=== PATIENT | female | born 1990 | race Caucasian/White ===

== ENCOUNTER 2016-09-26 15:06 | Outpatient (CLI) | payer OTHER ==
--- NOTE | 2016-09-26 15:59 | US ---
EXAMINATION TYPE: US OB limited third trimester DATE OF EXAM: 09/26/2016 3:43 PM COMPARISON: See PACS prior ultrasound April 21, 2016 CLINICAL HISTORY: US. Decreased movement, pt states known low ANNY EXAM PERFORMED: Transabdominal (TA) pelvic ultrasound GESTATIONAL AGE / DATING Physician Established: (34 weeks/2 days) EDC: 11/05/2016 No growth performed on today?s study per ordering physician SURVEY ANNY: 4.7 cm Oligohydramnios HEART RATE: 128 bpm RHYTHM: Normal TECHNOLOGIST IMPRESSION: Low ANNY Results given to L&D at time of exam IMPRESSION: Low amniotic fluid index measuring between 4.5 and 4.7 cm is confirmed on images saved.
[2016-09-26 16:17] LABS: Basophils # (A) 0.1 k/uL (0-0.2); Basophils % (A) 1 %; CH 29.6; CHCM 33.1; Eosinophils # (A) 0.1 k/uL (0-0.7); Eosinophils % (A) 1 %; HCT 37.7 % (34.0-46.0); HDW 2.91; HGB 11.8 gm/dL (11.4-16.0); Luc # (Auto) 0.26; Luc % (Auto) 3; Lymphocytes # (A) 2.4 k/uL (1.0-4.8); Lymphocytes % (A) 23 %; MCH 28.2 pg (25.0-35.0); MCHC 31.3 g/dL (31.0-37.0); Mean Platelet Volume 9.7; Monocytes # (A) 0.5 k/uL (0-1.0); Monocytes % (A) 5 %; Neutrophils # (A) 7.2 k/uL (1.3-7.7); Neutrophils % (A) 68 %; RBC 4.19 m/uL (3.80-5.40); RDW 12.5 % (11.5-15.5); WBC 10.5 k/uL (3.8-10.6)
[2016-09-26 16:26] LABS: ALT 44 U/L (9-52); AST 40 U/L (14-36); Blood Urea Nitrogen 8 mg/dL (7-17); LDH 723 U/L (313-618); Non-African American GFR(MDRD) >60 (>60 ml/min/1.73 sqM); Uric Acid 5.5 mg/dL (3.7-7.4)
--- NOTE | 2016-09-26 16:44 | P.HPOB ---
History of Present Illness H&P Date: 09/26/16 Chief Complaint: Intrauterine 34 weeks: Oligohydramnios Kesha is a 26-year-old at 34 weeks gestation. Patient arrived due to decreased movement however baby has been moving well here. She has a history of cholestasis with this and is seen high risk already for this. She also has a known oligohydramnios. Repeat ultrasound done today reveals the fluid volume to be 4. Also her blood pressures since being here even in a reclined position have been elevated. The majority of her blood pressures have been the 140s over 90s. She's had a couple of 150 over 90s and 1 180/87 I'm not sure that that is a true value she did say she was moving her arm a lot right is a were doing the blood pressure. She denies headache she denies epigastric pain she has no other signs or symptoms of preeclampsia. Clamped labs were drawn her AST needle T are slightly elevated. In comparison to May the rectus slightly improved but they are elevated. Her LDH level however is elevated to 723. After discussing possible treatment measures and explaining risks of delivering a baby at 34 weeks at our Hospital where special care is unable to take care of the baby a decision to transfer her to [facility] under Dr. Rios or Rene has been made due to her prematurity and what appears to be worsening either preeclampsia versus gestational hypertension versus some atypical presentation with her cholestasis. This will also serve as a transfer note. Past Medical History Past Medical History: No Reported History Additional Past Medical History / Comment(s): cholelithiasis History of Any Multi-Drug Resistant Organisms: None Reported Additional Past Surgical History / Comment(s): splenectomy Past Psychological History: No Psychological Hx Reported, Anxiety Smoking Status: Never smoker Past Alcohol Use History: None Reported Past Drug Use History: None Reported Medications and Allergies Home Medications Medication Instructions Recorded Confirmed Type Ursodiol [Wolfgang] 250 mg PO Q48H 09/14/16 09/26/16 History Allergies Allergy/AdvReac Type Severity Reaction Status Date / Time No Known Allergies Allergy Verified 09/26/16 15:20 Exam Osteopathic Statement: *. No significant issues noted on an osteopathic structural exam other than those noted in the History and Physical/Consult. - Vital Signs Vital signs: Intake and Output 09/26/16 09/26/16 09/26/16 06:59 14:59 22:59 Other: Weight 91.172 kg Patient Weight 09/27/16 06:59 Weight 91.172 kg Results Result Diagrams: 09/26/16 15:50 09/26/16 15:50 Abnormal Lab Results - Last 24 Hours (Table) 09/26/16 Range/Units 15:50 AST 40 H (14-36) U/L Lactate Dehydrogenase 723 H (313-618) U/L
[2016-09-26 16:51] LABS: Appearance,Urine Cloudy (Clear); Bilirubin,Urine Negative (Negative); Glucose,Urine (UA) Negative (Negative); Ketones,Urine Negative (Negative); Leukocyte Esterase,Urine Large (Negative); Mucus,Urine Rare /hpf; Nitrite,Urine Negative (Negative); PH, Urine 6.5 (5.0-8.0); Particle Count 12246; Protein,Urine Trace (Negative); RBC,Urine 19 /hpf (0-5); Squamous Epithelial Cell,Urine 7 /hpf (0-4); UA Billing (MACRO vs. MICRO) MICRO; WBC,Urine 92 /hpf (0-5)
[2016-09-26] MEDS ORDERED: LACTATED RINGERS 1,000 ML IV SCH (17:00)
[2016-09-26] MEDS ORDERED: BETAMET ACET-BETAMETH SOD PHOS 6 MG/ML VIAL IM SCH (17:30)
== END 2016-09-26 17:56 | disposition critical access hospital (66) ==
LOC: FBPOP 15:06
PROVIDERS: ATTEND Obstetrics & Gynecology
DX: O36.8130 Decreased fetal movements, third trimester, not applicable or unspecified (principal); O41.03X0 Oligohydramnios, third trimester, not applicable or unspecified; Z3A.34 34 weeks gestation of pregnancy
CPT/HCPCS: 59025; 96360; 96372; 82565; 83615; 84450; 84460; 84520; 84550; 85025; 81001; 76815; G0463; J0702; 99214

== ENCOUNTER 2016-10-01 12:03 | Emergency (ER) | payer OTHER ==
[2016-10-01] MEDS ORDERED: SODIUM CHLORIDE 0.9% 1,000 ML IV STA (13:14)
[2016-10-01] MEDS ORDERED: ONDANSETRON 4 MG/2 ML VIAL IVP STA (13:25)
[2016-10-01] MEDS ORDERED: HYDROmorphone 1 MG/ML 1 ML SYRINGE IVP STA (13:25)
--- NOTE | 2016-10-01 13:27 | ED ---
General Adult HPI - General Source: patient, RN notes reviewed Mode of arrival: ambulatory Limitations: no limitations <Mk Voss - Last Filed: 10/01/16 16:06> <Deep Pickard - Last Filed: 10/01/16 22:09> - General Chief complaint: Headache Stated complaint: Headache post epidural Time Seen by Provider: 10/01/16 13:05 - History of Present Illness Initial comments: Patient 26-year-old female status post epidural 2 days, who presents emergency room today with a chief complaint of a headache. She does admit that the headache is worse when she is standing up and moving around. States better when she is laying flat. Does admit that she had this epidural done over at [facility]. She states that she had an intelligence intern performed the epidural. States that it is 3 times altogether. She states she does not feel comfortable going back down was advised by the VISUAL DESIGNER to come here to [facility] today for blood patch. Patient denies any other complaints or symptoms currently. Patient denies any recent fever, chills, shortness of breath , chest pain, back pain, abdominal pain, nausea or vomiting, numbness or tingling, dysuria or hematuria, constipation or diarrhea, headaches or visual changes, or any other complaints. (Mk Voss) - Related Data Home Medications Medication Instructions Recorded Confirmed Ibuprofen [Motrin] 400 - 800 mg PO Q6H PRN 10/01/16 10/01/16 Allergies Allergy/AdvReac Type Severity Reaction Status Date / Time No Known Allergies Allergy Verified 10/01/16 13:37 Review of Systems ROS Other: All systems not noted in ROS Statement are negative. <Mk Voss - Last Filed: 10/01/16 16:06> ROS Other: All systems not noted in ROS Statement are negative. <Deep Pickard - Last Filed: 10/01/16 22:09> ROS Statement: Those systems with pertinent positive or pertinent negative responses have been documented in the HPI. Past Medical History Past Medical History: No Reported History Additional Past Medical History / Comment(s): cholelithiasis History of Any Multi-Drug Resistant Organisms: None Reported Additional Past Surgical History / Comment(s): splenectomy Past Psychological History: Anxiety Smoking Status: Never smoker Past Alcohol Use History: None Reported Past Drug Use History: None Reported <Mk Voss - Last Filed: 10/01/16 16:06> General Exam Limitations: no limitations <Mk Voss - Last Filed: 10/01/16 16:06> <Deep Pickard - Last Filed: 10/01/16 22:09> - General Exam Comments Initial Comments: General: The patient is awake and alert, in no distress, and does not appear acutely ill. Eye: Pupils are equal, round and reactive to light, extra-ocular movements are intact. No nystagmus. There is normal conjunctiva bilaterally. No signs of icterus. Ears, nose, mouth and throat: There are moist mucous membranes and no oral lesions. Neck: The neck is supple, there is no tenderness or JVD. Cardiovascular: There is a regular rate and rhythm. No murmur, rub or gallop is appreciated. Respiratory: Lungs are clear to auscultation, respirations are non-labored, breath sounds are equal. No wheezes, stridor, rales, or rhonchi. Gastrointestinal: Soft, non-distended, non-tender abdomen without masses or organomegaly noted. There is no rebound or guarding present. No CVA tenderness. Bowel sounds are unremarkable. Musculoskeletal: Normal ROM, no tenderness. Strength 5/5. Sensation intact. Pulses equal bilaterally 2+. Neurological: A&O x 3. CN II-XII intact, There are no obvious motor or sensory deficits. Coordination appears grossly intact. Speech is normal. Skin: Skin is warm and dry and no rashes or lesions are noted. Psychiatric: Cooperative, appropriate mood & affect, normal judgment. (Mk Voss) Medical Decision Making <Mk Voss - Last Filed: 10/01/16 16:06> <Deep Pickard - Last Filed: 10/01/16 22:09> - Medical Decision Making Blood patch performed by anesthesia here in the emergency room. Patient feeling well. Will be discharged home. (Mk Voss) I saw this patient in conjunction with the physician child center assistant. I performed independent history and physical exam. Agree with case management. (Deep Pickard) Disposition Time of Disposition: 16:06 <Mk Voss - Last Filed: 10/01/16 16:06> <Deep Pickard - Last Filed: 10/01/16 22:09> Clinical Impression: Post lumbar puncture headache Disposition: HOME SELF-CARE Condition: Good Instructions: Acute Headache (ED) Additional Instructions: Please follow-up with family doctor in the next 2 days of symptoms have not improved. Please return to emergency room if the symptoms increase or worsen or for any other concerns. Referrals: None,Stated [Primary Care Provider] - 1-2 days
[2016-10-01 16:10] VITALS: BP 132/71; PULSE 78; RESP 18; TEMP 97.7
--- NOTE | 2016-10-01 16:13 | P.PCN ---
Date of Procedure: 10/01/16 Procedure(s) Performed: Operation= epidural blood patch. preoperative diagnosis= post dural puncture headache. Post operative diagnoses= post dural puncture headache. Anesthesia= local infiltration with lidocaine 1% 3 mL. Condition= stable. Complications= none. Indication for the procedure= this patient had epidural/spinal a few days ago, and currently patient complaining of severe positional headache, improved with the supine position and increased with the sitting and standing position, and she is diagnosed with post dural puncture headache, there is no focal neurological deficit, no fever,, and no neck stiffness, patient is a good candidate to have epidural blood patch, because the conservative treatment failed, risks and benefits of the procedure discussed with the patient and agreed with proceeding, Description of the procedure= patient in sitting position, back lumbar area prepped with chlorhexidine x3 times then the back draped , then L5 S1 interlaminar space local infiltration of the skin and subcu tissues with lidocaine 1% 3 mL, then 18-gauge Tuohy needle, advanced at the L5-S1 interlaminar space, as positive loss of resistance to normal saline, was no heme and no paresthesia, no cerebrospinal fluid, then after that 20 mL of autologous blood taken under strict sterile technique from the antecubital area was prepped with the chlorhexidine 3 times, and using Angiocath 20 ML of the blood taken from the right antecubital vein under strict sterile technique injected in the epidural space after negative aspiration for heme or cerebrospinal fluid, and there was no paresthesia, and after 15 ML of the blood injected in the epidural space and headache improved, and patient tolerated the procedure well without any complication and patient discharged home after discharge criteria met and patient will follow up with the primary care
== END 2016-10-01 16:14 | disposition home or self-care (01) ==
LOC: EC 12:03
DX: G97.1 Other reaction to spinal and lumbar puncture (principal); Y84.4 Aspiration of fluid as the cause of abnormal reaction of the patient, or of later complication, without mention of misadventure at the time of the procedure; F41.9 Anxiety disorder, unspecified
CPT/HCPCS: 62273; 99284; J2405; J1170

== ENCOUNTER → 2016-11-10 | Outpatient (CLI) | payer OTHER ==
--- NOTE | 2016-11-10 08:50 | US ---
EXAMINATION TYPE: US abdomen complete DATE OF EXAM: 11/10/2016 8:04 AM COMPARISON: 07/17/2016 CLINICAL HISTORY: R10.11 RUQ pain. HX of cholelithiasis, no pain, NPO, Splenectomy in 2008 EXAM MEASUREMENTS: Liver Length: 18.3 cm Gallbladder Wall: 0.2 cm CHD: 0.3 cm Spleen: Surgically absent cm Right Kidney: 10.8 x 4.8 x 4.0 cm Left Kidney: 10.2 x 5.1 x 4.8 cm Pancreas: tail not seen due to overlying bowel gasl Liver: upper limits enlargement Gallbladder: multiple mobile stones Evidence for sonographic López's sign: neg CHD: wnl Spleen: Surgically absent Right Kidney: wnl Left Kidney: wnl Upper IVC: seen Abd Aorta: seen The liver is homogenous but mildly enlarged there is evidence of cholelithiasis without wall thickeni ng or pericholecystic fluid.. The intrahepatic portion of the IVC and proximal abdominal aorta are w ithin normal limits. Common bile duct is unremarkable. The visualized portions of the pancreas are h omogenous. The spleen is surgically absent. Kidneys are symmetric and free of hydronephrosis. No re nal lesions are seen. IMPRESSION: 1. Uncomplicated cholelithiasis. 2. Mild hepatic prominence. 3. Changes of prior splenectomy.
== END | disposition home or self-care (01) ==
LOC: RADUSWWP 07:34
PROVIDERS: ATTEND Family Medicine
DX: O99.619 Diseases of the digestive system complicating pregnancy, unspecified trimester (principal); K80.20 Calculus of gallbladder without cholecystitis without obstruction; Z3A.00 Weeks of gestation of pregnancy not specified
CPT/HCPCS: 76700

== ENCOUNTER → 2017-05-25 | Outpatient (CLI) | payer OTHER ==
[2017-05-25 12:44] LABS: CH 29.2; CHCM 34.4; HCT 33.2 % (34.0-46.0); HDW 2.83; HGB 11.7 gm/dL (11.4-16.0); MCH 29.9 pg (25.0-35.0); MCHC 35.1 g/dL (31.0-37.0); MCV 85.2 fL (80.0-100.0); RBC 3.89 m/uL (3.80-5.40); RDW 13.5 % (11.5-15.5); WBC 15.4 k/uL (3.8-10.6)
[2017-05-25 17:52] LABS: ALT 38 U/L (9-52); AST 32 U/L (14-36); Glucose 72 mg/dL (74-99); Non-African American GFR(MDRD) >60 (>60 ml/min/1.73 sqM)
[2017-05-25 18:17] LABS: Hepatitis B Surface Ag Index 0.06
[2017-05-26 01:01] LABS: Treponemal Ab Non-Reactive (Non-Reactive)
[2017-05-26 05:49] LABS: Toxoplasma Antibody (IgG) <3.0 IU/mL (<7.2)
== END | disposition home or self-care (01) ==
LOC: LABWHC1 12:02
PROVIDERS: ATTEND Obstetrics & Gynecology
DX: O26.812 Pregnancy related exhaustion and fatigue, second trimester (principal); Z3A.00 Weeks of gestation of pregnancy not specified
CPT/HCPCS: 36415; 82239; 82565; 82947; 84450; 84460; 85027; 86762; 86777; 86778; 86780; 86850; 86900; 86901; 87340; 87390

== ENCOUNTER 2017-07-05 21:44 | Outpatient (CLI) | payer OTHER ==
[2017-07-05 22:48] VITALS: BP 121/66; PULSE 75; RESP 16; TEMP 98.4
--- NOTE | 2017-07-06 08:16 | P.MSEPDOC ---
Presenting Problems - Arrival Data Date of Arrival on Unit: 07/05/17 Time of Arrival on Unit: 21:49 Mode of Transport: Ambulatory - Complaint OB-Reason for Admission/Chief Complaint: Vaginal Bleeding Comment: "chunky blood" when wiping after using bathroom. only happened 1 time Medical History - Information : 3 Para: 2 Term: 2 : 0 Abortions: Spontaneous or Elective: 0 Number of Living Children: 2 - Gestational Age Gestational Age by DELMIS (wks/days): 22 Weeks and 6 Days - History Comment: positive for trich last week. flagyl script given then pt has not taken regularly. spec exam today shows copious yellow green vag discharge with small streaks of blood. pt unable to tell me how she has taken flagyl past week and if she takes daily. partner was also given flagyl last week but supposedly finished his. Review of Systems - Review of Systems Constitutional: No problems Breast: No problems ENT: No problems Cardiovascular: No problems Respiratory: No problems Gastrointestinal: No problems Genitourinary: No problems Musculoskeletal: No problems Neurological: No problems Skin: No problems Comment: vag discharge yellow green. Vital Signs - Temperature Temperature: 98.4 F Temperature Source: Oral - Pulse Right Pulse Rate: 75 Pulse Assessment Method: Automatic Cuff - Respirations Respiratory Rate: 16 Oxygen Delivery Method: Room Air - Blood Pressure Right Arm Blood Pressure: 121/66 Blood Pressure Mean: 84 Blood Pressure Source: Automatic Cuff Medical Screen Scoring (Pre) - Cervical Exam Dilation: Exam Deferred - Uterine Contractions Frequency: N/A - Maternal Vital Signs Maternal Temperature: N/A Signs of Preeclampsia: N/A Maternal Respirations: N/A - Maternal Trauma Maternal Trauma: N/A - Assessment Baseline FHR: 150 Position: N/A - Total Score Total Score (Pre): 0 - Level of Risk Level of Risk: N/A Physician Notification (Pre) - Physician Notified Physician Notified Date: 07/05/17 Physician Notified Time: 22:00 Physician/Practitioner Notifed:: Dr Millard New Order Received: Yes - Notification Comment Comment: spec exam and discharge if no bleeding noted . Spec revealed yellow green vag discharge. dr donald per phone. discharge order received Disposition - Disposition OB Disposition: Discharge to home, Written follow up instructions reviewed Discharge Date: 07/05/17 Discharge Time: 22:22 I agree with the RN Medical Screening Exam: Yes Risk & Benefit of care provided described in d/c instruction: Yes Diagnosis: RELATED CONDITIONS, UNSPECIFIED, SECOND TRIMESTER (vaginal bleeding. u/s normal)
== END 2017-07-05 22:30 | disposition home or self-care (01) ==
LOC: FBPOP 21:44
PROVIDERS: ATTEND Obstetrics & Gynecology
DX: O26.92 Pregnancy related conditions, unspecified, second trimester (principal); Z3A.22 22 weeks gestation of pregnancy
CPT/HCPCS: 99213

== ENCOUNTER → 2017-08-10 | Outpatient (CLI) | payer OTHER ==
[2017-08-10 10:43] LABS: CH 27.9; CHCM 32.3; HCT 33.4 % (34.0-46.0); HDW 2.99; HGB 10.9 gm/dL (11.4-16.0); Hypochromasia Slight; MCH 28.3 pg (25.0-35.0); MCHC 32.5 g/dL (31.0-37.0); MCV 86.9 fL (80.0-100.0); Mean Platelet Volume 9.5; RBC 3.85 m/uL (3.80-5.40); RDW 13.1 % (11.5-15.5); WBC 14.7 k/uL (3.8-10.6)
== END | disposition home or self-care (01) ==
LOC: LABWHC1 09:20
PROVIDERS: ATTEND Obstetrics & Gynecology
DX: Z34.82 Encounter for supervision of other normal pregnancy, second trimester (principal); Z3A.00 Weeks of gestation of pregnancy not specified
CPT/HCPCS: 36415; 82950; 85027

== ENCOUNTER 2018-04-30 08:48 | Emergency (ER) | payer OTHER ==
[2018-04-30 09:59] VITALS: RESP 20
[2018-04-30 10:07] LABS: Basophils # (A) 0.1 k/uL (0-0.2); Basophils % (A) 1 %; Eosinophils # (A) 0.3 k/uL (0-0.7); Eosinophils % (A) 4 %; HCT 43.2 % (34.0-46.0); HGB 13.9 gm/dL (11.4-16.0); Lymphocytes % (A) 27 %; MCH 26.3 pg (25.0-35.0); MCHC 32.1 g/dL (31.0-37.0); Mean Platelet Volume 7.4; Monocytes # (A) 0.4 k/uL (0-1.0); Monocytes % (A) 6 %; Neutrophils # (A) 4.6 k/uL (1.3-7.7); Neutrophils % (A) 61 %; Platelet Count 473 k/uL (150-450); RBC 5.27 m/uL (3.80-5.40); RDW 14.1 % (11.5-15.5); WBC 7.6 k/uL (3.8-10.6)
[2018-04-30 10:12] LABS: Appearance,Urine Cloudy (Clear); Bilirubin,Urine Negative (Negative); Blood,Urine Large (Negative); Color,Urine Yellow; Glucose,Urine (UA) Negative (Negative); Ketones,Urine Negative (Negative); Leukocyte Esterase,Urine Moderate (Negative); Mucus,Urine Rare /hpf; Nitrite,Urine Negative (Negative); PH, Urine 5.5 (5.0-8.0); Protein,Urine Trace (Negative); RBC,Urine >182 /hpf (0-5); Specific Gravity,Urine 1.022 (1.001-1.035); Squamous Epithelial Cell,Urine 3 /hpf (0-4); WBC,Urine 14 /hpf (0-5)
[2018-04-30 10:20] LABS: ALT 226 U/L (9-52); AST 152 U/L (14-36); Albumin 4.6 g/dL (3.5-5.0); Alkaline Phosphatase 239 U/L (38-126); Amylase 74 U/L (30-110); Anion Gap 10 mmol/L; Blood Urea Nitrogen 15 mg/dL (7-17); Carbon Dioxide 31 mmol/L (22-30); Chloride 101 mmol/L (98-107); Glucose 87 mg/dL (74-99); Lipase 128 U/L (23-300); Sodium 142 mmol/L (137-145); Total Bilirubin 0.9 mg/dL (0.2-1.3); Total Protein 8.5 g/dL (6.3-8.2)
--- NOTE | 2018-04-30 11:39 | US ---
EXAMINATION TYPE: US abdomen limited DATE OF EXAM: 04/30/2018 COMPARISON: Previous study dated 11/10/2016. CLINICAL HISTORY: Pain. EXAM MEASUREMENTS: Liver Length: 18.1 cm Gallbladder Wall: 0.2 cm CBD: 0.3 cm Right Kidney: 11.3 x 3.5 x 5.4 cm Limited due to bowel gas. Pancreas: Obscured by bowel gas Liver: Measures upper limits of normal Gallbladder: 2 large cholelithiasis noted Evidence for sonographic López's sign: No CBD: wnl Right Kidney: wnl The pancreas is poorly visualized. The liver is prominent measuring 18 cm. There is no biliary dilatation. There are 2 large gallstones within the gallbladder. The gallbladder wall measures 2 mm. The distal c ommon hepatic duct measures 3 mm. There is no sonographic López's sign. The right kidney is unremarkable. IMPRESSION: CHOLELITHIASIS.
--- NOTE | 2018-04-30 12:07 | ED ---
General Adult HPI - General Chief complaint: Abdominal Pain Stated complaint: abd pain Time Seen by Provider: 04/30/18 08:58 Source: patient, RN notes reviewed Mode of arrival: ambulatory Limitations: no limitations - History of Present Illness Initial comments: Patient is a 28-year-old female presented to the emergency room today with a chief complaint of a fullness sensation to the upper abdomen. She does admit that it's been ongoing over the last few weeks. States seems to be worse at night when she is trying to go to bed. Patient does admit at times with after eating certain foods she's noticed that she's had some symptoms of nausea and discomfort. Patient does admit that she was told the past that she had a history of gallstones. Patient also noticed some itching. Patient denies any other complaints or symptoms currently. Patient denies any recent fever, chills , shortness of breath, chest pain, back pain, vomiting, headaches or visual changes, or any other complaints. - Related Data Home Medications Medication Instructions Recorded Confirmed Ursodiol [Actigall] 300 mg PO QID 07/05/17 07/05/17 hydrOXYzine HCL [Atarax] 25 mg PO TID 07/05/17 07/05/17 Pnv,Calcium 72/Iron/Folic Acid 1 tab PO DAILY 09/15/17 09/15/17 [ Plus Tablet] Allergies Allergy/AdvReac Type Severity Reaction Status Date / Time No Known Allergies Allergy Verified 04/30/18 08:51 Review of Systems ROS Statement: Those systems with pertinent positive or pertinent negative responses have been documented in the HPI. ROS Other: All systems not noted in ROS Statement are negative. Past Medical History Past Medical History: No Reported History Additional Past Medical History / Comment(s): cholestasis of History of Any Multi-Drug Resistant Organisms: None Reported Additional Past Surgical History / Comment(s): splenectomy Past Psychological History: Anxiety Smoking Status: Never smoker Past Alcohol Use History: None Reported Past Drug Use History: None Reported General Exam - General Exam Comments Initial Comments: General: The patient is awake and alert, in no distress, and does not appear acutely ill. Eye: extra-ocular movements are intact. No nystagmus. There is normal conjunctiva bilaterally. No signs of icterus. Ears, nose, mouth and throat: There are moist mucous membranes and no oral lesions. Neck: The neck is supple, there is no tenderness or JVD. Cardiovascular: There is a regular rate and rhythm. No murmur, rub or gallop is appreciated. Respiratory: Lungs are clear to auscultation, respirations are non-labored, breath sounds are equal. No wheezes, stridor, rales, or rhonchi. Gastrointestinal: Mild discomfort in epigastric. No tenderness in upper and lower quadrants. No rebound, guarding or CVA tenderness. Musculoskeletal: Normal ROM, no tenderness. Sensation intact. Pulses equal bilaterally 2+. Neurological: A&O x 3. CN II-XII intact, There are no obvious motor or sensory deficits. Coordination appears grossly intact. Speech is normal. Skin: Skin is warm and dry and no rashes or lesions are noted. Psychiatric: Cooperative, appropriate mood & affect, normal judgment. Limitations: no limitations Course Vital Signs 04/30/18 08:49 Temperature 98.4 F Pulse Rate 67 Respiratory 20 Rate Blood Pressure 110/72 O2 Sat by Pulse 98 Oximetry Medical Decision Making - Medical Decision Making Patient's ultrasound does show evidence of a physis without any evidence of cholecystitis. Patient's labs been reviewed and does show elevated liver enzymes. Compared to old. Patient resting with this time. Abdomen soft on palpation. She is advised following up with family physician and GI. Advised return if symptoms increase or worsen - Lab Data Result diagrams: 04/30/18 09:57 04/30/18 09:57 Lab Results 04/30/18 04/30/18 04/30/18 Range/Units 09:53 09:53 09:57 WBC (3.8-10.6) k/uL RBC (3.80-5.40) m/uL Hgb (11.4-16.0) gm/dL Hct (34.0-46.0) % MCV (80.0-100.0) fL MCH (25.0-35.0) pg MCHC (31.0-37.0) g/dL RDW (11.5-15.5) % Plt Count (150-450) k/uL Neutrophils % % Lymphocytes % % Monocytes % % Eosinophils % % Basophils % % Neutrophils # (1.3-7.7) k/uL Lymphocytes # (1.0-4.8) k/uL Monocytes # (0-1.0) k/uL Eosinophils # (0-0.7) k/uL Basophils # (0-0.2) k/uL Sodium 142 (137-145) mmol/L Potassium 4.0 (3.5-5.1) mmol/L Chloride 101 (98-107) mmol/L Carbon Dioxide 31 H (22-30) mmol/L Anion Gap 10 mmol/L BUN 15 (7-17) mg/dL Creatinine 0.77 (0.52-1.04) mg/dL Est GFR (CKD-EPI)AfAm >90 (>60 ml/min/1.73 sqM) Est GFR (CKD-EPI)NonAf >90 (>60 ml/min/1.73 sqM) Glucose 87 (74-99) mg/dL Calcium 10.0 (8.4-10.2) mg/dL Total Bilirubin 0.9 (0.2-1.3) mg/dL AST 152 H (14-36) U/L ALT 226 H (9-52) U/L Alkaline Phosphatase 239 H (38-126) U/L Total Protein 8.5 H (6.3-8.2) g/dL Albumin 4.6 (3.5-5.0) g/dL Amylase 74 (30-110) U/L Lipase 128 (23-300) U/L Urine Color Yellow Urine Appearance Cloudy H (Clear) Urine pH 5.5 (5.0-8.0) Ur Specific Reserve 1.022 (1.001-1.035) Urine Protein Trace H (Negative) Urine Glucose (UA) Negative (Negative) Urine Ketones Negative (Negative) Urine Blood Large H (Negative) Urine Nitrite Negative (Negative) Urine Bilirubin Negative (Negative) Urine Urobilinogen 2.0 (<2.0) mg/dL Ur Leukocyte Esterase Moderate H (Negative) Urine RBC >182 H (0-5) /hpf Urine WBC 14 H (0-5) /hpf Ur Squamous Epith Cells 3 (0-4) /hpf Urine Mucus Rare H (None) /hpf Urine HCG, Qual Not Detected (Not Detectd) 04/30/18 Range/Units 09:57 WBC 7.6 (3.8-10.6) k/uL RBC 5.27 (3.80-5.40) m/uL Hgb 13.9 (11.4-16.0) gm/dL Hct 43.2 (34.0-46.0) % MCV 82.0 (80.0-100.0) fL MCH 26.3 (25.0-35.0) pg MCHC 32.1 (31.0-37.0) g/dL RDW 14.1 (11.5-15.5) % Plt Count 473 H (150-450) k/uL Neutrophils % 61 % Lymphocytes % 27 % Monocytes % 6 % Eosinophils % 4 % Basophils % 1 % Neutrophils # 4.6 (1.3-7.7) k/uL Lymphocytes # 2.0 (1.0-4.8) k/uL Monocytes # 0.4 (0-1.0) k/uL Eosinophils # 0.3 (0-0.7) k/uL Basophils # 0.1 (0-0.2) k/uL Sodium (137-145) mmol/L Potassium (3.5-5.1) mmol/L Chloride (98-107) mmol/L Carbon Dioxide (22-30) mmol/L Anion Gap mmol/L BUN (7-17) mg/dL Creatinine (0.52-1.04) mg/dL Est GFR (CKD-EPI)AfAm (>60 ml/min/1.73 sqM) Est GFR (CKD-EPI)NonAf (>60 ml/min/1.73 sqM) Glucose (74-99) mg/dL Calcium (8.4-10.2) mg/dL Total Bilirubin (0.2-1.3) mg/dL AST (14-36) U/L ALT (9-52) U/L Alkaline Phosphatase (38-126) U/L Total Protein (6.3-8.2) g/dL Albumin (3.5-5.0) g/dL Amylase (30-110) U/L Lipase (23-300) U/L Urine Color Urine Appearance (Clear) Urine pH (5.0-8.0) Ur Specific Reserve (1.001-1.035) Urine Protein (Negative) Urine Glucose (UA) (Negative) Urine Ketones (Negative) Urine Blood (Negative) Urine Nitrite (Negative) Urine Bilirubin (Negative) Urine Urobilinogen (<2.0) mg/dL Ur Leukocyte Esterase (Negative) Urine RBC (0-5) /hpf Urine WBC (0-5) /hpf Ur Squamous Epith Cells (0-4) /hpf Urine Mucus (None) /hpf Urine HCG, Qual (Not Detectd) Disposition Clinical Impression: Elevated liver enzymes, Abdominal pain Disposition: HOME SELF-CARE Condition: Good Instructions: Abdominal Pain (ED) Additional Instructions: Please follow-up with GI/family doctor in the next 2 days of symptoms have not improved. Please return to emergency room if the symptoms increase or worsen or for any other concerns. Is patient prescribed a controlled substance at d/c from ED?: No Referrals: Rufino Elmroe DO [Primary Care Provider] - 1-2 days Kaz Joseph MD [STAFF PHYSICIAN] - 1-2 days Time of Disposition: 12:06
[2018-04-30 12:26] VITALS: BP 124/82; PULSE 78; TEMP 98
== END 2018-04-30 12:26 | disposition home or self-care (01) ==
LOC: EC 08:48
DX: R74.8 Abnormal levels of other serum enzymes (principal); R10.10 Upper abdominal pain, unspecified; R11.0 Nausea; L29.9 Pruritus, unspecified; R19.8 Other specified symptoms and signs involving the digestive system and abdomen; F41.9 Anxiety disorder, unspecified; Z79.899 Other long term (current) drug therapy; Z90.81 Acquired absence of spleen
CPT/HCPCS: 36415; 76705; 80053; 81001; 81025; 82150; 83690; 85025; 99284

== ENCOUNTER 2018-07-04 01:16 | Emergency (ER) | payer OTHER ==
[2018-07-04 01:22] VITALS: TEMP 98.4
[2018-07-04] MEDS ORDERED: SODIUM CHLORIDE 0.9% 2,000 ML IV ONE (01:24)
[2018-07-04] MEDS ORDERED: ONDANSETRON 4 MG/2 ML VIAL IVP STA (01:24)
--- NOTE | 2018-07-04 03:00 | ED ---
General Adult HPI - General Chief complaint: Psychiatric Symptoms Stated complaint: mental health Time Seen by Provider: 07/04/18 01:24 Source: patient, EMS Mode of arrival: EMS Limitations: no limitations - History of Present Illness Initial comments: Kesha is a 28-year-old female who presents to the emergency department today for evaluation of feeling unwell, nausea, vomiting and agitation. Patient reports that she ate half of a marijuana edible gummy approximately 2 hours prior, in the past 30 minutes she's developed some nausea, agitation and states she doesn't feel like herself. Patient did report to EMS and nursing staff that she felt aggressive towards others. She vomited multiple times prior to my evaluation. Upon my evaluation the patient reported that she was feeling better, she still didn't feel like herself and didn't like the way that she felt. She denied any thoughts of self-harm or harming others. She did admit to feeling agitated and aggressive earlier but states that this was because she couldn't express how she is feeling otherwise. Patient is no psychiatric history. Patient denies having used recreational marijuana in the past. Patient states that this is the first time she has used edible marijuana. - Related Data Home Medications Medication Instructions Recorded Confirmed Ursodiol [Actigall] 300 mg PO QID 07/05/17 07/05/17 hydrOXYzine HCL [Atarax] 25 mg PO TID 07/05/17 07/05/17 Pnv,Calcium 72/Iron/Folic Acid 1 tab PO DAILY 09/15/17 09/15/17 [ Plus Tablet] Allergies Allergy/AdvReac Type Severity Reaction Status Date / Time No Known Allergies Allergy Verified 04/30/18 08:51 Review of Systems ROS Statement: Those systems with pertinent positive or pertinent negative responses have been documented in the HPI. ROS Other: All systems not noted in ROS Statement are negative. Past Medical History Past Medical History: No Reported History Additional Past Medical History / Comment(s): cholestasis of History of Any Multi-Drug Resistant Organisms: None Reported Past Surgical History: Tonsillectomy Additional Past Surgical History / Comment(s): splenectomy Past Psychological History: Anxiety Smoking Status: Never smoker Past Alcohol Use History: None Reported Past Drug Use History: Marijuana General Exam - General Exam Comments Initial Comments: Physical Exam GENERAL: Patient appears sleepy but is arousable HENT: Normocephalic, Atraumatic. EYES: PERRL, EOMI PULMONARY: Unlabored respirations. No audible rales rhonchi or wheezing was noted. CARDIOVASCULAR: There is a regular rate and rhythm without any murmurs gallops or rubs. ABDOMEN: Soft and nontender with normal bowel sounds. SKIN: Skin is clear with no lesions or rashes and otherwise unremarkable. : Deferred NEUROLOGIC: Patient is alert and oriented x3. Moving all extremities spontaneously MUSCULOSKELETAL: Normal extremities with adequate strength and full range of motion. No lower extremity swelling or edema. No calf tenderness. PSYCHIATRIC: Irritated but denies suicidal or homicidal ideations, not delusional, not hallucinating Limitations: no limitations Limitations: no limitations Course Vital Signs 07/04/18 07/04/18 01:18 03:17 Temperature 98.4 F Pulse Rate 129 H 63 Respiratory 19 18 Rate Blood Pressure 130/77 110/68 O2 Sat by Pulse 99 98 Oximetry - Reevaluation(s) Reevaluation #1: She was reevaluated, reports she is feeling much better. Patient continues to deny any suicidal, homicidal ideations. 07/04/18 05:17 EKG Findings - EKG Comments: EKG Findings:: EKG obtained at 2:46 AM, rate is 68, rhythm is sinus there is normal axis, normal intervals, CT is 152, QRS is 98, QTC is 457. There is no acute ST elevations or depressions no evidence of acute ischemia infarction. No QTC prolongation Medical Decision Making - Medical Decision Making The patient was seen and evaluated, history is obtained from patient and EMS Patient reports she does not usually use drugs, tried a marijuana edible today, became very agitated and felt that she wasn't in control of herself. Patient reported feeling aggressive because she felt out of body. In addition she had nausea and vomiting was tachycardic on arrival EKG was ordered, no QT prolongation, Zofran was given Patient rested comfortably for 3-1/2 hours. Upon reevaluation the patient reports feeling much better, denies any homicidal or suicidal ideations denies any hallucinations or delusions, denies any intention to harm anybody. Refrain from marijuana was advised and the patient was discharged home in stable condition. Disposition Clinical Impression: Intoxication with marijuana Disposition: HOME SELF-CARE Instructions: Cannabis Abuse (ED) Is patient prescribed a controlled substance at d/c from ED?: No Referrals: Rufino Elmore, [Primary Care Provider] - 1-2 days
[2018-07-04 03:18] VITALS: BP 110/68; PULSE 63; RESP 18
== END 2018-07-04 05:26 | disposition home or self-care (01) ==
LOC: EC 01:16
DX: F12.929 Cannabis use, unspecified with intoxication, unspecified (principal); R45.1 Restlessness and agitation; R11.2 Nausea with vomiting, unspecified; F41.9 Anxiety disorder, unspecified; Z79.899 Other long term (current) drug therapy
CPT/HCPCS: 93005; 99285; 96374; 96361; J2405

== ENCOUNTER 2018-08-25 17:42 | Emergency (ER) | payer OTHER ==
[2018-08-25 17:52] VITALS: TEMP 97.7
[2018-08-25] MEDS ORDERED: diphenhydrAMINE 50 MG CAP PO STA (18:31)
--- NOTE | 2018-08-25 18:49 | ED ---
SOB HPI - General Chief Complaint: Shortness of Breath Stated Complaint: CHESTER, BLURRED VISION, FATIQUE, POSS MED REACTION Time Seen by Provider: 08/25/18 18:02 Source: patient Mode of arrival: ambulatory Limitations: no limitations - History of Present Illness Initial Comments: 28-year-old female patient presents to the emergency department today for evaluation for possible side effects from her new antipsychotic medication. Patient states that she started taking the medication about a week to 2 weeks ago. States that she started to feel very fatigued, dizzy, and felt like she is having trouble breathing. Patient states she feels like her throat is closing. States that she is swallowing without difficulty. She denies any rash or itching. States that she did call her doctor but can't get in to see her for another week. She denies taking any medication to help with her symptoms. States her last dose of the medication was last evening. She denies any cough, nasal congestion, or sore throat. She denies any hematuria, dysuria , urinary frequency, urinary urgency. She is unsure if she maybe . Patient denies any recent fever, chills, chest pain, abdominal pain, nausea, vomiting, diarrhea, constipation, back pain, numbness, tingling, headache, visual changes, or any other complaints. - Related Data Home Medications Medication Instructions Recorded Confirmed Aviane 1 tab PO DAILY 08/25/18 08/25/18 Cariprazine HCl [Vraylar] 3 mg PO HS 08/25/18 08/25/18 Levothyroxine Sodium [Synthroid] 25 mcg PO DAILY 08/25/18 08/25/18 Previous Rx's Medication Instructions Recorded ALPRAZolam [Xanax] 0.5 mg PO TID PRN #9 tablet 08/25/18 Allergies Allergy/AdvReac Type Severity Reaction Status Date / Time No Known Allergies Allergy Verified 08/25/18 18:53 Review of Systems ROS Statement: Those systems with pertinent positive or pertinent negative responses have been documented in the HPI. ROS Other: All systems not noted in ROS Statement are negative. Past Medical History Past Medical History: No Reported History Additional Past Medical History / Comment(s): cholestasis of History of Any Multi-Drug Resistant Organisms: None Reported Past Surgical History: Tonsillectomy Additional Past Surgical History / Comment(s): splenectomy Past Psychological History: Anxiety Smoking Status: Never smoker Past Alcohol Use History: None Reported Past Drug Use History: Marijuana General Exam Limitations: no limitations General appearance: alert, in no apparent distress, other (This is a well- developed, well-nourished adult female patient in no acute distress. Vital signs upon presentation are temperature 97.7F, pulse 89, respirations 16, blood pressure 121/85, pulse ox 100% on room air.) Eye exam: Present: normal appearance, PERRL, EOMI. Absent: scleral icterus, conjunctival injection, nystagmus, periorbital swelling ENT exam: Present: normal exam, normal oropharynx, mucous membranes moist Respiratory exam: Present: normal lung sounds bilaterally, other (Able to speak full sentences without difficulty). Absent: respiratory distress, wheezes, rales, rhonchi, stridor Cardiovascular Exam: Present: regular rate, normal rhythm, normal heart sounds. Absent: systolic murmur, diastolic murmur, rubs, gallop, clicks GI/Abdominal exam: Present: soft, normal bowel sounds. Absent: distended, tenderness, guarding, rebound, rigid Neurological exam: Present: alert, oriented X3, CN II-XII intact, other ( Strength in all 4 extremities is 5/5.) Psychiatric exam: Present: normal mood, flat affect Skin exam: Present: warm, dry, intact, normal color. Absent: rash Course Vital Signs 08/25/18 08/25/18 08/25/18 17:49 18:40 19:36 Temperature 97.7 F Pulse Rate 89 69 Respiratory 16 20 18 Rate Blood Pressure 121/85 139/94 O2 Sat by Pulse 100 99 Oximetry Medical Decision Making - Medical Decision Making 28-year-old female patient presents to the emergency department today for side effects related to starting a new antipsychotic medication. She reports feeling fatigued, dizzy, and short of breath. Physical examination is unremarkable. Lungs are clear to auscultation with good air movement. Patient is speaking and swallowing without difficulty. She is neurologically intact. Patient started taking Vraylar about one week ago. States symptoms started after beginning the medication. Patient is not . Urinalysis negative. Patient was given Benadryl here in the emergency department. She is advised to stop taking this medication. She'll be given Xanax to control symptoms of anxiety until she is able to follow-up with her doctor. Return parameters were discussed in detail. She verbalizes understanding and agrees with this plan. - Lab Data Lab Results 08/25/18 08/25/18 Range/Units 18:25 18:25 Urine Color Yellow Urine Appearance Cloudy H (Clear) Urine pH 6.0 (5.0-8.0) Ur Specific [place] 1.017 (1.001-1.035) Urine Protein Negative (Negative) Urine Glucose (UA) Negative (Negative) Urine Ketones Negative (Negative) Urine Blood Negative (Negative) Urine Nitrite Negative (Negative) Urine Bilirubin Negative (Negative) Urine Urobilinogen <2.0 (<2.0) mg/dL Ur Leukocyte Esterase Large H (Negative) Urine RBC 1 (0-5) /hpf Urine WBC 6 H (0-5) /hpf Ur Squamous Epith Cells 14 H (0-4) /hpf Urine Bacteria Occasional H (None) /hpf Urine Mucus Rare H (None) /hpf Urine HCG, Qual Not Detected (Not Detectd) Urine Opiates Screen Not Detected (NotDetected) Ur Oxycodone Screen Not Detected (NotDetected) Urine Methadone Screen Not Detected (NotDetected) Ur Propoxyphene Screen Not Detected (NotDetected) Ur Barbiturates Screen Not Detected (NotDetected) U Tricyclic Antidepress Not Detected (NotDetected) Ur Phencyclidine Scrn Not Detected (NotDetected) Ur Amphetamines Screen Not Detected (NotDetected) U Methamphetamines Scrn Not Detected (NotDetected) U Benzodiazepines Scrn Not Detected (NotDetected) Urine Cocaine Screen Not Detected (NotDetected) U Marijuana (THC) Screen Not Detected (NotDetected) Disposition Clinical Impression: Medication reaction Disposition: HOME SELF-CARE Condition: Good Instructions: Dizziness (ED), Fatigue (ED), Shortness of Breath (ED) Additional Instructions: Take benadryl as needed for symptom relief. Stop taking the medication. Use xanax as needed for anxiety. Follow up with your primary care physician for recheck in 1-2 days. Return immediately for new, worsening, or concerning symptoms. Prescriptions: ALPRAZolam [Xanax] 0.5 mg PO TID PRN #9 tablet PRN Reason: Anxiety Is patient prescribed a controlled substance at d/c from ED?: No Referrals: Rufino Elmore DO [Primary Care Provider] - 1-2 days Time of Disposition: 19:10
[2018-08-25 18:53] LABS: Appearance,Urine Cloudy (Clear); Bacteria,Urine Occasional /hpf; Bilirubin,Urine Negative (Negative); Blood,Urine Negative (Negative); Color,Urine Yellow; Glucose,Urine (UA) Negative (Negative); Ketones,Urine Negative (Negative); Leukocyte Esterase,Urine Large (Negative); Mucus,Urine Rare /hpf; Nitrite,Urine Negative (Negative); Protein,Urine Negative (Negative); RBC,Urine 1 /hpf (0-5); Specific Gravity,Urine 1.017 (1.001-1.035); Squamous Epithelial Cell,Urine 14 /hpf (0-4); Urobilinogen,Urine <2.0 mg/dL (<2.0); WBC,Urine 6 /hpf (0-5)
[2018-08-25 19:00] LABS: Amphetamine Screen,Urine Not Detected (NotDetected); Barbiturate Screen,Urine Not Detected (NotDetected); Benzodiazepines Screen,Urine Not Detected (NotDetected); Cocaine Screen,Urine Not Detected (NotDetected); Methadone Screen, Urine Not Detected (NotDetected); Opiate Screen,Urine Not Detected (NotDetected); Oxycodone Screen, Urine Not Detected (NotDetected); Phencyclidine Screen,Urine Not Detected (NotDetected); Tricyclic Antidepressant,Urine Not Detected (NotDetected); Urn Cannabinoid Scrn Not Detected (NotDetected)
[2018-08-25 19:36] VITALS: BP 139/94; PULSE 69; RESP 18
== END 2018-08-25 19:36 | disposition home or self-care (01) ==
LOC: EC 17:42
DX: R06.02 Shortness of breath (principal); R42 Dizziness and giddiness; R53.83 Other fatigue; T43.505A Adverse effect of unspecified antipsychotics and neuroleptics, initial encounter; F41.9 Anxiety disorder, unspecified; Z79.899 Other long term (current) drug therapy
CPT/HCPCS: 80306; 81001; 81025; 87086; 99284

== ENCOUNTER 2018-11-03 23:31 | Emergency (ER) | payer OTHER ==
[2018-11-03 23:42] VITALS: TEMP 98.4
--- NOTE | 2018-11-04 01:03 | ED ---
Abdominal Pain HPI - General Chief Complaint: Abdominal Pain Stated Complaint: Chest Pain Time Seen by Provider: 11/04/18 00:19 Source: patient Mode of arrival: ambulatory Limitations: no limitations - History of Present Illness Initial Comments: 's patient is a 28-year-old woman who presents to be evaluate for upper abdominal pain that started approximately 2 hours ago. The patient states she has had similar pains intermittently for a couple months. She was seen and told that it may be related to her gallbladder. Patient reports that she had eaten [employer] tonight and then was trying to go to bed. She developed aching upper abdominal pain. Moderate intensity. She states the pain was constant and she did not note any worsening or relieving factors. She is a little nauseated. No other associated symptoms. MD Complaint: abdominal pain Onset/Timin -: hour(s) Location: epigastric Radiation: none Migration to: no migration Severity: moderate Quality: aching Consistency: constant Improves With: nothing Worsens With: nothing Associated Symptoms: nausea - Related Data LMP (females 10-50): last week Home Medications Medication Instructions Recorded Confirmed Aviane 1 tab PO DAILY 08/25/18 08/25/18 Cariprazine HCl [Vraylar] 3 mg PO HS 08/25/18 08/25/18 Levothyroxine Sodium [Synthroid] 25 mcg PO DAILY 08/25/18 08/25/18 Previous Rx's Medication Instructions Recorded ALPRAZolam [Xanax] 0.5 mg PO TID PRN #9 tablet 08/25/18 Famotidine [Pepcid] 20 mg PO BID #14 tablet 11/04/18 Nitrofurantoin Monohyd/M-Cryst 100 mg PO Q12HR #6 cap 11/04/18 [Macrobid] Allergies Allergy/AdvReac Type Severity Reaction Status Date / Time No Known Allergies Allergy Verified 11/03/18 23:41 Review of Systems ROS Statement: Those systems with pertinent positive or pertinent negative responses have been documented in the HPI. ROS Other: All systems not noted in ROS Statement are negative. Constitutional: Denies: fever, chills Respiratory: Denies: cough, dyspnea Cardiovascular: Denies: chest pain, palpitations, edema Gastrointestinal: Reports: abdominal pain, nausea. Denies: vomiting, diarrhea, constipation Genitourinary: Denies: dysuria, hematuria Musculoskeletal: Denies: back pain Skin: Denies: rash Neurological: Denies: headache, weakness, numbness Past Medical History Past Medical History: No Reported History Additional Past Medical History / Comment(s): cholestasis of History of Any Multi-Drug Resistant Organisms: None Reported Past Surgical History: Tonsillectomy Additional Past Surgical History / Comment(s): splenectomy Past Psychological History: Anxiety Smoking Status: Never smoker Past Alcohol Use History: None Reported Past Drug Use History: Marijuana General Exam Limitations: no limitations General appearance: alert, in no apparent distress Head exam: Present: atraumatic, normocephalic Eye exam: Present: normal appearance. Absent: scleral icterus, conjunctival injection ENT exam: Present: normal oropharynx Neck exam: Present: normal inspection Respiratory exam: Present: normal lung sounds bilaterally. Absent: respiratory distress, wheezes, rales, rhonchi, stridor Cardiovascular Exam: Present: regular rate, normal rhythm, normal heart sounds. Absent: systolic murmur, diastolic murmur, rubs, gallop GI/Abdominal exam: Present: soft, tenderness (Mild epigastric tenderness, no rebound or guarding). Absent: distended, guarding, rebound, normal bowel sounds , mass Extremities exam: Present: normal inspection, normal capillary refill. Absent: pedal edema, calf tenderness Back exam: Present: normal inspection. Absent: CVA tenderness (R), CVA tenderness (L) Neurological exam: Present: alert Skin exam: Present: warm, dry, intact, normal color. Absent: rash Course Vital Signs 11/03/18 11/04/18 23:38 05:00 Temperature 98.4 F Pulse Rate 72 64 Respiratory 18 20 Rate Blood Pressure 112/70 101/45 O2 Sat by Pulse 99 99 Oximetry Medical Decision Making - Lab Data Result diagrams: 11/04/18 01:05 11/04/18 01:05 Lab Results 11/04/18 11/04/18 11/04/18 Range/Units 01:05 01:05 01:05 WBC (3.8-10.6) k/uL RBC (3.80-5.40) m/uL Hgb (11.4-16.0) gm/dL Hct (34.0-46.0) % MCV (80.0-100.0) fL MCH (25.0-35.0) pg MCHC (31.0-37.0) g/dL RDW (11.5-15.5) % Plt Count (150-450) k/uL Neutrophils % % Lymphocytes % % Monocytes % % Eosinophils % % Basophils % % Neutrophils # (1.3-7.7) k/uL Lymphocytes # (1.0-4.8) k/uL Monocytes # (0-1.0) k/uL Eosinophils # (0-0.7) k/uL Basophils # (0-0.2) k/uL Sodium 140 (137-145) mmol/L Potassium 3.8 (3.5-5.1) mmol/L Chloride 104 (98-107) mmol/L Carbon Dioxide 27 (22-30) mmol/L Anion Gap 9 mmol/L BUN 17 (7-17) mg/dL Creatinine 0.78 (0.52-1.04) mg/dL Est GFR (CKD-EPI)AfAm >90 (>60 ml/min/1.73 sqM) Est GFR (CKD-EPI)NonAf >90 (>60 ml/min/1.73 sqM) Glucose 109 H (74-99) mg/dL Calcium 9.6 (8.4-10.2) mg/dL Total Bilirubin 0.5 (0.2-1.3) mg/dL AST 114 H (14-36) U/L ALT 95 H (9-52) U/L Alkaline Phosphatase 198 H (38-126) U/L Total Protein 7.6 (6.3-8.2) g/dL Albumin 4.1 (3.5-5.0) g/dL Amylase 56 (30-110) U/L Lipase 131 (23-300) U/L Urine Color Yellow Urine Appearance Cloudy H (Clear) Urine pH 6.5 (5.0-8.0) Ur Specific [place] 1.024 (1.001-1.035) Urine Protein Trace H (Negative) Urine Glucose (UA) Negative (Negative) Urine Ketones Negative (Negative) Urine Blood Trace H (Negative) Urine Nitrite Negative (Negative) Urine Bilirubin Negative (Negative) Urine Urobilinogen 2.0 (<2.0) mg/dL Ur Leukocyte Esterase Large H (Negative) Urine RBC 3 (0-5) /hpf Urine WBC 26 H (0-5) /hpf Ur Squamous Epith Cells 7 H (0-4) /hpf Urine Mucus Rare H (None) /hpf Urine HCG, Qual Not Detected (Not Detectd) 11/04/18 Range/Units 01:05 WBC 12.4 H (3.8-10.6) k/uL RBC 4.69 (3.80-5.40) m/uL Hgb 13.6 (11.4-16.0) gm/dL Hct 40.3 (34.0-46.0) % MCV 85.8 (80.0-100.0) fL MCH 28.9 (25.0-35.0) pg MCHC 33.7 (31.0-37.0) g/dL RDW 12.7 (11.5-15.5) % Plt Count 343 (150-450) k/uL Neutrophils % 63 % Lymphocytes % 24 % Monocytes % 6 % Eosinophils % 5 % Basophils % 1 % Neutrophils # 7.9 H (1.3-7.7) k/uL Lymphocytes # 3.0 (1.0-4.8) k/uL Monocytes # 0.7 (0-1.0) k/uL Eosinophils # 0.6 (0-0.7) k/uL Basophils # 0.1 (0-0.2) k/uL Sodium (137-145) mmol/L Potassium (3.5-5.1) mmol/L Chloride (98-107) mmol/L Carbon Dioxide (22-30) mmol/L Anion Gap mmol/L BUN (7-17) mg/dL Creatinine (0.52-1.04) mg/dL Est GFR (CKD-EPI)AfAm (>60 ml/min/1.73 sqM) Est GFR (CKD-EPI)NonAf (>60 ml/min/1.73 sqM) Glucose (74-99) mg/dL Calcium (8.4-10.2) mg/dL Total Bilirubin (0.2-1.3) mg/dL AST (14-36) U/L ALT (9-52) U/L Alkaline Phosphatase (38-126) U/L Total Protein (6.3-8.2) g/dL Albumin (3.5-5.0) g/dL Amylase (30-110) U/L Lipase (23-300) U/L Urine Color Urine Appearance (Clear) Urine pH (5.0-8.0) Ur Specific [place] (1.001-1.035) Urine Protein (Negative) Urine Glucose (UA) (Negative) Urine Ketones (Negative) Urine Blood (Negative) Urine Nitrite (Negative) Urine Bilirubin (Negative) Urine Urobilinogen (<2.0) mg/dL Ur Leukocyte Esterase (Negative) Urine RBC (0-5) /hpf Urine WBC (0-5) /hpf Ur Squamous Epith Cells (0-4) /hpf Urine Mucus (None) /hpf Urine HCG, Qual (Not Detectd) Disposition Clinical Impression: Abdominal pain, Urinary tract infection Disposition: HOME SELF-CARE Condition: Good Instructions (If sedation given, give patient instructions): Urinary Tract Infection in Women (ED), Abdominal Pain (ED) Prescriptions: Famotidine [Pepcid] 20 mg PO BID #14 tablet Nitrofurantoin Monohyd/M-Cryst [Macrobid] 100 mg PO Q12HR #6 cap Is patient prescribed a controlled substance at d/c from ED?: No Referrals: Rufino Elmore DO [Primary Care Provider] - 1-2 days
[2018-11-04 01:21] LABS: Basophils # (A) 0.1 k/uL (0-0.2); Basophils % (A) 1 %; Eosinophils # (A) 0.6 k/uL (0-0.7); Eosinophils % (A) 5 %; HCT 40.3 % (34.0-46.0); HGB 13.6 gm/dL (11.4-16.0); Lymphocytes % (A) 24 %; MCH 28.9 pg (25.0-35.0); MCHC 33.7 g/dL (31.0-37.0); MCV 85.8 fL (80.0-100.0); Mean Platelet Volume 6.9; Monocytes # (A) 0.7 k/uL (0-1.0); Monocytes % (A) 6 %; Neutrophils # (A) 7.9 k/uL (1.3-7.7); Neutrophils % (A) 63 %; Platelet Count 343 k/uL (150-450); RBC 4.69 m/uL (3.80-5.40); RDW 12.7 % (11.5-15.5); WBC 12.4 k/uL (3.8-10.6)
[2018-11-04 01:24] LABS: Appearance,Urine Cloudy (Clear); Bilirubin,Urine Negative (Negative); Blood,Urine Trace (Negative); Color,Urine Yellow; Glucose,Urine (UA) Negative (Negative); Ketones,Urine Negative (Negative); Leukocyte Esterase,Urine Large (Negative); Mucus,Urine Rare /hpf; Nitrite,Urine Negative (Negative); PH, Urine 6.5 (5.0-8.0); Protein,Urine Trace (Negative); RBC,Urine 3 /hpf (0-5); Specific Gravity,Urine 1.024 (1.001-1.035); Squamous Epithelial Cell,Urine 7 /hpf (0-4); WBC,Urine 26 /hpf (0-5)
[2018-11-04 01:34] LABS: ALT 95 U/L (9-52); AST 114 U/L (14-36); Albumin 4.1 g/dL (3.5-5.0); Alkaline Phosphatase 198 U/L (38-126); Amylase 56 U/L (30-110); Anion Gap 9 mmol/L; Blood Urea Nitrogen 17 mg/dL (7-17); Calcium 9.6 mg/dL (8.4-10.2); Carbon Dioxide 27 mmol/L (22-30); Chloride 104 mmol/L (98-107); Glucose 109 mg/dL (74-99); Lipase 131 U/L (23-300); Potassium 3.8 mmol/L (3.5-5.1); Sodium 140 mmol/L (137-145); Total Bilirubin 0.5 mg/dL (0.2-1.3); Total Protein 7.6 g/dL (6.3-8.2)
--- NOTE | 2018-11-04 02:13 | XR ---
EXAM: XR Abdomen, 1 View CLINICAL HISTORY: ITS.REASON XR Reason: abdominal pain TECHNIQUE: Frontal supine view of the abdomen/pelvis. COMPARISON: No relevant prior studies available. FINDINGS: Gastrointestinal tract: Abundant stool and gas in the colon. No dilation. Bones/joints: Unremarkable. IMPRESSION: Abundant stool and gas in the colon.
--- NOTE | 2018-11-04 03:19 | US ---
EXAM: US Abdomen Limited, Right Upper Quadrant CLINICAL HISTORY: Pain, attention RUQ TECHNIQUE: Real-time ultrasound of the right upper quadrant with image documentation. COMPARISON: 04/30/2018 FINDINGS: Liver: The liver is stable in appearance without focal abnormality. No intrahepatic bile duct dilation. Gallbladder: The gallbladder is decompressed, limiting evaluation. The gallbladder wall measures 3.4 mm and is presumed accentuated by underdistention. No gallstones. A negative sonographic López sign is reported. Common bile duct: The common bile duct measures 5.1 mm. No stones. No dilation. Pancreas: The pancreas is poorly visualized secondary to bowel gas pattern. Right kidney: The right kidney measures 11.8 x 4.2 x 5.1 cm. No stones. No hydronephrosis. Inferior vena cava: The IVC is unremarkable. IMPRESSION: The gallbladder is decompressed limiting evaluation. No cholelithiasis or associated sonographic findings to suggest acute cholecystitis. Otherwise negative examination.
[2018-11-04] MEDS ORDERED: NITROFURANTOIN MONOHYD/M-CRYST 100 MG CAP PO STA (06:07)
[2018-11-04 06:40] VITALS: BP 105/67; PULSE 63; RESP 16
== END 2018-11-04 06:38 | disposition home or self-care (01) ==
LOC: EC 23:31
DX: N39.0 Urinary tract infection, site not specified (principal); R10.13 Epigastric pain; R11.0 Nausea; F41.9 Anxiety disorder, unspecified; Z79.890 Hormone replacement therapy; Z79.3 Long term (current) use of hormonal contraceptives; Z79.899 Other long term (current) drug therapy
CPT/HCPCS: 36415; 74018; 76705; 80053; 81001; 81025; 82150; 83690; 85025; 93005; 99284

== ENCOUNTER → 2018-12-08 | Outpatient (CLI) | payer OTHER ==
[2018-12-08 09:21] LABS: Basophils # (A) 0.1 k/uL (0-0.2); Basophils % (A) 1 %; Eosinophils # (A) 0.1 k/uL (0-0.7); Eosinophils % (A) 1 %; HCT 43.5 % (34.0-46.0); HGB 13.7 gm/dL (11.4-16.0); Lymphocytes # (A) 2.7 k/uL (1.0-4.8); Lymphocytes % (A) 27 %; MCHC 31.4 g/dL (31.0-37.0); MCV 89.2 fL (80.0-100.0); Mean Platelet Volume 7.5; Monocytes # (A) 0.5 k/uL (0-1.0); Monocytes % (A) 5 %; Neutrophils # (A) 6.5 k/uL (1.3-7.7); Neutrophils % (A) 65 %; Platelet Count 383 k/uL (150-450); RBC 4.88 m/uL (3.80-5.40); RDW 13.3 % (11.5-15.5)
[2018-12-08 17:03] LABS: Albumin 4.5 g/dL (3.80-4.90); Albumin/Globulin Ratio 1.45 (1.60-3.17); Calcium 9.6 mg/dL (8.7-10.3); Globulin 3.1 g/dL (1.6-3.3); LDL Cholesterol,Calculated 195.2 mg/dL (0.0-131.0); Potassium 4.2 mmol/L (3.5-5.5); Total Bilirubin 0.9 mg/dL (0.3-1.2); Total Protein 7.6 g/dL (6.2-8.2); VLDL Calculation 30.8 mg/dL (5.00-40.00)
[2018-12-08 17:05] LABS: T4, Free (Free Thyroxine) 1.1 ng/dL (0.80-1.80)
== END | disposition home or self-care (01) ==
LOC: LABWHC1 08:38
PROVIDERS: ATTEND Physician Assistant
DX: E03.9 Hypothyroidism, unspecified (principal); R53.83 Other fatigue; F31.32 Bipolar disorder, current episode depressed, moderate
CPT/HCPCS: 36415; 80053; 80061; 84439; 84443; 85025

== ENCOUNTER 2019-01-16 10:36 | Observation (INO) | payer OTHER ==
--- NOTE | 2019-01-16 11:11 | ED ---
General Adult HPI - General Chief complaint: Shortness of Breath Stated complaint: SOB Time Seen by Provider: 01/16/19 10:57 Source: patient, RN notes reviewed, old records reviewed Mode of arrival: ambulatory Limitations: no limitations - History of Present Illness Initial comments: Patient is a 28-year-old female with recent cholecystectomy presents emergency Department today with complaints of dizziness shortness of breath pleuritic chest pain. Patient states symptoms started 2 days ago. She states she's had some near syncopal episodes as well as well. Patient states that she has no history of blood clots or hypercarbic state. She states that she has no significant abdominal pain. She denies any nausea or vomiting.Surgical history includes splenectomy, tonsillectomy and recent cholecystectomy. Patient reports that her cholecystectomy was done [address] Gomez at [facility]. - Related Data Home Medications Medication Instructions Recorded Confirmed LORazepam [Ativan] 0.5 mg PO DAILY PRN 12/11/18 01/16/19 lamoTRIgine [LaMICtal] 25 mg PO BID 12/11/18 01/16/19 HYDROcodone/APAP 5-325MG [[place] 1 tab PO Q4H 01/16/19 01/16/19 5-325] Allergies Allergy/AdvReac Type Severity Reaction Status Date / Time No Known Allergies Allergy Verified 01/16/19 10:56 Review of Systems ROS Statement: Those systems with pertinent positive or pertinent negative responses have been documented in the HPI. ROS Other: All systems not noted in ROS Statement are negative. Past Medical History Past Medical History: No Reported History Additional Past Medical History / Comment(s): cholestasis of History of Any Multi-Drug Resistant Organisms: None Reported Past Surgical History: Cholecystectomy, Tonsillectomy Additional Past Surgical History / Comment(s): splenectomy Past Psychological History: Anxiety Smoking Status: Never smoker Past Alcohol Use History: None Reported Past Drug Use History: Marijuana General Exam - General Exam Comments Initial Comments: 28-year-old female. Alert and oriented. No significant distress. Limitations: no limitations General appearance: alert, in no apparent distress Head exam: Present: atraumatic, normocephalic, normal inspection Eye exam: Present: normal appearance, PERRL, EOMI. Absent: scleral icterus, conjunctival injection, periorbital swelling ENT exam: Present: normal exam, mucous membranes moist Neck exam: Present: normal inspection. Absent: tenderness, meningismus, lymphadenopathy Respiratory exam: Present: normal lung sounds bilaterally, other (Patient reports right sided pleuritic type of chest pain with deep inspiration.). Absent: respiratory distress, wheezes, rales, rhonchi, stridor Cardiovascular Exam: Present: regular rate, normal rhythm, normal heart sounds. Absent: systolic murmur, diastolic murmur, rubs, gallop, clicks GI/Abdominal exam: Present: soft, normal bowel sounds, other (Well-appearing incision site over the right upper quadrant.). Absent: distended, guarding, rebound, rigid Extremities exam: Present: normal inspection, full ROM, normal capillary refill. Absent: tenderness, pedal edema, joint swelling, calf tenderness Back exam: Present: normal inspection Neurological exam: Present: alert, oriented X3, CN II-XII intact Psychiatric exam: Present: normal affect, normal mood Skin exam: Present: warm, dry, intact, normal color. Absent: rash Course Vital Signs 01/16/19 01/16/19 01/16/19 10:39 11:13 12:05 Temperature 98.2 F 98.3 F Pulse Rate 106 H 79 Respiratory 18 18 16 Rate Blood Pressure 96/62 101/66 O2 Sat by Pulse 94 L 97 Oximetry 01/16/19 01/16/19 13:33 14:47 Temperature 98.5 F Pulse Rate 106 H 105 H Respiratory 16 16 Rate Blood Pressure 123/78 124/89 O2 Sat by Pulse 96 100 Oximetry - Reevaluation(s) Reevaluation #1: 01/16/19 14:16 At this time I discussed the case with ER physician in [place]. She permitted [facility] does not have an OR capability at this time for the next 2 weeks. She is calling the surgeon Dr. Samuel will call me back. Reevaluation #2: 01/16/19 14:25 [facility] return call and stated that there are OR is currently under construction for [address] Jazmyne parekh will not be able to accept this Patient at this time. Dr. Rollins whom will discussed with . EKG Findings - EKG Comments: EKG Findings:: EKG shows a sinus of abnormal EKG. Ventricular rate 96 bpm. Was 152 ms. QS duration is 92 ms. QT QTc is 366/449 ms. Medical Decision Making - Medical Decision Making Patient is a 28-year-old female with cholecystectomy procedure [address] Jazmyne parekh animal [facility]. She presented for dizziness, shortness of breath and right-sided pleuritic chest pain. Initially concerned for PE. Would work was obtained. Evidence of leukocytosis. Chest x-ray showed concern for pneumonia. She was initiated on Rocephin. Patient's d-dimer did come back elevated 1.76. Patient had a CT chest angioma. At that time there is no evidence of PE, however there is a large 6.1 cm gallbladder fossa abscess. Patient was initiated on Levaquin and Flagyl as well as given 1 g of Rocephin. It is of note that she has a history of splenectomy. Patient while in the ED complains of no significant pain and declines any pain medication. After multiple conversations with [facility] they're unable to accept the transfer due to no OR capabilities. Dr. niurka pichardo accept the Patient with consults infectious disease. - Lab Data Result diagrams: 01/16/19 12:07 01/16/19 12:07 Lab Results 01/16/19 01/16/19 01/16/19 Range/Units 12:07 12:07 12:07 WBC 16.4 H (3.8-10.6) k/uL RBC 4.31 (3.80-5.40) m/uL Hgb 12.5 (11.4-16.0) gm/dL Hct 37.3 (34.0-46.0) % MCV 86.6 (80.0-100.0) fL MCH 29.0 (25.0-35.0) pg MCHC 33.4 (31.0-37.0) g/dL RDW 13.6 (11.5-15.5) % Plt Count 502 H (150-450) k/uL Neutrophils % 72 % Lymphocytes % 18 % Monocytes % 6 % Eosinophils % 3 % Basophils % 1 % Neutrophils # 11.8 H (1.3-7.7) k/uL Lymphocytes # 2.9 (1.0-4.8) k/uL Monocytes # 1.0 (0-1.0) k/uL Eosinophils # 0.4 (0-0.7) k/uL Basophils # 0.1 (0-0.2) k/uL PT 9.6 (9.0-12.0) sec INR 0.9 (<1.2) APTT 26.1 (22.0-30.0) sec D-Dimer 1.76 H (<0.60) mg/L FEU Sodium 135 L (137-145) mmol/L Potassium 4.7 (3.5-5.1) mmol/L Chloride 98 (98-107) mmol/L Carbon Dioxide 30 (22-30) mmol/L Anion Gap 7 mmol/L BUN 8 (7-17) mg/dL Creatinine 0.63 (0.52-1.04) mg/dL Est GFR (CKD-EPI)AfAm >90 (>60 ml/min/1.73 sqM) Est GFR (CKD-EPI)NonAf >90 (>60 ml/min/1.73 sqM) Glucose 77 (74-99) mg/dL Calcium 9.4 (8.4-10.2) mg/dL Magnesium 2.0 (1.6-2.3) mg/dL Total Bilirubin 1.0 (0.2-1.3) mg/dL AST 55 H (14-36) U/L ALT 55 H (9-52) U/L Alkaline Phosphatase 165 H (38-126) U/L Troponin I (0.000-0.034) ng/mL Total Protein 7.8 (6.3-8.2) g/dL Albumin 4.2 (3.5-5.0) g/dL 01/16/19 Range/Units 12:07 WBC (3.8-10.6) k/uL RBC (3.80-5.40) m/uL Hgb (11.4-16.0) gm/dL Hct (34.0-46.0) % MCV (80.0-100.0) fL MCH (25.0-35.0) pg MCHC (31.0-37.0) g/dL RDW (11.5-15.5) % Plt Count (150-450) k/uL Neutrophils % % Lymphocytes % % Monocytes % % Eosinophils % % Basophils % % Neutrophils # (1.3-7.7) k/uL Lymphocytes # (1.0-4.8) k/uL Monocytes # (0-1.0) k/uL Eosinophils # (0-0.7) k/uL Basophils # (0-0.2) k/uL PT (9.0-12.0) sec INR (<1.2) APTT (22.0-30.0) sec D-Dimer (<0.60) mg/L FEU Sodium (137-145) mmol/L Potassium (3.5-5.1) mmol/L Chloride (98-107) mmol/L Carbon Dioxide (22-30) mmol/L Anion Gap mmol/L BUN (7-17) mg/dL Creatinine (0.52-1.04) mg/dL Est GFR (CKD-EPI)AfAm (>60 ml/min/1.73 sqM) Est GFR (CKD-EPI)NonAf (>60 ml/min/1.73 sqM) Glucose (74-99) mg/dL Calcium (8.4-10.2) mg/dL Magnesium (1.6-2.3) mg/dL Total Bilirubin (0.2-1.3) mg/dL AST (14-36) U/L ALT (9-52) U/L Alkaline Phosphatase (38-126) U/L Troponin I <0.012 (0.000-0.034) ng/mL Total Protein (6.3-8.2) g/dL Albumin (3.5-5.0) g/dL - Radiology Data Radiology results: report reviewed Trace effusion with patchy infiltrate posterior base on the lateral view. Underlying pneumonia is not excluded. CT angios shows no evidence of pulmonary embolus. There is a thick walled gallbladder fossa abscess measuring up to 6.1 cm with. Headache hyperemia likely reactive. 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 No surrounding plantar hemorrhage. Trace pleural effusions and bibasilar subsegmental atelectasis seen. Disposition Clinical Impression: Intra-abdominal abscess, Sepsis Disposition: ADMITTED IP TO THIS HOSP Condition: Stable Is patient prescribed a controlled substance at d/c from ED?: No Referrals: Rufino Elmore DO [Primary Care Provider] - 1-2 days Time of Disposition: 14:52
[2019-01-16] MEDS ORDERED: SODIUM CHLORIDE 0.9% 1,000 ML IV STA ×2 (11:12)
[2019-01-16 12:37] LABS: Basophils # (A) 0.1 k/uL (0-0.2); Basophils % (A) 1 %; Eosinophils # (A) 0.4 k/uL (0-0.7); Eosinophils % (A) 3 %; HCT 37.3 % (34.0-46.0); HGB 12.5 gm/dL (11.4-16.0); Lymphocytes # (A) 2.9 k/uL (1.0-4.8); Lymphocytes % (A) 18 %; MCHC 33.4 g/dL (31.0-37.0); MCV 86.6 fL (80.0-100.0); Mean Platelet Volume 7.5; Monocytes % (A) 6 %; Neutrophils # (A) 11.8 k/uL (1.3-7.7); Neutrophils % (A) 72 %; Platelet Count 502 k/uL (150-450); RBC 4.31 m/uL (3.80-5.40); RDW 13.6 % (11.5-15.5); WBC 16.4 k/uL (3.8-10.6)
--- NOTE | 2019-01-16 12:40 | XR ---
EXAMINATION TYPE: XR chest 2V DATE OF EXAM: 01/16/2019 COMPARISON: 09/11/2009 HISTORY: 28-year-old female difficulty breathing and dizziness TECHNIQUE: PA and lateral views FINDINGS: Heart normal size. Aorta and pulmonary vasculature within normal limits. Some strandy atelectasis in the lower lungs. Trace effusion is present with patchy posterior basilar opacity on the lateral view. IMPRESSION: Trace effusion with patchy infiltrate posterior base on the lateral view. Underlying pneumonia is not excluded.
[2019-01-16 12:44] LABS: INR 0.9 (<1.2); Partial Thromboplastin Time 26.1 sec (22.0-30.0); Prothrombin Time 9.6 sec (9.0-12.0)
[2019-01-16 12:46] LABS: ALT 55 U/L (9-52); AST 55 U/L (14-36); Albumin 4.2 g/dL (3.5-5.0); Alkaline Phosphatase 165 U/L (38-126); Anion Gap 7 mmol/L; Blood Urea Nitrogen 8 mg/dL (7-17); Calcium 9.4 mg/dL (8.4-10.2); Carbon Dioxide 30 mmol/L (22-30); Chloride 98 mmol/L (98-107); Glucose 77 mg/dL (74-99); Sodium 135 mmol/L (137-145); Total Protein 7.8 g/dL (6.3-8.2)
[2019-01-16 12:48] LABS: D-Dimer 1.76 mg/L FEU (<0.60); Potassium 4.7 mmol/L (3.5-5.1)
[2019-01-16] MEDS ORDERED: cefTRIAXone IN SWFI 1,000 MG/10 ML SYRINGE IVP STA (12:51)
[2019-01-16] MEDS ORDERED: metroNIDAZOLE-NS PMX 500 MG in SALINE 1 100ML.BAG IVPB STA (13:47)
--- NOTE | 2019-01-16 13:52 | CT ---
EXAMINATION TYPE: CT chest angio for PE DATE OF EXAM: 01/16/2019 COMPARISON: NONE HISTORY: chest pain CT DLP: 364.9 mGycm. Automated Exposure Control for Dose Reduction was Utilized. CONTRAST: CTA scan of the thorax is performed with IV Contrast, patient injected with 100 mL of Isovue 370, pul monary embolism protocol. MIP Images are created on CT scanner and reviewed. FINDINGS: LUNGS: There is an arterial venous malformation seen in the right middle lobe with a draining vein an d feeding pulmonary artery. This enhances as the vasculature does and has an 8mm nidus. The lungs are grossly clear, there is no concerning parenchymal mass or nodule identified. There is no pleural e ffusion or pneumothorax seen. The tracheobronchial tree is patent. MEDIASTINUM: There is ovoid soft tissue density within the superior mediastinum in the prevascular sp denisa measuring 2.3 x 1.5 cm. There is satisfactory enhancement of the pulmonary artery and its branche s, there is no CT evidence for pulmonary embolism. There are no greater than 1 cm hilar or mediastin al lymph nodes. No cardiomegaly or pericardial effusion is seen. OTHER: Marked left hepatic lobe intrahepatic biliary ductal dilatation and central intrahepatic bilia ry dilatation. There is a fluid collection containing air-fluid levels in the gallbladder fossa with a thick rim measuring approximately 3.2 x 6.1 cm on coronal image 37. There is surrounding inflammato ry fat stranding and impression upon the descending duodenum. There is also perihepatic hyperemia. Moderate degree fecal stasis is incidentally noted. Splenosis is seen in the left upper quadrant with a [place] spleen not appreciated possibly related to prior splenic trauma. Stenosis extends into the left mid abdomen. Bowel loops are ill-defined given the lack of intravenous contrast. There is synost osis of the T10 and T11 vertebral bodies. Punctate foci of subcutaneous edema are noted. IMPRESSION: 1. No evidence of pulmonary embolus. 2. Thick-walled gallbladder fossa abscess measuring up to 6.1 cm with perihepatic hyperemia likely re active. Finding was discussed with the ordering ER provider on 1347 on 01/16/[address] Sanchez. 3. 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 No surrounding pulmonary hemorrhage . 4. Trace pleural effusions and bibasilar subsegmental atelectasis.
[2019-01-16] MEDS ORDERED: HYDROmorphone 0.5 MG/0.5 ML SYRINGE IVP STA (13:55)
[2019-01-16] MEDS ORDERED: LEVOFLOXACIN 750MG-D5W PMX 750 MG in DEXTROSE/WATER 1 150ML.BAG IVPB STA (14:08)
[2019-01-16] MEDS ORDERED: NALOXONE 0.4 MG/ML 1 ML VIAL IV PRN (14:52)
[2019-01-16] MEDS ORDERED: ONDANSETRON 4 MG/2 ML VIAL IVP PRN (14:52)
[2019-01-16 16:27] VITALS: BMI 29.7
[2019-01-16] MEDS: SODIUM CHLORIDE 0.9% 1,000 ML IV SCH ×2 (16:58→23:22)
[2019-01-16] MEDS: PIPERACILLIN-TAZOBACTAM 3.375 GM in SODIUM CHLORIDE 0.9% 100 ML IVPB SCH ×2 (17:49→23:22)
[2019-01-16] MEDS: MORPHINE SULFATE 4 MG/ML SYRINGE IVP PRN (19:19)
--- NOTE | 2019-01-16 23:50 | P.CONS ---
History of Present Illness - Reason for Consult Consult date: 01/16/19 Gallbladder fossa abscess Requesting physician: Tammie Guzman - Chief Complaint Shortness of breath and right upper quadrant painx 2 days - History of Present Illness Patient is a 28-year-old female who is status post laparoscopic cholecystectomy done at [facility] on Wednesday 3 days prior to presentation to the hospital, patient says she was having shortness of breath minimal exertion and right upper quadrant abdominal pain since her surgery that has been progressively getting worse pain is currently to be sharp arm 7-8 out of 10 and no radiation with associated nausea but no vomiting patient is complaining of some chills but no high-grade fever denies having any cough or sputum production no diarrhea or any urinary symptoms, with the symptoms the patient was evaluated by the ER physician, the patient had did not have high-grade fever however she did have elevated white count mildly elevated liver enzymes and tachycardia the patient did have a severe injury from that was negative for PE however did raise the possibility of a thick-walled bladder fossa abscess by a 6 cm patient did receive a dose of Levaquin and Flagyl done in the year subsequently has been admitted to hospital infectious disease was consulted for further recommendation regarding antibiotic therapy Review of Systems CONSTITUTIONAL: Positive for weakness. Fever EYES: No complaint. ENT:No complaint. RESPIRATORY: As per history of present illness. CARDIOVASCULAR: No complaint. GENITOURINARY: No complaint. GASTROINTESTINAL: As per history of present illness. MUSCULOSKELETAL: No complaint. INTEGUMENTARY: No complaint. PSYCHOLOGICAL: No complaint. ENDOCRINE: No complaint. NEUROLOGIC: No complaint. Past Medical History Past Medical History: No Reported History Additional Past Medical History / Comment(s): cholestasis of History of Any Multi-Drug Resistant Organisms: None Reported Past Surgical History: Cholecystectomy, Tonsillectomy Additional Past Surgical History / Comment(s): splenectomy Past Psychological History: Anxiety Smoking Status: Never smoker Past Alcohol Use History: None Reported Past Drug Use History: Marijuana - Past Family History Mother Additional Family Medical History / Comment(s): anxiety, depression Father History Unknown: Yes Medications and Allergies Home Medications Medication Instructions Recorded Confirmed Type LORazepam [Ativan] 0.5 mg PO DAILY PRN 12/11/18 01/16/19 History lamoTRIgine [LaMICtal] 25 mg PO BID 12/11/18 01/16/19 History HYDROcodone/APAP 5-325MG [[place] 1 tab PO Q4H 01/16/19 01/16/19 History 5-325] Levothyroxine Sodium [Synthroid] 25 mcg PO DAILY 01/16/19 01/16/19 History Allergies Allergy/AdvReac Type Severity Reaction Status Date / Time No Known Allergies Allergy Verified 01/16/19 10:56 Physical Exam Vitals: Vital Signs Temp Pulse Resp BP Pulse Ox 01/16/19 15:53 98.4 F 108 H 16 118/69 99 01/16/19 14:47 98.5 F 105 H 16 124/89 100 01/16/19 13:33 106 H 16 123/78 96 01/16/19 12:05 98.3 F 79 16 101/66 97 01/16/19 11:13 18 01/16/19 10:39 98.2 F 106 H 18 96/62 94 L Intake and Output 01/16/19 01/16/19 01/16/19 06:59 14:59 22:59 Other: Weight 86.183 kg GENERAL DESCRIPTION: Middle-aged male lying in bed, no distress. No tachypnea or accessory muscle of respiration use. HEENT: Shows Pallor , no scleral icterus. Oral mucous membrane is dry. No pharyngeal erythema or thrush NECK: Trachea central, no thyromegaly. LUNGS: Unlabored breathing. Clear to auscultation anteriorly. No wheeze or crackle. HEART: S1, S2, regular rate and rhythm. No loud murmur ABDOMEN: Soft, right upper quadrant tenderness , no guarding or rigidity, no organomegaly EXTREMITIES: No edema of feet. SKIN: No rash, no masses palpable. NEUROLOGICAL: The patient is awake, alert, oriented x3, mood and affect normal. Results CBC & Chem 7: 01/16/19 12:07 01/16/19 12:07 Labs: Abnormal Lab Results - Last 24 Hours (Table) 01/16/19 01/16/19 01/16/19 Range/Units 12:07 12:07 12:07 WBC 16.4 H (3.8-10.6) k/uL Plt Count 502 H (150-450) k/uL Neutrophils # 11.8 H (1.3-7.7) k/uL D-Dimer 1.76 H (<0.60) mg/L FEU Sodium 135 L (137-145) mmol/L AST 55 H (14-36) U/L ALT 55 H (9-52) U/L Alkaline Phosphatase 165 H (38-126) U/L Assessment and Plan Assessment: 1-patient with carvalho fossa abscess in this patient who is status post laparoscopic cholecystectomy completed 3 days ago with a question of possible not better fossa hematoma in view of no fever however underlying abscess not entirely excluded likely from enteric gram-negative pathogens mostly aerobes Plan: 1-we will request ultrasound-guided aspirate of the gallbladder fossa fluid we should be sent for Gram stain and culture 2-we will empirically add Zosyn 3.75 g every 8 hours 3-gentle IV fluid We will follow-up on clinical condition and cultures to further adjust medication if needed Thank you for this consultation will follow this patient along with you Time with Patient: Greater than 30
[2019-01-17] MEDS: MORPHINE SULFATE 4 MG/ML SYRINGE IVP PRN ×5 (02:38→21:24)
[2019-01-17] MEDS: PANTOPRAZOLE 40 MG/10 ML VIAL IV SCH (08:05)
[2019-01-17] MEDS: PIPERACILLIN-TAZOBACTAM 3.375 GM in SODIUM CHLORIDE 0.9% 100 ML IVPB SCH ×3 (08:07→23:19)
[2019-01-17] MEDS ORDERED: LORazepam 0.5 MG TAB PO STA (08:09)
[2019-01-17] MEDS ORDERED: BISACODYL 10 MG SUPP RECTAL STA (08:16)
[2019-01-17] MEDS: SODIUM CHLORIDE 0.9% 1,000 ML IV SCH ×2 (08:21→20:18)
--- NOTE | 2019-01-17 10:19 | NM ---
EXAMINATION TYPE: NM hepatobiliary wo EF DATE OF EXAM: 01/17/2019 COMPARISON: CT dated 01/16/2019 HISTORY: Biliary leak, biloma versus abscess. TECHNIQUE: After the intravenous administration of 4.84 mCi Tc 99m Mebrofenin hepatobiliary scintigra phy is performed. Immediate images post injection. FINDINGS: On images obtained from 46 to 58 minutes there is a small collection of radiotracer in the gallbladde r fossa. This could represent a cystic duct remnant or very small biloma. No [place] evidence of biliar y leak. Hepatic uptake and excretion is appropriate with radiotracer seen throughout the nondilated b iliary tree and into the bowel 18 minutes. IMPRESSION: Punctate focus of radiotracer in the biliary fossa towards the end of the examination cou ld relate to a cystic duct remnant or small biloma. The small size is discordant with the size of the fluid collection in the gallbladder fossa on the exam of 01/16/2019, therefore postoperative hematoma or abscess remain considerations. If clinical findings do not support abscess short-term follow-up C T could assess for interval improvement.
[2019-01-17] MEDS ORDERED: LORazepam 0.5 MG TAB PO PRN (10:30)
[2019-01-17] MEDS: lamoTRIgine 25 MG TAB PO SCH ×2 (10:46→20:18)
[2019-01-17] MEDS: LEVOTHYROXINE 25 MCG TAB PO SCH (10:46)
[2019-01-17] MEDS ORDERED: HYDROcodone/APAP 5-325MG 1 EACH TAB PO SCH (11:00)
--- NOTE | 2019-01-17 11:26 | P.GSHP ---
History of Present Illness H&P Date: 01/17/19 Chief Complaint: pain, sob CHIEF COMPLAINT: SOB, pain HISTORY OF PRESENT ILLNESS: 28 year old female who underwent laparoscopic chol ecystectomy on 01/13/2019 at [facility]. Patient presents to the emergency room with shortness of breath, dizziness, and pain. CTA was negative for PE. Patient denies nausea or vomiting. Patient was tolerating PO intake prior to coming to the hospital. WBC 16.4. Denies fever at home. PAST MEDICAL HISTORY: See list. PAST SURGICAL HISTORY: See list. SOCIAL HISTORY: No illicit drug use. REVIEW OF SYSTEMS: CONSTITUTIONAL: Denies fever or chills. Reports back pain. HEENT: Denies blurred vision, vision changes, or eye pain. Denies hemoptysis CARDIOVASCULAR: Denies chest pain or pressure. RESPIRATORY: No shortness of breath. GASTROINTESTINAL: Refer to HPI for pertinent findings HEMATOLOGIC: Denies bleeding disorders. GENITOURINARY: Denies any blood in urine. SKIN: Denies pruitis. Denies rash. PHYSICAL EXAM: VITAL SIGNS: Reviewed. GENERAL: Well-developed in no acute distress. HEENT: No sclera icterus. Extraocular movements grossly intact. Moist buccal mucosa. Head is atraumatic, normocephalic. ABDOMEN: Soft. Nondistended. Surgical incision sites clean dry intact. NEUROLOGIC: Alert and oriented. Cranial nerves II through XII grossly intact. IMAGIN. CTA: Negative for pulmonary embolus. Physical: Her fossa abscess measuring up to 6.1 cm width. Hepatic hyperemia likely reactive. 2. HIDA scan: Punctate focus of radiotracer in the biliary fossa towards the end of the examination could relate to a cystic duct remnant or small biloma. The small size is discordant with the size of fluid collection the gallbladder fossa. Therefore postoperative hematoma or abscess remains considerations. ASSESSMENT: 1. S/P laparoscopic cholecystectomy, 01/13/2018 2. Gallbladder fossa fluid collection, duct leak ruled out, hematoma vs abscess collection PLAN: 1. NPO 2. Consult IR for drainage of fluid collection. Sent fluid for culture 3. Continue antibiotics. Infectious disease on consult. Appreciate recommendations. Nurse practitioner note has been reviewed by physician. Signing provider agrees with the documented findings, assessment, and plan of care. Past Medical History Past Medical History: No Reported History Additional Past Medical History / Comment(s): cholestasis of History of Any Multi-Drug Resistant Organisms: None Reported Past Surgical History: Cholecystectomy, Tonsillectomy Additional Past Surgical History / Comment(s): splenectomy Past Anesthesia/Blood Transfusion Reactions: No Reported Reaction Past Psychological History: Anxiety Smoking Status: Never smoker Past Alcohol Use History: None Reported Past Drug Use History: Marijuana - Past Family History Mother Additional Family Medical History / Comment(s): anxiety, depression Father History Unknown: Yes Medications and Allergies Home Medications Medication Instructions Recorded Confirmed Type LORazepam [Ativan] 0.5 mg PO DAILY PRN 12/11/18 01/16/19 History lamoTRIgine [LaMICtal] 25 mg PO BID 12/11/18 01/16/19 History HYDROcodone/APAP 5-325MG [[place] 1 tab PO Q4H 01/16/19 01/16/19 History 5-325] Levothyroxine Sodium [Synthroid] 25 mcg PO DAILY 01/16/19 01/16/19 History Allergies Allergy/AdvReac Type Severity Reaction Status Date / Time No Known Allergies Allergy Verified 01/16/19 10:56 Surgical - Exam Vital Signs Temp Pulse Resp BP Pulse Ox 98.2 F 106 H 18 96/62 94 L 01/16/19 10:39 01/16/19 10:39 01/16/19 10:39 01/16/19 10:39 01/16/19 10:39 Results - Labs 01/16/19 12:07 01/16/19 12:07 Abnormal Lab Results - Last 24 Hours (Table) 01/16/19 01/16/19 01/16/19 Range/Units 12:07 12:07 12:07 WBC 16.4 H (3.8-10.6) k/uL Plt Count 502 H (150-450) k/uL Neutrophils # 11.8 H (1.3-7.7) k/uL D-Dimer 1.76 H (<0.60) mg/L FEU Sodium 135 L (137-145) mmol/L AST 55 H (14-36) U/L ALT 55 H (9-52) U/L Alkaline Phosphatase 165 H (38-126) U/L Diabetes panel 01/16/19 Range/Units 12:07 Sodium 135 L (137-145) mmol/L Potassium 4.7 (3.5-5.1) mmol/L Chloride 98 (98-107) mmol/L Carbon Dioxide 30 (22-30) mmol/L BUN 8 (7-17) mg/dL Creatinine 0.63 (0.52-1.04) mg/dL Glucose 77 (74-99) mg/dL Calcium 9.4 (8.4-10.2) mg/dL AST 55 H (14-36) U/L ALT 55 H (9-52) U/L Alkaline Phosphatase 165 H (38-126) U/L Total Protein 7.8 (6.3-8.2) g/dL Albumin 4.2 (3.5-5.0) g/dL Calcium panel 01/16/19 Range/Units 12:07 Calcium 9.4 (8.4-10.2) mg/dL Albumin 4.2 (3.5-5.0) g/dL Pituitary panel 01/16/19 Range/Units 12:07 Sodium 135 L (137-145) mmol/L Potassium 4.7 (3.5-5.1) mmol/L Chloride 98 (98-107) mmol/L Carbon Dioxide 30 (22-30) mmol/L BUN 8 (7-17) mg/dL Creatinine 0.63 (0.52-1.04) mg/dL Glucose 77 (74-99) mg/dL Calcium 9.4 (8.4-10.2) mg/dL Adrenal panel 01/16/19 Range/Units 12:07 Sodium 135 L (137-145) mmol/L Potassium 4.7 (3.5-5.1) mmol/L Chloride 98 (98-107) mmol/L Carbon Dioxide 30 (22-30) mmol/L BUN 8 (7-17) mg/dL Creatinine 0.63 (0.52-1.04) mg/dL Glucose 77 (74-99) mg/dL Calcium 9.4 (8.4-10.2) mg/dL Total Bilirubin 1.0 (0.2-1.3) mg/dL AST 55 H (14-36) U/L ALT 55 H (9-52) U/L Alkaline Phosphatase 165 H (38-126) U/L Total Protein 7.8 (6.3-8.2) g/dL Albumin 4.2 (3.5-5.0) g/dL
[2019-01-17 11:54] LABS: Basophils # (A) 0.1 k/uL (0-0.2); Basophils % (A) 1 %; Eosinophils # (A) 0.3 k/uL (0-0.7); Eosinophils % (A) 2 %; HGB 11.8 gm/dL (11.4-16.0); Lymphocytes % (A) 12 %; MCH 28.5 pg (25.0-35.0); MCHC 32.7 g/dL (31.0-37.0); MCV 87.1 fL (80.0-100.0); Mean Platelet Volume 6.8; Monocytes # (A) 0.9 k/uL (0-1.0); Monocytes % (A) 5 %; Neutrophils # (A) 13.5 k/uL (1.3-7.7); Neutrophils % (A) 79 %; Platelet Count 520 k/uL (150-450); RBC 4.13 m/uL (3.80-5.40); RDW 13.2 % (11.5-15.5)
[2019-01-17 12:00] LABS: ALT 57 U/L (9-52); AST 52 U/L (14-36); Alkaline Phosphatase 229 U/L (38-126); Anion Gap 12 mmol/L; Blood Urea Nitrogen 8 mg/dL (7-17); Calcium 9.2 mg/dL (8.4-10.2); Carbon Dioxide 22 mmol/L (22-30); Chloride 102 mmol/L (98-107); Glucose 67 mg/dL (74-99); Sodium 136 mmol/L (137-145); Total Protein 7.2 g/dL (6.3-8.2)
[2019-01-17] MEDS: HYDROcodone/APAP 5-325MG 1 EACH TAB PO PRN ×2 (12:13→23:27)
--- NOTE | 2019-01-17 22:46 | PN ---
PROGRESS NOTE DATE OF SERVICE: 01/17/2019 REASON FOR FOLLOWUP: Gallbladder fossa fluid collection with a question of hematoma versus an abscess. INTERVAL HISTORY: The patient is currently afebrile. She has been breathing comfortably. Denies having any chest pain. Abdominal pain has improved. No nausea, no vomiting and no diarrhea. PHYSICAL EXAMINATION: Blood pressure is 119/65 with a pulse of 92, temperature 97.9. She is 95% on room air. General description is a middle-aged female up in the bed in no distress. HEENT EXAMINATION: No pallor or scleral icterus. Oral mucosa membrane dry. LUNGS: Unlabored breathing. Decreased breath sounds at the bases. No wheeze. HEART: S1, S2. Regular rate and rhythm. ABDOMEN: Soft. Mildly tender. No guarding or rigidity. EXTREMITIES: No edema of the feet. LABS: Hemoglobin 11.8, white count 17,000. BUN of 8, creatinine 0.62. Blood culture has been negative so far. DIAGNOSTIC IMPRESSION AND PLAN: Patient with right upper quadrant/gallbladder fossa fluid collection, question of hematoma versus an abscess. Clinically patient is not behaving as she is not running any fever, does not look toxic. After discussion of the case with the interventional radiologist, he mentioned that he has to go through the liver in order to reach that fluid collection for drainage purposes increasing the risk for further bleeding. As the patient is currently nontoxic, we will hold off the drainage procedure for now, repeating the CT scan in the next 48-72 hours, and if there is overall improvement to monitor the patient closely without any drainage procedure. Continue with the Zosyn at this point while monitoring clinical course closely. Await culture to finalize. Continue supportive care. MMODL / IJN: [id number] / MTDD
[2019-01-18] MEDS: MORPHINE SULFATE 4 MG/ML SYRINGE IVP PRN ×5 (03:33→23:55)
[2019-01-18] MEDS: LEVOTHYROXINE 25 MCG TAB PO SCH (06:04)
[2019-01-18 07:42] LABS: Basophils # (A) 0.1 k/uL (0-0.2); Basophils % (A) 1 %; Eosinophils # (A) 0.4 k/uL (0-0.7); Eosinophils % (A) 4 %; HCT 34.1 % (34.0-46.0); HGB 11.3 gm/dL (11.4-16.0); Lymphocytes # (A) 2.3 k/uL (1.0-4.8); Lymphocytes % (A) 21 %; MCH 29.2 pg (25.0-35.0); MCHC 33.1 g/dL (31.0-37.0); MCV 88.4 fL (80.0-100.0); Mean Platelet Volume 6.5; Monocytes # (A) 0.7 k/uL (0-1.0); Monocytes % (A) 6 %; Neutrophils % (A) 65 %; Platelet Count 502 k/uL (150-450); RBC 3.85 m/uL (3.80-5.40); RDW 13.1 % (11.5-15.5); WBC 10.7 k/uL (3.8-10.6)
[2019-01-18 07:52] LABS: ALT 43 U/L (9-52); AST 36 U/L (14-36); Albumin 3.6 g/dL (3.5-5.0); Alkaline Phosphatase 207 U/L (38-126); Anion Gap 8 mmol/L; Blood Urea Nitrogen 8 mg/dL (7-17); Calcium 9.2 mg/dL (8.4-10.2); Carbon Dioxide 29 mmol/L (22-30); Chloride 101 mmol/L (98-107); Glucose 88 mg/dL (74-99); Potassium 4.2 mmol/L (3.5-5.1); Sodium 138 mmol/L (137-145); Total Bilirubin 0.9 mg/dL (0.2-1.3); Total Protein 6.8 g/dL (6.3-8.2)
[2019-01-18] MEDS: PANTOPRAZOLE 40 MG/10 ML VIAL IV SCH (08:33)
[2019-01-18] MEDS: PIPERACILLIN-TAZOBACTAM 3.375 GM in SODIUM CHLORIDE 0.9% 100 ML IVPB SCH ×3 (08:33→23:31)
[2019-01-18] MEDS: lamoTRIgine 25 MG TAB PO SCH ×2 (08:33→20:38)
[2019-01-18] MEDS: SODIUM CHLORIDE 0.9% 1,000 ML IV SCH ×2 (08:41→15:21)
[2019-01-18] MEDS ORDERED: METOCLOPRAMIDE 5 MG/ML 2 ML VIAL IVP STA (09:40)
[2019-01-18] MEDS: POLYETHYLENE GLYCOL 3350 17 GM POWD.PACK PO SCH (10:05)
[2019-01-18] MEDS: DOCUSATE 100 MG CAP PO SCH ×2 (10:06→20:38)
--- NOTE | 2019-01-18 10:08 | P.PN ---
Subjective Progress Note Date: 01/18/19 CHIEF COMPLAINT: SOB, pain HISTORY OF PRESENT ILLNESS: Patient seen and examined at the bedside. Patient reports her pain is tolerable. Patient is tolerating diet. Patient reports she is passing flatus. Patient has not had a bowel movement since last week. Dulcolax ordered yesterday but patient refused. Radiology and infectious disease evaluated ultrasound yesterday and have decided to wait on IR aspiration secondary to having to go through patient's liver to get to fluid collection. PHYSICAL EXAM: VITAL SIGNS: Reviewed. GENERAL: Well-developed in no acute distress. HEENT: No sclera icterus. Extraocular movements grossly intact. Moist buccal mucosa. Head is atraumatic, normocephalic. ABDOMEN: Soft. Nondistended. Surgical incision sites clean dry intact. NEUROLOGIC: Alert and oriented. Cranial nerves II through XII grossly intact. ASSESSMENT: 1. S/P laparoscopic cholecystectomy, 01/13/2018 2. Gallbladder fossa fluid collection, duct leak ruled out, hematoma vs abscess collection PLAN: 1. Continue current diet 2. Add colace and Miralax. Reglan 10mg x 1 dose 3. Antibiotics per ID. Re-imaging in 48-72 hours per ID documentation to re- assess fluid collection Nurse practitioner note has been reviewed by physician. Signing provider agrees with the documented findings, assessment, and plan of care. Objective - Vital Signs Vital signs: Vital Signs Temp 97.8 F 01/18/19 05:00 Pulse 76 01/18/19 05:00 Resp 16 01/18/19 05:00 BP 112/70 01/18/19 05:00 Pulse Ox 95 01/18/19 05:00 Intake & Output 01/17/19 01/18/19 01/18/19 18:59 06:59 18:59 Intake Total 590 Balance 590 Intake: Oral 590 Other: # Voids 3 2 - Labs CBC & Chem 7: 01/18/19 07:14 01/18/19 07:14 Labs: Abnormal Lab Results - Last 24 Hours (Table) 01/17/19 01/17/19 01/18/19 Range/Units 11:38 11:38 07:14 WBC 17.0 H 10.7 H (3.8-10.6) k/uL Hgb 11.3 L (11.4-16.0) gm/dL Plt Count 520 H 502 H (150-450) k/uL Neutrophils # 13.5 H (1.3-7.7) k/uL Sodium 136 L (137-145) mmol/L Glucose 67 L (74-99) mg/dL AST 52 H (14-36) U/L ALT 57 H (9-52) U/L Alkaline Phosphatase 229 H (38-126) U/L 01/18/19 Range/Units 07:14 WBC (3.8-10.6) k/uL Hgb (11.4-16.0) gm/dL Plt Count (150-450) k/uL Neutrophils # (1.3-7.7) k/uL Sodium (137-145) mmol/L Glucose (74-99) mg/dL AST (14-36) U/L ALT (9-52) U/L Alkaline Phosphatase 207 H (38-126) U/L Microbiology - Last 24 Hours (Table) 01/16/19 12:55 Blood Culture - Preliminary Blood No Growth after 24 hours
[2019-01-18] MEDS: HYDROcodone/APAP 5-325MG 1 EACH TAB PO PRN (20:38)
[2019-01-18] MEDS: KETOROLAC 30 MG/ML 1 ML VIAL IVP SCH (21:20)
--- NOTE | 2019-01-18 23:32 | PN ---
PROGRESS NOTE DATE OF SERVICE: 01/18/2019 REASON FOR FOLLOWUP: Right upper quadrant hematoma versus abscess. INTERVAL HISTORY: The patient is currently afebrile. The patient has been breathing comfortably. Denies having any chest pain. Right upper quadrant abdominal pain has improved. No nausea, vomiting or diarrhea. PHYSICAL EXAMINATION: Her blood pressure is 119/79 with a pulse of 95, temperature 98.2. She is 96% on room air. General description is a middle-aged female lying in bed in no distress. RESPIRATORY SYSTEM: Unlabored breathing. Clear to auscultation. HEART: S1, S2. Regular rate and rhythm. ABDOMEN: Soft. LABS: Hemoglobin 11.3, white count 10.7, BUN of 8, creatinine 0.64. Blood culture has been negative. DIAGNOSTIC IMPRESSION AND PLAN: Patient with right upper quadrant fluid collection with concern for possible hematoma; abscess less likely in this patient who does not look toxic and is not running any fever. Aspirate of the area could not be done, as there is a high risk of hemorrhage. The patient is currently being covered with Zosyn. She will get a repeat CT scan tomorrow if overall improvement can be switched to oral Augmentin with close outpatient followup. Plan of care was discussed with the nurse practitioner for the surgical team. MMODL / IJN: [id number] / JACOB
[2019-01-19] MEDS: HYDROcodone/APAP 5-325MG 1 EACH TAB PO PRN ×2 (01:04→09:04)
[2019-01-19] MEDS: KETOROLAC 30 MG/ML 1 ML VIAL IVP SCH ×3 (04:01→14:31)
[2019-01-19] MEDS: SODIUM CHLORIDE 0.9% 1,000 ML IV SCH ×2 (04:01→14:31)
[2019-01-19] MEDS: LEVOTHYROXINE 25 MCG TAB PO SCH (05:44)
[2019-01-19] MEDS ORDERED: PANTOPRAZOLE 40 MG TABLET PO SCH (09:00)
[2019-01-19] MEDS: DOCUSATE 100 MG CAP PO SCH (09:04)
[2019-01-19] MEDS: PIPERACILLIN-TAZOBACTAM 3.375 GM in SODIUM CHLORIDE 0.9% 100 ML IVPB SCH ×2 (09:04→14:50)
[2019-01-19] MEDS: lamoTRIgine 25 MG TAB PO SCH (09:05)
[2019-01-19] MEDS: POLYETHYLENE GLYCOL 3350 17 GM POWD.PACK PO SCH (09:05)
[2019-01-19 09:15] LABS: Basophils # (A) 0.1 k/uL (0-0.2); Basophils % (A) 0 %; Eosinophils # (A) 0.2 k/uL (0-0.7); Eosinophils % (A) 1 %; HCT 33.9 % (34.0-46.0); HGB 10.9 gm/dL (11.4-16.0); Lymphocytes % (A) 12 %; MCH 28.5 pg (25.0-35.0); MCHC 32.3 g/dL (31.0-37.0); MCV 88.2 fL (80.0-100.0); Mean Platelet Volume 6.5; Monocytes # (A) 0.9 k/uL (0-1.0); Monocytes % (A) 6 %; Neutrophils # (A) 13.2 k/uL (1.3-7.7); Neutrophils % (A) 80 %; Platelet Count 563 k/uL (150-450); RBC 3.84 m/uL (3.80-5.40); RDW 13.1 % (11.5-15.5); WBC 16.5 k/uL (3.8-10.6)
[2019-01-19 09:28] LABS: ALT 44 U/L (9-52); AST 31 U/L (14-36); Albumin 3.7 g/dL (3.5-5.0); Alkaline Phosphatase 191 U/L (38-126); Anion Gap 9 mmol/L; Blood Urea Nitrogen 7 mg/dL (7-17); Calcium 9.4 mg/dL (8.4-10.2); Carbon Dioxide 30 mmol/L (22-30); Chloride 99 mmol/L (98-107); Glucose 94 mg/dL (74-99); Potassium 4.4 mmol/L (3.5-5.1); Sodium 138 mmol/L (137-145); Total Bilirubin 0.6 mg/dL (0.2-1.3); Total Protein 6.9 g/dL (6.3-8.2)
--- NOTE | 2019-01-19 12:06 | CT ---
EXAMINATION TYPE: CT abdomen pelvis w con DATE OF EXAM: 01/19/2019 COMPARISON: None INDICATION: S/P cholecystectomy (Wednesday), abdominal pain DLP: 996.9 mGycm, Automated exposure control for dose reduction was used. CONTRAST: 100 mL of Isovue 300. Study performed without Oral Contrast TECHNIQUE: Axial images were obtained from above the diaphragm to the pubic rami in the axial plane a t 5 mm thick sections. Reconstructed images are reviewed on the computer in the coronal plane. FINDINGS: Limited CT sections are obtained the lung bases. Some mild streak opacities are the bilateral lung b ases. Minimal pleural effusions are present. Some adjacent compressive atelectasis may be present. Fo llow-up can be performed.. CT ABDOMEN: Minimal ascites may be adjacent to the liver. There is a large fluid collection adjacent to cholecystectomy clips. This area measures 5.9 x 3.6 cm. Differential could include bile leak and h ematoma seroma. Liver: There appears be a large dilated duct type area within the left lobe of the liver. This measur es approximately 0.7 cm in width and approximately 6 cm in length. Spleen: Appears small Pancreas: Normal Adrenal glands: The adrenal glands are normal. Gallbladder: Surgically absent. Kidneys: No masses are evident. No hydronephrosis is present. No cysts are present. Delayed images were obtained through the kidneys, which remain unremarkable. Aorta: Vascular calcification is within the aorta. Inferior vena cava: Normal. CT PELVIS: There is small to moderate amount of free fluid within the pelvis. Ascites, bile, hemorrha ge could be considered within the differential. Loops of bowel within the abdomen and pelvis are normal. Study is performed without oral contrast limiting bowel evaluation. Appendix: Not identified. Urinary bladder: Normal. Genitourinary structures: Uterus is normal. Adnexal regions are within normal limits. Osseous structures: No suspicious lytic or sclerotic lesions. IMPRESSIONS: 1. Fluid collection at the gallbladder bed fossa suspicious for biloma. Differential diagnosis could include seroma. 2. Free fluid within the pelvis. 3. Small bilateral pleural effusions with adjacent atelectasis. 4. Low-density tubular structure within the posterior left lobe liver could be a dilated isolated chester t. A [place] level critical message alert has been initiated for Miguel Angel Moon MD via the [employer] Critical Results System on 01/19/2019 12:03 PM. This message alert has been sent to Miguel Angel pichardo MD via the preferences provided by the clinician for the receipt of Radiology Critical Findings. Shanta essage ID [id number].
--- NOTE | 2019-01-19 13:20 | P.DS ---
Providers Date of admission: 01/16/19 15:03 Expected date of discharge: 01/19/19 Attending physician: Miguel Angel Moon Consults: 01/16/19 14:52 Consult Physician Stat Consulting Provider: Kevon Moser Consult Reason/Comments: intraabdominal abscess, Post cholecystectomy Do you want consulting provider notified?: Yes Primary care physician: [facility] Course: 28 year old female who underwent laparoscopic cholecystectomy on 01/13/2019 at [facility]. Patient presents to the emergency room with shortness of breath, dizziness, and pain. CTA was negative for PE but did reveal fluid collection in gallbladder fossa. HIDA scan was performed revealing punctate focus of radiotracer in the biliary fossa towards the end of the examination could relate to a cystic duct remnant or small biloma. The small size is discordant with the size of fluid collection the gallbladder fossa. Therefore postoperative hematoma or abscess remains considerations. CAT scan was repeated on 01/19/2019 revealing stable sized fluid collection. Patient has been afebrile during hospitalization. Her pain has been controlled. Per Dr. Moon, the patient may be discharged home today. Infectious disease has been following patient during hospitalization and recommends Augmentin at the time of discharge. Patient has a follow-up appointment scheduled with her general surgeon tomorrow 01/20/2019. Patient encouraged to keep this appointment and attend follow-up visit. Please see EMR for further hospital course details Discharge diagnosis: 1. S/P laparoscopic cholecystectomy, 01/13/2018 2. Gallbladder fossa fluid collection, duct leak ruled out, hematoma vs abscess collection The above dictated assessment and findings were discussed with Dr. Moon. The impression and plan of care have been directed as dictated. Debra Sullvian, nurse practitioner, acting as scribe for Dr. Moon. Patient Condition at Discharge: Stable Plan - Discharge Summary Discharge Rx Participant: No New Discharge Prescriptions: New Amoxic-Pot Clav 875-125Mg [Augmentin 875-125] 1 tab PO Q12HR #20 tablet No Action lamoTRIgine [LaMICtal] 25 mg PO BID LORazepam [Ativan] 0.5 mg PO DAILY PRN PRN Reason: Anxiety HYDROcodone/APAP 5-325MG [[place] 5-325] 1 tab PO Q4H Levothyroxine Sodium [Synthroid] 25 mcg PO DAILY Discharge Medication List LORazepam [Ativan] 0.5 mg PO DAILY PRN 12/11/18 [History] lamoTRIgine [LaMICtal] 25 mg PO BID 12/11/18 [History] HYDROcodone/APAP 5-325MG [[place] 5-325] 1 tab PO Q4H 01/16/19 [History] Levothyroxine Sodium [Synthroid] 25 mcg PO DAILY 01/16/19 [History] Amoxic-Pot Clav 875-125Mg [Augmentin 875-125] 1 tab PO Q12HR #20 tablet 01/18/19 [Rx] Follow up Appointment(s)/Referral(s): Rufino Elmore DO [Primary Care Provider] - 1-2 days Kevon Moser MD [STAFF PHYSICIAN] - 1 Week Activity/Diet/Wound Care/Special Instructions: Follow up with your general surgeon tomorrow
--- NOTE | 2019-01-19 14:16 | PN ---
PROGRESS NOTE DATE OF SERVICE: REASON FOR FOLLOWUP: Right upper quadrant fluid collection, question of hematoma versus an abscess. INTERVAL HISTORY: The patient is currently afebrile. The patient has been breathing comfortably. Denies having any chest pain, shortness of breath. No nausea, vomiting and no diarrhea. PHYSICAL EXAMINATION: Blood pressure is 121/82 with a pulse of 100, temperature 98.1, she is 97% on room air. General description is a middle-aged female lying in bed in no distress respiratory system: RESPIRATORY SYSTEM: Unlabored breathing, clear to auscultation anteriorly. HEART: S1, S2. Regular rate and rhythm. ABDOMEN: Soft, no tenderness, no guarding or rigidity. EXTREMITIES: No edema of the feet. LABS: Hemoglobin is 10.8, white count 16.5 today. The BUN of 7, creatinine 0.60. CT repeat this morning did show fluid collection and the question of possible been normal did not mention if it has increased in size from the recent CT scan. DIAGNOSTIC IMPRESSION AND PLAN: Patient admitted to the hospital with right upper quadrant abdominal pain. The patient did have recent laparoscopic cholecystectomy with question of possible biliary leak, hematoma less likely, an abscess. The patient possibly could benefit from ERCP and biliary stenting with concern for possible multisystem biliary leak will be discussed further with surgical team. Continue with Zosyn at this point. Continue supportive care. MMODL / IJN: [id number] /
[2019-01-19 14:19] VITALS: BP 103/70; PULSE 82; TEMP 97.5
[2019-01-19 14:31] VITALS: RESP 16
== END 2019-01-19 15:23 | disposition home or self-care (01) ==
LOC: EC 10:36 → UNDOADMIN 15:03 → 4SSUR 15:03 → INTOOBSV 15:03 → 4SSUR 15:41 → 3NMEDONC 15:41 → UNDODISIN 01-19 15:23
PROVIDERS: ADMIT Surgery; ATTEND Surgery
DX: K68.11 Postprocedural retroperitoneal abscess (principal); K91.870 Postprocedural hematoma of a digestive system organ or structure following a digestive system procedure; Y83.6 Removal of other organ (partial) (total) as the cause of abnormal reaction of the patient, or of later complication, without mention of misadventure at the time of the procedure; F41.9 Anxiety disorder, unspecified; Z79.890 Hormone replacement therapy; Z79.899 Other long term (current) drug therapy; Z81.8 Family history of other mental and behavioral disorders; Z90.49 Acquired absence of other specified parts of digestive tract; Z90.81 Acquired absence of spleen
CPT/HCPCS: 96376 ×3; 96361 ×4; 96366 ×4; 96367 ×2; 96375 ×4; 96365; 99285; 36415; 93005; 85379; 80053 ×4; 83735; 84484; 85025 ×4; 85610; 85730; 87040; 71046; 71275; 74177; 78226; G0378 ×4; A9537; J2543 ×4; J2270 ×3; J2765; J2405; J0696; J1885 ×2; J1956; C9113 ×2; Q9967 ×2

== ENCOUNTER 2019-02-07 17:46 | Emergency (ER) | payer OTHER ==
[2019-02-07] MEDS ORDERED: SODIUM CHLORIDE 0.9% 1,000 ML IV STA (18:15)
--- NOTE | 2019-02-07 18:28 | ED ---
Abdominal Pain HPI - General Chief Complaint: Abdominal Pain Stated Complaint: abd pain Time Seen by Provider: 02/07/19 18:15 Source: patient Mode of arrival: ambulatory Limitations: no limitations - History of Present Illness Initial Comments: 28-year-old female past medical history of postsurgical abscess 2 weeks ago presenting today for chief complaint of right upper quadrant abdominal pain. Patient states that she had a cholecystectomy performed at [facility]. She states that she had a postsurgical complication of abscess of the gallblad mayank, vs post surgical bile leak. She states she was here for 6 days on IV antibiotics she states she do not require surgery at that time and has follow-up with Dr. Moser infectious disease on Wednesday of next week. Patient states that yesterday while when moving in certain positions, like sleeping on the left side or when she pushes on the right upper quadrant and the area of the surgery she has increasing pain she states she did not have this a days prior. Pt denies radiation of the pain. Patient denies any vomiting or diarrhea she states she felt like she has had some sweating denies fever. Patient denies any shortness of breath, chest pain or hemoptysis. Patient states because her last complication she was nervous there was another developing abscess/post surgical complication and presents emergency department for evaluation. Upon arrival pt appears well, she is afebrile and does not appear toxic. HR WNL, 99% on RA. Pt denies additional PMH. Pt states she was on an antibiotic regime upon discharge but has completed the course--cannot recall name however upon chart review it appears the medication was Augmentin. - Related Data Home Medications Medication Instructions Recorded Confirmed LORazepam [Ativan] 0.5 mg PO DAILY PRN 12/11/18 02/07/19 lamoTRIgine [LaMICtal] 25 mg PO BID 12/11/18 02/07/19 Levothyroxine Sodium [Synthroid] 25 mcg PO DAILY 01/16/19 02/07/19 Albuterol Inhaler [Ventolin Hfa 2 puff INHALATION RT-Q6H PRN 02/07/19 02/07/19 Inhaler] Previous Rx's Medication Instructions Recorded Cephalexin [Keflex] 500 mg PO Q12HR 3 Days #6 cap 02/07/19 Allergies Allergy/AdvReac Type Severity Reaction Status Date / Time No Known Allergies Allergy Verified 02/07/19 18:25 Review of Systems ROS Statement: Those systems with pertinent positive or pertinent negative responses have been documented in the HPI. ROS Other: All systems not noted in ROS Statement are negative. Past Medical History Past Medical History: No Reported History Additional Past Medical History / Comment(s): cholestasis of History of Any Multi-Drug Resistant Organisms: None Reported Past Surgical History: Cholecystectomy, Tonsillectomy Additional Past Surgical History / Comment(s): splenectomy Past Anesthesia/Blood Transfusion Reactions: No Reported Reaction Past Psychological History: Anxiety Smoking Status: Never smoker Past Alcohol Use History: None Reported Past Drug Use History: Marijuana - Past Family History Mother Additional Family Medical History / Comment(s): anxiety, depression Father History Unknown: Yes General Exam - General Exam Comments Initial Comments: General: The patient is awake and alert, in no distress, and does not appear acutely ill. Eye: Pupils are equal, round and reactive to light, extra-ocular movements are intact. No nystagmus. There is normal conjunctiva bilaterally. No signs of icterus. Ears, nose, mouth and throat: There are moist mucous membranes and no oral lesions. Neck: The neck is supple, there is no tenderness or JVD. Cardiovascular: There is a regular rate and rhythm. No murmur, rub or gallop is appreciated. Respiratory: Lungs are clear to auscultation, respirations are non-labored, breath sounds are equal. No wheezes, stridor, rales, or rhonchi. Gastrointestinal: Soft, non-distended, abdomen is tender to palpation of the RUQ without masses or organomegaly noted. Upon inspection there are non erythematous healed scars of the abdomen 3 total. There is no rebound or guarding present. No CVA tenderness. Bowel sounds are unremarkable. Musculoskeletal: Normal ROM, no tenderness. Strength 5/5. Sensation intact. Radial pulses equal bilaterally 2+. Neurological: A&O x 3. CN II-XII intact, There are no obvious motor or sensory deficits. Coordination appears grossly intact. Speech is normal. Skin: Skin is warm and dry and no rashes or lesions are noted. Psychiatric: Cooperative, appropriate mood & affect, normal judgment. Limitations: no limitations Course Vital Signs 02/07/19 02/07/19 02/07/19 17:48 19:12 20:05 Temperature 98.2 F 99.0 F Pulse Rate 75 72 69 Respiratory 20 18 18 Rate Blood Pressure 115/74 121/75 115/71 O2 Sat by Pulse 99 100 99 Oximetry Medical Decision Making - Medical Decision Making 28-year-old female presenting today for chief complaint of upper quadrant abdomi nal pain patient is post op >15 days. Patient was recently admitted for postsurgical complication of hematoma versus abscess. Infectious disease felt this time is most likely hematoma. Patient states that she has had some positional pain and pain with palpation of the right upper quadrant of the abdomen for the past day. Patient wanted to make sure there is no further consultation. Upon arrival patient does not appear in acute distress. She denies pain with sitting still. Patient denies history of fever. Abdominal exam revealed mild right upper quadrant pain and there is no rigidity no guarding. CT was obtained revealing possible hematoma of the gallbladder fossa. It appears much smaller in size in comparison with previous studies. Patient has no significant leukocytosis this is trending downward from previous labs. Patient transaminases as well alk phos appear to be decreasing as well. I discussed the case with attending provider Dr. Fulton who reviewed imaging and laboratory studies at this time we feel there is most likely a resolving hematoma. Patient is to monitor her symptoms closely as well as for any infection signs just fever or night sweats. And follow-up with her surgeon and primary care provider. Patient does have an appointment with Dr. Ehsan millsous disease on Wednesday. Patient verbalizes understanding importance of follow-up as well as return for any worsening or concerning symptoms. Patient was discharged apparently while she was treated for urinary tract infection as patient had 40 white blood cells with leukocyte esterase and urinalysis. - Lab Data Result diagrams: 02/07/19 18:39 02/07/19 18:39 Lab Results 02/07/19 02/07/19 02/07/19 Range/Units 18:39 18:39 18:39 WBC 11.4 H (3.8-10.6) k/uL RBC 4.52 (3.80-5.40) m/uL Hgb 13.1 (11.4-16.0) gm/dL Hct 39.1 (34.0-46.0) % MCV 86.5 (80.0-100.0) fL MCH 28.9 (25.0-35.0) pg MCHC 33.5 (31.0-37.0) g/dL RDW 13.6 (11.5-15.5) % Plt Count 407 (150-450) k/uL Neutrophils % 57 % Lymphocytes % 29 % Monocytes % 6 % Eosinophils % 5 % Basophils % 1 % Neutrophils # 6.4 (1.3-7.7) k/uL Lymphocytes # 3.3 (1.0-4.8) k/uL Monocytes # 0.7 (0-1.0) k/uL Eosinophils # 0.5 (0-0.7) k/uL Basophils # 0.2 (0-0.2) k/uL Sodium 138 (137-145) mmol/L Potassium 4.1 (3.5-5.1) mmol/L Chloride 103 (98-107) mmol/L Carbon Dioxide 26 (22-30) mmol/L Anion Gap 9 mmol/L BUN 15 (7-17) mg/dL Creatinine 0.62 (0.52-1.04) mg/dL Est GFR (CKD-EPI)AfAm >90 (>60 ml/min/1.73 sqM) Est GFR (CKD-EPI)NonAf >90 (>60 ml/min/1.73 sqM) Glucose 102 H (74-99) mg/dL Plasma Lactic Acid Randall 1.0 (0.7-2.0) mmol/L Calcium 9.9 (8.4-10.2) mg/dL Total Bilirubin 0.3 (0.2-1.3) mg/dL AST 48 H (14-36) U/L ALT 42 (9-52) U/L Alkaline Phosphatase 139 H (38-126) U/L Total Protein 8.6 H (6.3-8.2) g/dL Albumin 4.8 (3.5-5.0) g/dL Amylase 81 (30-110) U/L Lipase 116 (23-300) U/L Urine Color Urine Appearance (Clear) Urine pH (5.0-8.0) Ur Specific [place] (1.001-1.035) Urine Protein (Negative) Urine Glucose (UA) (Negative) Urine Ketones (Negative) Urine Blood (Negative) Urine Nitrite (Negative) Urine Bilirubin (Negative) Urine Urobilinogen (<2.0) mg/dL Ur Leukocyte Esterase (Negative) Urine RBC (0-5) /hpf Urine WBC (0-5) /hpf Ur Squamous Epith Cells (0-4) /hpf Urine Mucus (None) /hpf Urine HCG, Qual (Not Detectd) 02/07/19 02/07/19 Range/Units 18:50 18:50 WBC (3.8-10.6) k/uL RBC (3.80-5.40) m/uL Hgb (11.4-16.0) gm/dL Hct (34.0-46.0) % MCV (80.0-100.0) fL MCH (25.0-35.0) pg MCHC (31.0-37.0) g/dL RDW (11.5-15.5) % Plt Count (150-450) k/uL Neutrophils % % Lymphocytes % % Monocytes % % Eosinophils % % Basophils % % Neutrophils # (1.3-7.7) k/uL Lymphocytes # (1.0-4.8) k/uL Monocytes # (0-1.0) k/uL Eosinophils # (0-0.7) k/uL Basophils # (0-0.2) k/uL Sodium (137-145) mmol/L Potassium (3.5-5.1) mmol/L Chloride (98-107) mmol/L Carbon Dioxide (22-30) mmol/L Anion Gap mmol/L BUN (7-17) mg/dL Creatinine (0.52-1.04) mg/dL Est GFR (CKD-EPI)AfAm (>60 ml/min/1.73 sqM) Est GFR (CKD-EPI)NonAf (>60 ml/min/1.73 sqM) Glucose (74-99) mg/dL Plasma Lactic Acid Randall (0.7-2.0) mmol/L Calcium (8.4-10.2) mg/dL Total Bilirubin (0.2-1.3) mg/dL AST (14-36) U/L ALT (9-52) U/L Alkaline Phosphatase (38-126) U/L Total Protein (6.3-8.2) g/dL Albumin (3.5-5.0) g/dL Amylase (30-110) U/L Lipase (23-300) U/L Urine Color Yellow Urine Appearance Cloudy H (Clear) Urine pH 5.5 (5.0-8.0) Ur Specific [place] 1.035 (1.001-1.035) Urine Protein Trace H (Negative) Urine Glucose (UA) Negative (Negative) Urine Ketones Negative (Negative) Urine Blood Trace H (Negative) Urine Nitrite Negative (Negative) Urine Bilirubin Negative (Negative) Urine Urobilinogen <2.0 (<2.0) mg/dL Ur Leukocyte Esterase Large H (Negative) Urine RBC 2 (0-5) /hpf Urine WBC 40 H (0-5) /hpf Ur Squamous Epith Cells 8 H (0-4) /hpf Urine Mucus Occasional H (None) /hpf Urine HCG, Qual Not Detected (Not Detectd) Disposition Clinical Impression: RUQ abdominal pain, Post-operative pain, UTI (urinary tract infection) Disposition: HOME SELF-CARE Condition: Good Instructions (If sedation given, give patient instructions): Abdominal Pain (ED) Additional Instructions: Please use medication as discussed. Please follow-up with family doctor in the next 2 days, your surgeon and Dr. Moser as scheduled. Please return to em ergency room if the symptoms increase or worsen or for any other concerns, including development of fever or worsening symptoms. Prescriptions: Cephalexin [Keflex] 500 mg PO Q12HR 3 Days #6 cap Is patient prescribed a controlled substance at d/c from ED?: No Referrals: Rufino Elmore DO [Primary Care Provider] - 1-2 days Time of Disposition: 20:26
[2019-02-07 19:01] LABS: Basophils # (A) 0.2 k/uL (0-0.2); Basophils % (A) 1 %; Eosinophils # (A) 0.5 k/uL (0-0.7); Eosinophils % (A) 5 %; HCT 39.1 % (34.0-46.0); HGB 13.1 gm/dL (11.4-16.0); Lymphocytes # (A) 3.3 k/uL (1.0-4.8); Lymphocytes % (A) 29 %; MCH 28.9 pg (25.0-35.0); MCHC 33.5 g/dL (31.0-37.0); MCV 86.5 fL (80.0-100.0); Mean Platelet Volume 7.6; Monocytes # (A) 0.7 k/uL (0-1.0); Monocytes % (A) 6 %; Neutrophils # (A) 6.4 k/uL (1.3-7.7); Neutrophils % (A) 57 %; Platelet Count 407 k/uL (150-450); RBC 4.52 m/uL (3.80-5.40); RDW 13.6 % (11.5-15.5); WBC 11.4 k/uL (3.8-10.6)
[2019-02-07 19:12] VITALS: RESP 18; TEMP 99
[2019-02-07 19:18] LABS: Appearance,Urine Cloudy (Clear); Bilirubin,Urine Negative (Negative); Blood,Urine Trace (Negative); Color,Urine Yellow; Glucose,Urine (UA) Negative (Negative); Ketones,Urine Negative (Negative); Leukocyte Esterase,Urine Large (Negative); Mucus,Urine Occasional /hpf; Nitrite,Urine Negative (Negative); PH, Urine 5.5 (5.0-8.0); Protein,Urine Trace (Negative); RBC,Urine 2 /hpf (0-5); Specific Gravity,Urine 1.035 (1.001-1.035); Squamous Epithelial Cell,Urine 8 /hpf (0-4); Urobilinogen,Urine <2.0 mg/dL (<2.0); WBC,Urine 40 /hpf (0-5)
[2019-02-07 19:18] LABS: ALT 42 U/L (9-52); AST 48 U/L (14-36); Albumin 4.8 g/dL (3.5-5.0); Alkaline Phosphatase 139 U/L (38-126); Amylase 81 U/L (30-110); Anion Gap 9 mmol/L; Blood Urea Nitrogen 15 mg/dL (7-17); Calcium 9.9 mg/dL (8.4-10.2); Carbon Dioxide 26 mmol/L (22-30); Chloride 103 mmol/L (98-107); Glucose 102 mg/dL (74-99); Lipase 116 U/L (23-300); Potassium 4.1 mmol/L (3.5-5.1); Sodium 138 mmol/L (137-145); Total Bilirubin 0.3 mg/dL (0.2-1.3); Total Protein 8.6 g/dL (6.3-8.2)
[2019-02-07] MEDS ORDERED: cefTRIAXone IN SWFI 1,000 MG/10 ML SYRINGE IVP STA (19:21)
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
[2019-02-07 20:45] VITALS: BP 118/77; PULSE 80
== END 2019-02-07 20:44 | disposition home or self-care (01) ==
LOC: EC 17:46
DX: G89.18 Other acute postprocedural pain (principal); R10.11 Right upper quadrant pain; N39.0 Urinary tract infection, site not specified; F41.9 Anxiety disorder, unspecified; Z79.899 Other long term (current) drug therapy; Z90.49 Acquired absence of other specified parts of digestive tract; Z90.81 Acquired absence of spleen
CPT/HCPCS: 36415; 80053; 82150; 83605; 83690; 85025; 81001; 81025; 87040; 74177; 99284; 96374; 96361; J0696; Q9967

== ENCOUNTER 2019-03-02 14:53 | Emergency (ER) | payer OTHER ==
[2019-03-02 15:07] VITALS: RESP 18
[2019-03-02] MEDS ORDERED: methylPREDNISolone SOD SUCCI 125 MG/2 ML VIAL IV STA (16:22)
[2019-03-02] MEDS ORDERED: diphenhydrAMINE 50 MG/ML 1 ML VIAL IVP STA (16:22)
[2019-03-02] MEDS ORDERED: FAMOTIDINE 20 MG/2 ML VIAL IV STA (16:22)
[2019-03-02] MEDS ORDERED: SODIUM CHLORIDE 0.9% 1,000 ML IV STA (16:22)
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
--- NOTE | 2019-03-02 17:52 | XR ---
EXAMINATION TYPE: XR chest 2V DATE OF EXAM: 03/02/2019 COMPARISON: 01/16/2019 HISTORY: Pain TECHNIQUE: Frontal and lateral views of the chest are obtained. FINDINGS: Heart and mediastinum are normal. Lungs are clear. Diaphragm is normal. Bony thorax appear s normal. IMPRESSION: Normal chest. No change.
[2019-03-02 18:46] VITALS: BP 121/68; PULSE 69; TEMP 97.9
== END 2019-03-02 18:45 | disposition home or self-care (01) ==
LOC: EC 14:53
DX: B34.9 Viral infection, unspecified (principal); T78.1XXA Other adverse food reactions, not elsewhere classified, initial encounter; R06.02 Shortness of breath; R42 Dizziness and giddiness; R20.2 Paresthesia of skin; Z79.890 Hormone replacement therapy; Z79.899 Other long term (current) drug therapy; Z90.49 Acquired absence of other specified parts of digestive tract; Z90.81 Acquired absence of spleen
CPT/HCPCS: 93005; 71046; 99284; 96374; 96375 ×2; 96361 ×2; J1200; J2930

== ENCOUNTER → 2019-03-20 | Outpatient (CLI) | payer OTHER ==
[2019-03-20 09:51] LABS: Basophils # (A) 0.1 k/uL (0-0.2); Basophils % (A) 1 %; Eosinophils # (A) 0.4 k/uL (0-0.7); Eosinophils % (A) 4 %; HCT 39.3 % (34.0-46.0); HGB 12.7 gm/dL (11.4-16.0); Lymphocytes % (A) 31 %; MCH 28.6 pg (25.0-35.0); MCHC 32.4 g/dL (31.0-37.0); MCV 88.4 fL (80.0-100.0); Mean Platelet Volume 7.2; Monocytes # (A) 0.7 k/uL (0-1.0); Monocytes % (A) 7 %; Neutrophils # (A) 5.4 k/uL (1.3-7.7); Neutrophils % (A) 56 %; Platelet Count 413 k/uL (150-450); RBC 4.45 m/uL (3.80-5.40); RDW 12.8 % (11.5-15.5); WBC 9.7 k/uL (3.8-10.6)
[2019-03-20 16:25] LABS: T4, Free (Free Thyroxine) 1.1 ng/dL (0.80-1.80)
[2019-03-20 16:28] LABS: African American GFR (CKD) 134.7 (60.0-200.0); Albumin 4.5 g/dL (3.80-4.90); Albumin/Globulin Ratio 1.73 (1.60-3.17); Anion Gap 9.1 mmol/L (4.00-12.00); BUN/Creat Ratio 18.57 Ratio (12.00-20.00); Calcium 10.1 mg/dL (8.7-10.3); Carbon Dioxide 26.9 mmol/L (21.6-31.8); Globulin 2.6 g/dL (1.6-3.3); LDL Cholesterol,Calculated 144.8 mg/dL (0.0-131.0); Potassium 4.7 mmol/L (3.5-5.5); Total Bilirubin 0.4 mg/dL (0.2-1.2); Total Protein 7.1 g/dL (6.2-8.2); VLDL Calculation 26.2 mg/dL (5.00-40.00)
[2019-03-20 17:08] LABS: Hemoglobin A1C 5.9 % (4.0-6.0)
== END | disposition home or self-care (01) ==
LOC: LABWHC1 08:47
PROVIDERS: ATTEND Physician Assistant
DX: Z00.00 Encounter for general adult medical examination without abnormal findings (principal); R55 Syncope and collapse; F41.0 Panic disorder [episodic paroxysmal anxiety]; E03.9 Hypothyroidism, unspecified
CPT/HCPCS: 36415; 80053; 80061; 83036; 84439; 84443; 85025

== ENCOUNTER 2019-03-21 21:53 | Emergency (ER) | payer OTHER ==
[2019-03-21 22:07] VITALS: RESP 18; TEMP 98.5
[2019-03-21 23:37] LABS: Basophils # (A) 0.1 k/uL (0-0.2); Basophils % (A) 1 %; Eosinophils # (A) 0.7 k/uL (0-0.7); Eosinophils % (A) 5 %; HCT 37.4 % (34.0-46.0); HGB 12.3 gm/dL (11.4-16.0); Lymphocytes # (A) 4.3 k/uL (1.0-4.8); Lymphocytes % (A) 35 %; MCH 28.9 pg (25.0-35.0); MCHC 32.8 g/dL (31.0-37.0); MCV 88.1 fL (80.0-100.0); Mean Platelet Volume 7.5; Monocytes # (A) 0.7 k/uL (0-1.0); Monocytes % (A) 6 %; Neutrophils # (A) 6.1 k/uL (1.3-7.7); Neutrophils % (A) 50 %; Platelet Count 405 k/uL (150-450); RBC 4.25 m/uL (3.80-5.40); RDW 13.3 % (11.5-15.5); WBC 12.2 k/uL (3.8-10.6)
[2019-03-21 23:50] LABS: ALT 114 U/L (9-52); AST 62 U/L (14-36); African American GFR (CKD) >90 (>60 ml/min/1.73 sqM); Albumin 4.3 g/dL (3.5-5.0); Alkaline Phosphatase 227 U/L (38-126); Anion Gap 9 mmol/L; Blood Urea Nitrogen 16 mg/dL (7-17); Calcium 9.7 mg/dL (8.4-10.2); Carbon Dioxide 28 mmol/L (22-30); Chloride 103 mmol/L (98-107); Glucose 100 mg/dL (74-99); HCG,Qualitative Serum Not Detected; Potassium 3.9 mmol/L (3.5-5.1); Sodium 140 mmol/L (137-145); Total Bilirubin 0.3 mg/dL (0.2-1.3); Total Protein 7.6 g/dL (6.3-8.2)
--- NOTE | 2019-03-22 00:01 | ED ---
SOB HPI - General Chief Complaint: Shortness of Breath Stated Complaint: SOB Time Seen by Provider: 03/21/19 22:22 Source: patient Mode of arrival: ambulatory Limitations: no limitations - History of Present Illness Initial Comments: Patient is a 28-year-old female presents emergency Department with complaint of a globus sensation in the back of her throat. States that the symptoms have been present for several months. She has seen her primary care physician for the symptom and was told that it is psychiatric in nature. She has been referred to a therapist later this month. Patient reports that she continues to have the sensation which worsened tonight. States that it feels as if it's difficult to swallow because of the significant amount of phlegm in the back of her throat. She also admits to shortness of breath as she feels as if it is cutting off her airway. She denies a cough, fevers or chills. Denies nasal congestion but does admit to sinus pressure. She denies any chest pain or chest pressure. His have a history of asthma however states this has been well- controlled and denies any wheezing. No history of DVTs or PEs. She denies hemoptysis or hematemesis. No nausea or vomiting. Denies abdominal pain. Denies choking on her food. No history of EGD and colonoscopies. There are no alleviating, precipitating or modifying factors - Related Data Home Medications Medication Instructions Recorded Confirmed lamoTRIgine [LaMICtal] 25 mg PO BID 12/11/18 03/21/19 Levothyroxine Sodium [Synthroid] 25 mcg PO DAILY 01/16/19 03/21/19 Albuterol Inhaler [Ventolin Hfa 2 puff INHALATION RT-Q6H PRN 02/07/19 03/21/19 Inhaler] LORazepam [Ativan] 0.5 mg PO DAILY 03/21/19 03/21/19 Previous Rx's Medication Instructions Recorded Loratadine [Claritin] 10 mg PO DAILY #30 tab 03/22/19 Omeprazole 20 mg PO DAILY #30 cap 03/22/19 Allergies Allergy/AdvReac Type Severity Reaction Status Date / Time shellfish derived [Shellfish] Allergy Anaphylaxis Verified 03/21/19 22:24 Review of Systems ROS Statement: Those systems with pertinent positive or pertinent negative responses have been documented in the HPI. ROS Other: All systems not noted in ROS Statement are negative. Past Medical History Past Medical History: No Reported History Additional Past Medical History / Comment(s): cholestasis of History of Any Multi-Drug Resistant Organisms: None Reported Past Surgical History: Cholecystectomy, Tonsillectomy Additional Past Surgical History / Comment(s): splenectomy Past Anesthesia/Blood Transfusion Reactions: No Reported Reaction Past Psychological History: Anxiety Smoking Status: Never smoker Past Alcohol Use History: None Reported Past Drug Use History: Marijuana - Past Family History Mother Additional Family Medical History / Comment(s): anxiety, depression Father History Unknown: Yes General Exam Limitations: no limitations General appearance: alert, in no apparent distress Head exam: Present: atraumatic, normocephalic, normal inspection Eye exam: Present: normal appearance, PERRL, EOMI. Absent: scleral icterus, conjunctival injection, periorbital swelling ENT exam: Present: normal exam, mucous membranes moist Neck exam: Present: normal inspection, full ROM. Absent: tenderness, meningismus, lymphadenopathy, thyromegaly Respiratory exam: Present: normal lung sounds bilaterally. Absent: respiratory distress, wheezes, rales, rhonchi, stridor Cardiovascular Exam: Present: regular rate, normal rhythm, normal heart sounds. Absent: systolic murmur, diastolic murmur, rubs, gallop, clicks GI/Abdominal exam: Present: soft, normal bowel sounds. Absent: distended, tenderness, guarding, rebound, rigid Extremities exam: Present: normal inspection, full ROM, normal capillary refill. Absent: tenderness, pedal edema, joint swelling, calf tenderness Back exam: Present: normal inspection Neurological exam: Present: alert, oriented X3, CN II-XII intact Psychiatric exam: Present: normal affect, normal mood Skin exam: Present: warm, dry, intact, normal color. Absent: rash Course Vital Signs 03/21/19 03/22/19 03/22/19 22:05 01:18 02:41 Temperature 98.5 F Pulse Rate 60 59 L 78 Respiratory 18 18 18 Rate Blood Pressure 111/76 105/70 105/64 O2 Sat by Pulse 100 96 100 Oximetry Medical Decision Making - Medical Decision Making The patient is placed into room 6. A 12-lead EKG is performed which demonstrates a normal sinus rhythm. I did discuss the diagnosis, differential and treatment options. I did recommend laboratory studies as well as a CT of the soft tissues of her neck. I also recommended a chest x-ray. Patient did agree to this. Upon return of the results, they are discussed with the patient. I did offer her Claritin and omeprazole. The patient did agree to this. She is given these tablets and reevaluated. I did inform her that the globus sensation may be related to postnasal drip. It also may be related to reflux. The patient is informed that her liver enzymes are elevated at this time. She does have a history of post surgical infection follow cholecystectomy. She denies any fevers or chills. Denies any abdominal pain at this time. I did inform her that she must follow-up with her primary care physician and have her levels redrawn to ensure that they're returning to baseline. If she has any new or worsening symptoms, she should return the emergency room. She should also be referred for an EGD and colonoscopy. The patient understood this, was given written and verbal discharge instructions, and discharged home in stable con dition. - Differential Diagnosis globus sensation, GERD, esophageal strictures, post nasal drip - Lab Data Result diagrams: 03/21/19 23:30 03/21/19 23:30 Lab Results 03/21/19 03/21/19 03/21/19 Range/Units 23:30 23:30 23:30 WBC 12.2 H (3.8-10.6) k/uL RBC 4.25 (3.80-5.40) m/uL Hgb 12.3 (11.4-16.0) gm/dL Hct 37.4 (34.0-46.0) % MCV 88.1 (80.0-100.0) fL MCH 28.9 (25.0-35.0) pg MCHC 32.8 (31.0-37.0) g/dL RDW 13.3 (11.5-15.5) % Plt Count 405 (150-450) k/uL Neutrophils % 50 % Lymphocytes % 35 % Monocytes % 6 % Eosinophils % 5 % Basophils % 1 % Neutrophils # 6.1 (1.3-7.7) k/uL Lymphocytes # 4.3 (1.0-4.8) k/uL Monocytes # 0.7 (0-1.0) k/uL Eosinophils # 0.7 (0-0.7) k/uL Basophils # 0.1 (0-0.2) k/uL Sodium 140 (137-145) mmol/L Potassium 3.9 (3.5-5.1) mmol/L Chloride 103 (98-107) mmol/L Carbon Dioxide 28 (22-30) mmol/L Anion Gap 9 mmol/L BUN 16 (7-17) mg/dL Creatinine 0.69 (0.52-1.04) mg/dL Est GFR (CKD-EPI)AfAm >90 (>60 ml/min/1.73 sqM) Est GFR (CKD-EPI)NonAf >90 (>60 ml/min/1.73 sqM) Glucose 100 H (74-99) mg/dL Calcium 9.7 (8.4-10.2) mg/dL Total Bilirubin 0.3 (0.2-1.3) mg/dL AST 62 H (14-36) U/L ALT 114 H (9-52) U/L Alkaline Phosphatase 227 H (38-126) U/L Total Protein 7.6 (6.3-8.2) g/dL Albumin 4.3 (3.5-5.0) g/dL TSH (0.465-4.680) mIU/L Free T4 (0.78-2.19) ng/dL HCG, Qual Not Detected Urine HCG, Qual Not Detected (Not Detectd) 03/21/19 Range/Units 23:30 WBC (3.8-10.6) k/uL RBC (3.80-5.40) m/uL Hgb (11.4-16.0) gm/dL Hct (34.0-46.0) % MCV (80.0-100.0) fL MCH (25.0-35.0) pg MCHC (31.0-37.0) g/dL RDW (11.5-15.5) % Plt Count (150-450) k/uL Neutrophils % % Lymphocytes % % Monocytes % % Eosinophils % % Basophils % % Neutrophils # (1.3-7.7) k/uL Lymphocytes # (1.0-4.8) k/uL Monocytes # (0-1.0) k/uL Eosinophils # (0-0.7) k/uL Basophils # (0-0.2) k/uL Sodium (137-145) mmol/L Potassium (3.5-5.1) mmol/L Chloride (98-107) mmol/L Carbon Dioxide (22-30) mmol/L Anion Gap mmol/L BUN (7-17) mg/dL Creatinine (0.52-1.04) mg/dL Est GFR (CKD-EPI)AfAm (>60 ml/min/1.73 sqM) Est GFR (CKD-EPI)NonAf (>60 ml/min/1.73 sqM) Glucose (74-99) mg/dL Calcium (8.4-10.2) mg/dL Total Bilirubin (0.2-1.3) mg/dL AST (14-36) U/L ALT (9-52) U/L Alkaline Phosphatase (38-126) U/L Total Protein (6.3-8.2) g/dL Albumin (3.5-5.0) g/dL TSH 8.360 H (0.465-4.680) mIU/L Free T4 1.08 (0.78-2.19) ng/dL HCG, Qual Urine HCG, Qual (Not Detectd) - EKG Data EKG Comments: EKG demonstrates a normal sinus rhythm with a ventricular rate of 60. CT interval 150. QRS 86. QTc 424. There is an inverted T-wave in lead V1. No acute ST segment elevations or depressions concerning for ischemic changes. Disposition Clinical Impression: Globus sensation Disposition: HOME SELF-CARE Condition: Stable Instructions (If sedation given, give patient instructions): Dysphagia (ED) Additional Instructions: Please follow-up with your primary care doctor in 1-2 days. You will need to have your liver enzymes repeated. I also recommend that you have an EGD per formed. If you have any new or worsening symptoms return to the emergency room. Prescriptions: Loratadine [Claritin] 10 mg PO DAILY #30 tab Omeprazole 20 mg PO DAILY #30 cap Is patient prescribed a controlled substance at d/c from ED?: No Referrals: Rufino Elmore DO [Primary Care Provider] - 1-2 days Time of Disposition: 01:53
--- NOTE | 2019-03-22 00:28 | CT ---
EXAM: CT Neck Without Intravenous Contrast CLINICAL HISTORY: ITS.REASON CT Reason: Pain TECHNIQUE: Axial computed tomography images of the neck without intravenous contrast. This CT exam was performed using one or more of the following dose reduction techniques: automated exposure control, adjustment of the mA and/or kV according to patient size, and/or use of iterative reconstruction technique. COMPARISON: No relevant prior studies available. FINDINGS: Oropharynx: Unremarkable. No significant tonsillar enlargement. Hypopharynx: Unremarkable. Larynx: Unremarkable. Normal epiglottis. Trachea: Unremarkable. Retropharyngeal space: Unremarkable. Submandibular/parotid glands: Unremarkable. Glands are normal in size. Thyroid: No suspicious nodules. Bones/joints: No acute fracture. Soft tissues: Unremarkable. Vasculature: No suspicious findings. Lymph nodes: Unremarkable. No lymphadenopathy. Lung apices: Unremarkable as visualized. IMPRESSION: No acute findings.
--- NOTE | 2019-03-22 00:47 | XR ---
EXAM: XR Chest, 2 Views CLINICAL HISTORY: ITS.REASON XR Reason: cough TECHNIQUE: Frontal and lateral views of the chest. COMPARISON: No relevant prior studies available. FINDINGS: Lungs: Unremarkable. No consolidation. Pleural space: Unremarkable. No pneumothorax. Heart: No suspicious enlargement. Mediastinum: Unremarkable. Bones/joints: No acute fracture. IMPRESSION: No acute findings.
[2019-03-22] MEDS ORDERED: PANTOPRAZOLE 40 MG TABLET PO STA (01:28)
[2019-03-22] MEDS ORDERED: LORATADINE 10 MG TAB PO STA (01:28)
[2019-03-22 02:43] VITALS: BP 105/64; PULSE 78
[2019-03-22 03:44] LABS: T4, Free (Free Thyroxine) 1.08 ng/dL (0.78-2.19)
== END 2019-03-22 02:41 | disposition home or self-care (01) ==
LOC: EC 21:53
DX: F45.8 Other somatoform disorders (principal); R74.8 Abnormal levels of other serum enzymes; F41.9 Anxiety disorder, unspecified; Z91.013 Allergy to seafood; Z79.890 Hormone replacement therapy; Z79.899 Other long term (current) drug therapy; Z90.49 Acquired absence of other specified parts of digestive tract
CPT/HCPCS: 36415; 70490; 71046; 80053; 81025; 84439; 84443; 84703; 85025; 93005; 99285

== ENCOUNTER → 2019-05-08 | Outpatient (CLI) | payer OTHER ==
[2019-05-08 12:49] LABS: Basophils # (A) 0.1 k/uL (0-0.2); Basophils % (A) 1 %; Eosinophils # (A) 0.4 k/uL (0-0.7); Eosinophils % (A) 4 %; HCT 40.3 % (34.0-46.0); HGB 13.2 gm/dL (11.4-16.0); Lymphocytes # (A) 3.1 k/uL (1.0-4.8); Lymphocytes % (A) 27 %; MCH 28.7 pg (25.0-35.0); MCHC 32.8 g/dL (31.0-37.0); MCV 87.6 fL (80.0-100.0); Mean Platelet Volume 6.9; Monocytes # (A) 0.8 k/uL (0-1.0); Monocytes % (A) 7 %; Neutrophils # (A) 6.8 k/uL (1.3-7.7); Neutrophils % (A) 60 %; Platelet Count 413 k/uL (150-450); RDW 14.3 % (11.5-15.5); WBC 11.4 k/uL (3.8-10.6)
[2019-05-08 19:12] LABS: African American GFR (CKD) 113.9 (60.0-200.0); Albumin 4.4 g/dL (3.80-4.90); Albumin/Globulin Ratio 1.52 (1.60-3.17); Anion Gap 7.1 mmol/L (4.00-12.00); Calcium 9.5 mg/dL (8.7-10.3); Carbon Dioxide 29.9 mmol/L (21.6-31.8); Globulin 2.9 g/dL (1.6-3.3); Non-African American GFR(CKD) 98.2 (60.0-200.0); Potassium 4.3 mmol/L (3.5-5.5); Total Bilirubin 0.4 mg/dL (0.2-1.2); Total Protein 7.3 g/dL (6.2-8.2)
== END ==
LOC: LABWHC1 12:05
PROVIDERS: ATTEND Physician Assistant
DX: E03.9 Hypothyroidism, unspecified (principal); S36.112D Contusion of liver, subsequent encounter
CPT/HCPCS: 36415; 80053; 84439; 84443; 85025

== ENCOUNTER → 2019-05-20 | Outpatient (CLI) | payer OTHER ==
--- NOTE | 2019-05-21 09:12 | CT ---
EXAMINATION TYPE: CT soft tissue neck w con DATE OF EXAM: 05/20/2019 HISTORY: submental mass, lump behind front bottom row of teeth COMPARISON: 03/22/[address] CT neck without contrast CT DLP: 393.9 mGycm. Automated Exposure Control for Dose Reduction was Utilized. TECHNIQUE: CT scan of the neck is performed with IV Contrast, patient injected with 100 mL of Isovue 300, axial images are obtained, coronal and sagittal reformatted images are reviewed. FINDINGS: Airway: Airway is maintained. Minimal subsegmental atelectasis in the visualized portions of the lung s.. Parotid/submandibular glands: No gross abnormality seen. Carotid/Vascular Structures: Patent and unremarkable. No hemodynamically significant stenosis. Right vertebral artery is slightly dominant. Osseous Structures: Very mild rightward nasal septal deviation. Mild mucosal thickening of the left m axillary sinus and is most inferior dependent portion and 1 cm mucosal retention cyst versus polyp of the inferior right maxillary sinus. Minimal degenerative changes of the cervical spine. Other: There are 3 nonenlarged morphologically normal lymph nodes in the submental region on series 3 image 51 and 52 measuring up to 5 mm in short axis that could correspond to the patient's palpable a bnormality and has no other suspicious masses are seen. The submandibular glands are symmetric and un remarkable. Other nonenlarged lymph nodes are seen throughout the anterior and posterior cervical mata ins. These measure up to 9 mm in short axis in the left submandibular region just posterior to the nava bmandibular gland on image 53. IMPRESSION: 1. Nonenlarged morphologically normal submandibular lymph nodes could correspond to the patient's pal pable abnormality. These are within normal limits and there are 3 lymph nodes seen in the submandibul ar region. 2. Right maxillary sinus 1 cm polyp versus mucosal retention cyst and minimal mucosal thickening of t he left maxillary sinus.
== END | disposition home or self-care (01) ==
LOC: RADCTMAIN 10:20
PROVIDERS: ATTEND Otolaryngology
DX: R22.9 Localized swelling, mass and lump, unspecified (principal)
CPT/HCPCS: 70491; Q9967

== ENCOUNTER 2019-05-22 18:09 | Emergency (ER) | payer OTHER ==
[2019-05-22 18:20] VITALS: RESP 18
[2019-05-22] MEDS ORDERED: SODIUM CHLORIDE 0.9% 1,000 ML IV STA (18:42)
[2019-05-22] MEDS ORDERED: hydrOXYzine PAMOATE 25 MG CAP PO STA (18:43)
[2019-05-22 19:30] LABS: Basophils # (A) 0.2 k/uL (0-0.2); Basophils % (A) 2 %; Eosinophils # (A) 0.6 k/uL (0-0.7); Eosinophils % (A) 5 %; HCT 41.8 % (34.0-46.0); Lymphocytes # (A) 3.5 k/uL (1.0-4.8); Lymphocytes % (A) 31 %; MCHC 33.4 g/dL (31.0-37.0); MCV 86.8 fL (80.0-100.0); Mean Platelet Volume 7.6; Monocytes # (A) 0.7 k/uL (0-1.0); Monocytes % (A) 6 %; Neutrophils % (A) 54 %; Platelet Count 479 k/uL (150-450); RBC 4.81 m/uL (3.80-5.40); RDW 13.7 % (11.5-15.5); WBC 11.2 k/uL (3.8-10.6)
[2019-05-22 19:33] LABS: ALT 195 U/L (9-52); AST 131 U/L (14-36); African American GFR (CKD) >90 (>60 ml/min/1.73 sqM); Albumin 4.5 g/dL (3.5-5.0); Alkaline Phosphatase 362 U/L (38-126); Amylase 63 U/L (30-110); Anion Gap 10 mmol/L; Blood Urea Nitrogen 15 mg/dL (7-17); Calcium 9.9 mg/dL (8.4-10.2); Carbon Dioxide 27 mmol/L (22-30); Chloride 101 mmol/L (98-107); Glucose 121 mg/dL (74-99); Potassium 3.9 mmol/L (3.5-5.1); Sodium 138 mmol/L (137-145); Total Bilirubin 0.3 mg/dL (0.2-1.3); Total Protein 8.4 g/dL (6.3-8.2)
[2019-05-22 19:43] LABS: Appearance,Urine Clear (Clear); Bacteria,Urine Rare /hpf; Bilirubin,Urine Negative (Negative); Blood,Urine Large (Negative); Color,Urine Light Yellow; Glucose,Urine (UA) Negative (Negative); Ketones,Urine Negative (Negative); Leukocyte Esterase,Urine Moderate (Negative); Mucus,Urine Rare /hpf; Nitrite,Urine Negative (Negative); PH, Urine 5.5 (5.0-8.0); Protein,Urine Negative (Negative); RBC,Urine 2 /hpf (0-5); Specific Gravity,Urine 1.006 (1.001-1.035); Squamous Epithelial Cell,Urine 4 /hpf (0-4); Urobilinogen,Urine <2.0 mg/dL (<2.0); WBC,Urine 9 /hpf (0-5)
--- NOTE | 2019-05-22 20:55 | ED ---
General Adult HPI - General Chief complaint: Recheck/Abnormal Lab/Rx Stated complaint: rash Time Seen by Provider: 05/22/19 18:25 Source: patient Mode of arrival: ambulatory Limitations: no limitations - History of Present Illness Initial comments: 29-year-old female patient presents to the emergency department today for evaluation of pruritus. The patient states that she's had increase in generalized itching over the last week or 2. Patient states that she has had elevated liver enzymes in the past and thinks this may be happening again. Patient states that she had her gallbladder removed and developed a hematoma to the liver which caused elevation in liver enzymes. Patient is reporting some suprapubic cramping but denies any other abdominal pain. States she is having some light vaginal bleeding today. States she is 2 days late for her period. Patient is concerned she may be . She denies any hematuria, dysuria, urinary frequency, urinary urgency. Denies fever or chills. Denies any yellowing of the skin, nausea, or vomiting. Patient denies any recent rash, shortness breath, chest pain, back pain, numbness, tingling, dizziness, weakness, headache, visual changes, or any other complaints. - Related Data Home Medications Medication Instructions Recorded Confirmed lamoTRIgine [LaMICtal] 25 mg PO BID 12/11/18 03/21/19 Levothyroxine Sodium [Synthroid] 25 mcg PO DAILY 01/16/19 03/21/19 Albuterol Inhaler [Ventolin Hfa 2 puff INHALATION RT-Q6H PRN 02/07/19 03/21/19 Inhaler] LORazepam [Ativan] 0.5 mg PO DAILY 03/21/19 03/21/19 Previous Rx's Medication Instructions Recorded Loratadine [Claritin] 10 mg PO DAILY #30 tab 03/22/19 Omeprazole 20 mg PO DAILY #30 cap 03/22/19 hydrOXYzine PAMOATE [Vistaril] 25 mg PO TID PRN #15 cap 05/22/19 Allergies Allergy/AdvReac Type Severity Reaction Status Date / Time shellfish derived [Shellfish] Allergy Anaphylaxis Verified 03/21/19 22:24 Review of Systems ROS Statement: Those systems with pertinent positive or pertinent negative responses have been documented in the HPI. ROS Other: All systems not noted in ROS Statement are negative. Past Medical History Past Medical History: No Reported History Additional Past Medical History / Comment(s): cholestasis of History of Any Multi-Drug Resistant Organisms: None Reported Past Surgical History: Cholecystectomy, Tonsillectomy Additional Past Surgical History / Comment(s): splenectomy Past Anesthesia/Blood Transfusion Reactions: No Reported Reaction Past Psychological History: Anxiety Smoking Status: Never smoker Past Alcohol Use History: None Reported Past Drug Use History: Marijuana - Past Family History Mother Additional Family Medical History / Comment(s): anxiety, depression Father History Unknown: Yes General Exam Limitations: no limitations General appearance: alert, in no apparent distress, other (This is a well- developed, well-nourished adult female patient in no acute distress. Vital signs upon presentation are temperature 98.4F, pulse 80, respirations 18, blood pressure 124/84, pulse ox 98% on room air.) Eye exam: Present: normal appearance, PERRL, EOMI. Absent: scleral icterus, conjunctival injection, periorbital swelling ENT exam: Present: normal exam, normal oropharynx, mucous membranes moist Respiratory exam: Present: normal lung sounds bilaterally. Absent: respiratory distress, wheezes, rales, rhonchi, stridor Cardiovascular Exam: Present: regular rate, normal rhythm, normal heart sounds. Absent: systolic murmur, diastolic murmur, rubs, gallop, clicks GI/Abdominal exam: Present: soft, normal bowel sounds. Absent: distended, tenderness, guarding, rebound, rigid Neurological exam: Present: alert, oriented X3, CN II-XII intact Psychiatric exam: Present: normal affect, normal mood Skin exam: Present: warm, dry, intact, normal color. Absent: rash Course Vital Signs 05/22/19 05/22/19 18:18 21:39 Temperature 98.4 F 97.0 F L Pulse Rate 80 87 Respiratory 18 18 Rate Blood Pressure 124/84 116/87 O2 Sat by Pulse 98 99 Oximetry Medical Decision Making - Medical Decision Making 29-year-old female patient presented to the emergency department today for evaluation of generalized itching. Patient has history of elevated liver enzymes due to River hematoma after gallbladder surgery. Physical examination reveals a soft nontender abdomen. Labs reviewed and did reveal white blood cell count of 11.2. AST was 131, a LT 195. Ultrasound of the right upper quadrant was obtained and shows no acute abnormalities. I did discuss findings and results with the patient. She'll be given prescription for Vistaril for itching. She is instructed to follow up with her primary care physician for further evaluation of her elevated liver enzymes. She is instructed to discuss gastroenterology referral. Acute hepatitis panel was added and is pending. Re turn parameters were discussed in detail. She verbalizes understanding and agrees this plan. - Lab Data Result diagrams: 05/22/19 19:05/22/19 19:09 Lab Results 05/22/19 05/22/19 05/22/19 Range/Units 19:09 19:09 19:09 WBC 11.2 H (3.8-10.6) k/uL RBC 4.81 (3.80-5.40) m/uL Hgb 14.0 (11.4-16.0) gm/dL Hct 41.8 (34.0-46.0) % MCV 86.8 (80.0-100.0) fL MCH 29.0 (25.0-35.0) pg MCHC 33.4 (31.0-37.0) g/dL RDW 13.7 (11.5-15.5) % Plt Count 479 H (150-450) k/uL Neutrophils % 54 % Lymphocytes % 31 % Monocytes % 6 % Eosinophils % 5 % Basophils % 2 % Neutrophils # 6.0 (1.3-7.7) k/uL Lymphocytes # 3.5 (1.0-4.8) k/uL Monocytes # 0.7 (0-1.0) k/uL Eosinophils # 0.6 (0-0.7) k/uL Basophils # 0.2 (0-0.2) k/uL Sodium 138 (137-145) mmol/L Potassium 3.9 (3.5-5.1) mmol/L Chloride 101 (98-107) mmol/L Carbon Dioxide 27 (22-30) mmol/L Anion Gap 10 mmol/L BUN 15 (7-17) mg/dL Creatinine 0.72 (0.52-1.04) mg/dL Est GFR (CKD-EPI)AfAm >90 (>60 ml/min/1.73 sqM) Est GFR (CKD-EPI)NonAf >90 (>60 ml/min/1.73 sqM) Glucose 121 H (74-99) mg/dL Calcium 9.9 (8.4-10.2) mg/dL Total Bilirubin 0.3 (0.2-1.3) mg/dL AST 131 H (14-36) U/L ALT 195 H (9-52) U/L Alkaline Phosphatase 362 H (38-126) U/L Total Protein 8.4 H (6.3-8.2) g/dL Albumin 4.5 (3.5-5.0) g/dL Amylase 63 (30-110) U/L Lipase 110 (23-300) U/L Urine Color Urine Appearance (Clear) Urine pH (5.0-8.0) Ur Specific [place] (1.001-1.035) Urine Protein (Negative) Urine Glucose (UA) (Negative) Urine Ketones (Negative) Urine Blood (Negative) Urine Nitrite (Negative) Urine Bilirubin (Negative) Urine Urobilinogen (<2.0) mg/dL Ur Leukocyte Esterase (Negative) Urine RBC (0-5) /hpf Urine WBC (0-5) /hpf Ur Squamous Epith Cells (0-4) /hpf Urine Bacteria (None) /hpf Urine Mucus (None) /hpf Urine HCG, Qual Not Detected (Not Detectd) Hepatitis A IgM Ab 05/22/19 05/22/19 Range/Units 19:09 21:39 WBC (3.8-10.6) k/uL RBC (3.80-5.40) m/uL Hgb (11.4-16.0) gm/dL Hct (34.0-46.0) % MCV (80.0-100.0) fL MCH (25.0-35.0) pg MCHC (31.0-37.0) g/dL RDW (11.5-15.5) % Plt Count (150-450) k/uL Neutrophils % % Lymphocytes % % Monocytes % % Eosinophils % % Basophils % % Neutrophils # (1.3-7.7) k/uL Lymphocytes # (1.0-4.8) k/uL Monocytes # (0-1.0) k/uL Eosinophils # (0-0.7) k/uL Basophils # (0-0.2) k/uL Sodium (137-145) mmol/L Potassium (3.5-5.1) mmol/L Chloride (98-107) mmol/L Carbon Dioxide (22-30) mmol/L Anion Gap mmol/L BUN (7-17) mg/dL Creatinine (0.52-1.04) mg/dL Est GFR (CKD-EPI)AfAm (>60 ml/min/1.73 sqM) Est GFR (CKD-EPI)NonAf (>60 ml/min/1.73 sqM) Glucose (74-99) mg/dL Calcium (8.4-10.2) mg/dL Total Bilirubin (0.2-1.3) mg/dL AST (14-36) U/L ALT (9-52) U/L Alkaline Phosphatase (38-126) U/L Total Protein (6.3-8.2) g/dL Albumin (3.5-5.0) g/dL Amylase (30-110) U/L Lipase (23-300) U/L Urine Color Light Yellow Urine Appearance Clear (Clear) Urine pH 5.5 (5.0-8.0) Ur Specific [place] 1.006 (1.001-1.035) Urine Protein Negative (Negative) Urine Glucose (UA) Negative (Negative) Urine Ketones Negative (Negative) Urine Blood Large H (Negative) Urine Nitrite Negative (Negative) Urine Bilirubin Negative (Negative) Urine Urobilinogen <2.0 (<2.0) mg/dL Ur Leukocyte Esterase Moderate H (Negative) Urine RBC 2 (0-5) /hpf Urine WBC 9 H (0-5) /hpf Ur Squamous Epith Cells 4 (0-4) /hpf Urine Bacteria Rare H (None) /hpf Urine Mucus Rare H (None) /hpf Urine HCG, Qual (Not Detectd) Hepatitis A IgM Ab NEGATIVE - Radiology Data Radiology results: report reviewed, image reviewed Ultrasound of the right upper quadrant abdomen is obtained. Report was reviewed in its entirety. Impression by Dr. Snyder shows cholecystectomy. No dilated ducts. No focal liver defect. Disposition Clinical Impression: Transaminitis, Generalized pruritus Disposition: HOME SELF-CARE Condition: Good Instructions (If sedation given, give patient instructions): Itchy Skin (ED) Additional Instructions: Take medication as directed. Follow-up with your primary care physician for recheck in 1-2 days. Return to the emergency department immediately for any new, worsening, or concerning symptoms. Your prescription has been sent to the [facility] on [address] [place] [address] in [place]. Prescriptions: hydrOXYzine PAMOATE [Vistaril] 25 mg PO TID PRN #15 cap PRN Reason: Itching Is patient prescribed a controlled substance at d/c from ED?: No Referrals: Rufino Elmore DO [Primary Care Provider] - 1-2 days Time of Disposition: 21:16
--- NOTE | 2019-05-22 21:00 | US ---
EXAMINATION TYPE: US abdomen limited DATE OF EXAM: 05/22/2019 COMPARISON: NONE CLINICAL HISTORY: Transaminitis. Pain EXAM MEASUREMENTS: Liver Length: 16.5 cm Gallbladder Wall: Surgically absent cm CBD: 0.3 cm Right Kidney: 11.4 x 3.7 x 4.0 cm Pancreas: Tail obscured by overlying bowel gas Liver: wnl Gallbladder: Surgically absent Evidence for sonographic López's sign: No CBD: wnl Right Kidney: wnl IMPRESSION: Cholecystectomy. No dilated ducts. No focal liver defect.
[2019-05-22 21:40] VITALS: BP 116/87; PULSE 87; TEMP 97
== END 2019-05-22 21:40 | disposition home or self-care (01) ==
LOC: EC 18:09
DX: L29.9 Pruritus, unspecified (principal); R74.0 Nonspecific elevation of levels of transaminase and lactic acid dehydrogenase [LDH]; F41.9 Anxiety disorder, unspecified; Z79.890 Hormone replacement therapy; Z79.899 Other long term (current) drug therapy; Z91.013 Allergy to seafood
CPT/HCPCS: 36415; 76705; 80053; 80074; 81001; 81025; 82150; 83690; 85025; 96360; 96361; 99283

== ENCOUNTER → 2019-09-02 | Outpatient (CLI) | payer OTHER ==
--- NOTE | 2019-09-04 12:20 | CT ---
EXAMINATION TYPE: CT iac wo/w con DATE OF EXAM: 09/02/2019 COMPARISON: None HISTORY: Dizziness, Fluid in Lt ear CT DLP: 300 mGycm. Automated Exposure Control for Dose Reduction was Utilized. TECHNIQUE: CT scan of internal auditory canal is performed without contrast, thin cut axial images ar e obtained, coronal reformatted images are also reviewed. FINDINGS: The external auditory canals are patent bilaterally. Very minimal fluid is at the inferior left mastoid air cells. Mastoid air cells bilaterally are otherwise unremarkable. The middle ear ossi cles are symmetric and unremarkable. The middle ears appear clear. Internal auditory canals appear symmetrical. No expansion or erosion is evident. Postcontrast imaging through the cerebellar pontine angles and internal auditory canals appear normal. The scutum is preserved bilaterally. The cochlea and the semicircular canals are symmetric and unrem arkable. Vestibular aqueduct and internal carotid canal appear unremarkable. Temporomandibular joints are maintained bilaterally. Visualized paranasal sinuses are grossly clear. There is right septal deviation noted. Visualized portion brain parenchyma is felt within normal avila its. IMPRESSION: 1. Fairly minimal fluid within the inferior left mastoid air cells. 2. Internal auditory canal study otherwise unremarkable.
== END | disposition home or self-care (01) ==
LOC: RADCTMAIN 08:35
PROVIDERS: ATTEND Otolaryngology
DX: H74.8X2 Other specified disorders of left middle ear and mastoid (principal)
CPT/HCPCS: 70482; Q9967

== ENCOUNTER 2019-09-17 10:42 | Emergency (ER) | payer OTHER ==
[2019-09-17 11:05] VITALS: TEMP 98.3
[2019-09-17] MEDS ORDERED: methylPREDNISolone SOD SUCCI 125 MG/2 ML VIAL IM ONE (11:43)
[2019-09-17 12:20] VITALS: RESP 20
[2019-09-17 12:22] LABS: Appearance,Urine Cloudy (Clear); Bacteria,Urine Occasional /hpf; Bilirubin,Urine Negative (Negative); Blood,Urine Small (Negative); Color,Urine Yellow; Glucose,Urine (UA) Negative (Negative); Ketones,Urine Negative (Negative); Leukocyte Esterase,Urine Large (Negative); Mucus,Urine Rare /hpf; Nitrite,Urine Negative (Negative); PH, Urine 5.5 (5.0-8.0); Protein,Urine Negative (Negative); RBC,Urine 5 /hpf (0-5); Squamous Epithelial Cell,Urine 12 /hpf (0-4); WBC,Urine 16 /hpf (0-5)
--- NOTE | 2019-09-17 12:32 | ED ---
General Adult HPI - General Chief complaint: Skin/Abscess/Foreign Body Stated complaint: itchy all over Time Seen by Provider: 09/17/19 11:35 Source: patient Mode of arrival: ambulatory Limitations: no limitations - History of Present Illness Initial comments: Patient is a 29-year-old female presenting to emergency Department with complaints of itching all over for 3 days. Patient admits to history of liver disease and states she's had these symptoms in the past. Patient states she usually tries Benadryl or cold showers for her symptoms however it is not relieving at this time. Patient denies abdominal pain, nausea, vomiting, fever, chills, jaundice. Patient denies any rashes, urinary complaints. Patient has no other complaints at this time. She has no other pertinent past medical history. Upon arrival to the ER, her vital signs are stable. - Related Data Home Medications Medication Instructions Recorded Confirmed lamoTRIgine [LaMICtal] 25 mg PO BID 12/11/18 03/21/19 Levothyroxine Sodium [Synthroid] 25 mcg PO DAILY 01/16/19 03/21/19 Albuterol Inhaler [Ventolin Hfa 2 puff INHALATION RT-Q6H PRN 02/07/19 03/21/19 Inhaler] LORazepam [Ativan] 0.5 mg PO DAILY 03/21/19 03/21/19 Previous Rx's Medication Instructions Recorded Loratadine [Claritin] 10 mg PO DAILY #30 tab 03/22/19 Omeprazole 20 mg PO DAILY #30 cap 03/22/19 hydrOXYzine PAMOATE [Vistaril] 25 mg PO TID PRN #15 cap 09/17/19 methylPREDNISolone [Medrol Dose 4 mg PO DIRECTED #1 pack 09/17/19 Pack] Allergies Allergy/AdvReac Type Severity Reaction Status Date / Time shellfish derived [Shellfish] Allergy Anaphylaxis Verified 09/17/19 11:05 Review of Systems ROS Statement: Those systems with pertinent positive or pertinent negative responses have been documented in the HPI. ROS Other: All systems not noted in ROS Statement are negative. Past Medical History Past Medical History: No Reported History Additional Past Medical History / Comment(s): cholestasis of History of Any Multi-Drug Resistant Organisms: None Reported Past Surgical History: Cholecystectomy, Tonsillectomy Additional Past Surgical History / Comment(s): splenectomy Past Anesthesia/Blood Transfusion Reactions: No Reported Reaction Past Psychological History: Anxiety Smoking Status: Never smoker Past Alcohol Use History: None Reported Past Drug Use History: Marijuana - Past Family History Mother Additional Family Medical History / Comment(s): anxiety, depression Father History Unknown: Yes General Exam - General Exam Comments Initial Comments: GENERAL: Well-appearing, well-nourished and in no acute distress. HEAD: Atraumatic, normocephalic. EYES: Pupils equal round and reactive to light, extraocular movements intact, sclera anicteric, conjunctiva are normal. ENT: Nares patent, oropharynx clear without exudates. Moist mucous membranes. NECK: Normal range of motion, supple without lymphadenopathy or JVD. LUNGS: Breath sounds clear to auscultation bilaterally and equal. No wheezes rales or rhonchi. HEART: Regular rate and rhythm without murmurs, rubs or gallops. ABDOMEN: Soft, nontender, normoactive bowel sounds. No guarding, no rebound. No masses appreciated. EXTREMITIES: Normal range of motion, no pitting or edema. No clubbing or cyanosis. NEUROLOGICAL: Normal speech, normal gait. PSYCH: Normal mood, normal affect. SKIN: Warm, Dry, normal turgor, no rashes or lesions noted. Limitations: no limitations Course Vital Signs 09/17/19 09/17/19 09/17/19 11:02 12:05 12:36 Temperature 98.3 F Pulse Rate 72 64 75 Respiratory 18 20 20 Rate Blood Pressure 117/79 114/65 107/65 O2 Sat by Pulse 97 96 98 Oximetry Medical Decision Making - Medical Decision Making Patient is a 29-year-old female presenting with itchiness all over x 3 days. History of liver disease. Vital signs are stable today. Exam is unremarkable, no rashes, no abdominal pain, no jaundice. UA was checked and No signs of infection, no bili, hCG is negative. Patient was given a steroid injection and short course of oral steroids to start tomorrow. She will also try hydroxyzine. She is stable for discharge at this time and she is in agreement with this plan of care. Patient will follow up with her PCP if symptoms persist. Return parameters were discussed the patient she verbalized understanding. Case discussed with Dr. Fulton. - Lab Data Lab Results 12/29/19 12/29/19 Range/Units 11:55 11:55 Urine Color Yellow Urine Appearance Cloudy H (Clear) Urine pH 5.5 (5.0-8.0) Ur Specific [place] 1.020 (1.001-1.035) Urine Protein Negative (Negative) Urine Glucose (UA) Negative (Negative) Urine Ketones Negative (Negative) Urine Blood Small H (Negative) Urine Nitrite Negative (Negative) Urine Bilirubin Negative (Negative) Urine Urobilinogen 3.0 (<2.0) mg/dL Ur Leukocyte Esterase Large H (Negative) Urine RBC 5 (0-5) /hpf Urine WBC 16 H (0-5) /hpf Ur Squamous Epith Cells 12 H (0-4) /hpf Urine Bacteria Occasional H (None) /hpf Urine Mucus Rare H (None) /hpf Urine HCG, Qual Not Detected (Not Detectd) Disposition Clinical Impression: Pruritus Disposition: HOME SELF-CARE Condition: Stable Instructions (If sedation given, give patient instructions): Itchy Skin (ED) Additional Instructions: Please return to the Emergency Department if symptoms worsen or any other concerns. Trial of hydroxyzine for itchiness. Continue with steroids as directed. Prescriptions: methylPREDNISolone [Medrol Dose Pack] 4 mg PO DIRECTED #1 pack hydrOXYzine PAMOATE [Vistaril] 25 mg PO TID PRN #15 cap PRN Reason: Itching Is patient prescribed a controlled substance at d/c from ED?: No Referrals: Rufino Elmore DO [Primary Care Provider] - 1-2 days
[2019-09-17 12:37] VITALS: BP 107/65; PULSE 75
== END 2019-09-17 12:38 | disposition home or self-care (01) ==
LOC: EC 10:42
DX: L29.9 Pruritus, unspecified (principal); F41.9 Anxiety disorder, unspecified; Z91.013 Allergy to seafood; Z79.890 Hormone replacement therapy; Z79.899 Other long term (current) drug therapy; Z87.19 Personal history of other diseases of the digestive system
CPT/HCPCS: 81001; 81025; 87086; 99283; 96372; J2930

== ENCOUNTER 2019-09-23 10:31 | Emergency (ER) | payer OTHER ==
[2019-09-23] MEDS ORDERED: predniSONE 20 MG TAB PO STA (12:18)
[2019-09-23] MEDS ORDERED: FAMOTIDINE 20 MG TAB PO STA (12:19)
--- NOTE | 2019-09-23 12:21 | ED ---
Skin/Abscess/FB HPI - General Chief complaint: Skin/Abscess/Foreign Body Stated complaint: rash Time Seen by Provider: 09/23/19 11:04 Source: patient Mode of arrival: ambulatory Limitations: no limitations - History of Present Illness Initial comments: Patient is a 29-year-old female presenting to the emergency department with a chief complaint of a rash. Patient was in the ED 2 days ago for itchiness but no rash at that time. Patient reports over the last 2 days she has developed a rash medial aspect of bilateral lower extremities. Denies any swelling to the region. She does report some itchiness but denies any pain. He denies any associated chills. Denies any trauma, insect bites to the region. Patient reports once today. About 2 days ago but has not increased or decreased in size. Patient denies taking any medication to alleviate the symptoms. - Related Data Home Medications Medication Instructions Recorded Confirmed lamoTRIgine [LaMICtal] 25 mg PO BID 12/11/18 03/21/19 Levothyroxine Sodium [Synthroid] 25 mcg PO DAILY 01/16/19 03/21/19 Albuterol Inhaler [Ventolin Hfa 2 puff INHALATION RT-Q6H PRN 02/07/19 03/21/19 Inhaler] LORazepam [Ativan] 0.5 mg PO DAILY 03/21/19 03/21/19 Previous Rx's Medication Instructions Recorded Loratadine [Claritin] 10 mg PO DAILY #30 tab 03/22/19 Omeprazole 20 mg PO DAILY #30 cap 03/22/19 hydrOXYzine PAMOATE [Vistaril] 25 mg PO TID PRN #15 cap 09/17/19 methylPREDNISolone [Medrol Dose 4 mg PO DIRECTED #1 pack 09/17/19 Pack] Famotidine [Pepcid] 20 mg PO BID #4 tablet 09/23/19 predniSONE 50 mg PO DAILY #3 tab 09/23/19 Allergies Allergy/AdvReac Type Severity Reaction Status Date / Time shellfish derived [Shellfish] Allergy Anaphylaxis Verified 09/23/19 10:55 Review of Systems ROS Statement: Those systems with pertinent positive or pertinent negative responses have been documented in the HPI. ROS Other: All systems not noted in ROS Statement are negative. Past Medical History Past Medical History: No Reported History Additional Past Medical History / Comment(s): cholestasis of History of Any Multi-Drug Resistant Organisms: None Reported Past Surgical History: Cholecystectomy, Tonsillectomy Additional Past Surgical History / Comment(s): splenectomy Past Anesthesia/Blood Transfusion Reactions: No Reported Reaction Past Psychological History: Anxiety Smoking Status: Never smoker Past Alcohol Use History: None Reported Past Drug Use History: Marijuana - Past Family History Mother Additional Family Medical History / Comment(s): anxiety, depression Father History Unknown: Yes General Exam Limitations: no limitations General appearance: alert, in no apparent distress Head exam: Present: atraumatic, normocephalic, normal inspection Eye exam: Present: normal appearance, PERRL, EOMI Pupils: Present: normal accommodation ENT exam: Present: normal exam Neck exam: Present: normal inspection, full ROM Respiratory exam: Present: normal lung sounds bilaterally Cardiovascular Exam: Present: regular rate, normal rhythm, normal heart sounds Extremities exam: Present: normal inspection, full ROM Back exam: Present: normal inspection, full ROM Neurological exam: Present: alert, oriented X3 Psychiatric exam: Present: normal affect, normal mood Skin exam: Present: warm, dry, intact, normal color, rash (Rash from medial aspect of bilateral lower extremities. It is a macular rash with some itchiness.) Course Vital Signs 09/23/19 09/23/19 10:53 12:35 Temperature 98.3 F 97.7 F Pulse Rate 92 99 Respiratory 16 18 Rate Blood Pressure 115/85 O2 Sat by Pulse 94 L Oximetry Medical Decision Making - Medical Decision Making Patient is a 29-year-old female presenting to emergency Department with a chief complaint of a rash. On exam patient has a rash in the medial aspect bilateral lower extremities. His appears to be macular rash that does arpit. The rash started after patient was discharged yesterday with hydroxyzine. I suspect this could be a cause of the rash considering his started right after she began taking the medication. The rash appears to be itchy. Does not look infectious. Patient given prednisone and Pepcid alleviate will be discharged with tumor days of Pepcid and prednisone. Patient was to follow with primary care. She has an appointment in few days. Strict return parameters were thoroughly discus sed the patient was understanding and agreeable. Case discussed with physician. Disposition Clinical Impression: Macular erythematous rash Disposition: HOME SELF-CARE Condition: Stable Instructions (If sedation given, give patient instructions): Acute Rash (ED) Additional Instructions: Please take prescribed medication as directed. Follow with primary care. Please return to emergency department if symptoms worsen. Prescriptions: Famotidine [Pepcid] 20 mg PO BID #4 tablet predniSONE 50 mg PO DAILY #3 tab Is patient prescribed a controlled substance at d/c from ED?: No Referrals: Rufino Elmore DO [Primary Care Provider] - 1-2 days Time of Disposition: 12:21
[2019-09-23 12:36] VITALS: BP 115/85; PULSE 99; RESP 18; TEMP 97.7
== END 2019-09-23 12:35 | disposition home or self-care (01) ==
LOC: EC 10:31
DX: L53.8 Other specified erythematous conditions (principal); F41.9 Anxiety disorder, unspecified; Z79.890 Hormone replacement therapy; Z79.899 Other long term (current) drug therapy; Z91.013 Allergy to seafood
CPT/HCPCS: 99282; J7512

== ENCOUNTER 2019-10-21 15:39 | Emergency (ER) | payer OTHER ==
[2019-10-21] MEDS ORDERED: AZITHROMYCIN 500 MG in SODIUM CHLORIDE 0.9% 250 ML IVPB STA (16:24)
[2019-10-21] MEDS ORDERED: ACETAMINOPHEN TAB 500 MG TAB PO STA (16:25)
--- NOTE | 2019-10-21 16:49 | ED ---
General Adult HPI - General Chief complaint: Upper Respiratory Infection Stated complaint: Sob/cough Time Seen by Provider: 10/21/19 15:48 Source: patient, RN notes reviewed Mode of arrival: ambulatory Limitations: no limitations - History of Present Illness Initial comments: 29-year-old female presents to the emergency determine for chief complaint of cough. Patient states she has had a cough for the past 2 days. States that cough is productive. She denies congestion. Admits to minimal shortness of breath. Denies fevers at home. Denies ear pain, sore throat, headaches, neck stiffness. 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 Patient has no other complaints at this time including shortness of breath, chest pain, abdominal pain, nausea or vomiting, headache, or visual changes. - Related Data Home Medications Medication Instructions Recorded Confirmed lamoTRIgine [LaMICtal] 25 mg PO BID 12/11/18 03/21/19 Levothyroxine Sodium [Synthroid] 25 mcg PO DAILY 01/16/19 03/21/19 Albuterol Inhaler [Ventolin Hfa 2 puff INHALATION RT-Q6H PRN 02/07/19 03/21/19 Inhaler] LORazepam [Ativan] 0.5 mg PO DAILY 03/21/19 03/21/19 Previous Rx's Medication Instructions Recorded Loratadine [Claritin] 10 mg PO DAILY #30 tab 03/22/19 Omeprazole 20 mg PO DAILY #30 cap 03/22/19 hydrOXYzine PAMOATE [Vistaril] 25 mg PO TID PRN #15 cap 09/17/19 methylPREDNISolone [Medrol Dose 4 mg PO DIRECTED #1 pack 09/17/19 Pack] Famotidine [Pepcid] 20 mg PO BID #4 tablet 09/23/19 predniSONE 50 mg PO DAILY #3 tab 09/23/19 Cephalexin [Keflex] 500 mg PO Q8HR 10 Days #30 cap 10/21/19 Oseltamivir [Tamiflu] 75 mg PO Q12HR #10 cap 10/21/19 Allergies Allergy/AdvReac Type Severity Reaction Status Date / Time shellfish derived [Shellfish] Allergy Anaphylaxis Verified 09/23/19 10:55 Review of Systems ROS Statement: Those systems with pertinent positive or pertinent negative responses have been documented in the HPI. ROS Other: All systems not noted in ROS Statement are negative. Past Medical History Past Medical History: No Reported History Additional Past Medical History / Comment(s): cholestasis of History of Any Multi-Drug Resistant Organisms: None Reported Past Surgical History: Cholecystectomy, Ear Surgery, Tonsillectomy Additional Past Surgical History / Comment(s): splenectomy Past Anesthesia/Blood Transfusion Reactions: No Reported Reaction Past Psychological History: Anxiety Smoking Status: Never smoker Past Alcohol Use History: None Reported Past Drug Use History: None Reported - Past Family History Mother Additional Family Medical History / Comment(s): anxiety, depression Father History Unknown: Yes General Exam Limitations: no limitations General appearance: alert, in no apparent distress Head exam: Present: atraumatic, normocephalic, normal inspection Eye exam: Present: normal appearance, PERRL, EOMI. Absent: scleral icterus, conjunctival injection, periorbital swelling ENT exam: Present: normal exam, normal oropharynx (Uvula midline, no tonsillar exudates noted bilaterally), mucous membranes moist, TM's normal bilaterally, normal external ear exam. Absent: mucous membranes dry Neck exam: Present: normal inspection, full ROM. Absent: tenderness, meningi smus, lymphadenopathy Respiratory exam: Present: normal lung sounds bilaterally. Absent: respiratory distress, wheezes, rales, rhonchi, stridor Cardiovascular Exam: Present: regular rate, normal rhythm, normal heart sounds. Absent: systolic murmur, diastolic murmur, rubs, gallop, clicks GI/Abdominal exam: Present: soft, normal bowel sounds. Absent: distended, tenderness, guarding, rebound, rigid Neurological exam: Present: alert Course Vital Signs 10/21/19 10/21/19 10/21/19 15:46 16:23 17:05 Temperature 99.5 F 101.1 F H 99.8 F H Pulse Rate 109 H 101 H Respiratory 18 20 Rate Blood Pressure 118/75 135/65 O2 Sat by Pulse 97 99 Oximetry 10/21/19 18:00 Temperature 98.9 F Pulse Rate 91 Respiratory 20 Rate Blood Pressure O2 Sat by Pulse 99 Oximetry Medical Decision Making - Medical Decision Making . Patient initially presents febrile with a temperature of 101.1 and reflexively tachycardic with a pulse rate of 109. Vitals are otherwise stable. This did improve with Tylenol. CBC unremarkable. CMP does show transaminitis, this appears to be chronic and patient has seen a specialist in the past for this, has another appointment in January. Urinalysis does show evidence of infection. Patient denies dysuria but does admit to increased frequency. Influenza B is detected. Chest x-ray shows chronic AVM however no acute changes. At this time given patient's fever with history of splenectomy and findings of influenza B and urinary tract infection it is recommended she stay in the hospital for monitoring and further treatment. Discussed this with patient. Patient prefers to go home. She was given return parameters and will be treated with Keflex for urinary tract infection and Tamiflu for influenza. She will follow up with primary care as well. - Lab Data Result diagrams: 10/21/19 16:49 10/21/19 17:43 Lab Results 10/21/19 10/21/19 10/21/19 Range/Units 16:30 16:30 16:30 WBC (3.8-10.6) k/uL RBC (3.80-5.40) m/uL Hgb (11.4-16.0) gm/dL Hct (34.0-46.0) % MCV (80.0-100.0) fL MCH (25.0-35.0) pg MCHC (31.0-37.0) g/dL RDW (11.5-15.5) % Plt Count (150-450) k/uL Neutrophils % (Manual) % Lymphocytes % (Manual) % Monocytes % (Manual) % Neutrophils # (Manual) (1.3-7.7) k/uL Lymphocytes # (Manual) (1.0-4.8) k/uL Monocytes # (Manual) (0-1.0) k/uL Nucleated RBCs (0-0) /100 WBC Manual Slide Review RBC Morphology Sodium (137-145) mmol/L Potassium (3.5-5.1) mmol/L Chloride (98-107) mmol/L Carbon Dioxide (22-30) mmol/L Anion Gap mmol/L BUN (7-17) mg/dL Creatinine (0.52-1.04) mg/dL Est GFR (CKD-EPI)AfAm (>60 ml/min/1.73 sqM) Est GFR (CKD-EPI)NonAf (>60 ml/min/1.73 sqM) Glucose (74-99) mg/dL Plasma Lactic Acid Randall (0.7-2.0) mmol/L Calcium (8.4-10.2) mg/dL Total Bilirubin (0.2-1.3) mg/dL AST (14-36) U/L ALT (4-34) U/L Alkaline Phosphatase (38-126) U/L Total Protein (6.3-8.2) g/dL Albumin (3.5-5.0) g/dL Urine Color Yellow Urine Appearance Cloudy H (Clear) Urine pH 6.0 (5.0-8.0) Ur Specific [place] 1.015 (1.001-1.035) Urine Protein Negative (Negative) Urine Glucose (UA) Negative (Negative) Urine Ketones Negative (Negative) Urine Blood Trace H (Negative) Urine Nitrite Negative (Negative) Urine Bilirubin Negative (Negative) Urine Urobilinogen <2.0 (<2.0) mg/dL Ur Leukocyte Esterase Large H (Negative) Urine RBC 4 (0-5) /hpf Urine WBC 59 H (0-5) /hpf Ur Squamous Epith Cells 10 H (0-4) /hpf Amorphous Sediment Rare H (None) /hpf Urine Bacteria Occasional H (None) /hpf Urine Mucus Rare H (None) /hpf Urine HCG, Qual Not Detected (Not Detectd) Influenza Type A RNA Not Detected (Not Detectd) Influenza Type B (PCR) Detected H (Not Detectd) 10/21/19 10/21/19 10/21/19 Range/Units 16:40 16:49 17:43 WBC 7.3 (3.8-10.6) k/uL RBC 4.55 (3.80-5.40) m/uL Hgb 13.2 (11.4-16.0) gm/dL Hct 39.8 (34.0-46.0) % MCV 87.6 (80.0-100.0) fL MCH 29.1 (25.0-35.0) pg MCHC 33.2 (31.0-37.0) g/dL RDW 12.0 (11.5-15.5) % Plt Count 397 (150-450) k/uL Neutrophils % (Manual) 62 % Lymphocytes % (Manual) 22 % Monocytes % (Manual) 16 % Neutrophils # (Manual) 4.53 (1.3-7.7) k/uL Lymphocytes # (Manual) 1.61 (1.0-4.8) k/uL Monocytes # (Manual) 1.17 H (0-1.0) k/uL Nucleated RBCs 0 (0-0) /100 WBC Manual Slide Review Performed RBC Morphology Normal Sodium 138 (137-145) mmol/L Potassium 4.0 (3.5-5.1) mmol/L Chloride 102 (98-107) mmol/L Carbon Dioxide 27 (22-30) mmol/L Anion Gap 9 mmol/L BUN 13 (7-17) mg/dL Creatinine 0.70 (0.52-1.04) mg/dL Est GFR (CKD-EPI)AfAm >90 (>60 ml/min/1.73 sqM) Est GFR (CKD-EPI)NonAf >90 (>60 ml/min/1.73 sqM) Glucose 89 (74-99) mg/dL Plasma Lactic Acid [place] 1.2 (0.7-2.0) mmol/L Calcium 9.5 (8.4-10.2) mg/dL Total Bilirubin 0.8 (0.2-1.3) mg/dL AST 91 H (14-36) U/L ALT 71 H (4-34) U/L Alkaline Phosphatase 280 H (38-126) U/L Total Protein 8.3 H (6.3-8.2) g/dL Albumin 4.5 (3.5-5.0) g/dL Urine Color Urine Appearance (Clear) Urine pH (5.0-8.0) Ur Specific [place] (1.001-1.035) Urine Protein (Negative) Urine Glucose (UA) (Negative) Urine Ketones (Negative) Urine Blood (Negative) Urine Nitrite (Negative) Urine Bilirubin (Negative) Urine Urobilinogen (<2.0) mg/dL Ur Leukocyte Esterase (Negative) Urine RBC (0-5) /hpf Urine WBC (0-5) /hpf Ur Squamous Epith Cells (0-4) /hpf Amorphous Sediment (None) /hpf Urine Bacteria (None) /hpf Urine Mucus (None) /hpf Urine HCG, Qual (Not Detectd) Influenza Type A RNA (Not Detectd) Influenza Type B (PCR) (Not Detectd) Disposition Clinical Impression: Influenza B, Urinary tract infection Disposition: HOME SELF-CARE Condition: Good Instructions (If sedation given, give patient instructions): Influenza (ED), Urinary Tract Infection in Women (ED) Additional Instructions: Please take antibiotic as directed. Take Tamiflu as directed. Follow-up with primary care in 1-2 days. Return here to the emergency department if you have any worsening symptoms. Prescriptions: Cephalexin [Keflex] 500 mg PO Q8HR 10 Days #30 cap Oseltamivir [Tamiflu] 75 mg PO Q12HR #10 cap Is patient prescribed a controlled substance at d/c from ED?: No Referrals: Rufino Elmore DO [Primary Care Provider] - 1-2 days Time of Disposition: 19:23
[2019-10-21] MEDS: SODIUM CHLORIDE 0.9% 500 ML 500 ML IV SCH ×2 (17:02→17:45)
[2019-10-21 17:07] LABS: Amorphous Sediment,Urine Rare /hpf; Appearance,Urine Cloudy (Clear); Bacteria,Urine Occasional /hpf; Bilirubin,Urine Negative (Negative); Blood,Urine Trace (Negative); Color,Urine Yellow; Glucose,Urine (UA) Negative (Negative); Ketones,Urine Negative (Negative); Leukocyte Esterase,Urine Large (Negative); Mucus,Urine Rare /hpf; Nitrite,Urine Negative (Negative); Protein,Urine Negative (Negative); RBC,Urine 4 /hpf (0-5); Specific Gravity,Urine 1.015 (1.001-1.035); Squamous Epithelial Cell,Urine 10 /hpf (0-4); Urobilinogen,Urine <2.0 mg/dL (<2.0); WBC,Urine 59 /hpf (0-5)
[2019-10-21 17:27] LABS: HCT 39.8 % (34.0-46.0); HGB 13.2 gm/dL (11.4-16.0); MCH 29.1 pg (25.0-35.0); MCHC 33.2 g/dL (31.0-37.0); MCV 87.6 fL (80.0-100.0); Platelet Count 397 k/uL (150-450); RBC 4.55 m/uL (3.80-5.40); WBC 7.3 k/uL (3.8-10.6)
--- NOTE | 2019-10-21 17:47 | XR ---
EXAMINATION TYPE: XR chest 2V DATE OF EXAM: 10/21/2019 COMPARISON: 03/22/2019 and 01/16/2019 HISTORY: 29-year-old female with fever TECHNIQUE: PA and lateral views FINDINGS: The cardiomediastinal silhouette, aorta, and pulmonary vasculature are within normal limits. Stable p eripheral right midlung nodule which seems to correspond to a pulmonary AVM on the 01/16/2019 CT. No c onsolidation or pleural effusion. IMPRESSION: Stable right midlung density, likely pulmonary AVM when correlating with 01/16/2019 CT. No acute proce ss otherwise seen.
[2019-10-21 18:00] VITALS: RESP 20
[2019-10-21 18:15] LABS: Lymphocytes # (M) 1.61 k/uL (1.0-4.8); Monocytes # (M) 1.17 k/uL (0-1.0); Neutrophils # (M) 4.53 k/uL (1.3-7.7); Neutrophils % (M) 62 %; Nucleated Red Blood Cells 0 /100 WBC (0-0); Total Cells Counted 100
[2019-10-21] MEDS ORDERED: OSELTAMIVIR 75 MG CAP PO STA (18:26)
[2019-10-21 18:29] LABS: ALT 71 U/L (4-34); AST 91 U/L (14-36); African American GFR (CKD) >90 (>60 ml/min/1.73 sqM); Albumin 4.5 g/dL (3.5-5.0); Alkaline Phosphatase 280 U/L (38-126); Anion Gap 9 mmol/L; Blood Urea Nitrogen 13 mg/dL (7-17); Calcium 9.5 mg/dL (8.4-10.2); Carbon Dioxide 27 mmol/L (22-30); Chloride 102 mmol/L (98-107); Glucose 89 mg/dL (74-99); Non-African American GFR(CKD) >90 (>60 ml/min/1.73 sqM); Sodium 138 mmol/L (137-145); Total Bilirubin 0.8 mg/dL (0.2-1.3); Total Protein 8.3 g/dL (6.3-8.2)
[2019-10-21 19:31] VITALS: BP 101/67; PULSE 99; TEMP 98.1
== END 2019-10-21 19:31 | disposition home or self-care (01) ==
LOC: EC 15:39
DX: J10.1 Influenza due to other identified influenza virus with other respiratory manifestations (principal); N39.0 Urinary tract infection, site not specified; R74.0 Nonspecific elevation of levels of transaminase and lactic acid dehydrogenase [LDH]; F41.9 Anxiety disorder, unspecified; Z79.899 Other long term (current) drug therapy; Z91.013 Allergy to seafood; Z90.49 Acquired absence of other specified parts of digestive tract; Z90.81 Acquired absence of spleen
CPT/HCPCS: 36415; 80053; 83605; 85025; 81001; 81025; 87040; 87086; 87502; 71046; 99285; 96365; 96367; J0456; J0696

== ENCOUNTER 2019-10-23 16:44 | Emergency (ER) | payer OTHER ==
[2019-10-23 16:51] VITALS: RESP 18
[2019-10-23] MEDS ORDERED: IBUPROFEN 600 MG TAB PO STA (17:58)
[2019-10-23] MEDS ORDERED: SODIUM CHLORIDE 0.9% 500 ML 500 ML IV ONE (17:58)
[2019-10-23] MEDS ORDERED: ACETAMINOPHEN TAB 325 MG TAB PO STA (17:58)
[2019-10-23] MEDS ORDERED: SODIUM CHLORIDE 0.9% 1,000 ML IV ONE (17:58)
--- NOTE | 2019-10-23 18:53 | ED ---
General Adult HPI - General Chief complaint: Dizziness Stated complaint: flu, worsening symptoms Time Seen by Provider: 10/23/19 17:35 Source: patient Limitations: no limitations - History of Present Illness Initial comments: 29-year-old female patient with past medical history significant for traumatic splenectomy, recently diagnosed with influenza and urinary tract infection p resents to the emergency department today for evaluation of increased dizziness, weakness and chills. Patient states that she was diagnosed on 10/21/2019 with influenza and urinary tract infection. Patient states she is taking Tamiflu and Keflex. Patient states she is not feeling any better. Patient states today Sche[place] she feels worse. States she is having chills, bodyaches, and dizziness. Patient states they wanted to admit her during her last visit however she is unable to do to family obligations. Patient denies any recent rash, shortness breath, chest pain, abdominal pain, nausea, vomiting, diarrhea, constipation, back pain, numbness, tingling, hematuria, dysuria, urinary urgency, urinary frequency, headache, visual changes, or any other complaints. - Related Data Home Medications Medication Instructions Recorded Confirmed lamoTRIgine [LaMICtal] 25 mg PO BID 12/11/18 03/21/19 Levothyroxine Sodium [Synthroid] 25 mcg PO DAILY 01/16/19 03/21/19 Albuterol Inhaler [Ventolin Hfa 2 puff INHALATION RT-Q6H PRN 02/07/19 03/21/19 Inhaler] LORazepam [Ativan] 0.5 mg PO DAILY 03/21/19 03/21/19 Previous Rx's Medication Instructions Recorded Loratadine [Claritin] 10 mg PO DAILY #30 tab 03/22/19 Omeprazole 20 mg PO DAILY #30 cap 03/22/19 hydrOXYzine PAMOATE [Vistaril] 25 mg PO TID PRN #15 cap 09/17/19 methylPREDNISolone [Medrol Dose 4 mg PO DIRECTED #1 pack 09/17/19 Pack] Famotidine [Pepcid] 20 mg PO BID #4 tablet 09/23/19 predniSONE 50 mg PO DAILY #3 tab 09/23/19 Cephalexin [Keflex] 500 mg PO Q8HR 10 Days #30 cap 10/21/19 Oseltamivir [Tamiflu] 75 mg PO Q12HR #10 cap 10/21/19 guaiFENesin-DM 600/30MG [Mucinex 2 each PO Q12HR PRN #20 tab.er.12h 10/23/19 Dm] Allergies Allergy/AdvReac Type Severity Reaction Status Date / Time shellfish derived [Shellfish] Allergy Anaphylaxis Verified 09/23/19 10:55 Review of Systems ROS Statement: Those systems with pertinent positive or pertinent negative responses have been documented in the HPI. ROS Other: All systems not noted in ROS Statement are negative. Past Medical History Past Medical History: No Reported History Additional Past Medical History / Comment(s): cholestasis of History of Any Multi-Drug Resistant Organisms: None Reported Past Surgical History: Cholecystectomy, Ear Surgery, Tonsillectomy Additional Past Surgical History / Comment(s): splenectomy Past Anesthesia/Blood Transfusion Reactions: No Reported Reaction Past Psychological History: Anxiety Smoking Status: Never smoker Past Alcohol Use History: None Reported Past Drug Use History: None Reported - Past Family History Mother Additional Family Medical History / Comment(s): anxiety, depression Father History Unknown: Yes General Exam Limitations: no limitations General appearance: alert, in no apparent distress, other (This is a well developed, well-nourished adult female patient in no acute distress. Vital signs upon presentation are temperature 101.9, pulse 94, respirations 18, blood pressure 160 36/84, pulse ox 98% on room air.) Eye exam: Present: normal appearance, PERRL, EOMI. Absent: scleral icterus, conjunctival injection, periorbital swelling ENT exam: Present: normal exam, normal oropharynx, mucous membranes moist Respiratory exam: Present: normal lung sounds bilaterally. Absent: respiratory distress, wheezes, rales, rhonchi, stridor Cardiovascular Exam: Present: regular rate, normal rhythm, normal heart sounds. Absent: systolic murmur, diastolic murmur, rubs, gallop, clicks GI/Abdominal exam: Present: soft, normal bowel sounds. Absent: distended, tenderness, guarding, rebound, rigid Neurological exam: Present: alert, oriented X3, CN II-XII intact Psychiatric exam: Present: normal affect, normal mood Skin exam: Present: warm, dry, intact, normal color. Absent: rash Course Vital Signs 10/23/19 10/23/19 10/23/19 16:48 18:52 18:54 Temperature 99.5 F 101.5 F H Pulse Rate 94 Respiratory 18 18 Rate Blood Pressure 136/84 O2 Sat by Pulse 98 Oximetry 10/23/19 20:00 Temperature 98.0 F Pulse Rate 75 Respiratory 18 Rate Blood Pressure 126/71 O2 Sat by Pulse Oximetry Medical Decision Making - Medical Decision Making 29-year-old female patient presents to the emergency department today for evaluation of dizziness. Patient was recently diagnosed with influenza and urinary tract infection. Physical examination is unremarkable. Lungs are clear to auscultation. Shows have some mild pharyngeal erythema. Patient is currently taking Tamiflu and Keflex. Labs reviewed and are unremarkable. I did review blood culture results from her visit a couple of days ago which had no gross, her urine culture was negative and most likely colonization. A blood culture was resent today. Given lab findings and vital signs will be a little discharge patient home to continue her Tamiflu and Keflex. She is instructed to follow-up with her primary care physician for recheck in 1-2 days. Return parameters were discussed in detail prior to verbalizes understanding and agrees with this plan - Lab Data Result diagrams: 10/23/19 18:35 10/23/19 18:35 Lab Results 10/23/19 10/23/19 10/23/19 Range/Units 18:35 18:35 18:35 WBC 5.8 (3.8-10.6) k/uL RBC 4.75 (3.80-5.40) m/uL Hgb 13.8 (11.4-16.0) gm/dL Hct 41.2 (34.0-46.0) % MCV 86.9 (80.0-100.0) fL MCH 29.0 (25.0-35.0) pg MCHC 33.4 (31.0-37.0) g/dL RDW 12.1 (11.5-15.5) % Plt Count 358 (150-450) k/uL Neutrophils % (Manual) 64 % Band Neutrophils % 1 % Lymphocytes % (Manual) 21 % Monocytes % (Manual) 14 % Neutrophils # (Manual) 3.70 (1.3-7.7) k/uL Lymphocytes # (Manual) 1.22 (1.0-4.8) k/uL Monocytes # (Manual) 0.81 (0-1.0) k/uL Nucleated RBCs 0 (0-0) /100 WBC Manual Slide Review Performed RBC Morphology Normal Sodium 137 (137-145) mmol/L Potassium 3.6 (3.5-5.1) mmol/L Chloride 100 (98-107) mmol/L Carbon Dioxide 26 (22-30) mmol/L Anion Gap 11 mmol/L BUN 7 (7-17) mg/dL Creatinine 0.64 (0.52-1.04) mg/dL Est GFR (CKD-EPI)AfAm >90 (>60 ml/min/1.73 sqM) Est GFR (CKD-EPI)NonAf >90 (>60 ml/min/1.73 sqM) Glucose 86 (74-99) mg/dL Calcium 9.2 (8.4-10.2) mg/dL Total Bilirubin 0.6 (0.2-1.3) mg/dL AST 121 H (14-36) U/L ALT 90 H (4-34) U/L Alkaline Phosphatase 313 H (38-126) U/L Total Protein 8.3 H (6.3-8.2) g/dL Albumin 4.6 (3.5-5.0) g/dL Urine Color Urine Appearance (Clear) Urine pH (5.0-8.0) Ur Specific [place] (1.001-1.035) Urine Protein (Negative) Urine Glucose (UA) (Negative) Urine Ketones (Negative) Urine Blood (Negative) Urine Nitrite (Negative) Urine Bilirubin (Negative) Urine Urobilinogen (<2.0) mg/dL Ur Leukocyte Esterase (Negative) Urine RBC (0-5) /hpf Urine WBC (0-5) /hpf Ur Squamous Epith Cells (0-4) /hpf Urine Mucus (None) /hpf Urine HCG, Qual Not Detected (Not Detectd) 10/23/19 Range/Units 18:35 WBC (3.8-10.6) k/uL RBC (3.80-5.40) m/uL Hgb (11.4-16.0) gm/dL Hct (34.0-46.0) % MCV (80.0-100.0) fL MCH (25.0-35.0) pg MCHC (31.0-37.0) g/dL RDW (11.5-15.5) % Plt Count (150-450) k/uL Neutrophils % (Manual) % Band Neutrophils % % Lymphocytes % (Manual) % Monocytes % (Manual) % Neutrophils # (Manual) (1.3-7.7) k/uL Lymphocytes # (Manual) (1.0-4.8) k/uL Monocytes # (Manual) (0-1.0) k/uL Nucleated RBCs (0-0) /100 WBC Manual Slide Review RBC Morphology Sodium (137-145) mmol/L Potassium (3.5-5.1) mmol/L Chloride (98-107) mmol/L Carbon Dioxide (22-30) mmol/L Anion Gap mmol/L BUN (7-17) mg/dL Creatinine (0.52-1.04) mg/dL Est GFR (CKD-EPI)AfAm (>60 ml/min/1.73 sqM) Est GFR (CKD-EPI)NonAf (>60 ml/min/1.73 sqM) Glucose (74-99) mg/dL Calcium (8.4-10.2) mg/dL Total Bilirubin (0.2-1.3) mg/dL AST (14-36) U/L ALT (4-34) U/L Alkaline Phosphatase (38-126) U/L Total Protein (6.3-8.2) g/dL Albumin (3.5-5.0) g/dL Urine Color Yellow Urine Appearance Clear (Clear) Urine pH 5.5 (5.0-8.0) Ur Specific [place] 1.010 (1.001-1.035) Urine Protein Negative (Negative) Urine Glucose (UA) Negative (Negative) Urine Ketones 1+ H (Negative) Urine Blood Small H (Negative) Urine Nitrite Negative (Negative) Urine Bilirubin Negative (Negative) Urine Urobilinogen <2.0 (<2.0) mg/dL Ur Leukocyte Esterase Large H (Negative) Urine RBC 5 (0-5) /hpf Urine WBC 13 H (0-5) /hpf Ur Squamous Epith Cells 8 H (0-4) /hpf Urine Mucus Rare H (None) /hpf Urine HCG, Qual (Not Detectd) - Radiology Data Radiology results: report reviewed, image reviewed Two-view x-ray of the chest is obtained. Report reviewed in its entirety. Impression by Dr. Snyder shows no active cardio pulmonary disease pain stable small right ovarian nodule. Normal heart. Disposition Clinical Impression: Influenza, Urinary tract infection Disposition: HOME SELF-CARE Condition: Good Instructions (If sedation given, give patient instructions): Urinary Tract Infection in Women (ED), Influenza (ED) Additional Instructions: Increase fluids. Take medications as directed. Follow-up with your primary care physician for recheck in 1-2 days. Return to the emergency department immediately for any new, worsening, or concerning symptoms. Prescriptions: guaiFENesin-DM 600/30MG [Mucinex Dm] 2 each PO Q12HR PRN #20 tab.er.12h PRN Reason: Cough Is patient prescribed a controlled substance at d/c from ED?: No Referrals: Rufino Elmore DO [Primary Care Provider] - 1-2 days Time of Disposition: 20:17
[2019-10-23 18:56] LABS: Appearance,Urine Clear (Clear); Bilirubin,Urine Negative (Negative); Blood,Urine Small (Negative); Color,Urine Yellow; Glucose,Urine (UA) Negative (Negative); Ketones,Urine 1+ (Negative); Leukocyte Esterase,Urine Large (Negative); Mucus,Urine Rare /hpf; Nitrite,Urine Negative (Negative); PH, Urine 5.5 (5.0-8.0); Protein,Urine Negative (Negative); RBC,Urine 5 /hpf (0-5); Squamous Epithelial Cell,Urine 8 /hpf (0-4); Urobilinogen,Urine <2.0 mg/dL (<2.0); WBC,Urine 13 /hpf (0-5)
[2019-10-23 19:01] LABS: ALT 90 U/L (4-34); AST 121 U/L (14-36); African American GFR (CKD) >90 (>60 ml/min/1.73 sqM); Albumin 4.6 g/dL (3.5-5.0); Alkaline Phosphatase 313 U/L (38-126); Anion Gap 11 mmol/L; Blood Urea Nitrogen 7 mg/dL (7-17); Calcium 9.2 mg/dL (8.4-10.2); Carbon Dioxide 26 mmol/L (22-30); Chloride 100 mmol/L (98-107); Glucose 86 mg/dL (74-99); Non-African American GFR(CKD) >90 (>60 ml/min/1.73 sqM); Potassium 3.6 mmol/L (3.5-5.1); Sodium 137 mmol/L (137-145); Total Bilirubin 0.6 mg/dL (0.2-1.3); Total Protein 8.3 g/dL (6.3-8.2)
--- NOTE | 2019-10-23 19:09 | XR ---
EXAMINATION TYPE: XR chest 2V DATE OF EXAM: 10/23/2019 COMPARISON: October 21, 2019 HISTORY: Cough TECHNIQUE: 2 views FINDINGS: Heart and mediastinum are normal. Lungs are clear. Diaphragm is normal. Bony thorax is inta ct. There is faint 7 mm nodule lateral aspect of the right midlung unchanged. This is probably also p resent on old exam 01/16/2019 unchanged. IMPRESSION: No active cardiopulmonary disease. Stable small right pulmonary nodule. Normal heart.
[2019-10-23 19:16] LABS: HCT 41.2 % (34.0-46.0); HGB 13.8 gm/dL (11.4-16.0); MCHC 33.4 g/dL (31.0-37.0); MCV 86.9 fL (80.0-100.0); Mean Platelet Volume 8.5; Platelet Count 358 k/uL (150-450); RBC 4.75 m/uL (3.80-5.40); RDW 12.1 % (11.5-15.5); WBC 5.8 k/uL (3.8-10.6)
[2019-10-23 19:36] LABS: Band Neutrophils % 1 %; Lymphocytes # (M) 1.22 k/uL (1.0-4.8); Monocytes # (M) 0.81 k/uL (0-1.0); Neutrophils % (M) 64 %; Nucleated Red Blood Cells 0 /100 WBC (0-0); Total Cells Counted 100
[2019-10-23] MEDS ORDERED: guaiFENesin-DM 600/30MG 1 EACH TAB.ER.12H PO STA (20:16)
[2019-10-23 21:04] VITALS: BP 126/71; PULSE 75; TEMP 98
[2019-10-24 14:02] LABS: C. trachomatis,PCR Negative (Neg,Equiv); Chlamydia trachomatis Source Urine; N. gonorrhoeae,PCR Negative (Neg,Equiv); Neisseria Source Urine
== END 2019-10-23 21:11 | disposition home or self-care (01) ==
LOC: EC 16:44
DX: J11.1 Influenza due to unidentified influenza virus with other respiratory manifestations (principal); N39.0 Urinary tract infection, site not specified; R42 Dizziness and giddiness; F41.9 Anxiety disorder, unspecified; Z91.013 Allergy to seafood; Z79.890 Hormone replacement therapy; Z79.899 Other long term (current) drug therapy
CPT/HCPCS: 36415; 71046; 80053; 81001; 81025; 85025; 87040; 87491; 87591; 96360; 99284

== ENCOUNTER 2019-11-10 12:48 | Emergency (ER) | payer OTHER ==
[2019-11-10 12:54] VITALS: RESP 16
--- NOTE | 2019-11-10 13:31 | ED ---
Psych HPI - General Chief Complaint: Psychiatric Symptoms Stated Complaint: mental health Time Seen by Provider: 11/10/19 12:55 Source: patient, RN notes reviewed Mode of arrival: ambulatory Limitations: no limitations - History of Present Illness Initial Comments: 29-year-old female presents emergency Department with chief complaint of psychiatric problems. Patient states that she is very depressed, having suicidal ideations. She has cut herself in the past nothing recent denies any drug or alcohol abuse no homicidal ideation. Patient states she is on medication sees a therapist and psychiatrist states it's not helping at this time. Patient denies any other complaints. - Related Data Home Medications Medication Instructions Recorded Confirmed lamoTRIgine [LaMICtal] 25 mg PO BID 12/11/18 03/21/19 Levothyroxine Sodium [Synthroid] 25 mcg PO DAILY 01/16/19 03/21/19 Albuterol Inhaler [Ventolin Hfa 2 puff INHALATION RT-Q6H PRN 02/07/19 03/21/19 Inhaler] LORazepam [Ativan] 0.5 mg PO DAILY 03/21/19 03/21/19 Previous Rx's Medication Instructions Recorded Loratadine [Claritin] 10 mg PO DAILY #30 tab 03/22/19 Omeprazole 20 mg PO DAILY #30 cap 03/22/19 hydrOXYzine PAMOATE [Vistaril] 25 mg PO TID PRN #15 cap 09/17/19 methylPREDNISolone [Medrol Dose 4 mg PO DIRECTED #1 pack 09/17/19 Pack] Famotidine [Pepcid] 20 mg PO BID #4 tablet 09/23/19 predniSONE 50 mg PO DAILY #3 tab 09/23/19 Cephalexin [Keflex] 500 mg PO Q8HR 10 Days #30 cap 10/21/19 Oseltamivir [Tamiflu] 75 mg PO Q12HR #10 cap 10/21/19 guaiFENesin-DM 600/30MG [Mucinex 2 each PO Q12HR PRN #20 tab.er.12h 10/23/19 Dm] Allergies Allergy/AdvReac Type Severity Reaction Status Date / Time shellfish derived [Shellfish] Allergy Anaphylaxis Verified 11/10/19 12:50 Review of Systems ROS Statement: Those systems with pertinent positive or pertinent negative responses have been documented in the HPI. ROS Other: All systems not noted in ROS Statement are negative. Past Medical History Past Medical History: No Reported History, Liver Disease, Thyroid Disorder Additional Past Medical History / Comment(s): cholestasis of History of Any Multi-Drug Resistant Organisms: None Reported Past Surgical History: Cholecystectomy, Ear Surgery, Tonsillectomy Additional Past Surgical History / Comment(s): splenectomy Past Anesthesia/Blood Transfusion Reactions: No Reported Reaction Past Psychological History: Anxiety, Bipolar, Depression Smoking Status: Never smoker Past Alcohol Use History: None Reported Past Drug Use History: None Reported - Past Family History Mother Additional Family Medical History / Comment(s): anxiety, depression Father History Unknown: Yes General Exam Limitations: no limitations General appearance: alert, in no apparent distress Head exam: Present: atraumatic, normocephalic, normal inspection Eye exam: Present: normal appearance, PERRL, EOMI. Absent: scleral icterus, co njunctival injection, periorbital swelling ENT exam: Present: normal exam, normal oropharynx, mucous membranes moist, TM's normal bilaterally Neck exam: Present: normal inspection, full ROM. Absent: tenderness, meningismus, lymphadenopathy Respiratory exam: Present: normal lung sounds bilaterally. Absent: respiratory distress, wheezes, rales, rhonchi, stridor Cardiovascular Exam: Present: regular rate, normal rhythm, normal heart sounds. Absent: systolic murmur, diastolic murmur, rubs, gallop, clicks GI/Abdominal exam: Present: soft, normal bowel sounds. Absent: distended, tenderness, guarding, rebound, rigid Neurological exam: Present: alert, oriented X3 Psychiatric exam: Present: depressed, other (Patient is tearful) Skin exam: Present: warm, dry, intact, normal color. Absent: rash Course Vital Signs 11/10/19 11/10/19 11/10/19 12:51 14:49 16:27 Temperature 98 F 98.3 F Pulse Rate 101 H 77 80 Respiratory 16 16 16 Rate Blood Pressure 138/95 104/58 118/62 O2 Sat by Pulse 98 100 98 Oximetry Medical Decision Making - Medical Decision Making Patient was evaluated by [facility]. Case discussed with psychiatrist he does not recommend inpatient treatment. Patient be discharged in stable condition safety plan in place. - Lab Data Lab Results 11/10/19 Range/Units 13:00 Urine Opiates Screen Not Detected (NotDetected) Ur Oxycodone Screen Not Detected (NotDetected) Urine Methadone Screen Not Detected (NotDetected) Ur Propoxyphene Screen Not Detected (NotDetected) Ur Barbiturates Screen Not Detected (NotDetected) U Tricyclic Antidepress Not Detected (NotDetected) Ur Phencyclidine Scrn Not Detected (NotDetected) Ur Amphetamines Screen Not Detected (NotDetected) U Methamphetamines Scrn Not Detected (NotDetected) U Benzodiazepines Scrn Detected H (NotDetected) Urine Cocaine Screen Not Detected (NotDetected) U Marijuana (THC) Screen Not Detected (NotDetected) Disposition Clinical Impression: Depression Disposition: HOME SELF-CARE Condition: Stable Instructions (If sedation given, give patient instructions): Depression (ED) Additional Instructions: Please return to the Emergency Department if symptoms worsen or any other concerns. Is patient prescribed a controlled substance at d/c from ED?: No Referrals: Rufino Elmore DO [Primary Care Provider] - 1-2 days Time of Disposition: 16:38
[2019-11-10 13:49] LABS: Amphetamine Screen,Urine Not Detected (NotDetected); Barbiturate Screen,Urine Not Detected (NotDetected); Benzodiazepines Screen,Urine Detected (NotDetected); Cocaine Screen,Urine Not Detected (NotDetected); Methadone Screen, Urine Not Detected (NotDetected); Opiate Screen,Urine Not Detected (NotDetected); Oxycodone Screen, Urine Not Detected (NotDetected); Phencyclidine Screen,Urine Not Detected (NotDetected); Tricyclic Antidepressant,Urine Not Detected (NotDetected); Urn Cannabinoid Scrn Not Detected (NotDetected)
[2019-11-10 14:54] VITALS: TEMP 98.3
[2019-11-10 16:28] VITALS: BP 118/62; PULSE 80
== END 2019-11-10 16:57 | disposition home or self-care (01) ==
LOC: EC 12:48
DX: F31.30 Bipolar disorder, current episode depressed, mild or moderate severity, unspecified (principal); F41.9 Anxiety disorder, unspecified; E07.9 Disorder of thyroid, unspecified; Z91.013 Allergy to seafood; Z79.890 Hormone replacement therapy; Z79.899 Other long term (current) drug therapy; Z81.8 Family history of other mental and behavioral disorders
CPT/HCPCS: 80306; 82075; 99284

== ENCOUNTER → 2019-11-16 | Outpatient (CLI) | payer OTHER ==
[2019-11-16 12:40] LABS: Basophils # (A) 0.1 k/uL (0-0.2); Basophils % (A) 1 %; Eosinophils # (A) 0.4 k/uL (0-0.7); Eosinophils % (A) 3 %; HCT 40.7 % (34.0-46.0); HGB 13.4 gm/dL (11.4-16.0); Lymphocytes # (A) 3.7 k/uL (1.0-4.8); Lymphocytes % (A) 26 %; MCH 28.9 pg (25.0-35.0); MCV 87.6 fL (80.0-100.0); Mean Platelet Volume 7.8; Monocytes # (A) 0.9 k/uL (0-1.0); Monocytes % (A) 6 %; Neutrophils # (A) 8.7 k/uL (1.3-7.7); Neutrophils % (A) 62 %; Platelet Count 517 k/uL (150-450); RBC 4.64 m/uL (3.80-5.40); RDW 12.4 % (11.5-15.5); WBC 14.1 k/uL (3.8-10.6)
[2019-11-16 15:08] LABS: Erythrocyte Sedimentation Rate 62 mm/hr (0-20)
[2019-11-16 20:25] LABS: African American GFR (CKD) 113.9 (60.0-200.0); Albumin 4.8 g/dL (3.80-4.90); Albumin/Globulin Ratio 1.6 (1.60-3.17); Anion Gap 10.7 mmol/L (4.00-12.00); Calcium 9.9 mg/dL (8.7-10.3); Carbon Dioxide 28.3 mmol/L (21.6-31.8); Non-African American GFR(CKD) 98.2 (60.0-200.0); Potassium 4.2 mmol/L (3.5-5.5); Total Bilirubin 0.4 mg/dL (0.3-1.2); Total Protein 7.8 g/dL (6.2-8.2)
== END | disposition home or self-care (01) ==
LOC: LABWHC1 11:53
PROVIDERS: ATTEND Physician Assistant
DX: M79.10 Myalgia, unspecified site (principal); R55 Syncope and collapse; R53.83 Other fatigue
CPT/HCPCS: 36415; 80053; 82977; 84439; 84443; 85025; 85652; 86038

== ENCOUNTER 2019-11-30 21:59 | Emergency (ER) | payer OTHER ==
--- NOTE | 2019-12-01 00:36 | XR ---
EXAMINATION TYPE: XR chest 2V DATE OF EXAM: 12/01/2019 COMPARISON: October 23, 2019 HISTORY: Cough TECHNIQUE: FINDINGS: Heart and mediastinum are normal. Lungs are clear. Diaphragm is normal. Bony thorax appears normal. Pulmonary vascularity is normal. IMPRESSION: Normal chest
[2019-12-01 01:01] VITALS: BP 114/69; PULSE 90; RESP 18; TEMP 98
[2019-12-01] MEDS ORDERED: PENICILLIN VK 500MG STARTER 4 TAB BTL PO STA (01:06)
[2019-12-01] MEDS ORDERED: ACETAMINOPHEN TAB 325 MG TAB PO STA (01:06)
--- NOTE | 2019-12-01 01:07 | ED ---
General Adult HPI - General Chief complaint: Upper Respiratory Infection Stated complaint: Headache,Asthma Time Seen by Provider: 11/30/19 23:52 Source: patient Mode of arrival: ambulatory Limitations: no limitations - History of Present Illness Initial comments: Kesha is a 29 yo female who since the emergency Department today with multiple complaints. Patient reports that she has a dental infection on the right bottom jaw and it feels like it's been getting worse. She states that today at work she had subjective fevers and a headache, she did take 600 mg of Motrin 2 times today with minimal improvement. Patient also reports that she feels like her asthma has been acting up she's been using her inhaler at home with minimal relief. She denies any chest pain or palpitations. She reports she has a sore throat but no cough. She denies any recent travel. - Related Data Home Medications Medication Instructions Recorded Confirmed lamoTRIgine [LaMICtal] 25 mg PO BID 12/11/18 03/21/19 Levothyroxine Sodium [Synthroid] 25 mcg PO DAILY 01/16/19 03/21/19 Albuterol Inhaler [Ventolin Hfa 2 puff INHALATION RT-Q6H PRN 02/07/19 03/21/19 Inhaler] LORazepam [Ativan] 0.5 mg PO DAILY 03/21/19 03/21/19 Previous Rx's Medication Instructions Recorded Loratadine [Claritin] 10 mg PO DAILY #30 tab 03/22/19 Omeprazole 20 mg PO DAILY #30 cap 03/22/19 hydrOXYzine PAMOATE [Vistaril] 25 mg PO TID PRN #15 cap 09/17/19 methylPREDNISolone [Medrol Dose 4 mg PO DIRECTED #1 pack 09/17/19 Pack] Famotidine [Pepcid] 20 mg PO BID #4 tablet 09/23/19 predniSONE 50 mg PO DAILY #3 tab 09/23/19 Cephalexin [Keflex] 500 mg PO Q8HR 10 Days #30 cap 10/21/19 Oseltamivir [Tamiflu] 75 mg PO Q12HR #10 cap 10/21/19 guaiFENesin-DM 600/30MG [Mucinex 2 each PO Q12HR PRN #20 tab.er.12h 10/23/19 Dm] Penicillin V Potassium [Pen Vee K] 500 mg PO Q6HR #28 tablet 12/01/19 Allergies Allergy/AdvReac Type Severity Reaction Status Date / Time shellfish derived [Shellfish] Allergy Anaphylaxis Verified 11/30/19 22:43 Review of Systems ROS Statement: Those systems with pertinent positive or pertinent negative responses have been documented in the HPI. ROS Other: All systems not noted in ROS Statement are negative. Past Medical History Past Medical History: No Reported History, Liver Disease, Thyroid Disorder Additional Past Medical History / Comment(s): cholestasis of History of Any Multi-Drug Resistant Organisms: None Reported Past Surgical History: Cholecystectomy, Ear Surgery, Tonsillectomy Additional Past Surgical History / Comment(s): splenectomy Past Anesthesia/Blood Transfusion Reactions: No Reported Reaction Past Psychological History: Anxiety, Bipolar, Depression Smoking Status: Never smoker Past Alcohol Use History: None Reported Past Drug Use History: None Reported - Past Family History Mother Additional Family Medical History / Comment(s): anxiety, depression Father History Unknown: Yes General Exam - General Exam Comments Initial Comments: Physical Exam GENERAL: Patient is well-developed and well-nourished. Patient is nontoxic and well-hydrated and is in no distress. HENT: Normocephalic, Atraumatic. Poor dentition with multiple dental caries, small area of drainage and erythema from the right lower jaw consistent with dental infection no palpable area of fluctuance amenable to drainage Erythematous posterior oropharynx, no exudate, no vesicles EYES: PERRL, EOMI PULMONARY: Unlabored respirations. No audible rales rhonchi or wheezing was noted. CARDIOVASCULAR: There is a regular rate and rhythm without any murmurs gallops or rubs. ABDOMEN: Soft and nontender with normal bowel sounds. SKIN: Skin is clear with no lesions or rashes and otherwise unremarkable. : Deferred NEUROLOGIC: Patient is alert and oriented x3. Moving all extremities spontaneously MUSCULOSKELETAL: Normal extremities with adequate strength and full range of motion. No lower extremity swelling or edema. No calf tenderness. PSYCHIATRIC: Normal psychiatric evaluation. Limitations: no limitations Course Vital Signs 11/30/19 12/01/19 22:41 00:58 Temperature 98.6 F 98 F Pulse Rate 69 90 Respiratory 16 18 Rate Blood Pressure 111/74 114/69 O2 Sat by Pulse 98 98 Oximetry Medical Decision Making - Medical Decision Making The patient was seen and evaluated history is obtained from patient Physical exam reveals a dental infection and some erythema of the posterior oropharynx with no exudate or signs of strep and no vesicles or lesions consistent with angina or binu-tewz-[id number]-mouth Chest x-ray and flu swab negative At this time patient's comfortable with the plan for discharge home with antibiotics for dental infection, advised to alternate Tylenol and Motrin for fever, stay hydrated Referral to dental clinic was provided at the time of discharge Return parameters were discussed, patient was discharged home in stable condition - Lab Data Lab Results 12/01/19 Range/Units 00:05 Influenza Type A RNA Not Detected (Not Detectd) Influenza Type B (PCR) Not Detected (Not Detectd) Disposition Clinical Impression: Dental abscess Disposition: HOME SELF-CARE Condition: Stable Additional Instructions: Please follow up with the [facility] dental clinic. [facility] [place] [address]. Phone number for new patients or [phone] for existing patients. [facility]. Must pay for x-rays then services are free. Call for an appoitnment. Prescriptions: Penicillin V Potassium [Pen Vee K] 500 mg PO Q6HR #28 tablet Is patient prescribed a controlled substance at d/c from ED?: No Referrals: Rufino Elmore, [Primary Care Provider] - 1-2 days
== END 2019-12-01 01:31 | disposition home or self-care (01) ==
LOC: EC 21:59
DX: K04.7 Periapical abscess without sinus (principal); K00.7 Teething syndrome; K02.9 Dental caries, unspecified; F41.9 Anxiety disorder, unspecified; F31.9 Bipolar disorder, unspecified; E07.9 Disorder of thyroid, unspecified; J45.909 Unspecified asthma, uncomplicated; Z79.51 Long term (current) use of inhaled steroids; Z79.890 Hormone replacement therapy; Z79.899 Other long term (current) drug therapy; Z91.013 Allergy to seafood; Z90.49 Acquired absence of other specified parts of digestive tract
CPT/HCPCS: 71046; 87502; 99284

== ENCOUNTER → 2020-01-17 | Outpatient (CLI) | payer OTHER ==
[2020-01-17 11:06] LABS: Basophils # (A) 0.1 k/uL (0-0.2); Basophils % (A) 1 %; Eosinophils # (A) 0.6 k/uL (0-0.7); Eosinophils % (A) 5 %; HCT 39.7 % (34.0-46.0); HGB 13.6 gm/dL (11.4-16.0); Lymphocytes # (A) 3.3 k/uL (1.0-4.8); Lymphocytes % (A) 28 %; MCH 30.4 pg (25.0-35.0); MCHC 34.2 g/dL (31.0-37.0); MCV 88.8 fL (80.0-100.0); Mean Platelet Volume 7.9; Monocytes # (A) 0.8 k/uL (0-1.0); Monocytes % (A) 7 %; Neutrophils # (A) 6.8 k/uL (1.3-7.7); Neutrophils % (A) 58 %; Platelet Count 441 k/uL (150-450); RBC 4.47 m/uL (3.80-5.40); RDW 12.4 % (11.5-15.5); WBC 11.9 k/uL (3.8-10.6)
[2020-01-17 15:59] LABS: T4, Free (Free Thyroxine) 1.1 ng/dL (0.80-1.80)
[2020-01-17 16:28] LABS: African American GFR (CKD) 113.9 (60.0-200.0); Albumin 4.4 g/dL (3.80-4.90); Albumin/Globulin Ratio 1.52 (1.60-3.17); Anion Gap 11.6 mmol/L (4.00-12.00); BUN/Creat Ratio 16.25 Ratio (12.00-20.00); Carbon Dioxide 28.4 mmol/L (21.6-31.8); Globulin 2.9 g/dL (1.6-3.3); Non-African American GFR(CKD) 98.2 (60.0-200.0); Potassium 4.3 mmol/L (3.5-5.5); Total Bilirubin 0.5 mg/dL (0.3-1.2); Total Protein 7.3 g/dL (6.2-8.2)
[2020-01-17 17:12] LABS: HIV 2 AB Non-Reactive (Non-Reactive); HIV AB P24 Non-Reactive (Non-Reactive); HIV P24 AG Non-Reactive (Non-Reactive)
[2020-01-17 17:28] LABS: Hepatitis B Core IgM Non-Reactive (Non-Reactive); Hepatitis B Surface AB- Quant 10.4 mIU/mL; Hepatitis B Surface Antibody Equivocal (Non-Reactive); Hepatitis B Surface Antigen Non-Reactive (Non-Reactive); Hepatitis C IgG Antibody Non-Reactive (Non-Reactive)
== END | disposition home or self-care (01) ==
LOC: LABWHC1 10:00
PROVIDERS: ATTEND Physician Assistant
DX: R74.8 Abnormal levels of other serum enzymes (principal); R59.0 Localized enlarged lymph nodes; R52 Pain, unspecified
CPT/HCPCS: 36415; 80053; 84439; 84443; 85025; 86618; 86704; 86705; 86706; 86780; 86803; 87340; 87390

== ENCOUNTER 2020-02-02 16:35 | Emergency (ER) | payer OTHER ==
[2020-02-02 16:53] VITALS: RESP 20
[2020-02-02] MEDS ORDERED: SODIUM CHLORIDE 0.9% 1,000 ML IV STA (17:04)
[2020-02-02] MEDS ORDERED: ALBUTEROL NEBULIZED 2.5 MG/3 ML INHALATION STA (17:05)
[2020-02-02] MEDS ORDERED: predniSONE 50 MG TAB PO STA (17:06)
--- NOTE | 2020-02-02 17:10 | ED ---
SOB HPI - General Chief Complaint: Shortness of Breath Stated Complaint: Asthma, Abd pain, Time Seen by Provider: 02/02/20 16:53 Source: patient Mode of arrival: ambulatory Limitations: no limitations - History of Present Illness Initial Comments: Patient is a 29-year-old female, , 3 week according to the patient presenting to the emergency department with multiple chief complaints. Patient reports a history of asthma and states she feels like she has an asthma exacerbation. Patient reports shortness of breath after waking up this morning which she was not able to alleviate with albuterol. She reports wheezing and nonproductive cough. Denies any chest pain nausea vomiting diarrhea. Patient also reports abdominal cramping throughout the lower abdomen. Denies any vaginal discharge, vaginal bleeding, urinary symptoms, hematuria, hematochezia or melena. Denies any fevers night sweats or chills. - Related Data Home Medications Medication Instructions Recorded Confirmed lamoTRIgine [LaMICtal] 25 mg PO BID 12/11/18 03/21/19 Levothyroxine Sodium [Synthroid] 25 mcg PO DAILY 01/16/19 03/21/19 Albuterol Inhaler (Mhu) [Ventolin 2 puff INHALATION RT-Q6H PRN 02/07/19 03/21/19 Hfa Inhaler] LORazepam [Ativan] 0.5 mg PO DAILY 03/21/19 03/21/19 Previous Rx's Medication Instructions Recorded Loratadine [Claritin] 10 mg PO DAILY #30 tab 03/22/19 Omeprazole 20 mg PO DAILY #30 cap 03/22/19 hydrOXYzine PAMOATE [Vistaril] 25 mg PO TID PRN #15 cap 09/17/19 methylPREDNISolone [Medrol Dose 4 mg PO DIRECTED #1 pack 09/17/19 Pack] Famotidine [Pepcid] 20 mg PO BID #4 tablet 09/23/19 predniSONE 50 mg PO DAILY #3 tab 09/23/19 Cephalexin [Keflex] 500 mg PO Q8HR 10 Days #30 cap 10/21/19 Oseltamivir [Tamiflu] 75 mg PO Q12HR #10 cap 10/21/19 guaiFENesin-DM 600/30MG [Mucinex 2 each PO Q12HR PRN #20 tab.er.12h 10/23/19 Dm] Penicillin V Potassium [Pen Vee K] 500 mg PO Q6HR #28 tablet 12/01/19 Cephalexin [Keflex] 500 mg PO BID 5 Days #10 cap 02/02/20 Wzw-Fljd-Vzmvr Acid 1 each PO DAILY #30 cap 02/02/20 [-U Capsule] predniSONE 50 mg PO DAILY #3 tab 02/02/20 Allergies Allergy/AdvReac Type Severity Reaction Status Date / Time shellfish derived [Shellfish] Allergy Anaphylaxis Verified 02/02/20 16:53 Review of Systems ROS Statement: Those systems with pertinent positive or pertinent negative responses have been documented in the HPI. ROS Other: All systems not noted in ROS Statement are negative. Past Medical History Past Medical History: Liver Disease, Thyroid Disorder Additional Past Medical History / Comment(s): cholestasis of History of Any Multi-Drug Resistant Organisms: None Reported Past Surgical History: Cholecystectomy, Ear Surgery, Tonsillectomy Additional Past Surgical History / Comment(s): splenectomy Past Anesthesia/Blood Transfusion Reactions: No Reported Reaction Past Psychological History: Anxiety, Bipolar, Depression Smoking Status: Never smoker Past Alcohol Use History: None Reported Past Drug Use History: None Reported - Past Family History Mother Additional Family Medical History / Comment(s): anxiety, depression Father History Unknown: Yes General Exam Limitations: no limitations General appearance: alert, in no apparent distress Head exam: Present: atraumatic, normocephalic, normal inspection Eye exam: Present: normal appearance, PERRL, EOMI Pupils: Present: normal accommodation ENT exam: Present: normal exam Neck exam: Present: normal inspection, full ROM Respiratory exam: Present: wheezes (Very mild diffuse expiratory wheezing bilaterally.). Absent: respiratory distress Cardiovascular Exam: Present: regular rate, normal rhythm, normal heart sounds GI/Abdominal exam: Present: soft, tenderness (Mild lower abdominal tenderness). Absent: distended, guarding Extremities exam: Present: normal inspection, full ROM Back exam: Present: normal inspection, full ROM. Absent: CVA tenderness (R), CVA tenderness (L) Neurological exam: Present: alert, oriented X3 Psychiatric exam: Present: normal affect, normal mood Skin exam: Present: warm, dry, intact, normal color Course Vital Signs 02/02/20 02/02/20 02/02/20 16:50 17:31 17:38 Temperature 98.9 F Pulse Rate 97 96 98 Respiratory 20 Rate Blood Pressure 105/75 O2 Sat by Pulse 98 Oximetry 02/02/20 18:40 Temperature 98.3 F Pulse Rate 78 Respiratory 20 Rate Blood Pressure 110/56 O2 Sat by Pulse 98 Oximetry Medical Decision Making - Medical Decision Making Patient is a 29-year-old female, presenting to the emergency department with multiple chief complaints. Patient did have abdominal cramping but no urinary symptoms. No vaginal discharge or bleeding. Patient is also compl aining of asthma exacerbation. States this feels like her typical exacerbation which is normally treated with steroids and nebulized treatment. States she did have wheezing earlier today but not at the moment. Does feel short of breath but denies any chest pain. Denies unilateral leg swelling. States she used a home test 3 days ago which came back positive. Patient does appear to have a urinary tract infection and I suspect is causing the abdominal cramping. Patient will be treated with Keflex. Patient was given fluids in the ED and she feels like the cramping has almost resolved. Patient was also treated for asthma exacerbation with nebulized albuterol present. Patient will be discharged with a three-day course of prednisone. Patient declined pelvic examination. Patient started on vitamins. Patient advised to follow with her OB. Return parameters were thoroughly discussed with patient is understanding and agreeable. Case discussed with physician. - Lab Data Result diagrams: 02/02/20 17:25 02/02/20 17:25 Lab Results 02/02/20 02/02/20 02/02/20 Range/Units 16:58 17:00 17:25 WBC 16.6 H (3.8-10.6) k/uL RBC 4.38 (3.80-5.40) m/uL Hgb 13.3 (11.4-16.0) gm/dL Hct 38.7 (34.0-46.0) % MCV 88.3 (80.0-100.0) fL MCH 30.3 (25.0-35.0) pg MCHC 34.3 (31.0-37.0) g/dL RDW 12.2 (11.5-15.5) % Plt Count 451 H (150-450) k/uL Sodium (137-145) mmol/L Potassium (3.5-5.1) mmol/L Chloride (98-107) mmol/L Carbon Dioxide (22-30) mmol/L Anion Gap mmol/L BUN (7-17) mg/dL Creatinine (0.52-1.04) mg/dL Est GFR (CKD-EPI)AfAm (>60 ml/min/1.73 sqM) Est GFR (CKD-EPI)NonAf (>60 ml/min/1.73 sqM) Glucose (74-99) mg/dL Calcium (8.4-10.2) mg/dL Total Bilirubin (0.2-1.3) mg/dL AST (14-36) U/L ALT (4-34) U/L Alkaline Phosphatase (38-126) U/L Total Protein (6.3-8.2) g/dL Albumin (3.5-5.0) g/dL HCG, Quant mIU/mL Urine Color Yellow Urine Appearance Cloudy H (Clear) Urine pH 6.0 (5.0-8.0) Ur Specific Gilbert 1.029 (1.001-1.035) Urine Protein Trace H (Negative) Urine Glucose (UA) Negative (Negative) Urine Ketones Negative (Negative) Urine Blood Small H (Negative) Urine Nitrite Negative (Negative) Urine Bilirubin Negative (Negative) Urine Urobilinogen 3.0 (<2.0) mg/dL Ur Leukocyte Esterase Large H (Negative) Urine RBC 4 (0-5) /hpf Urine WBC 75 H (0-5) /hpf Ur Squamous Epith Cells 14 H (0-4) /hpf Amorphous Sediment Rare H (None) /hpf Urine Mucus Occasional H (None) /hpf Urine HCG, Qual Detected (Not Detectd) 02/02/20 Range/Units 17:25 WBC (3.8-10.6) k/uL RBC (3.80-5.40) m/uL Hgb (11.4-16.0) gm/dL Hct (34.0-46.0) % MCV (80.0-100.0) fL MCH (25.0-35.0) pg MCHC (31.0-37.0) g/dL RDW (11.5-15.5) % Plt Count (150-450) k/uL Sodium 138 (137-145) mmol/L Potassium 4.0 (3.5-5.1) mmol/L Chloride 102 (98-107) mmol/L Carbon Dioxide 29 (22-30) mmol/L Anion Gap 7 mmol/L BUN 12 (7-17) mg/dL Creatinine 0.70 (0.52-1.04) mg/dL Est GFR (CKD-EPI)AfAm >90 (>60 ml/min/1.73 sqM) Est GFR (CKD-EPI)NonAf >90 (>60 ml/min/1.73 sqM) Glucose 92 (74-99) mg/dL Calcium 9.8 (8.4-10.2) mg/dL Total Bilirubin 0.3 (0.2-1.3) mg/dL AST 54 H (14-36) U/L ALT 50 H (4-34) U/L Alkaline Phosphatase 225 H (38-126) U/L Total Protein 7.7 (6.3-8.2) g/dL Albumin 4.3 (3.5-5.0) g/dL HCG, Quant 2781.2 mIU/mL Urine Color Urine Appearance (Clear) Urine pH (5.0-8.0) Ur Specific Gilbert (1.001-1.035) Urine Protein (Negative) Urine Glucose (UA) (Negative) Urine Ketones (Negative) Urine Blood (Negative) Urine Nitrite (Negative) Urine Bilirubin (Negative) Urine Urobilinogen (<2.0) mg/dL Ur Leukocyte Esterase (Negative) Urine RBC (0-5) /hpf Urine WBC (0-5) /hpf Ur Squamous Epith Cells (0-4) /hpf Amorphous Sediment (None) /hpf Urine Mucus (None) /hpf Urine HCG, Qual (Not Detectd) Disposition Clinical Impression: Urinary tract infection, Asthma exacerbation, mild Disposition: HOME SELF-CARE Condition: Stable Instructions (If sedation given, give patient instructions): Asthma (ED) Additional Instructions: Take her medication as directed. Follow with primary care. Return to emergency department if symptoms worsen. Follow up with your [employer]. Prescriptions: Cephalexin [Keflex] 500 mg PO BID 5 Days #10 cap predniSONE 50 mg PO DAILY #3 tab Zco-Haqq-Rpmby Acid [-U Capsule] 1 each PO DAILY #30 cap Is patient prescribed a controlled substance at d/c from ED?: No Referrals: Rufino Elmore DO [Primary Care Provider] - 1-2 days Time of Disposition: 18:35
[2020-02-02 17:24] LABS: Appearance,Urine Cloudy (Clear); Bilirubin,Urine Negative (Negative); Blood,Urine Small (Negative); Color,Urine Yellow; Glucose,Urine (UA) Negative (Negative); Ketones,Urine Negative (Negative); Leukocyte Esterase,Urine Large (Negative); Nitrite,Urine Negative (Negative); Protein,Urine Trace (Negative); Specific Gravity,Urine 1.029 (1.001-1.035)
[2020-02-02 17:25] LABS: Amorphous Sediment,Urine Rare /hpf; Mucus,Urine Occasional /hpf; RBC,Urine 4 /hpf (0-5); Squamous Epithelial Cell,Urine 14 /hpf (0-4); WBC,Urine 75 /hpf (0-5)
[2020-02-02 17:43] LABS: HCT 38.7 % (34.0-46.0); HGB 13.3 gm/dL (11.4-16.0); MCH 30.3 pg (25.0-35.0); MCHC 34.3 g/dL (31.0-37.0); MCV 88.3 fL (80.0-100.0); Mean Platelet Volume 7.6; Platelet Count 451 k/uL (150-450); RBC 4.38 m/uL (3.80-5.40); RDW 12.2 % (11.5-15.5); WBC 16.6 k/uL (3.8-10.6)
[2020-02-02 17:50] LABS: ALT 50 U/L (4-34); AST 54 U/L (14-36); African American GFR (CKD) >90 (>60 ml/min/1.73 sqM); Albumin 4.3 g/dL (3.5-5.0); Alkaline Phosphatase 225 U/L (38-126); Anion Gap 7 mmol/L; Blood Urea Nitrogen 12 mg/dL (7-17); Calcium 9.8 mg/dL (8.4-10.2); Carbon Dioxide 29 mmol/L (22-30); Chloride 102 mmol/L (98-107); Glucose 92 mg/dL (74-99); Non-African American GFR(CKD) >90 (>60 ml/min/1.73 sqM); Sodium 138 mmol/L (137-145); Total Bilirubin 0.3 mg/dL (0.2-1.3); Total Protein 7.7 g/dL (6.3-8.2)
[2020-02-02 18:06] LABS: HCG,Quantitative Serum 2781.2 mIU/mL
--- NOTE | 2020-02-02 18:29 | XR ---
EXAMINATION TYPE: XR chest 2V DATE OF EXAM: 02/02/2020 COMPARISON: 12/01/2019, 01/16/2019 INDICATION: Short of breath, cough TECHNIQUE: Frontal and lateral views of the chest are obtained. FINDINGS: The heart size is normal. The pulmonary vasculature is normal. There is a 0.8 cm nodularity within the periphery of the right lung. This was present on the recent e xamination but not clearly evident on 01/16/2019 examination. Follow-up CT chest is recommended. IMPRESSION: 1. No acute pulmonary process identified. 2. There may be a developing nodule within the periphery of the right lung. Follow-up CT chest the pa tient is stable is recommended.
[2020-02-02 18:49] VITALS: BP 110/56; PULSE 78; TEMP 98.3
== END 2020-02-02 18:40 | disposition home or self-care (01) ==
LOC: EC 16:35
DX: O99.511 Diseases of the respiratory system complicating pregnancy, first trimester (principal); J45.901 Unspecified asthma with (acute) exacerbation; O23.41 Unspecified infection of urinary tract in pregnancy, first trimester; O99.281 Endocrine, nutritional and metabolic diseases complicating pregnancy, first trimester; E07.9 Disorder of thyroid, unspecified; O99.341 Other mental disorders complicating pregnancy, first trimester; F41.9 Anxiety disorder, unspecified; F31.9 Bipolar disorder, unspecified; Z3A.01 Less than 8 weeks gestation of pregnancy; Z79.899 Other long term (current) drug therapy; Z79.890 Hormone replacement therapy; Z91.013 Allergy to seafood
CPT/HCPCS: 36415; 94640; 80053; 85027; 81001; 81025; 84702; 87086; 71046; 99285; 96360; J7512

== ENCOUNTER 2020-02-04 20:48 | Emergency (ER) | payer OTHER ==
[2020-02-04] MEDS ORDERED: SODIUM CHLORIDE 0.9% 500 ML 500 ML IV STA (21:21)
[2020-02-04] MEDS ORDERED: SODIUM CHLORIDE 0.9% 1,000 ML IV STA (21:21)
[2020-02-04 21:26] LABS: Amorphous Sediment,Urine Rare /hpf; Appearance,Urine Cloudy (Clear); Bacteria,Urine Rare /hpf; Bilirubin,Urine Negative (Negative); Blood,Urine Negative (Negative); Color,Urine Light Yellow; Glucose,Urine (UA) Negative (Negative); Ketones,Urine Negative (Negative); Leukocyte Esterase,Urine Large (Negative); Nitrite,Urine Negative (Negative); Protein,Urine Negative (Negative); RBC,Urine 3 /hpf (0-5); Squamous Epithelial Cell,Urine 5 /hpf (0-4); Urobilinogen,Urine <2.0 mg/dL (<2.0); WBC,Urine 76 /hpf (0-5)
--- NOTE | 2020-02-04 21:29 | ED ---
Abdominal Pain HPI - General Chief Complaint: Abdominal Pain Stated Complaint: Cramping, Time Seen by Provider: 02/04/20 21:00 Source: patient Mode of arrival: ambulatory Limitations: no limitations - History of Present Illness Initial Comments: 29-year-old female patient who believes she has 5-6 weeks presents to the emergency department today for evaluation of lower abdominal cramping and fever. Patient states for the last 2 hours she has been having cramping to the pubic and vaginal region. Denies any abnormal vaginal bleeding or discharge. States that her last period was the beginning of December. She is G4, P3. States that she was recently here for coughing and asthma exacerbation. Was found to have urinary tract infection started on Keflex. States she is still taking this medication. She denies any hematuria, dysuria, urinary frequency, urinary urgency. States her temperature was 99F prior to arrival. She did take 2 Tylenol. She denies any concern for sexually transmitted infections. Patient denies any recent rash, cough, shortness of breath, chest pain, diarrhea, constipation, back pain, numbness, tingling, dizziness, weakness, headache, visual changes, or any other complaints. - Related Data Home Medications Medication Instructions Recorded Confirmed lamoTRIgine [LaMICtal] 25 mg PO BID 12/11/18 03/21/19 Levothyroxine Sodium [Synthroid] 25 mcg PO DAILY 01/16/19 03/21/19 Albuterol Inhaler (Mhu) [Ventolin 2 puff INHALATION RT-Q6H PRN 02/07/19 03/21/19 Hfa Inhaler] LORazepam [Ativan] 0.5 mg PO DAILY 03/21/19 03/21/19 Previous Rx's Medication Instructions Recorded Loratadine [Claritin] 10 mg PO DAILY #30 tab 03/22/19 Omeprazole 20 mg PO DAILY #30 cap 03/22/19 hydrOXYzine PAMOATE [Vistaril] 25 mg PO TID PRN #15 cap 09/17/19 methylPREDNISolone [Medrol Dose 4 mg PO DIRECTED #1 pack 09/17/19 Pack] Famotidine [Pepcid] 20 mg PO BID #4 tablet 09/23/19 predniSONE 50 mg PO DAILY #3 tab 09/23/19 Cephalexin [Keflex] 500 mg PO Q8HR 10 Days #30 cap 10/21/19 Oseltamivir [Tamiflu] 75 mg PO Q12HR #10 cap 10/21/19 guaiFENesin-DM 600/30MG [Mucinex 2 each PO Q12HR PRN #20 tab.er.12h 10/23/19 Dm] Penicillin V Potassium [Pen Vee K] 500 mg PO Q6HR #28 tablet 12/01/19 Cephalexin [Keflex] 500 mg PO BID 5 Days #10 cap 02/02/20 Ycy-Ucac-Ctgoc Acid 1 each PO DAILY #30 cap 02/02/20 [-U Capsule] predniSONE 50 mg PO DAILY #3 tab 02/02/20 Allergies Allergy/AdvReac Type Severity Reaction Status Date / Time shellfish derived [Shellfish] Allergy Anaphylaxis Verified 02/04/20 20:57 Review of Systems ROS Statement: Those systems with pertinent positive or pertinent negative responses have been documented in the HPI. ROS Other: All systems not noted in ROS Statement are negative. Past Medical History Past Medical History: Liver Disease, Thyroid Disorder Additional Past Medical History / Comment(s): cholestasis of History of Any Multi-Drug Resistant Organisms: None Reported Past Surgical History: Cholecystectomy, Ear Surgery, Tonsillectomy Additional Past Surgical History / Comment(s): splenectomy Past Anesthesia/Blood Transfusion Reactions: No Reported Reaction Past Psychological History: Anxiety, Bipolar, Depression Smoking Status: Never smoker Past Alcohol Use History: None Reported Past Drug Use History: None Reported - Past Family History Mother Additional Family Medical History / Comment(s): anxiety, depression Father History Unknown: Yes General Exam Limitations: no limitations General appearance: alert, in no apparent distress, other (This is a well- developed, well-nourished adult female patient in no acute distress. Vital signs upon presentation are temperature 98.1F, pulse 84, respirations 18, blood pressure 112/74, pulse ox 98% on room air.) Respiratory exam: Present: normal lung sounds bilaterally. Absent: respiratory distress, wheezes, rales, rhonchi, stridor Cardiovascular Exam: Present: regular rate, normal rhythm, normal heart sounds. Absent: systolic murmur, diastolic murmur, rubs, gallop, clicks GI/Abdominal exam: Present: soft, tenderness (Lower abdominal tenderness), normal bowel sounds. Absent: distended, guarding, rebound, rigid Neurological exam: Present: alert, oriented X3, CN II-XII intact Psychiatric exam: Present: normal affect, normal mood Skin exam: Present: warm, dry, intact, normal color. Absent: rash Course Vital Signs 02/04/20 02/04/20 02/04/20 20:51 21:53 23:36 Temperature 98.1 F 98.6 F 98.2 F Pulse Rate 84 82 Respiratory 18 15 18 Rate Blood Pressure 112/74 109/70 O2 Sat by Pulse 98 98 Oximetry Medical Decision Making - Medical Decision Making 29-year-old female patient presents to the emergency department today for evaluation of suprapubic cramping. Patient states symptoms started earlier to day. States she did have temperature 99.0F. Currently on antibiotics for urinary tract infection. States she is about 5 weeks . Physical examination does reveal some mild lower abdominal tenderness. No CVA tenderness. She is currently afebrile normal vital signs. Labs reviewed and di d reveal white blood cell count of 18,000. She is currently and taking steroids which accounts for her elevated white blood cell count. Ultrasound was obtained and showed a gestational sac measuring 5 weeks 3 days. HCG level was 5900. This is consistent with early . She'll be discharged with a prescription for repeat hCG in 2 days. She is urged to continue taking her antibiotics, urine was sent for culture. She plans on following up with Dr. Velasquez who delivered her other children. Return parameters were discussed in detail. She verbalizes understanding and agrees with this plan. - Lab Data Result diagrams: 02/04/20 21:30 02/04/20 21:30 Lab Results 02/04/20 02/04/20 02/04/20 Range/Units 21:10 21:30 21:30 WBC 18.9 H (3.8-10.6) k/uL RBC 4.30 (3.80-5.40) m/uL Hgb 12.3 (11.4-16.0) gm/dL Hct 38.5 (34.0-46.0) % MCV 89.5 (80.0-100.0) fL MCH 28.7 (25.0-35.0) pg MCHC 32.0 (31.0-37.0) g/dL RDW 13.1 (11.5-15.5) % Plt Count 430 (150-450) k/uL Neutrophils % 60 % Lymphocytes % 30 % Monocytes % 4 % Eosinophils % 3 % Basophils % 1 % Neutrophils # 11.3 H (1.3-7.7) k/uL Lymphocytes # 5.7 H (1.0-4.8) k/uL Monocytes # 0.8 (0-1.0) k/uL Eosinophils # 0.6 (0-0.7) k/uL Basophils # 0.1 (0-0.2) k/uL Sodium 137 (137-145) mmol/L Potassium 3.7 (3.5-5.1) mmol/L Chloride 100 (98-107) mmol/L Carbon Dioxide 28 (22-30) mmol/L Anion Gap 9 mmol/L BUN 12 (7-17) mg/dL Creatinine 0.66 (0.52-1.04) mg/dL Est GFR (CKD-EPI)AfAm >90 (>60 ml/min/1.73 sqM) Est GFR (CKD-EPI)NonAf >90 (>60 ml/min/1.73 sqM) Glucose 92 (74-99) mg/dL Calcium 9.3 (8.4-10.2) mg/dL Total Bilirubin 0.2 (0.2-1.3) mg/dL AST 52 H (14-36) U/L ALT 53 H (4-34) U/L Alkaline Phosphatase 194 H (38-126) U/L Total Protein 7.5 (6.3-8.2) g/dL Albumin 4.2 (3.5-5.0) g/dL Amylase 54 (30-110) U/L Lipase 99 (23-300) U/L HCG, Quant 5936.2 mIU/mL Urine Color Light Yellow Urine Appearance Cloudy H (Clear) Urine pH 6.0 (5.0-8.0) Ur Specific [place] 1.010 (1.001-1.035) Urine Protein Negative (Negative) Urine Glucose (UA) Negative (Negative) Urine Ketones Negative (Negative) Urine Blood Negative (Negative) Urine Nitrite Negative (Negative) Urine Bilirubin Negative (Negative) Urine Urobilinogen <2.0 (<2.0) mg/dL Ur Leukocyte Esterase Large H (Negative) Urine RBC 3 (0-5) /hpf Urine WBC 76 H (0-5) /hpf Ur Squamous Epith Cells 5 H (0-4) /hpf Amorphous Sediment Rare H (None) /hpf Urine Bacteria Rare H (None) /hpf - Radiology Data Radiology results: report reviewed Transvaginal ultrasound was obtained. Report was reviewed in its entirety. Impression by Dr. Snyder shows small intrauterine gestational sac measuring 8 x 4 x 7 mm corresponding to 5 weeks and 2 days. Follow-up exam recommended to confirm a living fetus in 14 days. No adnexal mass. Disposition Clinical Impression: Abdominal pain during Disposition: HOME SELF-CARE Condition: Serious Instructions (If sedation given, give patient instructions): Abdominal Pain in (ED) Additional Instructions: Increase fluids. Rest. Follow up with OBGYN as soon as possible. Continue antibiotic for urinary tract infection. Return to the emergency department for any new, worsening, or concerning symptoms. Is patient prescribed a controlled substance at d/c from ED?: No Referrals: Rufino Elmore DO [Primary Care Provider] - 1-2 days Maryana Velasquez DO [Doctor of Osteopathic Medicine] - 1-2 days Time of Disposition: 23:07
[2020-02-04 21:42] LABS: Basophils # (A) 0.1 k/uL (0-0.2); Basophils % (A) 1 %; Eosinophils # (A) 0.6 k/uL (0-0.7); Eosinophils % (A) 3 %; HCT 38.5 % (34.0-46.0); HGB 12.3 gm/dL (11.4-16.0); Lymphocytes # (A) 5.7 k/uL (1.0-4.8); Lymphocytes % (A) 30 %; MCH 28.7 pg (25.0-35.0); MCV 89.5 fL (80.0-100.0); Mean Platelet Volume 7.3; Monocytes # (A) 0.8 k/uL (0-1.0); Monocytes % (A) 4 %; Neutrophils # (A) 11.3 k/uL (1.3-7.7); Neutrophils % (A) 60 %; Platelet Count 430 k/uL (150-450); RDW 13.1 % (11.5-15.5); WBC 18.9 k/uL (3.8-10.6)
[2020-02-04 21:54] LABS: ALT 53 U/L (4-34); AST 52 U/L (14-36); African American GFR (CKD) >90 (>60 ml/min/1.73 sqM); Albumin 4.2 g/dL (3.5-5.0); Alkaline Phosphatase 194 U/L (38-126); Amylase 54 U/L (30-110); Anion Gap 9 mmol/L; Blood Urea Nitrogen 12 mg/dL (7-17); Calcium 9.3 mg/dL (8.4-10.2); Carbon Dioxide 28 mmol/L (22-30); Chloride 100 mmol/L (98-107); Glucose 92 mg/dL (74-99); Non-African American GFR(CKD) >90 (>60 ml/min/1.73 sqM); Potassium 3.7 mmol/L (3.5-5.1); Sodium 137 mmol/L (137-145); Total Bilirubin 0.2 mg/dL (0.2-1.3); Total Protein 7.5 g/dL (6.3-8.2)
[2020-02-04 22:10] LABS: HCG,Quantitative Serum 5936.2 mIU/mL
--- NOTE | 2020-02-04 22:51 | US ---
EXAMINATION TYPE: Transabdominal DATE OF EXAM: 02/04/2020 10:32 PM COMPARISON: NONE CLINICAL HISTORY: Vaginal pain, abd cramping early . Pelvic cramping x 1 day EXAM PERFORMED: Transabdominal (TA) EXAM MEASUREMENTS: GESTATIONAL AGE / DATING Physician Established: Not Established Yet Dates by LMP: (5 weeks/3 days) EDC: 10/03/2020 Dates by First Scan: This is 1st scan Dates by Current Scan for: By gestational sac measurement ( 5 weeks/2 days) EDC: 10/04/2020 MATERNAL ANATOMY Uterus: 10.2 x 4.6 x 6.0cm Right Ovary: 3.1 x 1.8 x 1.8cm Left Ovary: 2.1 x 1.5 x 1.4cm Post CDS / Adnexa: wnl Presence of free fluid: no Presence of corpus luteal cyst: right ovary: 1.5 x 1.2 x 1.2cm Presence of subchorionic bleed: no GESTATION / SURVEY No pole or yolk sac seen, ? too early MSD: 0.6cm (5 weeks/2 days) Date of LMP: 12/28/2019 Beta HcG (if available): Not available at time of exam IMPRESSION: There is small intrauterine gestational sac measures 8 x 4 x 7 mm corresponding to 5 weeks and 2 days . Follow-up exam recommended to confirm a living fetus in 14 days. No adnexal mass.
[2020-02-04 23:39] VITALS: BP 109/70; PULSE 82; RESP 18; TEMP 98.2
== END 2020-02-04 23:40 | disposition home or self-care (01) ==
LOC: EC 20:48
DX: O26.891 Other specified pregnancy related conditions, first trimester (principal); R10.30 Lower abdominal pain, unspecified; R10.819 Abdominal tenderness, unspecified site; O23.41 Unspecified infection of urinary tract in pregnancy, first trimester; O99.281 Endocrine, nutritional and metabolic diseases complicating pregnancy, first trimester; E07.9 Disorder of thyroid, unspecified; O99.111 Other diseases of the blood and blood-forming organs and certain disorders involving the immune mechanism complicating pregnancy, first trimester; O99.341 Other mental disorders complicating pregnancy, first trimester; F41.8 Other specified anxiety disorders; F31.9 Bipolar disorder, unspecified; Z3A.01 Less than 8 weeks gestation of pregnancy; Z79.51 Long term (current) use of inhaled steroids; Z79.899 Other long term (current) drug therapy; Z79.890 Hormone replacement therapy; Z91.013 Allergy to seafood; Z90.49 Acquired absence of other specified parts of digestive tract; Z90.81 Acquired absence of spleen
CPT/HCPCS: 36415; 76801; 80053; 81001; 82150; 83690; 84702; 85025; 87086; 96360; 99284

== ENCOUNTER → 2020-02-07 | Outpatient (CLI) | payer OTHER | END | disposition home or self-care (01) | LOC: LABWHC1 10:15 | PROVIDERS: ATTEND Nurse Practitioner | DX: O99.89 Other specified diseases and conditions complicating pregnancy, childbirth and the puerperium (principal); Z3A.00 Weeks of gestation of pregnancy not specified | CPT/HCPCS: 36415; 84702 ==

== ENCOUNTER 2020-03-18 00:21 | Emergency (ER) | payer OTHER ==
--- NOTE | 2020-03-18 01:22 | XR ---
EXAMINATION TYPE: XR chest 2V DATE OF EXAM: 03/18/2020 COMPARISON: 02/02/2020 HISTORY: Chest pain TECHNIQUE: FINDINGS: Heart and mediastinum are normal. Lungs are clear. Diaphragm is normal. Bony thorax is norm al. IMPRESSION: Normal chest. No change.
[2020-03-18 01:23] LABS: ALT 49 U/L (4-34); African American GFR (CKD) >90 (>60 ml/min/1.73 sqM); Albumin 4.3 g/dL (3.5-5.0); Anion Gap 11 mmol/L; Blood Urea Nitrogen 15 mg/dL (7-17); Calcium 9.6 mg/dL (8.4-10.2); Carbon Dioxide 24 mmol/L (22-30); Chloride 102 mmol/L (98-107); Glucose 113 mg/dL (74-99); Non-African American GFR(CKD) >90 (>60 ml/min/1.73 sqM); Sodium 137 mmol/L (137-145); Total Bilirubin 0.4 mg/dL (0.2-1.3)
[2020-03-18 01:27] LABS: Basophils # (A) 0.1 k/uL (0-0.2); Basophils % (A) 1 %; Eosinophils # (A) 0.8 k/uL (0-0.7); Eosinophils % (A) 5 %; HCT 38.6 % (34.0-46.0); HGB 13.1 gm/dL (11.4-16.0); Lymphocytes # (A) 5.3 k/uL (1.0-4.8); Lymphocytes % (A) 30 %; MCH 30.3 pg (25.0-35.0); MCV 89.1 fL (80.0-100.0); Mean Platelet Volume 7.3; Monocytes # (A) 0.9 k/uL (0-1.0); Monocytes % (A) 5 %; Neutrophils % (A) 58 %; Platelet Count 535 k/uL (150-450); RBC 4.33 m/uL (3.80-5.40); RDW 12.3 % (11.5-15.5); WBC 17.3 k/uL (3.8-10.6)
[2020-03-18 01:33] LABS: Appearance,Urine Clear (Clear); Bacteria,Urine Rare /hpf; Bilirubin,Urine Negative (Negative); Blood,Urine Large (Negative); Color,Urine Yellow; Glucose,Urine (UA) Negative (Negative); Ketones,Urine Negative (Negative); Leukocyte Esterase,Urine Large (Negative); Mucus,Urine Occasional /hpf; Nitrite,Urine Negative (Negative); Protein,Urine Trace (Negative); RBC,Urine 121 /hpf (0-5); Specific Gravity,Urine 1.027 (1.001-1.035); Squamous Epithelial Cell,Urine 3 /hpf (0-4); WBC,Urine 18 /hpf (0-5)
[2020-03-18] MEDS ORDERED: SODIUM CHLORIDE 0.9% 1,000 ML IV STA (02:19)
[2020-03-18 02:20] LABS: AST 63 U/L (14-36); Alkaline Phosphatase 283 U/L (38-126)
--- NOTE | 2020-03-18 02:28 | ED ---
Chest Pain HPI - General Chief Complaint: Chest Pain Stated Complaint: chest pain, leg pain Time Seen by Provider: 03/18/20 02:20 Source: patient Mode of arrival: ambulatory Limitations: no limitations - Related Data Home Medications Medication Instructions Recorded Confirmed lamoTRIgine [LaMICtal] 25 mg PO BID 12/11/18 03/21/19 Levothyroxine Sodium [Synthroid] 25 mcg PO DAILY 01/16/19 03/21/19 Albuterol Inhaler (Mhu) [Ventolin 2 puff INHALATION RT-Q6H PRN 02/07/19 03/21/19 Hfa Inhaler] LORazepam [Ativan] 0.5 mg PO DAILY 03/21/19 03/21/19 Previous Rx's Medication Instructions Recorded Loratadine [Claritin] 10 mg PO DAILY #30 tab 03/22/19 Omeprazole 20 mg PO DAILY #30 cap 03/22/19 hydrOXYzine PAMOATE [Vistaril] 25 mg PO TID PRN #15 cap 09/17/19 methylPREDNISolone [Medrol Dose 4 mg PO DIRECTED #1 pack 09/17/19 Pack] Famotidine [Pepcid] 20 mg PO BID #4 tablet 09/23/19 predniSONE 50 mg PO DAILY #3 tab 09/23/19 Cephalexin [Keflex] 500 mg PO Q8HR 10 Days #30 cap 10/21/19 Oseltamivir [Tamiflu] 75 mg PO Q12HR #10 cap 10/21/19 guaiFENesin-DM 600/30MG [Mucinex 2 each PO Q12HR PRN #20 tab.er.12h 10/23/19 Dm] Penicillin V Potassium [Pen Vee K] 500 mg PO Q6HR #28 tablet 12/01/19 Cephalexin [Keflex] 500 mg PO BID 5 Days #10 cap 02/02/20 Mee-Ufeo-Xqofr Acid 1 each PO DAILY #30 cap 02/02/20 [-U Capsule] predniSONE 50 mg PO DAILY #3 tab 02/02/20 Allergies Allergy/AdvReac Type Severity Reaction Status Date / Time shellfish derived [Shellfish] Allergy Anaphylaxis Verified 03/18/20 00:48 Review of Systems ROS Statement: Those systems with pertinent positive or pertinent negative responses have been documented in the HPI. ROS Other: All systems not noted in ROS Statement are negative. EKG Findings - EKG Comments: EKG Findings:: EKG shows nsr 82 DE 144 QRS 100 QTc 479 Past Medical History Past Medical History: Liver Disease, Thyroid Disorder Additional Past Medical History / Comment(s): cholestasis of , History of Any Multi-Drug Resistant Organisms: None Reported Past Surgical History: Cholecystectomy, Ear Surgery, Tonsillectomy Additional Past Surgical History / Comment(s): splenectomy Past Anesthesia/Blood Transfusion Reactions: No Reported Reaction Past Psychological History: Anxiety, Bipolar, Depression Smoking Status: Never smoker Past Alcohol Use History: None Reported Past Drug Use History: None Reported - Past Family History Mother Additional Family Medical History / Comment(s): anxiety, depression Father History Unknown: Yes General Exam Limitations: no limitations Course Vital Signs 03/18/20 03/18/20 00:44 02:24 Temperature 98.8 F Pulse Rate 89 86 Respiratory 16 18 Rate Blood Pressure 113/76 127/76 O2 Sat by Pulse 97 95 Oximetry Disposition Clinical Impression: Chest pain, Abdominal pain, Leg pain, Left arm pain Disposition: HOME SELF-CARE Condition: Good Instructions (If sedation given, give patient instructions): Abdominal Pain (ED) Is patient prescribed a controlled substance at d/c from ED?: No Referrals: Rufino Elmore DO [Primary Care Provider] - 1-2 days
--- NOTE | 2020-03-18 03:26 | CT ---
EXAMINATION TYPE: CT angio chest DATE OF EXAM: 03/18/2020 COMPARISON: 01/16/2019 HISTORY: pain CT DLP: 482.2 mGycm Automated exposure control for dose reduction was used. CONTRAST: Performed with IV Contrast, patient injected with 100 mL of Isovue 370. There are 3-D post processed images. There is no pericardial effusion. There is no pleural effusion. The lungs are clear of consolidation. There is prominent vessel in the lateral aspect of the right middle lobe. There are no hilar masses. There is no mediastinal adenopathy. There is small residual thymus. Thoracic aorta is intact. There is no aneurysm or dissection. Bony thorax is intact. There is no compression fracture. Sternum is intact. The ribs appear intact. U pper abdominal soft tissues are intact. I see no filling defect in the pulmonary arteries. IMPRESSION: No evidence of pulmonary embolism. Right middle lobe prominent vessel consistent with a varix. Unchan ged. There is clearing of the basilar pulmonary infiltrates and pleural fluid compared to old exam.
[2020-03-18 03:34] LABS: Magnesium 1.9 mg/dL (1.6-2.3)
--- NOTE | 2020-03-18 03:34 | CT ---
EXAMINATION TYPE: CT abdomen pelvis w con DATE OF EXAM: 03/18/2020 COMPARISON: 02/07/2019 HISTORY: pain CT DLP: 1364.6 mGycm Automated exposure control for dose reduction was used. CONTRAST: Performed with IV Contrast, patient injected with 100 mL of Isovue 370. Images were obtained from the diaphragm to the floor the pelvis with IV contrast. There is minimal subsegmental atelectasis at the lung bases. Heart size is normal. There is linear hy podensity in the left hepatic lobe and there is probably prominent bile duct. The remainder of the bi le ducts are not dilated. There are clips from cholecystectomy. There is irregular soft tissue densit y posterior to the stomach consistent with deformed spleen or regenerative spleen. I see no evidence of pancreatic mass. There are clips from cholecystectomy. There is no adrenal mass. Kidneys show satisfactory contrast opacification. There is no hydronephrosi s. Ureters are not dilated. There is no retroperitoneal adenopathy. Bladder distends smoothly. Uterus is anteverted. There is large endometrial cavity with fluid consistent with recent and abo rtion. There is no inguinal hernia. There is no free fluid in the pelvis. Lumbar vertebra have normal alignment. There is vacuum disc at L5-S1. There is no compression fractur e. Bony pelvis is intact. There is no mesenteric edema. There is no ascites or free air. Appendix is not definitely seen. There is no sign of thickened appendix. There is no evidence of a bowel obstruction. There is no free air. There is no ascites. IMPRESSION: No acute abnormality within the abdomen pelvis. Appendix not seen. No sign of appendicitis.
[2020-03-18 03:46] LABS: T4, Free (Free Thyroxine) 0.87 ng/dL (0.78-2.19)
[2020-03-18 05:08] VITALS: BP 113/71; PULSE 76; RESP 17; TEMP 98.1
== END 2020-03-18 05:11 | disposition home or self-care (01) ==
LOC: EC 00:21
DX: R07.9 Chest pain, unspecified (principal); R10.9 Unspecified abdominal pain; M79.606 Pain in leg, unspecified; M79.602 Pain in left arm; F31.9 Bipolar disorder, unspecified; E07.9 Disorder of thyroid, unspecified; F41.9 Anxiety disorder, unspecified; Z79.899 Other long term (current) drug therapy; Z79.890 Hormone replacement therapy; Z91.013 Allergy to seafood; Z90.49 Acquired absence of other specified parts of digestive tract; Z90.81 Acquired absence of spleen
CPT/HCPCS: 36415; 93005; 85379; 84439; 83880; 80053; 84443; 83690; 83735; 84484; 85025; 81001; 87040; 87086; 71046; 71275; 74177; 96360; 96361; 99285; Q9967

== ENCOUNTER → 2020-04-11 | Outpatient (CLI) | payer OTHER ==
--- NOTE | 2020-04-11 14:37 | US ---
EXAMINATION TYPE: US transvaginal DATE OF EXAM: 04/11/2020 COMPARISON: US 02/04/2020 CLINICAL HISTORY: N93.8 O03.9 Complete or unspecified spontaneous . Patient had a miscarriage in January. Bleeding on and off since then TECHNIQUE: . Transvaginal sonographic images of the pelvis were acquired. EXAM MEASUREMENTS: Uterus: 9.4 x 4.7 x 5.7 cm Endometrial Stripe: Unable to measure with certainty Right Ovary: Not visualized Left Ovary: 2.7 x 1.9 x 1.8 cm 1. Uterus: Anteverted Nabothian cyst visualized 2. Endometrium: Complex fluid collection with some vascularity visualized within. Possible retained products vs other 3. Right Ovary: Obscured by overlying bowel gas 4. Left Ovary: Cystic area visualized measuring 2.0 x 1.1 x 1.5 cm 5. Bilateral Adnexa: wnl 6. Posterior cul-de-sac: wnl IMPRESSION: 1. There is a complex fluid collection within the endometrium. Differential diagnosis would include r etained products, hematoma or hemorrhage, although infectious etiology or molar not exclude d correlate clinically. 2. There is a nonspecific left ovarian cyst which could represent residual corpus luteal cyst. Other etiologies not excluded. Correlate with serial beta hCG and pelvic ultrasound as clinically warranted .
--- NOTE | 2020-04-11 14:46 | XR ---
EXAMINATION TYPE: XR chest 2V DATE OF EXAM: 04/11/2020 COMPARISON: 03/18/2020 TECHNIQUE: PA and lateral views submitted. HISTORY: Shortness of breath FINDINGS: The lungs are clear and there is no pneumothorax, pleural effusion, or focal pneumonia. No overt fa ilure. Heart size normal. There is a nodular density on the frontal view and lateral view overlying t he upper margin of the heart. Measures 7 mm. IMPRESSION: 1. No acute process. However, there appears to be a 7 mm right upper lobe pulmonary nodule recommend CT scan of the chest.
== END | disposition home or self-care (01) ==
LOC: RADUSWWP 13:39
PROVIDERS: ATTEND Family Medicine
DX: N83.202 Unspecified ovarian cyst, left side (principal)
CPT/HCPCS: 71046; 76830

== ENCOUNTER → 2020-05-02 | Outpatient (CLI) | payer OTHER ==
--- NOTE | 2020-05-02 17:35 | CT ---
EXAMINATION TYPE: CT chest w con DATE OF EXAM: 05/02/2020 COMPARISON: 03/18/2020 and 01/16/2019 HISTORY: 30-year-old female Pulmonary nodule TECHNIQUE: Contiguous axial scanning of the chest after the administration of 100 mL of Isovue 300. Coronal/sagittal reconstructions performed. CT DLP: 398.1mGycm. Automatic exposure control utilized for a dose reduction. FINDINGS: Heart normal size without pericardial effusion. Aorta normal caliber with bovine configuration to the aortic arch. Some stable soft tissue density in the anterior mediastinum likely residual thymic tissue given patie nt's young age. No thoracic lymphadenopathy by CT size criteria. Stable 8mm enhancing nodule lateral segment right middle lobe with prominent vessels extending to and from this lesion. No consolidation or pleural effusion. Stable elongated 5.2 x 1.2 cm hypodensity within the left liver lobe, possibly elongated cyst versus chronic focal intrahepatic biliary ductal dilatation. Cholecystectomy clips. Left upper quadrant sple nules are redemonstrated. Bones: Old healed posterior lower left rib fracture deformities. Interbody ankylosis of T10-T11. IMPRESSION: 1. 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 2. No acute pulmonary process.
== END | disposition home or self-care (01) ==
LOC: RADCTMAIN 15:23
PROVIDERS: ATTEND Family Medicine
DX: R91.1 Solitary pulmonary nodule (principal)
CPT/HCPCS: 71260; Q9967

== ENCOUNTER → 2020-05-10 | Outpatient (CLI) | payer OTHER | END | disposition home or self-care (01) | LOC: LABWHC1 10:01 | PROVIDERS: ATTEND Obstetrics & Gynecology | DX: N91.2 Amenorrhea, unspecified (principal) | CPT/HCPCS: 36415; 84702 ==

== ENCOUNTER 2020-05-25 19:07 | Emergency (ER) | payer OTHER ==
[2020-05-25 19:13] VITALS: RESP 16
--- NOTE | 2020-05-25 19:25 | ED ---
SOB HPI - General Source: patient Mode of arrival: ambulatory Limitations: no limitations <Campbell Kemp - Last Filed: 05/25/20 21:44> <Libby Mariscal - Last Filed: 05/26/20 13:40> - General Chief Complaint: Shortness of Breath Stated Complaint: SOB Time Seen by Provider: 05/25/20 19:25 - History of Present Illness Initial Comments: Tissues a 30-year-old female with history of asthma and anxiety presenting to the emergency department with a chief complaint of shortness of breath. Patient reports her symptoms began yesterday with some dyspnea on exertion. Patient reports use her inhaler although she continues to have the same symptoms. Patient also reports a nonproductive cough. She also reports having some discomfort and left-sided chest yesterday without any radiation but she states this is secondary to her anxiety. States she took 2 Ativan which did not resolve any of the shortness of breath. Patient denies any night sweats or chills. Denies any headaches, visual changes, one-sided weakness and paresthesias. (Campbell Kemp) - Related Data Home Medications Medication Instructions Recorded Confirmed lamoTRIgine [LaMICtal] 25 mg PO BID 12/11/18 03/21/19 Levothyroxine Sodium [Synthroid] 25 mcg PO DAILY 01/16/19 03/21/19 Albuterol Inhaler (Mhu) [Ventolin 2 puff INHALATION RT-Q6H PRN 02/07/19 03/21/19 Hfa Inhaler] LORazepam [Ativan] 0.5 mg PO DAILY 03/21/19 03/21/19 Previous Rx's Medication Instructions Recorded Loratadine [Claritin] 10 mg PO DAILY #30 tab 03/22/19 Omeprazole 20 mg PO DAILY #30 cap 03/22/19 hydrOXYzine pamoate [Vistaril] 25 mg PO TID PRN #15 cap 09/17/19 methylPREDNISolone [Medrol Dose 4 mg PO DIRECTED #1 pack 09/17/19 Pack] Famotidine [Pepcid] 20 mg PO BID #4 tablet 09/23/19 predniSONE 50 mg PO DAILY #3 tab 09/23/19 Cephalexin [Keflex] 500 mg PO Q8HR 10 Days #30 cap 10/21/19 Oseltamivir [Tamiflu] 75 mg PO Q12HR #10 cap 10/21/19 guaiFENesin-DM 600/30MG [Mucinex 2 each PO Q12HR PRN #20 tab.er.12h 10/23/19 Dm] Penicillin V Potassium [Pen Vee K] 500 mg PO Q6HR #28 tablet 12/01/19 Cephalexin [Keflex] 500 mg PO BID 5 Days #10 cap 02/02/20 Tis-Zdqw-Jeypc Acid 1 each PO DAILY #30 cap 02/02/20 [-U Capsule] predniSONE 50 mg PO DAILY #3 tab 02/02/20 Allergies Allergy/AdvReac Type Severity Reaction Status Date / Time shellfish derived [Shellfish] Allergy Anaphylaxis Verified 05/25/20 19:09 Review of Systems ROS Other: All systems not noted in ROS Statement are negative. <Campbell Kemp - Last Filed: 05/25/20 21:44> ROS Other: All systems not noted in ROS Statement are negative. <Libby Mariscal - Last Filed: 05/26/20 13:40> ROS Statement: Those systems with pertinent positive or pertinent negative responses have been documented in the HPI. Past Medical History Past Medical History: Liver Disease, Thyroid Disorder Additional Past Medical History / Comment(s): cholestasis of , History of Any Multi-Drug Resistant Organisms: None Reported Past Surgical History: Cholecystectomy, Ear Surgery, Tonsillectomy Additional Past Surgical History / Comment(s): splenectomy Past Anesthesia/Blood Transfusion Reactions: No Reported Reaction Past Psychological History: Anxiety, Bipolar, Depression, PTSD Smoking Status: Never smoker Past Alcohol Use History: None Reported Past Drug Use History: None Reported - Past Family History Mother Additional Family Medical History / Comment(s): anxiety, depression Father History Unknown: Yes <Campbell Kemp - Last Filed: 05/25/20 21:44> General Exam Limitations: no limitations General appearance: alert, in no apparent distress, anxious Head exam: Present: atraumatic, normocephalic, normal inspection Eye exam: Present: normal appearance, PERRL, EOMI Pupils: Present: normal accommodation ENT exam: Present: normal exam, normal oropharynx, mucous membranes moist, TM's normal bilaterally, normal external ear exam Neck exam: Present: normal inspection, full ROM. Absent: tenderness Respiratory exam: Present: wheezes (Very mild in the left upper lung field.). Absent: normal lung sounds bilaterally, respiratory distress, rales Cardiovascular Exam: Present: regular rate, normal rhythm, normal heart sounds. Absent: bradycardia, tachycardia Extremities exam: Present: normal inspection, full ROM, normal capillary refill, other (+2 ulnar and radial pulses bilateral.). Absent: tenderness Back exam: Present: normal inspection, full ROM. Absent: tenderness Neurological exam: Present: alert, oriented X3 Psychiatric exam: Present: normal affect, normal mood Skin exam: Present: warm, dry, intact, normal color <Campbell Kemp - Last Filed: 05/25/20 21:44> Course Vital Signs 05/25/20 05/25/20 05/25/20 19:09 20:57 21:05 Temperature 98 F Pulse Rate 84 83 83 Respiratory 16 Rate Blood Pressure 120/76 O2 Sat by Pulse 97 Oximetry 05/25/20 22:03 Temperature 98.0 F Pulse Rate 67 Respiratory Rate Blood Pressure 110/85 O2 Sat by Pulse 98 Oximetry Medical Decision Making <Campbell Kemp - Last Filed: 05/25/20 21:44> <Libby Mariscal - Last Filed: 05/26/20 13:40> - Medical Decision Making Patient is 30-year-old male presents emergency Department with chief complaint shortness of breath. She has history of asthma and anxiety. He states this feels more like anxiety. On exam there is a touch of a wheeze in the left upper lung. X-ray reveals a nodule that has unchanged compared to last night. Most likely benign. EKG shows sinus rhythm with sinus arrhythmia. There appears to be a an artifact in the EKG. Patient was given DuoNeb treatment with improvement in her breathing although the shortness of breath is still somewhat persistent. She does not have chest pain today. She will follow-up with a front services agent to better get her asthma under control. She d-dimer is negative. Strict return prescribed as were thoroughly discussed the patient was worsening agreeable. Case discussed with physician. (Campbell Kemp) I was available for consultation in the emergency department. The history and physical exam were done by the midlevel provider. I was consulted for this patients care. I reviewed the case with the midlevel provider and based on their presentation of the patient, I agree with the assessment, medical decision making and plan of care as documented. Chart was dictated using [employer] dictation software. Attempts were made to correct any dictation errors however some typographical errors may persist. Patient was seen during a national state of emergency due to the Covid-19 pandemic. (Libby Mariscal) - Lab Data Lab Results 05/25/20 Range/Units 19:57 D-Dimer 0.37 (<0.60) mg/L FEU Disposition Is patient prescribed a controlled substance at d/c from ED?: No Time of Disposition: 21:47 <Campbell Kemp - Last Filed: 05/25/20 21:44> <Libby Mariscal - Last Filed: 05/26/20 13:40> Clinical Impression: Shortness of breath, Cough Disposition: HOME SELF-CARE Condition: Stable Instructions (If sedation given, give patient instructions): Asthma (ED) Additional Instructions: Follow with the front services agent. Return to emergency department if symptoms worsen. Referrals: Matry Elmore DO [Primary Care Provider] - 1-2 days Migdalia Gill MD [STAFF PHYSICIAN] - 1-2 days
--- NOTE | 2020-05-25 20:17 | XR ---
EXAMINATION TYPE: XR chest 2V DATE OF EXAM: 05/25/2020 COMPARISON: 04/11/2020 HISTORY: Short of breath TECHNIQUE: FINDINGS: Heart and mediastinum are normal. Lungs are clear of infiltrate. There is no pleural effusi on. The bony thorax is intact. Pulmonary vascularity is normal. There is 6 mm nodular density lateral aspect of the right midlung unchanged. This is relatively dense and could be a granuloma. IMPRESSION: No active cardiopulmonary disease. Nodular density in the right lung unchanged compared t o October 23, 2019 and consistent with benign disease.. No change compared to old exam.
[2020-05-25] MEDS ORDERED: IPRATROPIUM-ALBUTEROL 3 ML NEB INHALATION STA (20:46)
[2020-05-25 22:06] VITALS: BP 110/85; PULSE 67; TEMP 98
== END 2020-05-25 22:05 | disposition home or self-care (01) ==
LOC: EC 19:07
DX: J45.909 Unspecified asthma, uncomplicated (principal); R91.1 Solitary pulmonary nodule; I49.9 Cardiac arrhythmia, unspecified; E07.9 Disorder of thyroid, unspecified; F41.9 Anxiety disorder, unspecified; F31.9 Bipolar disorder, unspecified; F43.10 Post-traumatic stress disorder, unspecified; Z79.899 Other long term (current) drug therapy; Z79.890 Hormone replacement therapy; Z91.013 Allergy to seafood
CPT/HCPCS: 36415; 71046; 85379; 93005; 94640; 99285

== ENCOUNTER → 2020-07-02 | Outpatient (CLI) | payer OTHER ==
--- NOTE | 2020-07-03 08:51 | US ---
EXAMINATION TYPE: Transabdominal DATE OF EXAM: 07/02/2020 4:46 PM COMPARISON: NONE CLINICAL HISTORY: N91.2 amenorrhea, E34.9 elevated serum. new , EXAM PERFORMED: OBTA/OBTV EXAM MEASUREMENTS: GESTATIONAL AGE / DATING Physician Established: Not yet established Dates by LMP: unknown Dates by First Scan: No previous this is first scan Dates by Current Scan for: (6 weeks/0 days) EDC: 02/25/2021 MATERNAL ANATOMY Uterus: 10.3 x 6.6 x 5.1cm Right Ovary: 2.3 x 2.1 x 1.8 Left Ovary: not seen Post CDS / Adnexa: Normal, peristalsing bowel Presence of free fluid: no Presence of corpus luteal cyst: yes, right ov = 1.8cm Presence of subchorionic bleed: no GESTATION / SURVEY CRL: not seen MSD: 1.7cm (6 weeks/0 days) Yolk Sac (normal less than 6mm): not seen Date of LMP: April Beta HcG (if available): unknown IMPRESSION: Intrauterine 17 mm gestational sac with gestational age of 6 weeks 0 days. No yolk sac seen at this t sofia. Findings may represent early , although ectopic not excluded. Recommend seria l beta hCGs and consideration of repeat short-term ultrasound.
== END | disposition home or self-care (01) ==
LOC: RADUSWWP 16:21
PROVIDERS: ATTEND Family Medicine
DX: O99.281 Endocrine, nutritional and metabolic diseases complicating pregnancy, first trimester (principal); E34.9 Endocrine disorder, unspecified; Z3A.01 Less than 8 weeks gestation of pregnancy
CPT/HCPCS: 76801; 76817

== ENCOUNTER → 2020-07-03 | Outpatient (CLI) | payer OTHER | END | disposition home or self-care (01) | LOC: LABWHC1 12:20 | PROVIDERS: ATTEND Physician Assistant | DX: N91.2 Amenorrhea, unspecified (principal); E34.9 Endocrine disorder, unspecified | CPT/HCPCS: 36415; 84702 ==

== ENCOUNTER 2020-07-08 14:23 | Emergency (ER) | payer OTHER ==
[2020-07-08 14:45] VITALS: PULSE 79
--- NOTE | 2020-07-08 15:38 | ED ---
Female Urogenital HPI - General Chief complaint: Abdominal Pain Stated complaint: 7 wks preg abd pain Time Seen by Provider: 07/08/20 15:30 Source: patient, RN notes reviewed, old records reviewed Mode of arrival: ambulatory Limitations: no limitations - History of Present Illness Initial comments: This is a 30-year-old female to the ER as she presents today for evaluation in regards to some left-sided abdominal pain. Patient has known positive with some long history of high risk pregnancies and miscarriage. 4 pregnancies. Patient having no bleeding had ultrasound about 6 weeks ago recent beta hCG was in what she believes was within normal limits. Pain just started today for crampy in nature. No tenderness. No recent fevers cough congestion nausea vomiting or diarrhea MD Complaint: pelvic pain, other (Positive ) -: hour(s) Location: suprapubic, LLQ Severity: mild Severity scale (1-10): 2 Quality: cramping Consistency: constant Improves with: none Worsens with: none Patient : Yes Associated Symptoms: denies other symptoms - Related Data Sexually active: No Home Medications Medication Instructions Recorded Confirmed lamoTRIgine [LaMICtal] 25 mg PO BID 12/11/18 03/21/19 Levothyroxine Sodium [Synthroid] 25 mcg PO DAILY 01/16/19 03/21/19 Albuterol Inhaler (Mhu) [Ventolin 2 puff INHALATION RT-Q6H PRN 02/07/19 03/21/19 Hfa Inhaler] LORazepam [Ativan] 0.5 mg PO DAILY 03/21/19 03/21/19 Previous Rx's Medication Instructions Recorded Loratadine [Claritin] 10 mg PO DAILY #30 tab 03/22/19 Omeprazole 20 mg PO DAILY #30 cap 03/22/19 hydrOXYzine pamoate [Vistaril] 25 mg PO TID PRN #15 cap 09/17/19 methylPREDNISolone [Medrol Dose 4 mg PO DIRECTED #1 pack 09/17/19 Pack] Famotidine [Pepcid] 20 mg PO BID #4 tablet 09/23/19 predniSONE 50 mg PO DAILY #3 tab 09/23/19 Cephalexin [Keflex] 500 mg PO Q8HR 10 Days #30 cap 10/21/19 Oseltamivir [Tamiflu] 75 mg PO Q12HR #10 cap 10/21/19 guaiFENesin-DM 600/30MG [Mucinex 2 each PO Q12HR PRN #20 tab.er.12h 10/23/19 Dm] Penicillin V Potassium [Pen Vee K] 500 mg PO Q6HR #28 tablet 12/01/19 Cephalexin [Keflex] 500 mg PO BID 5 Days #10 cap 02/02/20 Rby-Xmff-Jmfuv Acid 1 each PO DAILY #30 cap 02/02/20 [-U Capsule] predniSONE 50 mg PO DAILY #3 tab 02/02/20 Allergies Allergy/AdvReac Type Severity Reaction Status Date / Time shellfish derived [Shellfish] Allergy Anaphylaxis Verified 07/08/20 14:45 Review of Systems ROS Statement: Those systems with pertinent positive or pertinent negative responses have been documented in the HPI. ROS Other: All systems not noted in ROS Statement are negative. Past Medical History Past Medical History: Liver Disease, Thyroid Disorder Additional Past Medical History / Comment(s): cholestasis of , History of Any Multi-Drug Resistant Organisms: None Reported Past Surgical History: Cholecystectomy, Ear Surgery, Tonsillectomy Additional Past Surgical History / Comment(s): splenectomy Past Anesthesia/Blood Transfusion Reactions: No Reported Reaction Past Psychological History: Anxiety, Bipolar, Depression, PTSD Smoking Status: Never smoker Past Alcohol Use History: None Reported Past Drug Use History: None Reported - Past Family History Mother Additional Family Medical History / Comment(s): anxiety, depression Father History Unknown: Yes General Exam Limitations: no limitations General appearance: alert, in no apparent distress, obese Head exam: Present: atraumatic, normocephalic, normal inspection Eye exam: Present: normal appearance, PERRL, EOMI. Absent: scleral icterus, conjunctival injection, periorbital swelling ENT exam: Present: normal exam, mucous membranes moist Neck exam: Present: normal inspection. Absent: tenderness, meningismus, lymphadenopathy Respiratory exam: Present: normal lung sounds bilaterally. Absent: respiratory distress, wheezes, rales, rhonchi, stridor Cardiovascular Exam: Present: regular rate, normal rhythm, normal heart sounds. Absent: systolic murmur, diastolic murmur, rubs, gallop, clicks GI/Abdominal exam: Present: soft, normal bowel sounds. Absent: distended, tenderness, guarding, rebound, rigid Extremities exam: Present: normal inspection, full ROM, normal capillary refill. Absent: tenderness, pedal edema, joint swelling, calf tenderness Back exam: Present: normal inspection Neurological exam: Present: alert, oriented X3, CN II-XII intact Psychiatric exam: Present: normal affect, normal mood Skin exam: Present: warm, dry, intact, normal color. Absent: rash Course Vital Signs 07/08/20 14:42 Temperature 99.1 F Pulse Rate 79 Respiratory 18 Rate Blood Pressure 129/79 O2 Sat by Pulse 98 Oximetry - Reevaluation(s) Reevaluation #1: 07/08/20 17:25 Medical records reviewed 07/08/20 17: Patient's prior beta hCG 34,000 Reevaluation #2: 07/08/20 18:34 Patient no significant pain or distress no bleeding Reevaluation #3: 07/08/20 18:34 Spoke with patient regarding findings here in the ER, questions answered - Consultations Consultation #1: Spoke with Dr. Millrad for Dr. Velasquez, schedule outpatient follow-up tomorrow Medical Decision Making - Medical Decision Making 30 female paraspinous coming in for evaluation of some abdominal pain today.Pain or tenderness persistent cramping possible subchorionic hemorrhage, pain is increased 34-50,000, no urinary tract infection, patient to follow-up with OB tomorrow - Lab Data Result diagrams: 07/08/20 17:01 07/08/20 17:01 Lab Results 07/08/20 07/08/20 07/08/20 Range/Units 15:40 15:40 17:01 WBC 12.3 H (3.8-10.6) k/uL RBC 4.63 (3.80-5.40) m/uL Hgb 13.3 (11.4-16.0) gm/dL Hct 41.4 (34.0-46.0) % MCV 89.4 (80.0-100.0) fL MCH 28.8 (25.0-35.0) pg MCHC 32.2 (31.0-37.0) g/dL RDW 12.7 (11.5-15.5) % Plt Count 481 H (150-450) k/uL Neutrophils % 64 % Lymphocytes % 24 % Monocytes % 6 % Eosinophils % 4 % Basophils % 1 % Neutrophils # 7.8 H (1.3-7.7) k/uL Lymphocytes # 3.0 (1.0-4.8) k/uL Monocytes # 0.7 (0-1.0) k/uL Eosinophils # 0.4 (0-0.7) k/uL Basophils # 0.1 (0-0.2) k/uL PT (9.0-12.0) sec INR (<1.2) APTT (22.0-30.0) sec Sodium (137-145) mmol/L Potassium (3.5-5.1) mmol/L Chloride (98-107) mmol/L Carbon Dioxide (22-30) mmol/L Anion Gap mmol/L BUN (7-17) mg/dL Creatinine (0.52-1.04) mg/dL Est GFR (CKD-EPI)AfAm (>60 ml/min/1.73 sqM) Est GFR (CKD-EPI)NonAf (>60 ml/min/1.73 sqM) Glucose (74-99) mg/dL Calcium (8.4-10.2) mg/dL Total Bilirubin (0.2-1.3) mg/dL AST (14-36) U/L ALT (4-34) U/L Alkaline Phosphatase (38-126) U/L Total Protein (6.3-8.2) g/dL Albumin (3.5-5.0) g/dL HCG, Quant mIU/mL Urine Color Yellow Urine Appearance Cloudy H (Clear) Urine pH 7.5 (5.0-8.0) Ur Specific [place] 1.012 (1.001-1.035) Urine Protein Negative (Negative) Urine Glucose (UA) Negative (Negative) Urine Ketones Negative (Negative) Urine Blood Negative (Negative) Urine Nitrite Negative (Negative) Urine Bilirubin Negative (Negative) Urine Urobilinogen <2.0 (<2.0) mg/dL Ur Leukocyte Esterase Large H (Negative) Urine WBC 6 H (0-5) /hpf Ur Squamous Epith Cells 4 (0-4) /hpf Urine Bacteria Rare H (None) /hpf Urine Mucus Rare H (None) /hpf Urine HCG, Qual Detected (Not Detectd) Blood Type Blood Type Recheck Bld Type Recheck Status 07/08/20 07/08/20 07/08/20 Range/Units 17:01 17:01 17:01 WBC (3.8-10.6) k/uL RBC (3.80-5.40) m/uL Hgb (11.4-16.0) gm/dL Hct (34.0-46.0) % MCV (80.0-100.0) fL MCH (25.0-35.0) pg MCHC (31.0-37.0) g/dL RDW (11.5-15.5) % Plt Count (150-450) k/uL Neutrophils % % Lymphocytes % % Monocytes % % Eosinophils % % Basophils % % Neutrophils # (1.3-7.7) k/uL Lymphocytes # (1.0-4.8) k/uL Monocytes # (0-1.0) k/uL Eosinophils # (0-0.7) k/uL Basophils # (0-0.2) k/uL PT 10.0 (9.0-12.0) sec INR 1.0 (<1.2) APTT 25.2 (22.0-30.0) sec Sodium 135 L (137-145) mmol/L Potassium 3.9 (3.5-5.1) mmol/L Chloride 101 (98-107) mmol/L Carbon Dioxide 28 (22-30) mmol/L Anion Gap 6 mmol/L BUN 6 L (7-17) mg/dL Creatinine 0.71 (0.52-1.04) mg/dL Est GFR (CKD-EPI)AfAm >90 (>60 ml/min/1.73 sqM) Est GFR (CKD-EPI)NonAf >90 (>60 ml/min/1.73 sqM) Glucose 76 (74-99) mg/dL Calcium 10.0 (8.4-10.2) mg/dL Total Bilirubin 0.5 (0.2-1.3) mg/dL AST 105 H (14-36) U/L ALT 84 H (4-34) U/L Alkaline Phosphatase 286 H (38-126) U/L Total Protein 8.3 H (6.3-8.2) g/dL Albumin 4.7 (3.5-5.0) g/dL HCG, Quant 74493.9 mIU/mL Urine Color Urine Appearance (Clear) Urine pH (5.0-8.0) Ur Specific [place] (1.001-1.035) Urine Protein (Negative) Urine Glucose (UA) (Negative) Urine Ketones (Negative) Urine Blood (Negative) Urine Nitrite (Negative) Urine Bilirubin (Negative) Urine Urobilinogen (<2.0) mg/dL Ur Leukocyte Esterase (Negative) Urine WBC (0-5) /hpf Ur Squamous Epith Cells (0-4) /hpf Urine Bacteria (None) /hpf Urine Mucus (None) /hpf Urine HCG, Qual (Not Detectd) Blood Type O Positive Blood Type Recheck O Pos Bld Type Recheck Status No - Radiology Data Radiology results: report reviewed (Ultrasound cells gestational sac no yolk.), image reviewed Disposition Clinical Impression: Abdominal pain, Early stage of Disposition: HOME SELF-CARE Condition: Good Instructions (If sedation given, give patient instructions): Abdominal Pain in (ED) Is patient prescribed a controlled substance at d/c from ED?: No Referrals: Rufino Elmore DO [Primary Care Provider] - 1-2 days
[2020-07-08 16:10] LABS: Appearance,Urine Cloudy (Clear); Bacteria,Urine Rare /hpf; Bilirubin,Urine Negative (Negative); Blood,Urine Negative (Negative); Color,Urine Yellow; Glucose,Urine (UA) Negative (Negative); Ketones,Urine Negative (Negative); Leukocyte Esterase,Urine Large (Negative); Mucus,Urine Rare /hpf; Nitrite,Urine Negative (Negative); PH, Urine 7.5 (5.0-8.0); Protein,Urine Negative (Negative); Specific Gravity,Urine 1.012 (1.001-1.035); Squamous Epithelial Cell,Urine 4 /hpf (0-4); Urobilinogen,Urine <2.0 mg/dL (<2.0); WBC,Urine 6 /hpf (0-5)
--- NOTE | 2020-07-08 16:41 | US ---
EXAMINATION TYPE: Transabdominal and transvaginal OB ultrasound DATE OF EXAM: 07/08/2020 4:13 PM COMPARISON: OB ultrasound 07/02/2020 CLINICAL HISTORY: pain. EXAM PERFORMED: Transvaginal (TV) and Transabdominal (TA) EXAM MEASUREMENTS: GESTATIONAL AGE / DATING Physician Established: Not yet established Dates by LMP: LMP unknown Dates by First Scan: (6 weeks/0days) EDC: 02/26/20 Dates by Current Scan for: (6 weeks/3 days) EDC: 02/29/20 MATERNAL ANATOMY Uterus: 10.2 x 6.4 x 7.0cm. There is a small subchorionic hypoechogenic area likely hemorrhage measur ing 1.6 x 0.5 x 2.7 cm. Right Ovary: not visualized, obscured by bowel gas Left Ovary: not visualized, obscured by bowel gas Post CDS / Adnexa: normal Presence of free fluid: no GESTATION / SURVEY CRL: none seen on today's ultrasound, not seen 6 days prior on ultrasound MSD: 2.0 cm (6 weeks/3 days) Yolk Sac (normal less than 6mm): none No pole identified. Date of LMP: unknown Beta HcG (if available): Not available at this time IMPRESSION: 1. Intrauterine 20 mm gestational sac with gestational age of 6 weeks 3 days. Again no visualized yol k sac. Small subchorionic hypoechogenicity, likely hemorrhage, which is new versus 07/02/2020. Differ ential consideration includes failed , ectopic , and less likely early . R ecommend serial beta hCGs. 2. Nonvisualization of the bilateral ovaries. 3. No free fluid.
[2020-07-08 17:24] LABS: Basophils # (A) 0.1 k/uL (0-0.2); Basophils % (A) 1 %; Eosinophils # (A) 0.4 k/uL (0-0.7); Eosinophils % (A) 4 %; HCT 41.4 % (34.0-46.0); HGB 13.3 gm/dL (11.4-16.0); Lymphocytes % (A) 24 %; MCH 28.8 pg (25.0-35.0); MCHC 32.2 g/dL (31.0-37.0); MCV 89.4 fL (80.0-100.0); Mean Platelet Volume 7.1; Monocytes # (A) 0.7 k/uL (0-1.0); Monocytes % (A) 6 %; Neutrophils # (A) 7.8 k/uL (1.3-7.7); Neutrophils % (A) 64 %; Platelet Count 481 k/uL (150-450); RBC 4.63 m/uL (3.80-5.40); RDW 12.7 % (11.5-15.5); WBC 12.3 k/uL (3.8-10.6)
[2020-07-08 17:32] LABS: Partial Thromboplastin Time 25.2 sec (22.0-30.0)
[2020-07-08 17:37] LABS: ALT 84 U/L (4-34); AST 105 U/L (14-36); African American GFR (CKD) >90 (>60 ml/min/1.73 sqM); Albumin 4.7 g/dL (3.5-5.0); Alkaline Phosphatase 286 U/L (38-126); Anion Gap 6 mmol/L; Blood Urea Nitrogen 6 mg/dL (7-17); Carbon Dioxide 28 mmol/L (22-30); Chloride 101 mmol/L (98-107); Glucose 76 mg/dL (74-99); Non-African American GFR(CKD) >90 (>60 ml/min/1.73 sqM); Potassium 3.9 mmol/L (3.5-5.1); Sodium 135 mmol/L (137-145); Total Bilirubin 0.5 mg/dL (0.2-1.3); Total Protein 8.3 g/dL (6.3-8.2)
[2020-07-08 18:19] LABS: HCG,Quantitative Serum 50860.9 mIU/mL
[2020-07-08 19:03] VITALS: BP 130/70; RESP 16; TEMP 98
== END 2020-07-08 19:03 | disposition home or self-care (01) ==
LOC: EC 14:23
DX: O99.891 Other specified diseases and conditions complicating pregnancy (principal); R10.9 Unspecified abdominal pain; O99.341 Other mental disorders complicating pregnancy, first trimester; F41.9 Anxiety disorder, unspecified; F31.9 Bipolar disorder, unspecified; F43.10 Post-traumatic stress disorder, unspecified; E07.9 Disorder of thyroid, unspecified; Z79.899 Other long term (current) drug therapy; Z79.890 Hormone replacement therapy; Z91.013 Allergy to seafood; Z90.49 Acquired absence of other specified parts of digestive tract; Z3A.01 Less than 8 weeks gestation of pregnancy
CPT/HCPCS: 36415; 76801; 80053; 81001; 81025; 84702; 85025; 85610; 85730; 86900; 86901; 99284

== ENCOUNTER 2020-07-16 11:02 | Day surgery (SDC) | payer OTHER ==
[2020-07-12 09:44] VITALS: BMI 34.4
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
[~2020-07-16 11:02] MED LIST: DEXAMETHASONE SOD PHOSPHATE 10 MG/ML 1 ML VIAL IV ONE; HYDROmorphone 0.5 MG/0.5 ML SYRINGE IVP PRN; LACTATED RINGERS 1,000 ML IV SCH; LIDOCAINE 1% (10MG/ML) FOR IV START INTRADERMA PRN; ONDANSETRON 4 MG/2 ML VIAL IVP ONE; Pre Op ABX Message 1 EACH MISC MISCELLANE ONE; SCOPOLAMINE 1.5MG/72HR PATCH TRANSDERM ONE
[2020-07-16] MEDS ORDERED: fentaNYL (PF) 50 MCG/ML 2 ML AMP ONE (12:24)
[2020-07-16] MEDS ORDERED: LIDOCAINE 1% INJ 10MG/ML (20 ML MDV) ONE (12:24)
[2020-07-16] MEDS ORDERED: PROPOFOL 10 MG/ML 20 ML VIAL IV ONE (12:24)
[2020-07-16] MEDS ORDERED: MIDAZOLAM 2 MG/2 ML VIAL ONE (12:24)
--- NOTE | 2020-07-16 13:01 | P.OP ---
Date of Procedure: 07/16/20 Preoperative Diagnosis: 1. Blighted ovum Postoperative Diagnosis: 1. Blighted ovum Procedure(s) Performed: Suction D&C Anesthesia: MAC Surgeon: Maryana Velasquez Estimated Blood Loss (ml): 100 IV fluids (ml): 300 Urine output (ml): 20 Pathology: other (Products of conception) Condition: stable Disposition: PACU Description of Procedure: Patient taken the operating room where general anesthesia obtained without difficulty. She is prepped and draped in normal sterile fashion dorsal lithotomy position, legs placed in candycane stirrups. Bladder was drained of all urine. Weighted speculum place in vagina the anterior lip the cervix was grasped with single-tooth tenaculum. The cervix was dilated to #10 Hegar dilator. The #10 curved suction curet was introduced into the uterus and passed several times to remove blood and tissue. Sharp curet was gently used to ensure all tissue had been removed. The suction curet was then introduced a few more times. All instruments removed from the vagina and the uterus. Hemostasis was achieved. Patient tolerated procedure well, sponge and instrument counts correct 2. She was taken to recovery in stable condition.
[2020-07-16 13:02] VITALS: TEMP 97.9
[2020-07-16] MEDS ORDERED: diphenhydrAMINE 50 MG/ML 1 ML VIAL IVP ONE (13:06)
[2020-07-16 13:17] VITALS: RESP 16
[2020-07-16 14:45] VITALS: BP 115/67; PULSE 77
== END 2020-07-16 15:14 | disposition home or self-care (01) ==
LOC: OR 11:02
PROVIDERS: ATTEND Obstetrics & Gynecology
DX: O02.1 Missed abortion (principal); Z91.013 Allergy to seafood; E78.5 Hyperlipidemia, unspecified; J45.909 Unspecified asthma, uncomplicated; E07.9 Disorder of thyroid, unspecified; K76.0 Fatty (change of) liver, not elsewhere classified; Z79.899 Other long term (current) drug therapy; Z79.890 Hormone replacement therapy; Z90.49 Acquired absence of other specified parts of digestive tract; Z98.890 Other specified postprocedural states; Z90.81 Acquired absence of spleen; Z81.8 Family history of other mental and behavioral disorders
CPT/HCPCS: 88305; 59820; J2250; J1200; J1100; J2405; J2001; J3010; J2704; J1170

== ENCOUNTER → 2020-07-18 | Outpatient (CLI) | payer OTHER ==
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
== END | disposition home or self-care (01) ==
LOC: RADUSWWP 10:02
PROVIDERS: ATTEND Internal Medicine Gastroenterology
DX: R93.89 Abnormal findings on diagnostic imaging of other specified body structures (principal)
CPT/HCPCS: 76705

== ENCOUNTER 2020-07-25 20:38 | Emergency (ER) | payer OTHER ==
[2020-07-25] MEDS ORDERED: SODIUM CHLORIDE 0.9% 1,000 ML IV ONE (21:20)
[2020-07-25] MEDS ORDERED: diphenhydrAMINE 50 MG/ML 1 ML VIAL IVP STA (21:20)
[2020-07-25] MEDS ORDERED: KETOROLAC 15 MG/ML 1 ML VIAL IVP STA (21:20)
[2020-07-25] MEDS ORDERED: METOCLOPRAMIDE 5 MG/ML 2 ML VIAL IVP STA (21:20)
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
[2020-07-25 22:55] VITALS: BP 118/78; PULSE 71; RESP 16; TEMP 98.1
== END 2020-07-25 22:54 | disposition home or self-care (01) ==
LOC: EC 20:38
DX: R51.9 Headache, unspecified (principal); R42 Dizziness and giddiness; H53.8 Other visual disturbances; Z91.013 Allergy to seafood; E07.9 Disorder of thyroid, unspecified; J45.909 Unspecified asthma, uncomplicated; F41.9 Anxiety disorder, unspecified; F31.9 Bipolar disorder, unspecified; Z79.890 Hormone replacement therapy; Z79.899 Other long term (current) drug therapy
CPT/HCPCS: 99284; 96374; 96375 ×2; 96361; J1200; J2765; J1885

== ENCOUNTER → 2020-08-05 | Outpatient (CLI) | payer OTHER ==
--- NOTE | 2020-08-06 08:23 | US ---
EXAMINATION TYPE: US pelvis complete transvag DATE OF EXAM: 08/05/2020 COMPARISON: US 04/11/2020 CLINICAL HISTORY: R10.2 PELVIC PAIN. D&C 2 weeks ago TECHNIQUE: . Transabdominal sonographic images of the pelvis were acquired. Transvaginal sonographi c images were medically necessary to better assess the following anatomy: Endometrium EXAM MEASUREMENTS: Uterus: 8.8 x 4.6 x 5.5 cm Endometrial Stripe: Unable to accurately measure Right Ovary: 2.6 x 1.5 x 1.4 cm Left Ovary: 2.1 x 1.9 x 0.9 cm 1. Uterus: Anteverted wnl 2. Endometrium: Fluid visualized within. Unable to accurately measure 3. Right Ovary: wnl 4. Left Ovary: wnl 5. Bilateral Adnexa: Fluid filled bowel visualized 6. Posterior cul-de-sac: wnl Limited visualization of the adnexa. What appears to be the ovaries appear normal. IMPRESSION: 1. Indistinct endometrial canal. No definite retained products are identified at this time.
== END | disposition home or self-care (01) ==
LOC: RADUSWWP 15:27
PROVIDERS: ATTEND Obstetrics & Gynecology
DX: R10.2 Pelvic and perineal pain (principal)
CPT/HCPCS: 76830; 76856

== ENCOUNTER → 2020-08-07 | Day surgery (SDC) | payer OTHER ==
[2020-08-05 10:31] VITALS: BMI 34.4
[~2020-08-07] MED LIST changes: +BUPIVACAINE (PF) 0.25% 30 ML VIAL SQ ONE; -DEXAMETHASONE SOD PHOSPHATE 10 MG/ML 1 ML VIAL IV ONE; +DEXAMETHASONE SOD PHOSPHATE 4 MG/ML 1 ML VIAL IV ONE; +GLYCOPYRROLATE 0.2 MG/ML 2 ML VIAL ONE; -HYDROmorphone 0.5 MG/0.5 ML SYRINGE IVP PRN; +KETOROLAC 15 MG/ML 1 ML VIAL ONE; +LACTATED RINGERS 1,000 ML IV ONE; -LIDOCAINE 1% (10MG/ML) FOR IV START INTRADERMA PRN; +LIDOCAINE 1% INJ 10MG/ML (20 ML MDV) ONE; +METOCLOPRAMIDE 5 MG/ML 2 ML VIAL IVP ONE; +METOCLOPRAMIDE 5 MG/ML 2 ML VIAL ONE; +MIDAZOLAM 2 MG/2 ML VIAL ONE; +NEOSTIGMINE 1 MG/ML 10 ML VIAL ONE; -ONDANSETRON 4 MG/2 ML VIAL IVP ONE; +PROPOFOL 10 MG/ML 20 ML VIAL IV ONE; +ROCURONIUM 10 MG/ML (10 ML VIAL) IV ONE; +fentaNYL (PF) 50 MCG/ML 2 ML AMP ONE
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
[2020-08-07] MEDS: ONDANSETRON 4 MG/2 ML VIAL IVP ONE ×2 (11:51→14:05)
[2020-08-07 13:39] VITALS: TEMP 97
--- NOTE | 2020-08-07 13:40 | P.OP ---
Date of Procedure: 08/07/20 Preoperative Diagnosis: 1. family planning Postoperative Diagnosis: 1. family planning 2. left hematosalpinx Procedure(s) Performed: laparosocpic tubal ligation with left sapingectomy Anesthesia: JERAMY Surgeon: Maryana Velasquez Estimated Blood Loss (ml): 5 IV fluids (ml): 200 Urine output (ml): 20 Pathology: other (Left fallopian tube) Condition: stable Disposition: PACU Operative Findings: Normal uterus that sounded to 10 cm, fluid or blood filled left fallopian tube, normal-appearing right fallopian tube and ovary Description of Procedure: Patient was taken to the operating room where general anesthesia was obtained without difficulty. She was prepped and draped in normal sterile fashion in the dorsal lithotomy position, legs placed in the Allan stirrups. Bladder drained of all urine. Gering speculum placed in the vagina and the anterior lip the cervix was grasped with single-tooth tenaculum. The uterus is sounded to 10 cm and the kroner manipulator was placed. Attention was then turned to the abdomen and gloves were changed. A 10 mm infraumbilical incision was made the scalpel and 10 mm optical trocar was placed under direct visualization. A 5 mm suprapubic Incision was made and a 5 mm optical trocar was placed under direct visualization. Survey of the pelvis revealed normal uterus and right fallopian tube and ovaries. The left fallopian tube showed some blood or fluid filled underwent at this time it was determined at that fallopian tube needed to be removed. A 10 mm incision was made in the right lower quadrant a 10 mm optical trocar was placed under direct visualization. The right fallopian tube was grasped with a Kleppinger and fulgurated 2-3 cm in the ampullar portion. The left fallopian tube was held on traction with a grasper, the 5 mm LigaSure was used to clamp seal and ligate the left fallopian tube from the mesosalpinx. The fallopian tube was pulled through the 10 port. All instruments were then removed from the abdomen and vagina. The 10 mm infraumbilical incision was closed with 0 Vicryl and the fascial layer and then 4-0 Vicryl in a subcuticular fashion. The 5 mm incision was closed with 4-0 Vicryl in a subcuticular fashion. Patient tolerated procedure well, sponge and instrument counts correct 2 and she was taken to recovery room in stable condition.
[2020-08-07] MEDS: HYDROmorphone 0.5 MG/0.5 ML SYRINGE IVP PRN ×3 (13:43→14:11)
[2020-08-07 16:59] VITALS: BP 108/73; PULSE 52; RESP 16
== END | disposition home or self-care (01) ==
LOC: OR 11:34
PROVIDERS: ATTEND Obstetrics & Gynecology
DX: Z30.2 Encounter for sterilization (principal); J45.909 Unspecified asthma, uncomplicated; K76.9 Liver disease, unspecified; E07.9 Disorder of thyroid, unspecified; N83.6 Hematosalpinx; Z90.49 Acquired absence of other specified parts of digestive tract; Z90.81 Acquired absence of spleen; F41.9 Anxiety disorder, unspecified; K76.0 Fatty (change of) liver, not elsewhere classified; F31.9 Bipolar disorder, unspecified; F43.10 Post-traumatic stress disorder, unspecified; Z79.890 Hormone replacement therapy; Z79.899 Other long term (current) drug therapy; Z91.013 Allergy to seafood
CPT/HCPCS: 81025; 88302; 58670; J2250; J1100; J2710; J2765; J2405; J2001; J3010; J1885; J2704; J1170

== ENCOUNTER 2020-08-09 10:54 | Emergency (ER) | payer OTHER ==
--- NOTE | 2020-08-09 11:38 | XR ---
EXAMINATION TYPE: XR chest 2V DATE OF EXAM: 08/09/2020 COMPARISON: 05/25/2020 HISTORY: Chest pain TECHNIQUE: Frontal and lateral views of the chest are obtained. FINDINGS: There is no focal air space opacity. No evidence for pneumothorax. No pleural effusion. The cardiac silhouette size is within normal limits. The osseous structures are grossly intact. IMPRESSION: 1. No acute cardiopulmonary process.
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
[2020-08-09 11:58] LABS: Basophils # (A) 0.2 k/uL (0-0.2); Basophils % (A) 1 %; Eosinophils # (A) 0.4 k/uL (0-0.7); Eosinophils % (A) 2 %; HCT 37.8 % (34.0-46.0); HGB 12.5 gm/dL (11.4-16.0); Lymphocytes # (A) 6.2 k/uL (1.0-4.8); Lymphocytes % (A) 39 %; MCH 28.6 pg (25.0-35.0); MCHC 33.2 g/dL (31.0-37.0); MCV 86.4 fL (80.0-100.0); Mean Platelet Volume 7.8; Monocytes % (A) 6 %; Neutrophils % (A) 50 %; Platelet Count 500 k/uL (150-450); RBC 4.37 m/uL (3.80-5.40); RDW 12.4 % (11.5-15.5); WBC 15.9 k/uL (3.8-10.6)
[2020-08-09 12:05] LABS: ALT 46 U/L (4-34); AST 51 U/L (14-36); African American GFR (CKD) >90 (>60 ml/min/1.73 sqM); Albumin 4.1 g/dL (3.5-5.0); Alkaline Phosphatase 212 U/L (38-126); Anion Gap 7 mmol/L; Blood Urea Nitrogen 17 mg/dL (7-17); Calcium 9.5 mg/dL (8.4-10.2); Carbon Dioxide 31 mmol/L (22-30); Chloride 102 mmol/L (98-107); Glucose 90 mg/dL (74-99); Non-African American GFR(CKD) >90 (>60 ml/min/1.73 sqM); Potassium 4.1 mmol/L (3.5-5.1); Sodium 140 mmol/L (137-145); Total Bilirubin 0.4 mg/dL (0.2-1.3); Total Protein 7.5 g/dL (6.3-8.2)
[2020-08-09 12:19] LABS: INR 0.9 (<1.2); Prothrombin Time 9.7 sec (9.0-12.0)
[2020-08-09 12:21] LABS: D-Dimer 0.68 mg/L FEU (<0.60)
--- NOTE | 2020-08-09 12:49 | CT ---
EXAMINATION TYPE: CT chest angio for PE DATE OF EXAM: 08/09/2020 COMPARISON: 01/16/2019 HISTORY: chest pain, difficulty breathing CT DLP: 381.7 mGycm CONTRAST: CT chest with contrast and 3D reconstruction with MIP imaging is performed with IV Contrast, patient injected with 100 mL of Isovue 370. Contrast-enhanced CT of the chest was performed through the course of the pulmonary arteries with michelle g and mediastinal window settings submitted. 3D reconstruction with MIP imaging was also performed. PULMONARY ARTERIES: The pulmonary arteries and their major tributaries are patent. I do not see almita dence for sizable filling defect to suggest pulmonary embolic process. LUNGS: The lungs are clear and free of infiltrate. Calcified granuloma right upper lobe. Linear basil ar atelectasis. No pulmonary nodule or mass is detected. No pleural effusion. MEDIASTINUM: Thoracic aorta is of normal caliber,however, evaluation is limited given timing of the contrast bolus. If there is concern for thoracic aortic pathology consider ROBERTA. Correlate clinicall y . The heart is not enlarged. No evidence for mediastinal mass. No mediastinal lymph nodes greater than 1cm. HILAR STRUCTURES: No evidence for mass. No hilar lymph nodes greater than 1 cm. UPPER ABDOMEN: No significant abnormality is seen. IMPRESSION: 1. No evidence for Pulmonary embolism at this time.
[2020-08-09] MEDS ORDERED: DEXAMETHASONE SOD PHOSPHATE 10 MG/ML 1 ML VIAL IV STA (12:55)
[2020-08-09 13:33] VITALS: BP 108/67; PULSE 68; RESP 18; TEMP 98.4
== END 2020-08-09 13:33 | disposition home or self-care (01) ==
LOC: EC 10:54
DX: J06.9 Acute upper respiratory infection, unspecified (principal); J45.909 Unspecified asthma, uncomplicated; E07.9 Disorder of thyroid, unspecified; F41.9 Anxiety disorder, unspecified; F31.9 Bipolar disorder, unspecified; Z79.899 Other long term (current) drug therapy; Z79.890 Hormone replacement therapy; Z91.013 Allergy to seafood; Z90.81 Acquired absence of spleen
CPT/HCPCS: 36415; 85379; 80053; 85025; 85610; 85730; 71046; 71275; 99284; 96374; J1100; Q9967

== ENCOUNTER → 2020-10-09 | Outpatient (CLI) | payer OTHER ==
[2020-10-09 11:42] LABS: Basophils # (A) 0.1 k/uL (0-0.2); Basophils % (A) 2 %; Eosinophils # (A) 0.4 k/uL (0-0.7); Eosinophils % (A) 5 %; HCT 40.3 % (34.0-46.0); HGB 13.5 gm/dL (11.4-16.0); Lymphocytes # (A) 2.7 k/uL (1.0-4.8); Lymphocytes % (A) 30 %; MCH 29.2 pg (25.0-35.0); MCHC 33.5 g/dL (31.0-37.0); MCV 87.2 fL (80.0-100.0); Mean Platelet Volume 7.3; Monocytes # (A) 0.5 k/uL (0-1.0); Monocytes % (A) 5 %; Neutrophils # (A) 5.2 k/uL (1.3-7.7); Neutrophils % (A) 57 %; Platelet Count 449 k/uL (150-450); RBC 4.61 m/uL (3.80-5.40); RDW 12.5 % (11.5-15.5); WBC 9.1 k/uL (3.8-10.6)
[2020-10-09 20:04] LABS: INR 0.98 (0.90-1.11); Prothrombin Time 10.6 sec (9.9-11.9)
[2020-10-09 22:52] LABS: African American GFR (CKD) 113.1 (60.0-200.0); Albumin 4.5 g/dL (3.80-4.90); Albumin/Globulin Ratio 1.61 (1.60-3.17); Anion Gap 7.6 mmol/L (4.00-12.00); BUN/Creat Ratio 16.25 Ratio (12.00-20.00); Calcium 9.6 mg/dL (8.7-10.3); Carbon Dioxide 26.4 mmol/L (21.6-31.8); Globulin 2.8 g/dL (1.6-3.3); Non-African American GFR(CKD) 97.6 (60.0-200.0); Potassium 4.4 mmol/L (3.5-5.5); Total Bilirubin 0.4 mg/dL (0.2-1.2); Total Protein 7.3 g/dL (6.2-8.2)
[2020-10-09 23:38] LABS: Hepatitis A Antibody IgM Non-Reactive (Non-Reactive); Hepatitis B Core IgM Non-Reactive (Non-Reactive); Hepatitis B Surface Antigen Non-Reactive (Non-Reactive); Hepatitis C IgG Antibody Non-Reactive (Non-Reactive)
== END | disposition home or self-care (01) ==
LOC: LABWHC1 10:39
PROVIDERS: ATTEND Nurse Practitioner
DX: R93.2 Abnormal findings on diagnostic imaging of liver and biliary tract (principal)
CPT/HCPCS: 36415; 80053; 80074; 85025; 85610

== ENCOUNTER 2020-10-12 23:32 | Emergency (ER) | payer OTHER ==
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
[2020-10-13 00:18] LABS: Basophils # (A) 0.2 k/uL (0-0.2); Basophils % (A) 1 %; Eosinophils # (A) 0.6 k/uL (0-0.7); Eosinophils % (A) 5 %; HCT 38.9 % (34.0-46.0); HGB 13.3 gm/dL (11.4-16.0); Lymphocytes # (A) 3.9 k/uL (1.0-4.8); Lymphocytes % (A) 32 %; MCH 29.3 pg (25.0-35.0); MCHC 34.2 g/dL (31.0-37.0); MCV 85.6 fL (80.0-100.0); Mean Platelet Volume 7.2; Monocytes # (A) 0.8 k/uL (0-1.0); Monocytes % (A) 7 %; Neutrophils # (A) 6.4 k/uL (1.3-7.7); Neutrophils % (A) 53 %; Platelet Count 412 k/uL (150-450); RBC 4.54 m/uL (3.80-5.40); RDW 12.7 % (11.5-15.5); WBC 12.1 k/uL (3.8-10.6)
[2020-10-13 00:39] LABS: African American GFR (CKD) >90 (>60 ml/min/1.73 sqM); Anion Gap 8 mmol/L; Blood Urea Nitrogen 17 mg/dL (7-17); Carbon Dioxide 28 mmol/L (22-30); Chloride 103 mmol/L (98-107); Glucose 106 mg/dL (74-99); Non-African American GFR(CKD) >90 (>60 ml/min/1.73 sqM); Potassium 3.7 mmol/L (3.5-5.1); Sodium 139 mmol/L (137-145)
[2020-10-13 02:29] VITALS: BP 107/73; PULSE 74; RESP 16; TEMP 98
== END 2020-10-13 02:16 | disposition home or self-care (01) ==
LOC: EC 23:32
DX: M79.605 Pain in left leg (principal); J45.909 Unspecified asthma, uncomplicated; E07.9 Disorder of thyroid, unspecified; F32.9 Major depressive disorder, single episode, unspecified; F43.10 Post-traumatic stress disorder, unspecified; F41.9 Anxiety disorder, unspecified; Z79.899 Other long term (current) drug therapy; Z79.51 Long term (current) use of inhaled steroids; Z79.890 Hormone replacement therapy; Z91.013 Allergy to seafood
CPT/HCPCS: 36415; 80048; 85025; 85379; 99283

== ENCOUNTER 2020-10-23 08:22 | Emergency (ER) | payer OTHER ==
[2020-10-23 08:27] VITALS: BP 110/61; PULSE 84; RESP 16; TEMP 98.7
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
== END 2020-10-23 08:57 | disposition home or self-care (01) ==
LOC: EC 08:22
DX: J02.9 Acute pharyngitis, unspecified (principal); J45.909 Unspecified asthma, uncomplicated; E07.9 Disorder of thyroid, unspecified; F41.9 Anxiety disorder, unspecified; F32.9 Major depressive disorder, single episode, unspecified; F43.10 Post-traumatic stress disorder, unspecified; Z79.51 Long term (current) use of inhaled steroids; Z79.899 Other long term (current) drug therapy; Z79.890 Hormone replacement therapy; Z91.013 Allergy to seafood
CPT/HCPCS: 99283

== ENCOUNTER → 2020-10-28 | Outpatient (CLI) | payer OTHER ==
--- NOTE | 2020-10-28 22:08 | MR ---
EXAMINATION TYPE: MR liver wo/w con DATE OF EXAM: 10/28/2020 COMPARISON: CT abdomen and pelvis March 18, 2020 and older CTs HISTORY: Abdominal pain, abnormal findings on prior imaging. CONTRAST: Standard multiplanar, multisequence MRI departmental protocol utilizing 10 mL intravenous Gadavist ga dolinium contrast. Imaging performed of the abdomen focusing on the liver FINDINGS: Liver: Gallbladder redemonstrated surgically absent. Liver remains normal in size. There is stable mo derate posterior left intrahepatic dilated bile duct seen best on postcontrast images with abrupt ty rowing centrally without obstructing mass. There is a second short segment bile duct showing mild to moderate prominence seen best delayed precontrast image 76 series 801 also stable from older CTs. No new areas of intrahepatic or extrahepatic biliary dilatation. There is 1.3 cm enhancing lesion left h epatic dome periphery image 47 series 901 not clearly identified on more delayed phase images or on T 1 or T2-weighted images or on CT images. Uncertain if artifactual versus true lesion. No additional s uspicious lesions. No surrounding ascites. Patent nondilated portal venous system. Patent hepatic vei ns draining into IVC Other: Lung bases are clear. Stable small spleen. Pancreas and both adrenal glands are normal in size . No concerning renal mass or hydronephrosis. No suspicious bowel dilatation. No intra-abdominal asci johnnie. Visualized osseous structures are intact. IMPRESSION: Stable short segment of moderate to severe biliary dilatation posterior left hepatic lobe and smaller curvilinear segment of mild dilatation in the left hepatic lobe anterior inferior to thi s. No interval biliary dilatation progression or new areas of suspicious biliary dilatation.
== END | disposition home or self-care (01) ==
LOC: RADMRIMAIN 16:25
PROVIDERS: ATTEND Nurse Practitioner
DX: K83.8 Other specified diseases of biliary tract (principal); K76.89 Other specified diseases of liver
CPT/HCPCS: 74183; A9585

== ENCOUNTER → 2020-11-08 | Outpatient (CLI) | payer OTHER ==
[2020-11-08 15:08] LABS: Basophils # (A) 0.13 X 10*3/uL (0.00-0.10); Basophils % (A) 1.2 %; Eosinophils # (A) 0.44 X 10*3/uL (0.04-0.35); Eosinophils % (A) 4.1 %; HCT 41.6 % (37.2-46.3); HGB 12.9 g/dL (12.0-15.0); Lymphocytes # (A) 2.71 X 10*3/uL (0.90-5.00); Lymphocytes % (A) 25.5 %; MCH 28.2 pg (27.0-32.0); MCV 90.8 fL (80.0-97.0); Monocytes # (A) 0.83 X 10*3/uL (0.20-1.00); Monocytes % (A) 7.8 %; Neutrophils # (A) 6.48 X 10*3/uL (1.80-7.70); Platelet Count 484 X 10*3/uL (140-440); RBC 4.58 X 10*6/uL (4.10-5.20); RDW 12.7 % (11.5-14.5); WBC 10.63 X 10*3/uL (4.50-10.00)
[2020-11-08 16:09] LABS: T4, Free (Free Thyroxine) 1.2 ng/dL (0.80-1.80)
[2020-11-08 16:17] LABS: African American GFR (CKD) 113.1 (60.0-200.0); Albumin 4.6 g/dL (3.80-4.90); Albumin/Globulin Ratio 1.53 (1.60-3.17); Anion Gap 6.5 mmol/L (4.00-12.00); BUN/Creat Ratio 13.75 Ratio (12.00-20.00); Calcium 9.5 mg/dL (8.7-10.3); Carbon Dioxide 29.5 mmol/L (21.6-31.8); Non-African American GFR(CKD) 97.6 (60.0-200.0); Potassium 4.9 mmol/L (3.5-5.5); Total Bilirubin 0.3 mg/dL (0.3-1.2); Total Protein 7.6 g/dL (6.2-8.2)
== END | disposition home or self-care (01) ==
LOC: LABWHC1 08:56
PROVIDERS: ATTEND Physician Assistant
DX: F31.32 Bipolar disorder, current episode depressed, moderate (principal); K76.0 Fatty (change of) liver, not elsewhere classified; F41.0 Panic disorder [episodic paroxysmal anxiety]; E03.9 Hypothyroidism, unspecified
CPT/HCPCS: 36415; 80053; 84439; 84443; 85025

== ENCOUNTER 2021-03-15 22:59 | Emergency (ER) | payer OTHER ==
[2021-03-15 23:07] VITALS: TEMP 98.4
[2021-03-15] MEDS ORDERED: predniSONE 20 MG TAB PO STA (23:19)
[2021-03-15] MEDS ORDERED: IPRATROPIUM-ALBUTEROL 3 ML NEB INHALATION STA (23:19)
[2021-03-16 00:29] LABS: RBC 4.81 m/uL (3.80-5.40); WBC 16.2 k/uL (3.8-10.6)
--- NOTE | 2021-03-16 00:29 | XR ---
EXAMINATION TYPE: XR chest 2V DATE OF EXAM: 03/16/2021 COMPARISON: 08/09/2020 HISTORY: Cough. Difficulty breathing. TECHNIQUE: FINDINGS: Heart and mediastinum are normal. Lungs are clear. Diaphragm is normal. Bony thorax appears normal. IMPRESSION: Normal chest. No change.
[2021-03-16 00:30] LABS: Basophils # (A) 0.2 k/uL (0-0.2); Basophils % (A) 1 %; Eosinophils # (A) 0.7 k/uL (0-0.7); Eosinophils % (A) 4 %; HCT 40.2 % (34.0-46.0); Lymphocytes # (A) 4.2 k/uL (1.0-4.8); Lymphocytes % (A) 26 %; MCH 29.1 pg (25.0-35.0); MCHC 34.9 g/dL (31.0-37.0); MCV 83.5 fL (80.0-100.0); Monocytes % (A) 6 %; Neutrophils % (A) 62 %; Platelet Count 399 k/uL (150-450); RDW 12.7 % (11.5-15.5)
[2021-03-16 00:53] LABS: ALT 31 U/L (4-34); AST 54 U/L (14-36); African American GFR (CKD) >90 (>60 ml/min/1.73 sqM); Albumin 4.6 g/dL (3.5-5.0); Alkaline Phosphatase 196 U/L (38-126); Anion Gap 9 mmol/L; Blood Urea Nitrogen 14 mg/dL (7-17); Calcium 9.8 mg/dL (8.4-10.2); Carbon Dioxide 27 mmol/L (22-30); Chloride 103 mmol/L (98-107); Glucose 106 mg/dL (74-99); Non-African American GFR(CKD) >90 (>60 ml/min/1.73 sqM); Potassium 3.9 mmol/L (3.5-5.1); Sodium 139 mmol/L (137-145); Total Bilirubin 0.2 mg/dL (0.2-1.3); Total Protein 7.9 g/dL (6.3-8.2)
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
[2021-03-16 01:37] LABS: INR 0.9 (<1.2); Prothrombin Time 10.1 sec (9.0-12.0)
[2021-03-16 01:44] LABS: Partial Thromboplastin Time 20.9 sec (22.0-30.0)
[2021-03-16 02:07] VITALS: BP 128/82; PULSE 85; RESP 16
== END 2021-03-16 02:03 | disposition home or self-care (01) ==
LOC: EC 22:59
DX: J45.901 Unspecified asthma with (acute) exacerbation (principal); F31.9 Bipolar disorder, unspecified; F41.9 Anxiety disorder, unspecified; Z79.1 Long term (current) use of non-steroidal anti-inflammatories (NSAID); Z79.51 Long term (current) use of inhaled steroids; Z79.52 Long term (current) use of systemic steroids
CPT/HCPCS: 36415; 94640; 93005; 80053; 84484; 85025; 85610; 85730; 71046; 99285; J7512

== ENCOUNTER → 2021-04-23 | Outpatient (CLI) | payer OTHER ==
--- NOTE | 2021-04-29 10:54 | USB ---
Reason for exam: clinical finding. History: Family history of breast cancer in paternal grandmother. Took hormonal contraceptives for 3 years. Indicated problem(s): pain in both breasts. Physical Findings: Nurse Summary: nodular throughout (nurse db). US Breast BILAT Right complete breast ultrasound includes all four quadrants, the retroareolar region and axilla. Finding demonstrates a 8 x 5 x 7mm oval, cystic lesion at 7 o'clock. Left complete breast ultrasound includes all four quadrants, the retroareolar region and axilla. Finding demonstrates a 10 x 6 x 10mm oval, mixed lesion at 12 o'clock. These results were verbally communicated with the patient and result sheet given to the patient on 04/23/21. ASSESSMENT: Probably benign, BI-RAD 3 RECOMMENDATION: Ultrasound of both breasts in 6 months. Manage on a clinical basis with regard to pain.
== END | disposition home or self-care (01) ==
LOC: RADUSWWP 10:25
PROVIDERS: ATTEND Obstetrics & Gynecology
DX: N64.89 Other specified disorders of breast (principal); Z79.3 Long term (current) use of hormonal contraceptives; Z80.3 Family history of malignant neoplasm of breast

== ENCOUNTER 2021-05-01 23:20 | Emergency (ER) | payer OTHER ==
[2021-05-01 23:24] VITALS: TEMP 98.7
[2021-05-01] MEDS ORDERED: KETOROLAC 15 MG/ML 1 ML VIAL IVP STA (23:34)
[2021-05-01] MEDS ORDERED: SODIUM CHLORIDE 0.9% 1,000 ML IV STA (23:34)
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
[2021-05-02 00:24] LABS: Basophils # (A) 0.1 k/uL (0-0.2); Basophils % (A) 1 %; Eosinophils # (A) 0.5 k/uL (0-0.7); Eosinophils % (A) 3 %; HCT 37.5 % (34.0-46.0); HGB 12.8 gm/dL (11.4-16.0); Lymphocytes # (A) 4.8 k/uL (1.0-4.8); Lymphocytes % (A) 30 %; MCH 29.2 pg (25.0-35.0); MCHC 34.1 g/dL (31.0-37.0); MCV 85.7 fL (80.0-100.0); Mean Platelet Volume 7.8; Monocytes # (A) 0.8 k/uL (0-1.0); Monocytes % (A) 5 %; Neutrophils # (A) 9.5 k/uL (1.3-7.7); Neutrophils % (A) 59 %; Platelet Count 495 k/uL (150-450); RBC 4.38 m/uL (3.80-5.40); RDW 12.8 % (11.5-15.5); WBC 16.1 k/uL (3.8-10.6)
[2021-05-02 00:28] LABS: Appearance,Urine Cloudy (Clear); Bacteria,Urine Rare /hpf; Bilirubin,Urine Negative (Negative); Blood,Urine Small (Negative); Color,Urine Yellow; Glucose,Urine (UA) Negative (Negative); Ketones,Urine Negative (Negative); Leukocyte Esterase,Urine Large (Negative); Mucus,Urine Few /hpf; Nitrite,Urine Negative (Negative); Protein,Urine Trace (Negative); RBC,Urine 9 /hpf (0-5); Specific Gravity,Urine 1.028 (1.001-1.035); Squamous Epithelial Cell,Urine 12 /hpf (0-4); WBC,Urine 77 /hpf (0-5)
[2021-05-02 00:42] LABS: ALT 26 U/L (4-34); AST 36 U/L (14-36); African American GFR (CKD) >90 (>60 ml/min/1.73 sqM); Albumin 4.2 g/dL (3.5-5.0); Alkaline Phosphatase 190 U/L (38-126); Anion Gap 9 mmol/L; Blood Urea Nitrogen 17 mg/dL (7-17); Calcium 9.5 mg/dL (8.4-10.2); Carbon Dioxide 26 mmol/L (22-30); Chloride 102 mmol/L (98-107); Glucose 107 mg/dL (74-99); Lipase 82 U/L (23-300); Non-African American GFR(CKD) >90 (>60 ml/min/1.73 sqM); Potassium 3.8 mmol/L (3.5-5.1); Sodium 137 mmol/L (137-145); Total Bilirubin 0.2 mg/dL (0.2-1.3); Total Protein 7.4 g/dL (6.3-8.2)
[2021-05-02 01:09] VITALS: RESP 18
--- NOTE | 2021-05-02 01:22 | US ---
EXAMINATION TYPE: US transvaginal DATE OF EXAM: 05/02/2021 COMPARISON: US, CT CLINICAL HISTORY: pelvic pain, nausea. Pelvic pain. Hx ectopic with surgery, fallopian tube removed (unknown which side). . TECHNIQUE: Transvaginal (TV). Date of LMP: Unknown. EXAM MEASUREMENTS: Uterus: 8.9 x 5.7 x 4.9 cm Endometrial Stripe: 0.35 cm Right Ovary: Not seen. Left Ovary: 2.8 x 1.8 x 2.1 cm 1. Uterus: Anteverted Appears slightly heterogeneous. Anechoic areas seen in cervix, largest measu res: 0.9 x 0. x 0.7 cm. 2. Endometrium: Measures 0.35 cm. 3. Right Ovary: Not seen. 4. Left Ovary: Appears heterogeneous. Appears to be positioned adjacent to the uterus. Spectral, color and waveform doppler imaging shows arterial and venous flow within the left ovary. Right ovary not seen. 5. Bilateral Adnexa: Appear to be wnl. 6. Posterior cul-de-sac: Fluid seen: 0.8 x 1.4 x 0.7 cm. IMPRESSION: There is tiny amount of fluid in the cul-de-sac that could be physiologic. No adnexal mass. Normal en dometrium. Small cervical cysts. Left ovarian artery and vein shows normal waveforms. There is no almita dence of ovarian torsion. Right ovary not seen.
[2021-05-02] MEDS ORDERED: cefTRIAXone IN SWFI 1,000 MG/10 ML SYRINGE IVP STA (01:29)
[2021-05-02 01:57] VITALS: BP 95/60; PULSE 78
== END 2021-05-02 01:57 | disposition home or self-care (01) ==
LOC: EC 23:20
DX: N39.0 Urinary tract infection, site not specified (principal); J45.909 Unspecified asthma, uncomplicated; F31.9 Bipolar disorder, unspecified; F41.9 Anxiety disorder, unspecified; Z79.1 Long term (current) use of non-steroidal anti-inflammatories (NSAID); Z79.51 Long term (current) use of inhaled steroids; Z79.52 Long term (current) use of systemic steroids; Z79.890 Hormone replacement therapy; Z79.899 Other long term (current) drug therapy
CPT/HCPCS: 36415; 80053; 83605; 83690; 85025; 81001; 81025; 87086; 93976; 76830; 99284; 96374; 96375; 96361; J0696; J1885

== ENCOUNTER 2021-06-15 19:36 | Emergency (ER) | payer OTHER ==
[2021-06-15 19:50] VITALS: RESP 18; TEMP 98.3
[2021-06-15] MEDS ORDERED: SODIUM CHLORIDE 0.9% 1,000 ML IV STA (20:47)
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
[2021-06-15 22:01] LABS: Basophils # (A) 0.1 k/uL (0-0.2); Basophils % (A) 1 %; Eosinophils # (A) 0.5 k/uL (0-0.7); Eosinophils % (A) 4 %; HCT 39.2 % (34.0-46.0); HGB 12.9 gm/dL (11.4-16.0); Lymphocytes # (A) 4.5 k/uL (1.0-4.8); Lymphocytes % (A) 33 %; MCH 28.5 pg (25.0-35.0); MCHC 32.8 g/dL (31.0-37.0); MCV 86.8 fL (80.0-100.0); Mean Platelet Volume 8.2; Monocytes # (A) 0.9 k/uL (0-1.0); Monocytes % (A) 6 %; Neutrophils # (A) 7.2 k/uL (1.3-7.7); Neutrophils % (A) 54 %; Platelet Count 393 k/uL (150-450); RBC 4.51 m/uL (3.80-5.40); RDW 12.7 % (11.5-15.5); WBC 13.4 k/uL (3.8-10.6)
[2021-06-15 22:28] VITALS: BP 114/74; PULSE 75
[2021-06-15 22:29] LABS: ALT 22 U/L (4-34); AST 42 U/L (14-36); African American GFR (CKD) >90 (>60 ml/min/1.73 sqM); Albumin 4.2 g/dL (3.5-5.0); Alkaline Phosphatase 162 U/L (38-126); Anion Gap 10 mmol/L; Blood Urea Nitrogen 14 mg/dL (7-17); Calcium 9.6 mg/dL (8.4-10.2); Carbon Dioxide 25 mmol/L (22-30); Chloride 104 mmol/L (98-107); Glucose 88 mg/dL (74-99); Non-African American GFR(CKD) >90 (>60 ml/min/1.73 sqM); Potassium 3.8 mmol/L (3.5-5.1); Sodium 139 mmol/L (137-145); Total Bilirubin 0.4 mg/dL (0.2-1.3)
== END 2021-06-15 23:11 | disposition home or self-care (01) ==
LOC: EC 19:36
DX: R55 Syncope and collapse (principal); R42 Dizziness and giddiness; E07.9 Disorder of thyroid, unspecified; F31.9 Bipolar disorder, unspecified; F41.9 Anxiety disorder, unspecified; J45.909 Unspecified asthma, uncomplicated; Z79.1 Long term (current) use of non-steroidal anti-inflammatories (NSAID); Z79.51 Long term (current) use of inhaled steroids; Z79.52 Long term (current) use of systemic steroids; Z90.49 Acquired absence of other specified parts of digestive tract; Z79.890 Hormone replacement therapy
CPT/HCPCS: 80053; 81025; 84443; 84484; 85025; 99284

== ENCOUNTER → 2021-08-08 | Outpatient (CLI) | payer OTHER ==
[2021-08-08 09:56] VITALS: BP 109/73; PULSE 67; RESP 16; TEMP 98.2
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
--- NOTE | 2021-08-08 10:36 | P.PN ---
Progress Note - Text Progress Note Date: 08/08/21 Procedure note: After a timeout attempted aspiration of nodular area left breast at 12:00. The area of the breast was prepped using Betadine. A 22-gauge needle on a 10 mL syringe was inserted into the area of increased nodularity. This appeared to be solid once the needle was inserted and an FNA of the area was performed. The specimen will be sent to pathology. The patient will follow up for results. We will obtain an ultrasound of the left breast to evaluate for any cystic lesions which can be drained. CC: Dr. Velasquez
== END ==
LOC: WWCWWP 09:37
PROVIDERS: ATTEND Surgery
DX: K76.0 Fatty (change of) liver, not elsewhere classified (principal); J45.909 Unspecified asthma, uncomplicated; N60.12 Diffuse cystic mastopathy of left breast; N60.02 Solitary cyst of left breast; Z90.81 Acquired absence of spleen; F41.9 Anxiety disorder, unspecified; F31.9 Bipolar disorder, unspecified; Z79.52 Long term (current) use of systemic steroids; Z91.013 Allergy to seafood

== ENCOUNTER 2021-09-03 05:51 | Emergency (ER) | payer OTHER ==
[2021-09-03 06:03] VITALS: RESP 18
[2021-09-03] MEDS ORDERED: IBUPROFEN 600 MG TAB PO STA (06:06)
[2021-09-03] MEDS ORDERED: ACETAMINOPHEN TAB 500 MG TAB PO STA (06:06)
[2021-09-03] MEDS ORDERED: SODIUM CHLORIDE 0.9% 1,000 ML IV ONE (06:28)
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
[2021-09-03 07:03] LABS: Basophils # (A) 0.1 k/uL (0-0.2); Basophils % (A) 1 %; Eosinophils # (A) 0.1 k/uL (0-0.7); Eosinophils % (A) 1 %; HGB 12.5 gm/dL (11.4-16.0); Lymphocytes # (A) 1.4 k/uL (1.0-4.8); Lymphocytes % (A) 16 %; MCH 28.6 pg (25.0-35.0); MCHC 32.9 g/dL (31.0-37.0); MCV 87.1 fL (80.0-100.0); Mean Platelet Volume 8.2; Monocytes # (A) 1.1 k/uL (0-1.0); Monocytes % (A) 14 %; Neutrophils # (A) 5.5 k/uL (1.3-7.7); Neutrophils % (A) 65 %; Platelet Count 340 k/uL (150-450); RBC 4.37 m/uL (3.80-5.40); RDW 12.7 % (11.5-15.5); WBC 8.4 k/uL (3.8-10.6)
[2021-09-03 07:08] LABS: Appearance,Urine Cloudy (Clear); Bacteria,Urine Rare /hpf; Bilirubin,Urine Negative (Negative); Blood,Urine Small (Negative); Color,Urine Yellow; Glucose,Urine (UA) Negative (Negative); Ketones,Urine 1+ (Negative); Leukocyte Esterase,Urine Large (Negative); Mucus,Urine Rare /hpf; Nitrite,Urine Negative (Negative); PH, Urine 5.5 (5.0-8.0); Protein,Urine Negative (Negative); RBC,Urine 1 /hpf (0-5); Specific Gravity,Urine 1.021 (1.001-1.035); Squamous Epithelial Cell,Urine 5 /hpf (0-4); Urobilinogen,Urine <2.0 mg/dL (<2.0); WBC,Urine 9 /hpf (0-5)
--- NOTE | 2021-09-03 07:13 | XR ---
EXAMINATION TYPE: XR chest 2V DATE OF EXAM: 09/03/2021 COMPARISON: Chest x-ray March 16, 2021. CT chest May 02, 2020 HISTORY: Cough and fever. TECHNIQUE: Frontal and lateral views of the chest are obtained. FINDINGS: There is no suspicious new focal air space opacity, pleural effusion, or pneumothorax seen . Stable just under 1.0 cm lateral right midlung nodule. The cardiac silhouette size remains within normal limits. The osseous structures are intact. Cholecystectomy clips are redemonstrated. IMPRESSION: No acute pulmonary process. No significant change from most recent x-ray.
[2021-09-03 07:18] LABS: ALT 34 U/L (4-34); AST 46 U/L (14-36); African American GFR (CKD) >90 (>60 ml/min/1.73 sqM); Alkaline Phosphatase 181 U/L (38-126); Anion Gap 9 mmol/L; Blood Urea Nitrogen 9 mg/dL (7-17); Calcium 9.4 mg/dL (8.4-10.2); Carbon Dioxide 23 mmol/L (22-30); Chloride 103 mmol/L (98-107); Glucose 109 mg/dL (74-99); Non-African American GFR(CKD) >90 (>60 ml/min/1.73 sqM); Potassium 3.9 mmol/L (3.5-5.1); Sodium 135 mmol/L (137-145); Total Bilirubin 0.2 mg/dL (0.2-1.3); Total Protein 7.4 g/dL (6.3-8.2)
[2021-09-03] MEDS ORDERED: SODIUM CHLORIDE 0.9% 50 ML IVPB ONE (07:30)
[2021-09-03] MEDS ORDERED: BAMLANIVIMAB (EUA) 700 MG, ETESEVIMAB (EUA) 1,400 MG in SODIUM CHLORIDE 0.9% 50 ML IVPB ONE (07:30)
[2021-09-03 09:14] VITALS: BP 111/66; PULSE 76; TEMP 97.7
== END 2021-09-03 09:36 | disposition home or self-care (01) ==
LOC: EC 05:51
DX: U07.1 COVID-19 (principal); J45.909 Unspecified asthma, uncomplicated; Z79.52 Long term (current) use of systemic steroids; F31.9 Bipolar disorder, unspecified; F41.9 Anxiety disorder, unspecified; Z79.51 Long term (current) use of inhaled steroids; Z79.890 Hormone replacement therapy; Z79.899 Other long term (current) drug therapy
CPT/HCPCS: 36415; 80053; 83605; 85025; 81001; 81025; 87040; 87635; 71046; 99284; 96360; J3490

== ENCOUNTER → 2021-10-24 | Day surgery (SDC) | payer OTHER ==
[2021-10-24 10:46] VITALS: RESP 16; TEMP 97.7
--- NOTE | 2021-10-24 11:39 | USB ---
EXAMINATION TYPE: US biopsy breast VAD LT DATE OF EXAM: 10/24/2021 CLINICAL HISTORY: N63.0 BREAST LUMP/MASS. TECHNIQUE: Ultrasound guided core biopsy of left 12:00 breast. COMPARISON: NONE FINDINGS: The procedure of ultrasound guided core biopsy was explained to the patient. Benefits, alt ernatives, and risks were discussed. An informed consent was then obtained. The patient was placed in supine positioning for imaging and for the procedure. The overlying skin w as prepped and draped in usual sterile fashion. Lidocaine buffered with bicarbonate was used as anes thetic into the skin and subcutaneous tissue up to area of concern in the left 12:00 breast. Under ultrasound guidance, a 12-gauge vacuum assisted biopsy gun device was used to obtain 3 core [place] ples. Following this, a biopsy clip was left in lesion. The patient tolerated the procedure well without any immediate complication. The patient was kept in the radiology department for short stay after the procedure and then discharged home in stable condi tion. IMPRESSION: Successful, uncomplicated ultrasound guided core biopsy of area of concern in the left 12 :00 breast, full pathology results to follow.
[2021-10-24 11:55] VITALS: BP 116/77; PULSE 61
== END ==
LOC: RADUSWWP 10:13
PROVIDERS: ATTEND Surgery
DX: D24.2 Benign neoplasm of left breast (principal)
CPT/HCPCS: 19083; A4648; J2001; 88305

== ENCOUNTER → 2021-10-31 | Outpatient (CLI) | payer OTHER ==
[2021-10-31 10:41] VITALS: BP 100/68; PULSE 88; RESP 16; TEMP 98.1
--- NOTE | 2021-10-31 11:15 | P.PN ---
Subjective Progress Note Date: 10/31/21 Principal diagnosis: Fibroadenoma left breast Kesha is a 31-year-old white female status post ultrasound-guided core biopsy of the left breast on 2421. This revealed a fibroadenoma. She had been noted to have a 10 x 10 mm mixed lesion at 12:00. She also complained of pain in that vicinity. Biopsy revealed as noted a fibroadenoma. The patient states that the pain has not increased in intensity. She is unable to feel the lesion. She tolerated the core biopsy without difficulty. Objective - Vital Signs Vital signs: Vital Signs Temp 98.1 F 10/31/21 10:37 Pulse 88 10/31/21 10:37 Resp 16 10/31/21 10:37 BP 100/68 10/31/21 10:37 Pulse Ox Intake & Output 10/30/21 10/31/21 10/31/21 18:59 06:59 18:59 Weight 92.986 kg - Constitutional General appearance: Present: cooperative - EENT Eyes: Present: EOMI ENT: Present: hearing grossly normal - Neck Neck: Present: normal ROM - Respiratory Respiratory: bilateral: CTA - Cardiovascular Rhythm: regular Heart sounds: normal: S1, S2 - Integumentary Integumentary: Present: normal turgor - Musculoskeletal Musculoskeletal: Present: gait normal - Psychiatric Psychiatric: Present: A&O x's 3, appropriate affect, intact judgment & insight - Additional findings Additional findings: Breast Exam: BRA: 40C inspection: grade 3 ptosis, biopsy site left breast clean and dry palpation: Left breast: Multi-positional exam fullness at the 12 o'clock position but no discrete mass, biopsy site clean and dry Left axilla: No adenopathy of concern Prior right breast examination was done on [id number] of concern had been noted in the right breast and no adenopathy of concern Assessment and Plan Assessment: Impression: Patient status post core biopsy left breast pathology fibroadenoma Pain seems to be decreased in the left breast Fibroadenoma is not palpable Plan: The patient is going to have a repeat ultrasound in 6 months to assure that the lesion is not increasing in size that is increasing in size she would like to have it removed Additionally she is going to see if the pain persists this may be a symptomatic fibroadenoma resulting in the pain and if it does she would prefer to have this removed as well If this is to be removed she would prefer to be done via reduction mammoplasty incision if the contralateral breast could have a symmetry procedure will check insurance for this Cc: Dr. Velasquez, Dr. Elmore
== END ==
LOC: WWCWWP 10:12
PROVIDERS: ATTEND Surgery
DX: D24.2 Benign neoplasm of left breast (principal); Z91.013 Allergy to seafood

== ENCOUNTER 2021-12-12 23:43 | Emergency (ER) | payer OTHER ==
[2021-12-13 00:04] VITALS: TEMP 98.3
[2021-12-13 00:17] LABS: Basophils # (A) 0.1 k/uL (0-0.2); Basophils % (A) 1 %; Eosinophils # (A) 0.6 k/uL (0-0.7); Eosinophils % (A) 4 %; HCT 40.2 % (34.0-46.0); HGB 13.3 gm/dL (11.4-16.0); Lymphocytes # (A) 4.9 k/uL (1.0-4.8); Lymphocytes % (A) 31 %; MCH 29.2 pg (25.0-35.0); MCHC 33.2 g/dL (31.0-37.0); MCV 88.1 fL (80.0-100.0); Monocytes # (A) 0.8 k/uL (0-1.0); Monocytes % (A) 5 %; Neutrophils # (A) 8.9 k/uL (1.3-7.7); Neutrophils % (A) 57 %; Platelet Count 507 k/uL (150-450); RBC 4.56 m/uL (3.80-5.40); RDW 12.7 % (11.5-15.5); WBC 15.6 k/uL (3.8-10.6)
--- NOTE | 2021-12-13 00:26 | XR ---
EXAMINATION TYPE: XR chest 2V DATE OF EXAM: 12/13/2021 COMPARISON: 09/03/2021 HISTORY: Chest pain TECHNIQUE: 2 views FINDINGS: Heart and mediastinum are normal. Lungs are clear. Diaphragm is normal. Bony thorax appears normal. IMPRESSION: Normal chest. No change.
[2021-12-13 00:29] LABS: INR 0.9 (<1.2); Partial Thromboplastin Time 25.3 sec (22.0-30.0); Prothrombin Time 9.8 sec (9.0-12.0)
[2021-12-13 00:33] LABS: ALT 43 U/L (4-34); AST 53 U/L (14-36); African American GFR (CKD) >90 (>60 ml/min/1.73 sqM); Albumin 4.3 g/dL (3.5-5.0); Alkaline Phosphatase 168 U/L (38-126); Anion Gap 8 mmol/L; Blood Urea Nitrogen 14 mg/dL (7-17); Calcium 9.4 mg/dL (8.4-10.2); Carbon Dioxide 29 mmol/L (22-30); Chloride 100 mmol/L (98-107); Glucose 86 mg/dL (74-99); Magnesium 1.9 mg/dL (1.6-2.3); Non-African American GFR(CKD) >90 (>60 ml/min/1.73 sqM); Potassium 3.9 mmol/L (3.5-5.1); Sodium 137 mmol/L (137-145); Total Bilirubin 0.4 mg/dL (0.2-1.3); Total Protein 8.2 g/dL (6.3-8.2)
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
[2021-12-13 02:05] VITALS: BP 108/72; PULSE 61; RESP 18
== END 2021-12-13 02:07 | disposition home or self-care (01) ==
LOC: EC 23:43
DX: R07.89 Other chest pain (principal); F41.9 Anxiety disorder, unspecified; R06.4 Hyperventilation; E07.9 Disorder of thyroid, unspecified; J45.909 Unspecified asthma, uncomplicated; Z79.890 Hormone replacement therapy; Z91.013 Allergy to seafood
CPT/HCPCS: 36415; 71046; 80053; 83735; 84484; 85025; 85610; 85730; 93005; 99285

== ENCOUNTER 2022-03-22 23:01 | Emergency (ER) | payer OTHER ==
[2022-03-22 23:11] VITALS: TEMP 98.1
[2022-03-23] MEDS ORDERED: KETOROLAC 15 MG/ML 1 ML VIAL IM STA (01:03)
[2022-03-23] MEDS ORDERED: ONDANSETRON ODT 4 MG TAB PO STA (01:03)
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
--- NOTE | 2022-03-23 02:10 | CT ---
EXAM: CT Head Without Intravenous Contrast CLINICAL HISTORY: ITS.REASON CT Reason: Head injury, dizziness, nausa/vomiting TECHNIQUE: Axial computed tomography images of the head/brain without intravenous contrast. CTDI is 29.25 mGy and DLP is 657.6 mGy-cm. This CT exam was performed using one or more of the following dose reduction techniques: automated exposure control, adjustment of the mA and/or kV according to patient size, and/or use of iterative reconstruction technique. COMPARISON: No previous studies. FINDINGS: Brain: No abnormal extra-axial collection is noted. No hemorrhage. No significant white matter disease. Midline shift: Midline anatomy is unremarkable. Ventricles: The ventricular system is age appropriate. Bones/joints: Calvarium is within normal limits. No acute fracture. Soft tissues: Unremarkable. Sinuses: Visualized sinuses are unremarkable. Mastoid air cells: Mastoid air cells are well pneumatized. IMPRESSION: 1. No acute intracranial pathology is noted. 2. If there is concern for etiology such as early acute lacunar infarcts, MRI imaging of the brain with diffusion-weighted sequences should be performed. EXAM: CT Cervical Spine Without Intravenous Contrast CLINICAL HISTORY: ITS.REASON CT Reason: Head injury, dizziness, nausa/vomiting TECHNIQUE: Axial computed tomography images of the cervical spine without intravenous contrast. CTDI is 29.25 mGy and DLP is 657.6 mGy-cm. This CT exam was performed using one or more of the following dose reduction techniques: automated exposure control, adjustment of the mA and/or kV according to patient size, and/or use of iterative reconstruction technique. COMPARISON: No previous studies. FINDINGS: Vertebrae: There is straightening and reversal of the curvature of the cervical spine suggestive of muscle spasm. Cervical and visualized thoracic vertebral bodies are maintained in height. Gentle levoscoliosis. There is a normal relationship of C1 and C2. Transaxial images of the cervical spine reveals no acute injury to the cervical spine. Discs/spinal canal/neural foramina: No acute findings. No spinal canal stenosis. Soft tissues: Paraspinal and regional soft tissues are within normal limits. Lung apices: Lung apices are unremarkable. Other findings: Spinous processes are unremarkable. IMPRESSION: No acute injury to the cervical spine is detected.
[2022-03-23] MEDS ORDERED: ONDANSETRON 4 MG ODT STARTER PACK 2 TAB BTL PO STA (02:36)
[2022-03-23 02:50] VITALS: BP 124/73; PULSE 67; RESP 16
== END 2022-03-23 02:49 | disposition home or self-care (01) ==
LOC: EC 23:01
DX: S09.90XA Unspecified injury of head, initial encounter (principal); J45.909 Unspecified asthma, uncomplicated; E07.9 Disorder of thyroid, unspecified; Z79.899 Other long term (current) drug therapy; Z91.013 Allergy to seafood; W01.0XXA Fall on same level from slipping, tripping and stumbling without subsequent striking against object, initial encounter
CPT/HCPCS: 72125; 70450; 99284; 96372; J1885; S0119

== ENCOUNTER → 2022-04-28 | Outpatient (CLI) | payer OTHER ==
[2022-04-28 14:41] LABS: Basophils # (A) 0.13 X 10*3/uL (0.00-0.10); Basophils % (A) 1.3 %; Eosinophils # (A) 0.52 X 10*3/uL (0.04-0.35); HCT 39.5 % (37.2-46.3); HGB 12.9 g/dL (12.0-15.0); Immature Grans, Automated 0.4 %; Lymphocytes # (A) 3.15 X 10*3/uL (0.90-5.00); Lymphocytes % (A) 30.5 %; MCH 29.1 pg (27.0-32.0); MCHC 32.7 g/dL (32.0-37.0); Mean Platelet Volume 10.6 fL (9.5-12.2); Monocytes # (A) 0.87 X 10*3/uL (0.20-1.00); Monocytes % (A) 8.4 %; NRBC Per 100 WBC 0 /100 WBCS (0.0-0.0); Neutrophils # (A) 5.62 X 10*3/uL (1.80-7.70); Neutrophils % (A) 54.4 %; Platelet Count 391 X 10*3/uL (140-440); RBC 4.44 X 10*6/uL (4.10-5.20); RDW 12.5 % (11.5-14.5); WBC 10.33 X 10*3/uL (4.50-10.00)
[2022-04-28 14:56] LABS: ALT 58 U/L (8-44); AST 55 U/L (13-35); African American GFR (CKD) 96.7 (60.0-200.0); Albumin 4.3 g/dL (3.8-4.9); Albumin/Globulin Ratio 1.16 (1.60-3.17); Alkaline Phosphatase 202 U/L (41-126); Blood Urea Nitrogen 9.9 mg/dL (9.0-27.0); Calcium 9.6 mg/dL (8.7-10.3); Carbon Dioxide 26.5 mmol/L (20.0-27.5); Chloride 101 mmol/L (96-109); Chol/HDL Ratio 4.32 Ratio; Globulin 3.7 g/dL (1.6-3.3); Glucose 98 mg/dL (70-110); LDL Cholesterol,Calculated 132.4 mg/dL (0.0-131.0); Non-African American GFR(CKD) 83.4 (60.0-200.0); Potassium 3.8 mmol/L (3.5-5.5); Sodium 138 mmol/L (135-145)
== END | disposition home or self-care (01) ==
LOC: LABWHC1 08:43
PROVIDERS: ATTEND Physician Assistant
DX: Z00.00 Encounter for general adult medical examination without abnormal findings (principal); F31.32 Bipolar disorder, current episode depressed, moderate; E03.9 Hypothyroidism, unspecified
CPT/HCPCS: 36415; 80053; 80061; 84439; 84443; 85025

== ENCOUNTER 2022-05-06 22:27 | Emergency (ER) | payer OTHER ==
[2022-05-06 22:31] VITALS: BP 121/71; PULSE 69; RESP 16; TEMP 97.6
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
--- NOTE | 2022-05-06 23:43 | US ---
EXAMINATION TYPE: US venous doppler duplex LE LT DATE OF EXAM: 05/06/2022 11:35 PM COMPARISON: NONE CLINICAL HISTORY: Left calf pain and posterior knee pain. Left leg pain predominately post knee SIDE PERFORMED: Left TECHNIQUE: The lower extremity deep venous system is examined utilizing real time linear array sonog presley with graded compression, doppler sonography and color-flow sonography. VESSELS IMAGED: Common Femoral Vein Deep Femoral Vein Greater Saphenous Vein * Femoral Vein Popliteal Vein Small Saphenous Vein * Proximal Calf Veins (* superficial vessels) Left Leg: Negative for DVT IMPRESSION: No evidence of deep vein thrombosis in the left leg.
== END 2022-05-07 00:45 | disposition home or self-care (01) ==
LOC: EC 22:27
DX: M71.22 Synovial cyst of popliteal space [Baker], left knee (principal); J45.909 Unspecified asthma, uncomplicated; E07.9 Disorder of thyroid, unspecified; Z86.718 Personal history of other venous thrombosis and embolism; F41.9 Anxiety disorder, unspecified; F31.9 Bipolar disorder, unspecified; Z91.013 Allergy to seafood; Z79.51 Long term (current) use of inhaled steroids; Z79.899 Other long term (current) drug therapy
CPT/HCPCS: 99283

== ENCOUNTER 2022-05-08 21:48 | Emergency (ER) | payer OTHER ==
[2022-05-08 21:57] VITALS: RESP 16; TEMP 98.2
[2022-05-08] MEDS ORDERED: KETOROLAC 15 MG/ML 1 ML VIAL IM STA (22:40)
--- NOTE | 2022-05-08 23:20 | US ---
EXAMINATION TYPE: US venous doppler duplex LE LT DATE OF EXAM: 05/08/2022 11:03 PM COMPARISON: US 05/06/22 CLINICAL HISTORY: calf pain. Left leg pain SIDE PERFORMED: Left TECHNIQUE: The lower extremity deep venous system is examined utilizing real time linear array sonog presley with graded compression, doppler sonography and color-flow sonography. VESSELS IMAGED: Common Femoral Vein Deep Femoral Vein Greater Saphenous Vein * Femoral Vein Popliteal Vein Small Saphenous Vein * Proximal Calf Veins (* superficial vessels) Left Leg: Negative for DVT IMPRESSION: No evidence of deep vein thrombosis in the left leg.
[2022-05-08 23:30] VITALS: BP 105/49; PULSE 67
--- NOTE | 2022-05-08 23:42 | XR ---
EXAMINATION TYPE: XR tibia fibula LT DATE OF EXAM: 05/08/2022 COMPARISON: NONE HISTORY: Knee pain TECHNIQUE: 4 views FINDINGS: The tibia and fibula appear intact. Ankle joint and knee joint appear intact. No fracture s een. IMPRESSION: Negative left tibia and fibula.
--- NOTE | 2022-05-08 23:43 | XR ---
EXAMINATION TYPE: XR knee complete LT DATE OF EXAM: 05/08/2022 COMPARISON: NONE HISTORY: Pain TECHNIQUE: 3 views FINDINGS: I see no fracture nor dislocation. Joint spaces are normal. No sign of knee joint effusion. IMPRESSION: Negative left knee exam.
[2022-05-08] MEDS ORDERED: ACET/COD 300 MG/30 MG STARTER PACK 6 TAB BTL PO STA (23:51)
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
== END 2022-05-09 00:19 | disposition home or self-care (01) ==
LOC: EC 21:48
DX: M25.562 Pain in left knee (principal); J45.909 Unspecified asthma, uncomplicated; E07.9 Disorder of thyroid, unspecified; Z79.899 Other long term (current) drug therapy
CPT/HCPCS: 73590; 73562; 93971; 99284; 96372; J1885

== ENCOUNTER 2022-05-14 19:02 | Emergency (ER) | payer OTHER ==
[2022-05-14 19:39] VITALS: TEMP 98.7
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
[2022-05-14] MEDS ORDERED: ACETAMINOPHEN TAB 500 MG TAB PO STA (21:43)
[2022-05-14] MEDS ORDERED: KETOROLAC 15 MG/ML 1 ML VIAL IM STA (21:44)
[2022-05-14] MEDS: METOCLOPRAMIDE 5 MG/ML 2 ML VIAL IM STA ×3 (22:45→23:36)
[2022-05-14] MEDS ORDERED: diphenhydrAMINE 50 MG/ML 1 ML VIAL IM STA (23:14)
[2022-05-15 00:48] VITALS: BP 116/69; PULSE 64; RESP 16
== END 2022-05-15 00:36 | disposition home or self-care (01) ==
LOC: EC 19:02
DX: R51.9 Headache, unspecified (principal); I82.409 Acute embolism and thrombosis of unspecified deep veins of unspecified lower extremity; E07.9 Disorder of thyroid, unspecified; F41.9 Anxiety disorder, unspecified; F32.A Depression, unspecified; Z79.899 Other long term (current) drug therapy; Z79.52 Long term (current) use of systemic steroids; Z79.51 Long term (current) use of inhaled steroids; Z79.890 Hormone replacement therapy; Z91.013 Allergy to seafood; Z20.822 Contact with and (suspected) exposure to COVID-19
CPT/HCPCS: 99283 ×2; 96372 ×2; 87635; J2765; J1885

== ENCOUNTER → 2022-08-21 | Outpatient (CLI) | payer OTHER ==
--- NOTE | 2022-08-21 13:35 | MM ---
Reason for Exam: Clinical finding. Baseline mammogram. Indicated Problems: Pain of the left side for 1 Year(s). Patient History: Menarche at age 10. First Full-Term at age 19. Premenopausal. Patient used Hormonal Contraceptives for 3 years. 10/24/2021, Benign Core Biopsy on the left side. Paternal grandmother had breast cancer. Last menstrual period: 08/17/2022 Prior Study Comparison: Patient's first Mammogram. Tissue Density: The breast tissue is extremely dense which could obscure a lesion on mammography. Findings: Analyzed By CAD. Pattern appears symmetrical. A core markers in the upper outer aspect left mid breast. No discrete masses are identified. No spiculated or lobular mass, cluster of microcalcifications, architectural distortion, or other secondary signs of malignancy are radiographically apparent. Overall Assessment: Incomplete: need additional imaging evaluation, BI-RAD 0 Management: Diagnostic Breast Ultrasound of the left breast. A clinical breast exam by your physician is recommended on an annual basis and results should be correlated with mammographic findings. This exam should not preclude additional follow-up of suspicious palpable abnormalities. Results were given to the patient verbally at the time of exam. Electronically signed and approved by: Rufino Mckeon D.O. Radiologis
--- NOTE | 2022-08-21 14:33 | USB ---
Reason for Exam: Clinical finding. Patient History: Menarche at age 10. First Full-Term at age 19. Premenopausal. Patient used Hormonal Contraceptives for 3 years. 10/24/2021, Benign Core Biopsy on the left side. Paternal grandmother had breast cancer. Technique: Method: Targeted. Findings: The upper outer quadrant of the left breast and the axilla of the left breast were scanned. There is a benign-appearing cyst 5 cm from nipple 2:00 position measuring 0.7 x 0.4 x 0.6 cm. At the previous biopsy site with surgical clip is identified within a hypoechoic lesion measuring 1.4 x 0.7 x 0.8 cm. This is reported to be benign, pathology results are unavailable. No new suspicious lesions are identified. Overall Assessment: Benign, BI-RAD 2 Management: Screening Mammogram of both breasts in 1 year. A clinical breast exam by your physician is recommended on an annual basis and results should be correlated with mammographic findings. This exam should not preclude additional follow-up of suspicious palpable abnormalities. ??Results were given to the patient verbally at the time of exam. Electronically signed and approved by: Rufino Mckeon D.O. Radiologis
== END | disposition home or self-care (01) ==
LOC: RADMAMWWP 12:48
PROVIDERS: ATTEND Surgery
DX: N63.10 Unspecified lump in the right breast, unspecified quadrant (principal); N63.20 Unspecified lump in the left breast, unspecified quadrant; Z80.3 Family history of malignant neoplasm of breast
CPT/HCPCS: 77066; 76642; G0279; 77062

== ENCOUNTER → 2022-08-21 | Outpatient (CLI) | payer OTHER ==
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
[2022-08-21 14:28] VITALS: BP 118/84; PULSE 86; RESP 16; TEMP 98.3
== END ==
LOC: WWCWWP 11:20
PROVIDERS: ATTEND Surgery
DX: N60.11 Diffuse cystic mastopathy of right breast (principal); J45.909 Unspecified asthma, uncomplicated; K76.0 Fatty (change of) liver, not elsewhere classified; Z91.013 Allergy to seafood

== ENCOUNTER 2022-09-01 07:23 | Day surgery (SDC) | payer OTHER ==
[2022-08-27 15:30] VITALS: BMI 34.4
[~2022-09-01 07:23] MED LIST changes: +ALPRAZolam 0.5 MG TAB PO PRN; -BUPIVACAINE (PF) 0.25% 30 ML VIAL SQ ONE; -GLYCOPYRROLATE 0.2 MG/ML 2 ML VIAL ONE; +HEPARIN SODIUM,PORCINE/PF 5,000 UNIT/0.5 ML SYRINGE SQ PRN; +HYDROmorphone 0.5 MG/0.5 ML SYRINGE IVP PRN; -KETOROLAC 15 MG/ML 1 ML VIAL ONE; -LACTATED RINGERS 1,000 ML IV ONE; -LIDOCAINE 1% INJ 10MG/ML (20 ML MDV) ONE; -METOCLOPRAMIDE 5 MG/ML 2 ML VIAL IVP ONE; -METOCLOPRAMIDE 5 MG/ML 2 ML VIAL ONE; -MIDAZOLAM 2 MG/2 ML VIAL ONE; -NEOSTIGMINE 1 MG/ML 10 ML VIAL ONE; +ONDANSETRON 4 MG/2 ML VIAL IVP ONE; -PROPOFOL 10 MG/ML 20 ML VIAL IV ONE; -ROCURONIUM 10 MG/ML (10 ML VIAL) IV ONE; -SCOPOLAMINE 1.5MG/72HR PATCH TRANSDERM ONE; -fentaNYL (PF) 50 MCG/ML 2 ML AMP ONE
[2022-09-01] MEDS ORDERED: ALPRAZolam 0.5 MG TAB ONE (07:28)
[2022-09-01] MEDS ORDERED: LIDOCAINE 1% INJ 10MG/ML (30 ML VIAL-PF) SQ ONE (08:43)
[2022-09-01] MEDS ORDERED: SUCCINYLCHOLINE CHLORIDE 200 MG/10 ML VIAL IV ONE (09:24)
[2022-09-01] MEDS ORDERED: fentaNYL (PF) 50 MCG/ML 2 ML AMP ONE (09:24)
[2022-09-01] MEDS ORDERED: PROPOFOL 10 MG/ML 20 ML VIAL IV ONE (09:24)
[2022-09-01] MEDS ORDERED: MIDAZOLAM 2 MG/2 ML VIAL ONE (09:24)
[2022-09-01] MEDS ORDERED: LIDOCAINE 2% INJ 20 MG/ML (2 ML VIAL) ONE (09:24)
[2022-09-01] MEDS ORDERED: HEPARIN SODIUM,PORCINE 5,000 UNIT/ML 1 ML VIAL SQ ONE (09:30)
[2022-09-01] MEDS ORDERED: LACTATED RINGERS 1,000 ML IV ONE ×3 (10:29→13:00)
--- NOTE | 2022-09-01 10:43 | P.PCN ---
Date of Procedure: 09/01/22 Preoperative Diagnosis: left breast fibroadenoma Postoperative Diagnosis: same Procedure(s) Performed: left breast needle localization and lumpectmoy Anesthesia: HERMILAA Surgeon: Chapis Patricio Estimated Blood Loss (ml): 5 IV fluids (ml): 1,000 Pathology: other (breast tissue) Condition: stable Disposition: same day Indications for Procedure: Enlarging symptomatic left breast fibroadenoma Operative Findings: Dense fibroglandular tissue breast Description of Procedure: The patient was first seen in the radiology department where needle localization of the symptomatic fibroadenoma was performed. The patient was taken to the operating room and following induction of anesthesia the left breast was prepped and draped in a sterile fashion. An incision was made and carried down to the hook of the needle. Surrounding tissue was excised. After assured that hemostasis was attained the wound was well irrigated. The tissue was painted for orientation. A radiograph of the tissue revealed that the lesion and the clip in the specimen. Titanium clip was placed in the cavity to shamika the cavity. The deep tissues were closed using 3-0 Vicryl suture. The subcutaneous tissue was closed using a 3-0 Vicryl suture. The subcuticular tissue was closed using 4-0 Monocryl. Steri-Strips were applied. The patient tolerated procedure in stable condition. All instrument and sponge counts were correct at the end of the case.
--- NOTE | 2022-09-01 10:46 | P.DS ---
Providers Attending physician: Chapis Patricio Primary care physician: Rufino Elmore Plan - Discharge Summary Discharge Rx Participant: No New Discharge Prescriptions: No Action lamoTRIgine [LaMICtal] 25 mg PO BID LORazepam [Ativan] 0.5 mg PO TID Albuterol Sulfate [Ventolin HFA] 2 puff INHALATION Q6H PRN PRN Reason: Shortness Of Breath Levothyroxine Sodium [Synthroid] 100 mcg PO QAM Discharge Medication List lamoTRIgine [LaMICtal] 25 mg PO BID 12/11/18 [History] LORazepam [Ativan] 0.5 mg PO TID 03/21/19 [History] Albuterol Sulfate [Ventolin HFA] 2 puff INHALATION Q6H PRN 08/09/20 [History] Levothyroxine Sodium [Synthroid] 100 mcg PO QAM 08/09/20 [History] Follow up Appointment(s)/Referral(s): Chapis Patricio MD [STAFF PHYSICIAN] - 09/11/22 9:40 am Activity/Diet/Wound Care/Special Instructions: do not drive for 24 hours from discharge may shower after 48 hours wear bra at all times Discharge Disposition: HOME SELF-CARE
[2022-09-01 11:07] VITALS: TEMP 97
[2022-09-01] MEDS ORDERED: ONDANSETRON 4 MG/2 ML VIAL ONE (12:15)
[2022-09-01] MEDS ORDERED: KETOROLAC 15 MG/ML 1 ML VIAL IVP ONE (13:15)
[2022-09-01] MEDS ORDERED: KETOROLAC 15 MG/ML 1 ML VIAL ONE (13:18)
[2022-09-01 13:56] VITALS: BP 106/72; PULSE 57; RESP 14
== END 2022-09-01 14:10 | disposition home or self-care (01) ==
LOC: OR 07:23
PROVIDERS: ATTEND Surgery
DX: D24.2 Benign neoplasm of left breast (principal); N64.89 Other specified disorders of breast; Z91.013 Allergy to seafood; J45.909 Unspecified asthma, uncomplicated; Z79.51 Long term (current) use of inhaled steroids; E03.9 Hypothyroidism, unspecified; Z79.890 Hormone replacement therapy; F41.9 Anxiety disorder, unspecified; F31.9 Bipolar disorder, unspecified; Z79.899 Other long term (current) drug therapy; Z90.49 Acquired absence of other specified parts of digestive tract; Z98.890 Other specified postprocedural states
CPT/HCPCS: 81025; 76098; 19281; 19125; C1819; J2250; J0330; J1644; J1100; J2405; J2001 ×2; J3010; J1885; J2704; J1170; J1790

== ENCOUNTER 2022-09-03 01:14 | Observation (INO) | payer OTHER ==
[2022-09-03] MEDS ORDERED: ACETAMINOPHEN TAB 500 MG TAB PO STA (01:35)
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
--- NOTE | 2022-09-03 02:01 | XR ---
EXAMINATION TYPE: XR chest 2V DATE OF EXAM: 09/03/2022 COMPARISON: 12/13/2021 HISTORY: Short of breath and cough TECHNIQUE: 2 views FINDINGS: There is some mild linear infiltrate and atelectasis left lung base. There is minimal pleur al reaction left lung base. Heart size is normal. There are no hilar masses. IMPRESSION: Mild pleural reaction and atelectasis left lung base which is new compared to old exams
[2022-09-03 02:21] LABS: Basophils # (A) 0.1 k/uL (0-0.2); Basophils % (A) 1 %; Eosinophils # (A) 0.2 k/uL (0-0.7); Eosinophils % (A) 3 %; HCT 44.6 % (34.0-46.0); HGB 14.8 gm/dL (11.4-16.0); Lymphocytes # (A) 1.5 k/uL (1.0-4.8); Lymphocytes % (A) 19 %; MCH 29.6 pg (25.0-35.0); MCHC 33.2 g/dL (31.0-37.0); MCV 89.1 fL (80.0-100.0); Mean Platelet Volume 8.1; Monocytes # (A) 0.7 k/uL (0-1.0); Monocytes % (A) 8 %; Neutrophils # (A) 5.4 k/uL (1.3-7.7); Neutrophils % (A) 67 %; Platelet Count 299 k/uL (150-450); RBC 5.01 m/uL (3.80-5.40); RDW 12.3 % (11.5-15.5)
[2022-09-03 02:29] LABS: ALT 77 U/L (4-34); AST 86 U/L (14-36); African American GFR (CKD) >90 (>60 ml/min/1.73 sqM); Albumin 3.9 g/dL (3.5-5.0); Alkaline Phosphatase 206 U/L (38-126); Anion Gap 7 mmol/L; Blood Urea Nitrogen 9 mg/dL (7-17); Calcium 8.6 mg/dL (8.4-10.2); Carbon Dioxide 28 mmol/L (22-30); Chloride 103 mmol/L (98-107); Glucose 96 mg/dL (74-99); Magnesium 1.6 mg/dL (1.6-2.3); Non-African American GFR(CKD) >90 (>60 ml/min/1.73 sqM); Potassium 3.5 mmol/L (3.5-5.1); Sodium 138 mmol/L (137-145); Total Bilirubin 0.2 mg/dL (0.2-1.3); Total Protein 7.1 g/dL (6.3-8.2)
[2022-09-03] MEDS ORDERED: OSELTAMIVIR 75 MG CAP PO STA (02:56)
[2022-09-03] MEDS ORDERED: ACETAMINOPHEN TAB 325 MG TAB PO PRN (03:06)
[2022-09-03] MEDS ORDERED: NALOXONE 0.4 MG/ML 1 ML VIAL IV PRN (03:06)
[2022-09-03] MEDS: SODIUM CHLORIDE 0.9% 1,000 ML IV SCH (03:25)
[2022-09-03] MEDS ORDERED: SYMBICORT 80-4.5 MCG INHALER INHALATION PRN (12:19)
[2022-09-03] MEDS ORDERED: HYDROcodone/APAP 5-325MG 1 EACH TAB PO PRN (12:30)
[2022-09-03] MEDS: MONTELUKAST 10 MG TAB PO SCH (14:14)
[2022-09-03] MEDS: lamoTRIgine 25 MG TAB PO SCH ×2 (14:15→23:03)
[2022-09-03] MEDS: FAMOTIDINE 20 MG TAB PO SCH ×3 (14:15→23:03)
[2022-09-03] MEDS: LEVOTHYROXINE 100 MCG TAB PO SCH (14:15)
[2022-09-03] MEDS: ALBUTEROL NEBULIZED 2.5 MG/3 ML INHALATION PRN (17:05)
[2022-09-03] MEDS: LORazepam 0.5 MG TAB PO PRN (17:40)
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
[2022-09-03] MEDS: predniSONE 20 MG TAB PO SCH (18:32)
[2022-09-03] MEDS: ENOXAPARIN 40 MG/0.4 ML SYRINGE SQ SCH (18:33)
[2022-09-03] MEDS: ALBUTEROL NEBULIZED (CONC) 5 MG, SODIUM CHLORIDE 0.9% NEBULIZ 3 ML INHALATION SCH ×2 (20:46)
[2022-09-03] MEDS: OSELTAMIVIR 75 MG CAP PO SCH (23:01)
[2022-09-04] MEDS: ALBUTEROL NEBULIZED 2.5 MG/3 ML INHALATION PRN ×2 (00:11→07:52)
[2022-09-04 03:51] VITALS: RESP 18
[2022-09-04] MEDS: SODIUM CHLORIDE 0.9% 1,000 ML IV SCH (03:51)
[2022-09-04] MEDS: LEVOTHYROXINE 100 MCG TAB PO SCH (06:21)
[2022-09-04] MEDS: ENOXAPARIN 40 MG/0.4 ML SYRINGE SQ SCH (08:32)
[2022-09-04] MEDS: predniSONE 20 MG TAB PO SCH (08:33)
[2022-09-04] MEDS: lamoTRIgine 25 MG TAB PO SCH (08:33)
[2022-09-04] MEDS: FAMOTIDINE 20 MG TAB PO SCH (08:33)
[2022-09-04] MEDS: MONTELUKAST 10 MG TAB PO SCH (08:33)
[2022-09-04] MEDS: OSELTAMIVIR 75 MG CAP PO SCH (08:33)
[2022-09-04] MEDS: LORazepam 0.5 MG TAB PO PRN (08:36)
[2022-09-04 10:40] VITALS: BP 109/65; PULSE 55; TEMP 97.7
[2022-09-04] MEDS: ALBUTEROL NEBULIZED (CONC) 5 MG, SODIUM CHLORIDE 0.9% NEBULIZ 3 ML INHALATION SCH ×2 (11:12)
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
== END 2022-09-04 12:17 ==
LOC: EC 01:14 → 6NMEDSUR 03:06
PROVIDERS: ADMIT Hospitalist; ATTEND Hospitalist
DX: J10.1 Influenza due to other identified influenza virus with other respiratory manifestations (principal); J45.41 Moderate persistent asthma with (acute) exacerbation; E03.9 Hypothyroidism, unspecified; K76.0 Fatty (change of) liver, not elsewhere classified; K21.9 Gastro-esophageal reflux disease without esophagitis; F31.9 Bipolar disorder, unspecified; F43.10 Post-traumatic stress disorder, unspecified; F41.9 Anxiety disorder, unspecified; Z20.822 Contact with and (suspected) exposure to COVID-19; Z79.890 Hormone replacement therapy; Z79.899 Other long term (current) drug therapy; Z91.013 Allergy to seafood; Z98.51 Tubal ligation status; Z90.49 Acquired absence of other specified parts of digestive tract; Z90.81 Acquired absence of spleen; Z98.890 Other specified postprocedural states; Z81.8 Family history of other mental and behavioral disorders
CPT/HCPCS: 96372 ×2; 99284; 36415; 94640 ×3; 80053; 83605; 83735; 85025; 87040; 87636; 71046; G0378 ×2; J1650 ×2; J7512 ×2

== ENCOUNTER 2022-12-10 10:38 | Emergency (ER) | payer OTHER ==
[2022-12-10 11:19] VITALS: RESP 16
[2022-12-10 11:57] LABS: Basophils # (A) 0.1 k/uL (0-0.2); Basophils % (A) 1 %; Eosinophils # (A) 0.6 k/uL (0-0.7); Eosinophils % (A) 7 %; HCT 40.9 % (34.0-46.0); HGB 13.4 gm/dL (11.4-16.0); Lymphocytes # (A) 2.4 k/uL (1.0-4.8); Lymphocytes % (A) 26 %; MCH 28.4 pg (25.0-35.0); MCHC 32.7 g/dL (31.0-37.0); MCV 86.7 fL (80.0-100.0); Mean Platelet Volume 7.7; Monocytes # (A) 0.6 k/uL (0-1.0); Monocytes % (A) 6 %; Neutrophils # (A) 5.5 k/uL (1.3-7.7); Neutrophils % (A) 58 %; Platelet Count 478 k/uL (150-450); RBC 4.71 m/uL (3.80-5.40); RDW 12.1 % (11.5-15.5); WBC 9.4 k/uL (3.8-10.6)
--- NOTE | 2022-12-10 12:04 | XR ---
EXAMINATION TYPE: XR chest 2V DATE OF EXAM: 12/10/2022 COMPARISON: 09/03/2022 HISTORY: 32-year-old female with chest pain TECHNIQUE: PA and lateral views FINDINGS: The cardiomediastinal silhouette, aorta, and pulmonary vasculature are within normal limits. Lungs an d pleural spaces are clear. IMPRESSION: No acute cardiopulmonary process.
[2022-12-10 12:10] LABS: ALT 50 U/L (4-34); AST 49 U/L (14-36); African American GFR (CKD) >90 (>60 ml/min/1.73 sqM); Albumin 4.4 g/dL (3.5-5.0); Alkaline Phosphatase 214 U/L (38-126); Anion Gap 7 mmol/L; Blood Urea Nitrogen 13 mg/dL (7-17); Calcium 9.3 mg/dL (8.4-10.2); Carbon Dioxide 32 mmol/L (22-30); Chloride 101 mmol/L (98-107); Glucose 90 mg/dL (74-99); Magnesium 2.1 mg/dL (1.6-2.3); Non-African American GFR(CKD) >90 (>60 ml/min/1.73 sqM); Sodium 140 mmol/L (137-145); Total Bilirubin 0.7 mg/dL (0.2-1.3); Total Protein 8.3 g/dL (6.3-8.2)
[2022-12-10 12:12] LABS: Potassium 4.2 mmol/L (3.5-5.1)
[2022-12-10 12:16] LABS: INR 0.9 (<1.2); Prothrombin Time 10.1 sec (9.0-12.0)
[2022-12-10 12:26] LABS: HCG,Quantitative Serum <2.4 mIU/mL
--- NOTE | 2022-12-10 13:48 | CT ---
EXAMINATION TYPE: CT chest angio for PE CT DLP: 354.2 mGycm, Automated exposure control for dose reduction was used. DATE OF EXAM: 12/10/2022 1:28 PM COMPARISON: CTA chest 08/09/2020, chest radiograph 12/10/2022, CT abdomen pelvis 03/18/2020. CLINICAL INDICATION:Female, 32 years old with history of sob; Chest pain x 3 days TECHNIQUE/CONTRAST: CTA scan of the thorax is performed without and with IV Contrast, patient injected with 100 ml mL of Isovue 370, pulmonary embolism protocol. MIP images are created and reviewed. FINDINGS: Pulmonary Artery: There is no evidence for a filling defect within the pulmonary vasculature to sugge st acute pulmonary embolism. The pulmonary artery is of normal size. Lungs/Pleura: No evidence of focal consolidation, pleural effusion or pneumothorax. Stable right midd le lobe 8 mm enhancing nodule with prominent vessel consistent with a varix. No new or enlarging pulm onary nodules. Airway: Large airways are patent. Heart: Heart is within normal limits for size.. Vasculature: No evidence of aortic aneurysm. Mediastinum: No gross evidence of adenopathy. Residual thymus demonstrated. Musculoskeletal: No acute osseous abnormalities. Old healed posterior left lower rib fracture deformi ties. Interbody ankylosis of T10-T11. Soft Tissues: Left breast surgical clips and/or calcifications. Lower neck: No significant findings. Upper Abdomen: Post cholecystectomy changes. Left upper quadrant splenule is redemonstrated. Linear h ypoattenuating regions within the left and right hepatic lobes redemonstrated but increased from prio r CT abdomen in 2019 IMPRESSION: 1. No evidence of central pulmonary embolism. Limited evaluation of the segmental and subsegmental br anches. 2. Stable right middle lobe nodule with prominent vessel consistent with a varix. 3. Increased linear hypoattenuation regions within both hepatic lobes favored to represent dilated in trahepatic bile ducts. Further evaluation with MRCP is recommended.
[2022-12-10 14:00] VITALS: TEMP 97.9
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
[2022-12-10 15:04] VITALS: BP 130/89; PULSE 78
== END 2022-12-10 15:20 | disposition home or self-care (01) ==
LOC: EC 10:38
DX: R07.89 Other chest pain (principal); J45.909 Unspecified asthma, uncomplicated; E07.9 Disorder of thyroid, unspecified; F41.9 Anxiety disorder, unspecified; F31.9 Bipolar disorder, unspecified; Z91.013 Allergy to seafood; Z79.890 Hormone replacement therapy; Z79.899 Other long term (current) drug therapy
CPT/HCPCS: 36415; 85379; 80053; 83735; 84484; 85025; 85610; 85730; 84702; 71046; 71275; 99285; Q9967; 93005

== ENCOUNTER 2022-12-15 13:20 | Emergency (ER) | payer OTHER ==
[2022-12-15 13:25] VITALS: RESP 18
[2022-12-15] MEDS ORDERED: SODIUM CHLORIDE 0.9% 500 ML 500 ML IV STA (13:53)
[2022-12-15 13:54] VITALS: BP 127/77; PULSE 72; TEMP 97.3
[2022-12-15 14:08] LABS: Basophils # (A) 0.1 k/uL (0-0.2); Basophils % (A) 1 %; Eosinophils # (A) 0.7 k/uL (0-0.7); Eosinophils % (A) 6 %; HCT 40.6 % (34.0-46.0); HGB 13.5 gm/dL (11.4-16.0); Lymphocytes % (A) 25 %; MCHC 33.3 g/dL (31.0-37.0); MCV 87.1 fL (80.0-100.0); Mean Platelet Volume 7.8; Monocytes # (A) 0.8 k/uL (0-1.0); Monocytes % (A) 7 %; Neutrophils % (A) 60 %; Platelet Count 424 k/uL (150-450); RBC 4.66 m/uL (3.80-5.40); RDW 12.2 % (11.5-15.5); WBC 11.7 k/uL (3.8-10.6)
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
[2022-12-15 14:48] LABS: ALT 55 U/L (4-34); African American GFR (CKD) >90 (>60 ml/min/1.73 sqM); Albumin 4.5 g/dL (3.5-5.0); Amylase 62 U/L (30-110); Anion Gap 11 mmol/L; Blood Urea Nitrogen 14 mg/dL (7-17); Calcium 9.2 mg/dL (8.4-10.2); Carbon Dioxide 25 mmol/L (22-30); Chloride 102 mmol/L (98-107); Glucose 78 mg/dL (74-99); Lipase 84 U/L (23-300); Non-African American GFR(CKD) >90 (>60 ml/min/1.73 sqM); Sodium 138 mmol/L (137-145); Total Bilirubin 0.6 mg/dL (0.2-1.3); Total Protein 8.3 g/dL (6.3-8.2)
[2022-12-15] MEDS ORDERED: MAG HYDROX/AL HYDROX/SIMETH 30 ML, HYOSCYAMINE ELIXIR 10 ML, LIDOCAINE VISCOUS 2% 10 ML PO STA ×3 (15:07)
[2022-12-15 15:11] LABS: AST 55 U/L (14-36); Alkaline Phosphatase 214 U/L (38-126); Potassium 4.4 mmol/L (3.5-5.1)
[2022-12-15 15:43] LABS: Appearance,Urine Cloudy (Clear); Bacteria,Urine Rare /hpf; Bilirubin,Urine Negative (Negative); Blood,Urine Negative (Negative); Color,Urine Light Yellow; Glucose,Urine (UA) Negative (Negative); Ketones,Urine Negative (Negative); Leukocyte Esterase,Urine Large (Negative); Mucus,Urine Rare /hpf; Nitrite,Urine Negative (Negative); Protein,Urine Negative (Negative); RBC,Urine 4 /hpf (0-5); Specific Gravity,Urine 1.012 (1.001-1.035); Squamous Epithelial Cell,Urine 6 /hpf (0-4); Urobilinogen,Urine <2.0 mg/dL (<2.0); WBC,Urine 9 /hpf (0-5)
== END 2022-12-15 17:23 | disposition home or self-care (01) ==
LOC: EC 13:20
DX: R10.13 Epigastric pain (principal); J45.909 Unspecified asthma, uncomplicated; E07.9 Disorder of thyroid, unspecified; F41.9 Anxiety disorder, unspecified; F31.9 Bipolar disorder, unspecified; Z91.013 Allergy to seafood; Z79.890 Hormone replacement therapy; Z79.899 Other long term (current) drug therapy; Z90.49 Acquired absence of other specified parts of digestive tract
CPT/HCPCS: 36415; 80053; 81001; 81025; 82150; 83690; 85025; 85379; 86140; 96360; 96361; 99284

== ENCOUNTER 2023-04-23 22:02 | Emergency (ER) | payer OTHER ==
[2023-04-23 22:07] VITALS: RESP 16; TEMP 98.4
[2023-04-23] MEDS ORDERED: OFLOXACIN 0.3% OPHTH DROPS 5 ML BOTTLE LEFT EAR SCH (23:45)
[2023-04-23] MEDS ORDERED: AMOXIC-POT CLAV 875-125MG 1 EACH TAB PO STA (23:46)
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
[2023-04-24 00:08] VITALS: BP 110/66; PULSE 54
== END 2023-04-24 00:08 | disposition home or self-care (01) ==
LOC: EC 22:02
DX: H66.92 Otitis media, unspecified, left ear (principal); H60.92 Unspecified otitis externa, left ear; J45.909 Unspecified asthma, uncomplicated; E07.9 Disorder of thyroid, unspecified; F31.9 Bipolar disorder, unspecified; F41.9 Anxiety disorder, unspecified; Z91.013 Allergy to seafood; Z79.890 Hormone replacement therapy; Z79.899 Other long term (current) drug therapy
CPT/HCPCS: 99283

== ENCOUNTER 2023-08-10 09:19 | Emergency (ER) | payer OTHER ==
[2023-08-10 09:52] VITALS: RESP 16
[2023-08-10] MEDS ORDERED: SODIUM CHLORIDE 0.9% 1,000 ML IV STA (11:02)
[2023-08-10 11:27] LABS: Basophils # (A) 0.1 k/uL (0-0.2); Basophils % (A) 1 %; Eosinophils # (A) 0.5 k/uL (0-0.7); Eosinophils % (A) 6 %; HCT 42.8 % (34.0-46.0); HGB 14.4 gm/dL (11.4-16.0); Lymphocytes # (A) 2.6 k/uL (1.0-4.8); Lymphocytes % (A) 28 %; MCH 29.7 pg (25.0-35.0); MCHC 33.7 g/dL (31.0-37.0); MCV 88.1 fL (80.0-100.0); Mean Platelet Volume 7.1; Monocytes # (A) 0.6 k/uL (0-1.0); Monocytes % (A) 6 %; Neutrophils # (A) 5.2 k/uL (1.3-7.7); Neutrophils % (A) 57 %; Platelet Count 430 k/uL (150-450); RBC 4.86 m/uL (3.80-5.40); RDW 12.5 % (11.5-15.5); WBC 9.2 k/uL (3.8-10.6)
[2023-08-10 11:29] LABS: Appearance,Urine Clear (Clear); Bacteria,Urine Rare /hpf; Bilirubin,Urine Negative (Negative); Blood,Urine Negative (Negative); Color,Urine Light Yellow; Glucose,Urine (UA) Negative (Negative); Ketones,Urine Negative (Negative); Leukocyte Esterase,Urine Large (Negative); Mucus,Urine Occasional /hpf; Nitrite,Urine Negative (Negative); Protein,Urine Negative (Negative); RBC,Urine 3 /hpf (0-5); Specific Gravity,Urine 1.012 (1.001-1.035); Squamous Epithelial Cell,Urine 3 /hpf (0-4); Urobilinogen,Urine <2.0 mg/dL (<2.0); WBC,Urine 10 /hpf (0-5)
[2023-08-10 11:36] LABS: ALT 192 U/L (4-34); AST 143 U/L (14-36); African American GFR (CKD) >90 (>60 ml/min/1.73 sqM); Albumin 4.4 g/dL (3.5-5.0); Alkaline Phosphatase 506 U/L (38-126); Amylase 59 U/L (30-110); Anion Gap 10 mmol/L; Blood Urea Nitrogen 9 mg/dL (7-17); Calcium 10.1 mg/dL (8.4-10.2); Carbon Dioxide 28 mmol/L (22-30); Chloride 100 mmol/L (98-107); Glucose 94 mg/dL (74-99); Lipase 88 U/L (23-300); Non-African American GFR(CKD) >90 (>60 ml/min/1.73 sqM); Potassium 4.2 mmol/L (3.5-5.1); Sodium 138 mmol/L (137-145); Total Bilirubin 0.8 mg/dL (0.2-1.3); Total Protein 8.4 g/dL (6.3-8.2)
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
[2023-08-10 11:46] LABS: INR 0.9 (<1.2); Partial Thromboplastin Time 26.6 sec (22.0-30.0); Prothrombin Time 10.5 sec (10.0-12.5)
--- NOTE | 2023-08-10 13:06 | CT ---
EXAMINATION TYPE: CT abdomen pelvis wo con DATE OF EXAM: 08/10/2023 COMPARISON: 03/18/2020 HISTORY: 33-year-old female Epigastric pain and RUQ pain. CT DLP: 914.7 mGycm. Automated exposure control for dose reduction was used. TECHNIQUE: Contiguous axial scanning of the abdomen and pelvis without IV contrast. Coronal and sagit massimo reconstructions performed. FINDINGS: The heart is normal size without pericardial effusion. Mild dependent atelectasis in the lower lungs without pleural effusion. Elongated area of fat density/fatty infiltration measuring 4.8 cm long left liver lobe remains unchan ged. Additional apparent areas of fatty infiltration seem to have developed, central right liver lobe and more peripheral in the right lower lobe. Cholecystectomy clips. Adrenal glands, kidneys, and pancreas show no gross abnormal body. Numerous splenules left upper quadrant redemonstrated. No dilated small bowel, free fluid, or free air. No mesenteric or retroperitoneal lymphadenopathy. Some clustered mildly enlarged lymph nodes in the right lower quadrant measuring up to 1.2 cm appear to have been present back in 2019 as well suggesting a chronic reactive/post inflammatory etiology. While the appendix is not well seen, no secondary findings of acute appendicitis in the right lower q uadrant. Mild to moderate stool burden. No pericolonic inflammatory change. Uterus is anteverted. Bladder nondistended. Bilateral pelvic phleboliths. Trace cul-de-sac and left a dnexal free fluid likely physiologic. Both ovaries are visualized. No pelvic lymphadenopathy seen. Bones: Multilevel moderate degenerative disc disease L5-S1. 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 IMPRESSION: 1. An elongated area of hypodensity/fatty infiltration measuring nearly 5 cm in the left liver lobe appears to have been present in 2019. A couple additional areas now on the right seem to have develop ed. Recommend follow-up liver MRI to exclude underlying lesions and to confirm fatty infiltration. 2. Similar clustered lymph nodes in the right lower quadrant measuring up to 1.2 cm. Stability from 2020 suggests a benign etiology.
[2023-08-10 15:42] VITALS: BP 108/69; PULSE 70; TEMP 98.3
--- NOTE | 2023-08-10 16:32 | US ---
EXAMINATION TYPE: US gallbladder DATE OF EXAM: 08/10/2023 COMPARISON: NONE CLINICAL INDICATION: Female, 33 years old with history of hx cholecystectomy. r/o CBD stone; Patient states epigastric pain x few days TECHNIQUE: Multiple sonographic images of the right upper quadrant are obtained. FINDINGS: EXAM MEASUREMENTS: Liver Length: 16cm Gallbladder: Surgically absent CBD: 1.2 cm Right Kidney: 11. x 4.4 x 6.3 Limitations due to large patient body habitus. Pancreas: Limited detailed assessment due to bowel gas shadowing especially of the pancreatic tail r egion. Liver: Echogenic calcified areas with posterior shadowing within the right and left liver lobes. Gallbladder: Surgically absent Evidence for sonographic López's sign: no CBD: Dilated. Right Kidney: wnl, no hydronephrosis. IMPRESSION: 1. The medical consultant describes shadowing echogenic/calcified areas in both the right and left liver lob es. Unable to determine if this represents areas of focal fat or calcifications within dilated intrah epatic bile ducts. Correlate with alkaline phosphatase and bilirubin levels. Contrast-enhanced liver MRI would be helpful to further assess. 2. Bile duct dilated to 1.2 cm may be chronic for the patient especially given postcholecystectomy st atus. Again, correlate with alkaline phosphatase and bilirubin levels.
[2023-08-10] MEDS ORDERED: ACET/COD 300 MG/30 MG STARTER PACK 6 TAB BTL PO STA (17:05)
== END 2023-08-10 17:05 | disposition home or self-care (01) ==
LOC: EC 09:19
DX: K76.0 Fatty (change of) liver, not elsewhere classified (principal); J45.909 Unspecified asthma, uncomplicated; E07.9 Disorder of thyroid, unspecified; F31.9 Bipolar disorder, unspecified; F41.9 Anxiety disorder, unspecified; Z79.899 Other long term (current) drug therapy; Z79.890 Hormone replacement therapy; Z90.49 Acquired absence of other specified parts of digestive tract; Z20.822 Contact with and (suspected) exposure to COVID-19
CPT/HCPCS: 36415; 74176; 76705; 80053; 81001; 81025; 82150; 83690; 85025; 85379; 85610; 85730; 87636; 96360; 96361; 99284

== ENCOUNTER 2023-10-07 21:24 | Emergency (ER) | payer OTHER ==
[2023-10-07 22:04] VITALS: RESP 18; TEMP 98.8
[2023-10-07] MEDS ORDERED: ACETAMINOPHEN TAB 325 MG TAB PO STA (22:09)
[2023-10-07] MEDS ORDERED: IBUPROFEN 400 MG TAB PO STA (22:09)
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
[2023-10-07 23:30] VITALS: BP 141/93; PULSE 100
== END 2023-10-07 23:51 | disposition home or self-care (01) ==
LOC: EC 21:24
DX: J32.9 Chronic sinusitis, unspecified (principal); K76.0 Fatty (change of) liver, not elsewhere classified; J45.909 Unspecified asthma, uncomplicated; E07.9 Disorder of thyroid, unspecified; F41.9 Anxiety disorder, unspecified; F31.9 Bipolar disorder, unspecified; Z79.899 Other long term (current) drug therapy; Z79.890 Hormone replacement therapy; Z91.013 Allergy to seafood; Z79.51 Long term (current) use of inhaled steroids; Z20.822 Contact with and (suspected) exposure to COVID-19
CPT/HCPCS: 87636; 99284

== ENCOUNTER → 2023-10-14 | Outpatient (CLI) | payer OTHER ==
--- NOTE | 2023-10-15 19:37 | MM ---
Reason for Exam: Screening (asymptomatic). Last mammogram was performed 1 year(s) and 1 month(s) ago. Indicated Problems: Pain of the left side (Focal) : AT AREA OF BX 2022. Patient History: Menarche at age 10. First Full-Term at age 19. Premenopausal. Patient has history of breast feeding. Patient used Hormonal Contraceptives for 3 years. 09/01/2022, Benign MG pre op needle loc LT on the left side. 10/24/2021, Benign Core Biopsy on the left side. Paternal grandmother had breast cancer. Last menstrual period: 09/23/2023 Risk Values: Merna 5 year model risk: 0.7%. NCI Lifetime model risk: 15.0%. Prior Study Comparison: 08/21/2022 Bilateral MG 3D diag mammo w/cad GARY, [facility]. Tissue Density: The breast tissue is heterogeneously dense. This may lower the sensitivity of mammography. Findings: Analyzed By CAD. Area of asymmetric density inferior right MLO view remains unchanged. However, an area of global asymmetry right upper outer quadrant is becoming more defined. This likely relates to the degree of compression and superimposition shadow but further evaluation is recommended. Redemonstrated postsurgical changes left breast. Overall Assessment: Incomplete: need additional imaging evaluation, BI-RAD 0 Management: Special View Mammogram of the right breast. Diagnostic Breast Ultrasound of the right breast. . [facility] will attempt to contact patient to return for supplemental views and ultrasound if indicated. Electronically signed and approved by: Ta Pineda M.D. Radiologist
== END | disposition home or self-care (01) ==
LOC: RADMAMWWP 15:36
PROVIDERS: ATTEND Surgery
DX: Z12.31 Encounter for screening mammogram for malignant neoplasm of breast (principal); Z80.3 Family history of malignant neoplasm of breast
CPT/HCPCS: 77067

== ENCOUNTER → 2023-10-20 | Outpatient (CLI) | payer OTHER ==
--- NOTE | 2023-10-20 14:01 | MM ---
Reason for Exam: Additional evaluation requested from abnormal screening. Last screening mammogram was performed less than 1 month ago. Patient History: Menarche at age 10. First Full-Term at age 19. Premenopausal. Patient has history of breast feeding. Patient used Hormonal Contraceptives for 3 years. 09/01/2022, Benign MG pre op needle loc LT on the left side. 10/24/2021, Benign Core Biopsy on the left side. Paternal grandmother had breast cancer. Risk Values: Merna 5 year model risk: 0.7%. NCI Lifetime model risk: 15.0%. Prior Study Comparison: 04/23/2021 Bilateral Diagnostic Ultrasound, [facility]. 08/21/2022 Bilateral MG 3D diag mammo w/cad GARY, [facility]. 08/21/2022 Left US breast limited LT, [facility]. 10/14/2023 Bilateral MG screening mammo w CAD, [facility]. Tissue Density: Right: The breast tissue is heterogeneously dense. This may lower the sensitivity of mammography. Findings: Analyzed By CAD. Masslike area persist right upper outer quadrant measuring 5 x 5 cm. Ultrasound is recommended. Overall Assessment: Incomplete: need additional imaging evaluation, BI-RAD 0 Management: Diagnostic Breast Ultrasound of the right breast. . Results were given to the patient verbally at the time of exam. Patient should continue monthly self-breast exams. A clinical breast exam by your physician is recommended on an annual basis. This exam should not preclude additional follow-up of suspicious palpable abnormalities. Note on Merna scores and lifetime risk: 1. A Merna score greater than 3% is considered moderate risk. If this is the case, consider specialist referral to assess eligibility for a risk reducing agent. 2. If overall lifetime risk for the development of breast cancer is 20% or higher, the patient may qualify for future screening with alternating mammogram and breast MRI. Electronically signed and approved by: Mateusz Angel M.D. Radiologis
--- NOTE | 2023-10-20 14:43 | USB ---
Reason for Exam: Additional evaluation requested from abnormal screening. Patient History: Menarche at age 10. First Full-Term at age 19. Premenopausal. Patient has history of breast feeding. Patient used Hormonal Contraceptives for 3 years. 09/01/2022, Benign MG pre op needle loc LT on the left side. 10/24/2021, Benign Core Biopsy on the left side. Paternal grandmother had breast cancer. Risk Values: Merna 5 year model risk: 0.7%. NCI Lifetime model risk: 15.0%. Technique: Method: Targeted. Prior Study Comparison: 08/21/2022 Bilateral MG 3D diag mammo w/cad [facility], [facility]. 10/14/2023 Bilateral MG screening mammo w CAD, [facility]. Findings: The upper outer quadrant of the right breast, the axilla of the right breast and the retroareolar of the right breast were scanned. Nodular fibroglandular tissue seen. There is a cystic area identified 6 cm from the nipple at the 10:00 position measuring 1.2 x 0.6 cm. No solid masses are appreciated at this time.. Overall Assessment: Benign, BI-RAD 2 Management: Screening Mammogram of both breasts in 1 year. A clinical breast exam by your physician is recommended on an annual basis and results should be correlated with mammographic findings. This exam should not preclude additional follow-up of suspicious palpable abnormalities. Results were given to the patient verbally at the time of exam. Electronically signed and approved by: Mateusz Angel M.D. Radiologis
== END | disposition home or self-care (01) ==
LOC: RADMAMWWP 13:43
PROVIDERS: ATTEND Surgery
DX: R92.331 Mammographic heterogeneous density, right breast (principal); Z80.3 Family history of malignant neoplasm of breast
CPT/HCPCS: 77065; 76642; G0279; 77061

== ENCOUNTER 2023-11-15 19:18 | Emergency (ER) | payer OTHER ==
[2023-11-15 19:27] VITALS: TEMP 98.6
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
--- NOTE | 2023-11-15 20:11 | XR ---
EXAMINATION TYPE: XR chest 2V DATE OF EXAM: 11/15/2023 COMPARISON: 12/10/2022 HISTORY: Chest pain TECHNIQUE: Frontal and lateral views of the chest are obtained. FINDINGS: There is no focal air space opacity, pleural effusion, or pneumothorax seen. The cardiac silhouette size is within normal limits. The osseous structures are intact. IMPRESSION: No acute cardiopulmonary process.
[2023-11-15 20:28] LABS: Basophils # (A) 0.1 k/uL (0-0.2); Basophils % (A) 1 %; Eosinophils # (A) 0.5 k/uL (0-0.7); Eosinophils % (A) 3 %; HCT 38.2 % (34.0-46.0); Lymphocytes # (A) 4.2 k/uL (1.0-4.8); Lymphocytes % (A) 27 %; MCH 29.7 pg (25.0-35.0); MCV 87.3 fL (80.0-100.0); Monocytes # (A) 0.8 k/uL (0-1.0); Monocytes % (A) 5 %; Neutrophils # (A) 9.7 k/uL (1.3-7.7); Neutrophils % (A) 62 %; Platelet Count 390 k/uL (150-450); RBC 4.38 m/uL (3.80-5.40); RDW 12.4 % (11.5-15.5); WBC 15.7 k/uL (3.8-10.6)
[2023-11-15 21:48] LABS: Appearance,Urine Clear (Clear); Bilirubin,Urine Negative (Negative); Blood,Urine Small (Negative); Color,Urine Yellow; Glucose,Urine (UA) Negative (Negative); Ketones,Urine Negative (Negative); Leukocyte Esterase,Urine Moderate (Negative); Mucus,Urine Rare /hpf; Nitrite,Urine Negative (Negative); PH, Urine 6.5 (5.0-8.0); Protein,Urine Negative (Negative); RBC,Urine 8 /hpf (0-5); Specific Gravity,Urine 1.025 (1.001-1.035); Squamous Epithelial Cell,Urine 6 /hpf (0-4); WBC,Urine 5 /hpf (0-5)
[2023-11-15] MEDS: SODIUM CHLORIDE 0.9% 1,000 ML IV ONE (21:50)
[2023-11-15 22:03] LABS: ALT 46 U/L (4-34); African American GFR (CKD) >90 (>60 ml/min/1.73 sqM); Albumin 3.1 g/dL (3.5-5.0); Anion Gap 6 mmol/L; Blood Urea Nitrogen 11 mg/dL (7-17); Calcium 7.3 mg/dL (8.4-10.2); Carbon Dioxide 20 mmol/L (22-30); Chloride 113 mmol/L (98-107); Glucose 74 mg/dL (74-99); Non-African American GFR(CKD) >90 (>60 ml/min/1.73 sqM); Sodium 139 mmol/L (137-145); Total Bilirubin 0.7 mg/dL (0.2-1.3); Total Protein 6.2 g/dL (6.3-8.2)
[2023-11-15 22:09] LABS: AST 57 U/L (14-36); Alkaline Phosphatase 162 U/L (38-126); Potassium 3.2 mmol/L (3.5-5.1)
[2023-11-15 22:48] VITALS: RESP 16
[2023-11-15 23:00] LABS: ALT 56 U/L (4-34); AST 66 U/L (14-36); African American GFR (CKD) >90 (>60 ml/min/1.73 sqM); Albumin 4.1 g/dL (3.5-5.0); Alkaline Phosphatase 216 U/L (38-126); Anion Gap 5 mmol/L; Blood Urea Nitrogen 13 mg/dL (7-17); Calcium 9.3 mg/dL (8.4-10.2); Carbon Dioxide 28 mmol/L (22-30); Chloride 104 mmol/L (98-107); Glucose 94 mg/dL (74-99); Non-African American GFR(CKD) >90 (>60 ml/min/1.73 sqM); Potassium 3.9 mmol/L (3.5-5.1); Sodium 137 mmol/L (137-145); Total Bilirubin 0.8 mg/dL (0.2-1.3); Total Protein 7.6 g/dL (6.3-8.2)
[2023-11-15 23:43] VITALS: BP 107/59; PULSE 65
== END 2023-11-15 23:40 | disposition home or self-care (01) ==
LOC: EC 19:18
DX: R42 Dizziness and giddiness (principal); D72.829 Elevated white blood cell count, unspecified; J45.909 Unspecified asthma, uncomplicated; F31.9 Bipolar disorder, unspecified; F41.9 Anxiety disorder, unspecified; E07.9 Disorder of thyroid, unspecified; Z20.822 Contact with and (suspected) exposure to COVID-19; Z79.890 Hormone replacement therapy; Z79.899 Other long term (current) drug therapy; Z91.013 Allergy to seafood
CPT/HCPCS: 36415; 71046; 80053; 81001; 81025; 85025; 87636; 93005; 96360; 96372; 99284

== ENCOUNTER 2024-04-17 22:20 | Emergency (ER) | payer OTHER ==
[2024-04-17 22:34] VITALS: RESP 18; TEMP 98.5
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
[2024-04-17] MEDS: MAG HYDROX/AL HYDROX/SIMETH 30 ML CUP PO STA (23:21)
[2024-04-17] MEDS: MAG HYDROX/AL HYDROX/SIMETH 30 ML, HYOSCYAMINE ELIXIR 10 ML, LIDOCAINE VISCOUS 2% 10 ML PO STA (23:28)
[2024-04-18 00:18] LABS: Basophils # (A) 0.1 k/uL (0-0.2); Basophils % (A) 1 %; Eosinophils # (A) 0.5 k/uL (0-0.7); Eosinophils % (A) 4 %; HCT 36.3 % (34.0-46.0); HGB 12.5 gm/dL (11.4-16.0); Lymphocytes # (A) 3.8 k/uL (1.0-4.8); Lymphocytes % (A) 33 %; MCH 30.1 pg (25.0-35.0); MCHC 34.5 g/dL (31.0-37.0); MCV 87.5 fL (80.0-100.0); Mean Platelet Volume 7.6; Monocytes # (A) 0.7 k/uL (0-1.0); Monocytes % (A) 6 %; Neutrophils # (A) 6.1 k/uL (1.3-7.7); Neutrophils % (A) 54 %; Platelet Count 482 k/uL (150-450); RBC 4.15 m/uL (3.80-5.40); RDW 12.5 % (11.5-15.5); WBC 11.4 k/uL (3.8-10.6)
[2024-04-18 00:45] LABS: ALT 44 U/L (4-34); AST 54 U/L (14-36); African American GFR (CKD) >90 (>60 ml/min/1.73 sqM); Alkaline Phosphatase 222 U/L (38-126); Anion Gap 10 mmol/L; Blood Urea Nitrogen 13 mg/dL (7-17); Calcium 9.4 mg/dL (8.4-10.2); Carbon Dioxide 24 mmol/L (22-30); Chloride 102 mmol/L (98-107); Glucose 115 mg/dL (74-99); Lipase 78 U/L (23-300); Non-African American GFR(CKD) >90 (>60 ml/min/1.73 sqM); Potassium 4.1 mmol/L (3.5-5.1); Sodium 136 mmol/L (137-145); Total Bilirubin 0.5 mg/dL (0.2-1.3); Total Protein 7.1 g/dL (6.3-8.2)
[2024-04-18 01:18] VITALS: BP 116/76; PULSE 59
[2024-04-18 02:19] LABS: HCG,Qualitative Serum Not Detected
== END 2024-04-18 01:22 | disposition home or self-care (01) ==
LOC: EC 22:20
DX: R10.13 Epigastric pain (principal); R94.5 Abnormal results of liver function studies; Z91.013 Allergy to seafood
CPT/HCPCS: 36415; 80053; 83690; 84703; 85025; 99284

== ENCOUNTER 2024-07-24 20:29 | Emergency (ER) | payer OTHER ==
[2024-07-24 20:33] VITALS: BP 109/72; PULSE 73; RESP 22; TEMP 98
== END 2024-07-24 21:39 | disposition left against medical advice (07) ==
LOC: EC 20:29
DX: Z53.21 Procedure and treatment not carried out due to patient leaving prior to being seen by health care provider (principal)
CPT/HCPCS: 99499

== ENCOUNTER → 2024-07-26 | Outpatient (CLI) | payer OTHER ==
[2024-07-26 14:00] VITALS: BP 117/70; PULSE 76; RESP 16; TEMP 98.4
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
== END ==
LOC: 3 N SLEEP 13:39
PROVIDERS: ATTEND Internal Medicine
DX: G47.33 Obstructive sleep apnea (adult) (pediatric) (principal); G47.10 Hypersomnia, unspecified; F41.9 Anxiety disorder, unspecified; J45.909 Unspecified asthma, uncomplicated; E03.9 Hypothyroidism, unspecified; E66.9 Obesity, unspecified; G47.8 Other sleep disorders; Z98.890 Other specified postprocedural states; Z87.828 Personal history of other (healed) physical injury and trauma; Z90.49 Acquired absence of other specified parts of digestive tract; Z68.34 Body mass index [BMI] 34.0-34.9, adult; Z91.013 Allergy to seafood; Z79.890 Hormone replacement therapy; Z79.899 Other long term (current) drug therapy; Z79.51 Long term (current) use of inhaled steroids
CPT/HCPCS: 99211

== ENCOUNTER 2024-08-09 19:46 | Outpatient (CLI) | payer OTHER ==
--- NOTE | 2024-08-14 10:44 | P.PCN ---
Description of Procedure: POLYSOMNOGRAPHY and MSLT REPORT PROCEDURE(S)/DATE(S): Polysomnography 08/17/2024, multiple sleep latency test started, not finished 08/10/2024 CLINICAL: Patient has been seen in the sleep center for evaluation of obstructive sleep apnea-hypopnea syndrome. Please see my consultation. Sleep study has been done for evaluation of patient breathing during the sleep. PROCEDURE: The standard montage for clinical polysomnography included the electroencephalogram, the electrooculogram, the mentalis surface electromyography and Lead II cardiography. The respiratory battery consisted of measurements of nasal/buccal air flow, pressure transducer measurements from nose, thoracic and/or abdominal effort and intercostal surface electromyography. Video monitoring has been done to check for any parasomnia events. Nocturnal oxyhemoglobin saturations were obtained by finger oximetry. Step-sosa titration with positive airway pressure was utilized to control the respiratory events, if necessary. RESULTS: During the diagnostic sleep study sleep efficiency was slightly decreased to 85.0%. Latency to sleep onset was borderline 28.0 min. Sleep architecture showed stage NI was short 2.1%, Delta sleep was absent 0%, REM sleep was normal 25.2%. REM sleep latency was short 51.5 minutes Respiratory channel showed 1 obstructive apneas, 0 mixed apneas, 0 central apneas, 0 hypopneas with lowest oxygen level 93%. Total apnea hypopnea index was 0.2. Heart rate was in the range between 68 and 87, average 79. EMG showed 0 periodic limb movements per hour. Multiple sleep latency test was started on the following day, patient supposed to have 4 of 5 naps, but left after second nap AGAINST MEDICAL ADVICE. On this 2 naps patient fell asleep quickly latency and first nap 3.5 minutes, latency on second nap 4.5 minutes. IMPRESSIONS: 1. No significant respiratory abnormalities have been documented during the sleep study, normal oxygenation during sleep. Slightly short latency to REM sleep. 2. Multiple sleep latency test was not finished, because patient left after second nap. Patient fell asleep quickly on first 2 naps. No sleep onset REM periods have been documented during this 2 naps. Multiple sleep latency test was not finished, so cannot be properly interpret, but patient fell asleep quickly on first 2 naps and REM sleep latency during polysomnogram slightly short which may indicate possibility of hypersomnia or narcolepsy. Please see other impressions from consultation PLAN: 1. I will see patient for follow-up visit recs discussed results of the tests and following plan. 2. Losing weight program. 3. Sleep hygiene with regular time in bed for at least 7-1/2 hours. 4. No driving if feeling sleepiness. 5. Patient may need to repeat multiple sleep latency test. Thank you very much for allowing me to participate in the management of your pa tient. Sincerely, Cody Tineo MD, PhD, FAASM. Diplomat of [place] [employer], Sleep Medicine Board by [place] [employer] Molecular [facility]ologist [facility] [place] cc: Rufino Elmore DO
== END 2024-08-10 10:47 | disposition left against medical advice (07) ==
LOC: 3 N SLEEP 19:46
PROVIDERS: ATTEND Internal Medicine
DX: G47.33 Obstructive sleep apnea (adult) (pediatric) (principal); G47.10 Hypersomnia, unspecified; G47.52 REM sleep behavior disorder; Z91.013 Allergy to seafood
CPT/HCPCS: 95810

== ENCOUNTER 2024-09-26 21:35 | Observation (INO) | payer OTHER ==
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
[2024-09-26] MEDS: ACETAMINOPHEN TAB 500 MG TAB PO STA (22:14)
[2024-09-26] MEDS: SODIUM CHLORIDE 0.9% 500 ML 500 ML IV SCH (22:15)
[2024-09-26] MEDS: SODIUM CHLORIDE 0.9% 1,000 ML IV SCH (22:15)
[2024-09-26 22:32] LABS: Basophils # (A) 0.1 k/uL (0-0.2); Basophils % (A) 1 %; Eosinophils # (A) 0.5 k/uL (0-0.7); Eosinophils % (A) 4 %; HCT 42.5 % (34.0-46.0); Lymphocytes # (A) 1.8 k/uL (1.0-4.8); Lymphocytes % (A) 15 %; MCH 29.4 pg (25.0-35.0); MCV 88.9 fL (80.0-100.0); Mean Platelet Volume 7.4; Monocytes # (A) 0.9 k/uL (0-1.0); Monocytes % (A) 8 %; Neutrophils # (A) 8.3 k/uL (1.3-7.7); Neutrophils % (A) 71 %; Platelet Count 384 k/uL (150-450); RBC 4.78 m/uL (3.80-5.40); RDW 12.6 % (11.5-15.5); WBC 11.8 k/uL (3.8-10.6)
[2024-09-26 22:41] LABS: Partial Thromboplastin Time 26.7 sec (22.0-30.0); Prothrombin Time 10.8 sec (10.0-12.5)
[2024-09-26 22:43] LABS: ALT 39 U/L (4-34); AST 54 U/L (14-36); African American GFR (CKD) >90 (>60 ml/min/1.73 sqM); Albumin 4.9 g/dL (3.5-5.0); Alkaline Phosphatase 216 U/L (38-126); Anion Gap 13 mmol/L; Blood Urea Nitrogen 11 mg/dL (7-17); Calcium 9.6 mg/dL (8.4-10.2); Carbon Dioxide 25 mmol/L (22-30); Chloride 99 mmol/L (98-107); Glucose 138 mg/dL (74-99); Non-African American GFR(CKD) 85 (>60 ml/min/1.73 sqM); Potassium 3.6 mmol/L (3.5-5.1); Sodium 137 mmol/L (137-145); Total Bilirubin 0.4 mg/dL (0.2-1.3); Total Protein 8.6 g/dL (6.3-8.2)
--- NOTE | 2024-09-26 23:49 | XR ---
EXAM: XR Chest, 2 Views CLINICAL HISTORY: ITS.REASON XR Reason: Fever COVID+ TECHNIQUE: Frontal and lateral views of the chest. COMPARISON: November 15, 2023 FINDINGS: Lungs: No consolidation. No overt edema. Pleural space: No pleural effusion. No pneumothorax. Heart: Unremarkable. No cardiomegaly. Bones/joints: Unremarkable. No fracture or malalignment. IMPRESSION: No acute cardiopulmonary process.
--- NOTE | 2024-09-27 01:22 | CT ---
EXAM: CT Angiography Chest With Intravenous Contrast CLINICAL HISTORY: ITS.REASON CT Reason: concern for pe - covid+ Ddimer+ TECHNIQUE: Axial computed tomographic angiography images of the chest with intravenous contrast. CTDI is 14.7 mGy and DLP is 369.4 mGy-cm. This CT exam was performed using one or more of the following dose reduction techniques: automated exposure control, adjustment of the mA and/or kV according to patient size, and/or use of iterative reconstruction technique. MIP reconstructed images were created and reviewed. COMPARISON: No relevant prior studies available. FINDINGS: Pulmonary arteries: Unremarkable. No pulmonary embolism. Aorta: No acute findings. No thoracic aortic aneurysm. Lungs: Unremarkable. No mass. No consolidation. Pleural space: Unremarkable. No significant effusion. No pneumothorax. Heart: Unremarkable. No cardiomegaly. No significant pericardial effusion. No evidence of RV dysfunction. Bones/joints: No acute fracture. No dislocation. Soft tissues: Unremarkable. Lymph nodes: Unremarkable. No enlarged lymph nodes. Liver: Hepatic steatosis. Gallbladder and bile ducts: Cholecystectomy. IMPRESSION: 1. No pulmonary embolism. 2. Hepatic steatosis. 3. Cholecystectomy.
[2024-09-27 02:13] LABS: Amorphous Sediment,Urine Rare /hpf; Appearance,Urine Cloudy (Clear); Bilirubin,Urine Negative (Negative); Blood,Urine Negative (Negative); Color,Urine Colorless; Glucose,Urine (UA) Negative (Negative); Ketones,Urine Negative (Negative); Leukocyte Esterase,Urine Large (Negative); Mucus,Urine Rare /hpf; Nitrite,Urine Negative (Negative); PH, Urine 5.5 (5.0-8.0); Protein,Urine Negative (Negative); RBC,Urine 4 /hpf (0-5); Specific Gravity,Urine 1.017 (1.001-1.035); Squamous Epithelial Cell,Urine 6 /hpf (0-4); Urobilinogen,Urine <2.0 mg/dL (<2.0); WBC,Urine 168 /hpf (0-5)
[2024-09-27] MEDS ORDERED: VANCOMYCIN IV PER PHARMACY 1 EACH MISC MISCELLANE PRN (02:16)
[2024-09-27] MEDS ORDERED: NALOXONE 0.4 MG/ML 1 ML VIAL IV PRN (02:17)
[2024-09-27] MEDS: cefTRIAXone IN SWFI 1,000 MG/10 ML SYRINGE IVP STA (02:56)
[2024-09-27] MEDS: VANCOMYCIN 1,750 MG in SODIUM CHLORIDE 0.9% 500 ML 500 ML IVPB ONE (02:57)
[2024-09-27] MEDS: methylPREDNISolone SOD SUCCIN 125 MG in SODIUM CHLORIDE 0.9% 100 ML IVPB STA (03:43)
[2024-09-27] MEDS: methylPREDNISolone SOD SUCCI 125 MG/2 ML VIAL IVP STA (03:43)
[2024-09-27] MEDS: diphenhydrAMINE 50 MG/ML 1 ML VIAL IVP STA (03:44)
[2024-09-27] MEDS: ONDANSETRON 4 MG/2 ML VIAL IVP STA (04:17)
[2024-09-27 08:08] VITALS: TEMP 97.2
[2024-09-27] MEDS ORDERED: LORazepam 0.5 MG TAB PO PRN (10:51)
[2024-09-27] MEDS: ENOXAPARIN 40 MG/0.4 ML SYRINGE SQ SCH (11:39)
[2024-09-27] MEDS: LORATADINE 10 MG TAB PO SCH (11:39)
[2024-09-27] MEDS: MONTELUKAST 10 MG TAB PO SCH (11:40)
[2024-09-27] MEDS: LEVOTHYROXINE 100 MCG TAB PO SCH (11:43)
[2024-09-27] MEDS: lamoTRIgine 25 MG TAB PO SCH (11:43)
[2024-09-27 11:45] VITALS: BP 112/76; PULSE 74; RESP 14
[2024-09-27] MEDS ORDERED: OSELTAMIVIR 75 MG CAP PO SCH (13:30)
[2024-09-27] MEDS ORDERED: VANCOMYCIN 1,750 MG in SODIUM CHLORIDE 0.9% 500 ML 500 ML IVPB SCH (15:00)
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
== END 2024-09-27 14:11 | disposition home or self-care (01) ==
LOC: EC 21:35 → INTOOBSV 09-27 02:17 → 4SSUR 09-27 02:17
PROVIDERS: ADMIT Hospitalist; ATTEND Hospitalist
DX: U07.1 COVID-19 (principal); J45.41 Moderate persistent asthma with (acute) exacerbation; K21.9 Gastro-esophageal reflux disease without esophagitis; E03.9 Hypothyroidism, unspecified; F31.9 Bipolar disorder, unspecified; F41.9 Anxiety disorder, unspecified; K76.0 Fatty (change of) liver, not elsewhere classified; Z79.890 Hormone replacement therapy; Z79.899 Other long term (current) drug therapy; Z90.81 Acquired absence of spleen; Z88.1 Allergy status to other antibiotic agents
CPT/HCPCS: 96361; 96365; 96372; 96375; 99285; 36415; 93005; 85379; 80053; 83605; 85025; 85610; 85730; 81001; 87040; 87086; 71046; 71275; G0378; J3370; J1200; J1650; J0696; Q9967; J2919; 99291

== ENCOUNTER 2024-12-15 12:14 | Emergency (ER) | payer OTHER ==
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
[2024-12-15] MEDS: SODIUM CHLORIDE 0.9% 1,000 ML IV ONE (13:59)
[2024-12-15] MEDS: ONDANSETRON 4 MG/2 ML VIAL IVP STA (14:00)
[2024-12-15] MEDS: KETOROLAC 15 MG/ML 1 ML VIAL IVP STA (14:03)
[2024-12-15 14:10] LABS: Basophils # (A) 0.1 k/uL (0-0.2); Basophils % (A) 1 %; Eosinophils # (A) 0.3 k/uL (0-0.7); Eosinophils % (A) 3 %; HCT 41.7 % (34.0-46.0); HGB 13.8 gm/dL (11.4-16.0); Lymphocytes # (A) 2.7 k/uL (1.0-4.8); Lymphocytes % (A) 22 %; MCHC 33.2 g/dL (31.0-37.0); MCV 87.3 fL (80.0-100.0); Mean Platelet Volume 7.2; Monocytes # (A) 0.7 k/uL (0-1.0); Monocytes % (A) 6 %; Neutrophils # (A) 8.5 k/uL (1.3-7.7); Neutrophils % (A) 68 %; Platelet Count 495 k/uL (150-450); RBC 4.78 m/uL (3.80-5.40); RDW 12.2 % (11.5-15.5); WBC 12.5 k/uL (3.8-10.6)
[2024-12-15 14:18] LABS: Appearance,Urine Cloudy (Clear); Bilirubin,Urine Negative (Negative); Blood,Urine Negative (Negative); Color,Urine Dark Brown; Glucose,Urine (UA) Negative (Negative); Ketones,Urine Negative (Negative); Leukocyte Esterase,Urine Large (Negative); Mucus,Urine Rare /hpf; Nitrite,Urine Positive (Negative); Protein,Urine Negative (Negative); RBC,Urine 1 /hpf (0-5); Specific Gravity,Urine 1.015 (1.001-1.035); Squamous Epithelial Cell,Urine 10 /hpf (0-4); WBC,Urine 11 /hpf (0-5)
[2024-12-15 14:22] LABS: ALT 26 U/L (4-34); AST 34 U/L (14-36); African American GFR (CKD) >90 (>60 ml/min/1.73 sqM); Albumin 4.4 g/dL (3.5-5.0); Alkaline Phosphatase 149 U/L (38-126); Anion Gap 4 mmol/L; Blood Urea Nitrogen 14 mg/dL (7-17); Calcium 9.8 mg/dL (8.4-10.2); Carbon Dioxide 31 mmol/L (22-30); Chloride 96 mmol/L (98-107); Glucose 114 mg/dL (74-99); Non-African American GFR(CKD) >90 (>60 ml/min/1.73 sqM); Sodium 131 mmol/L (137-145); Total Bilirubin 0.4 mg/dL (0.2-1.3)
[2024-12-15 15:08] VITALS: RESP 18
--- NOTE | 2024-12-15 15:10 | CT ---
EXAMINATION TYPE: CT abdomen pelvis w con DATE OF EXAM: 12/15/2024 2:54 PM COMPARISON: CT dating back to 01/19/2019. 08/10/2023. MRI to 821. CLINICAL INDICATION: Female, 34 years old with history of jonathan flank pain; Bilateral flank pain UTI TECHNIQUE: Axial CT abdomen pelvis w con;Sagittal and coronal reformats were created on a separate w orkstation. Contrast used:100 mL of Isovue 300 with IV Contrast, (none if empty) Oral contrast used: without Oral Contrast (none if empty) CT DLP: 1418.8 mGycm, Automated exposure control for dose reduction was used. FINDINGS: LOWER CHEST: Unremarkable ABDOMEN LIVER: Dilated tubular structure in the left hepatic lobe seen dating back to 01/19/2019.r this is larg er on today's exam measuring up to 5.67 mm with a few additional dilated smaller branch is present. ( Series 202 image 44. Additionally the right hepatic lobe also demonstrates dilated ducts. GALLBLADDER AND BILE DUCTS: The gallbladder is surgically absent. Dilated duct as mentioned above. PANCREAS: Unremarkable. SPLEEN: Spleen appears fragmented with splenosis. ADRENAL GLANDS: Unremarkable. KIDNEYS AND URETERS: No evidence of hydronephrosis or renal calculus. The ureters are unremarkable. PELVIS BLADDER: No evidence for wall thickening or mass given limitations of exam. REPRODUCTIVE: Unremarkable. ABDOMEN & PELVIS STOMACH AND BOWEL: No evidence of bowel obstruction. Moderate amount stool throughout the colon. PERITONEUM/RETROPERITONEUM: No evidence of pneumoperitoneum or free fluid. Multiple omental masses ar e seen in the particularly the left upper quadrant favored represent splenosis. VASCULATURE: No evidence of aortic aneurysm. MUSCULOSKELETAL: No acute osseous abnormalities impression feces anterior vertebral bodies at T10. LYMPH NODES: No gross evidence for lymphadenopathy. Stable prominent mesenteric lymph nodes. SOFT TISSUE/ABDOMINAL WALL: Unremarkable IMPRESSION: 1. No evidence for acute abdominal process. No obstructive uropathy or renal calculus. 2. Moderate amount of stool throughout the colon. 3. Dilated to a structure in the left hepatic more prominent dilated destruction the left hepatic lo be compared to more distant priors but overall similar to 08/10/2023. Consider repeat MRI. 4. Splenosis. [facility], , 12/15/2024 3:08 PM
[2024-12-15 16:11] VITALS: BP 101/57; PULSE 67; TEMP 98.7
== END 2024-12-15 16:10 | disposition home or self-care (01) ==
LOC: EC 12:14
DX: N39.0 Urinary tract infection, site not specified (principal); Z88.1 Allergy status to other antibiotic agents; Z91.013 Allergy to seafood; Z88.8 Allergy status to other drugs, medicaments and biological substances
CPT/HCPCS: 36415; 80053; 83605; 85025; 81001; 81025; 87086; 74177; 99284; 96374; 96375; 96361; J2405; J1885; Q9967

== ENCOUNTER 2025-02-16 17:47 | Emergency (ER) | payer OTHER ==
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
[2025-02-16 18:31] VITALS: TEMP 98
--- NOTE | 2025-02-16 18:58 | XR ---
EXAMINATION TYPE: XR chest 2V DATE OF EXAM: 02/16/2025 6:51 PM COMPARISON: Chest radiographs from 09/26/2024. CLINICAL INDICATION: Female, 34 years old with history of Chest pain; [facility] TECHNIQUE: XR chest 2V Frontal and lateral views of the chest. FINDINGS: Lungs/Pleura: There is no evidence of pleural effusion, focal consolidation, or pneumothorax. Pulmonary vascularity: Unremarkable. Heart/mediastinum: Cardiomediastinal silhouette is unremarkable. Musculoskeletal: No acute osseous pathology. IMPRESSION: No acute cardiopulmonary disease/process. [facility], , 02/16/2025 6:56 PM
[2025-02-16 20:28] LABS: ALT 43 U/L (4-34); AST 45 U/L (14-36); African American GFR (CKD) >90 (>60 ml/min/1.73 sqM); Albumin 4.3 g/dL (3.5-5.0); Alkaline Phosphatase 141 U/L (38-126); Anion Gap 10 mmol/L; Basophils # (A) 0.13 10*3/uL (0.00-0.10); Blood Urea Nitrogen 14 mg/dL (7-17); Calcium 10.1 mg/dL (8.4-10.2); Carbon Dioxide 26 mmol/L (22-30); Chloride 99 mmol/L (98-107); Eosinophils # (A) 0.41 10*3/uL (0.04-0.35); Eosinophils % (A) 3.1 %; Glucose 111 mg/dL (74-99); HCT 38.5 % (37.2-46.3); Lymphocytes # (A) 3.78 10*3/uL (0.90-5.00); MCH 29.2 pg (27.0-32.0); MCHC 33.8 g/dL (32.0-37.0); MCV 86.5 fL (80.0-97.0); Mean Platelet Volume 9.3 fL (9.5-12.2); Monocytes # (A) 0.99 10*3/uL (0.20-1.00); Monocytes % (A) 7.6 %; Neutrophils # (A) 7.65 10*3/uL (1.80-7.70); Neutrophils % (A) 58.8 %; Non-African American GFR(CKD) >90 (>60 ml/min/1.73 sqM); Platelet Count 414 10*3/uL (140-440); RBC 4.45 10*6/uL (4.10-5.20); RDW 12.6 % (11.5-14.5); Sodium 135 mmol/L (137-145); Total Bilirubin 0.6 mg/dL (0.2-1.3); Total Protein 8.1 g/dL (6.3-8.2); WBC 13.02 10*3/uL (4.50-10.00)
[2025-02-17 00:11] VITALS: BP 113/77; PULSE 73; RESP 18
--- NOTE | 2025-02-17 00:24 | US ---
EXAM: US Duplex Left Lower Extremity Veins CLINICAL HISTORY: US Reason: pain TECHNIQUE: Real-time duplex ultrasound scan of the left lower extremity veins integrating B-mode two-dimensional vascular structure, Doppler spectral analysis, color flow Doppler imaging and compression. COMPARISON: No relevant prior studies available. FINDINGS: Deep veins: Unremarkable. No DVT in the visualized common femoral, femoral, proximal deep femoral or popliteal veins. The veins demonstrate normal color flow, are normally compressible, with normal phasic flow and/or augmentation response. Superficial veins: Unremarkable. No thrombus in the visualized great saphenous vein. Soft tissues: No acute findings. No popliteal cyst. IMPRESSION: Negative left lower extremity duplex venous ultrasound. No evidence of DVT.
== END 2025-02-17 00:11 | disposition home or self-care (01) ==
LOC: EC 17:47
DX: R07.89 Other chest pain (principal); Z88.1 Allergy status to other antibiotic agents; Z91.013 Allergy to seafood; Z88.8 Allergy status to other drugs, medicaments and biological substances
CPT/HCPCS: 36415; 71046; 80053; 81025; 84484; 85025; 93005; 99285